=== PATIENT | female | born 1935 | race Caucasian/White ===

== ENCOUNTER 2017-11-27 16:11 | Inpatient (IN) | payer MEDICARE, OTHER ==
[~2017-11-27] VITALS: Ht 175.3 cm; Wt 78.6 kg
[~2017-11-27 16:11] MED LIST: AMBIEN5 MG PO; ASPIRIN BUFFER325 MG PO; AVAPRO300 MG PO; BIOTIN1 MG PO; BUMETANIDE1 MG PO; CELEXA40 MG PO; CLONIDINE HCL0.1 MG PO; FERROUS SULFAT325 MG; FERROUS SULFAT325 MG PO; LABETALOL HCL200 MG PO; LAMICTAL100 MG PO; MULTI-VITAMIN1 EACH PO; NEXIUM40 MG PO; NORCO 10-325 T1 EACH PO; NORCO 7.5-3251 EACH PO; NORVASC10 MG PO; PRISTIQ ER50 MG PO; SUPER B COMPLEX PO; TRAZODONE HCL100 MG PO; TRAZODONE HCL50 MG PO; TRILIPIX135 MG PO; ZOFRAN ODT4 MG PO; ZOLPIDEM TARTRA10 MG PO
[2017-11-27] MEDS: SODIUM CHLORIDE 0.9% 1000ML 1,000 ML IV SCH ×2 (17:08→23:02)
[2017-11-27] MEDS ORDERED: DILTIAZEM HCL 5 MG/ML 5 ML VIAL IV ONE (17:30)
[2017-11-27] MEDS ORDERED: DILTIAZEM HCL 5 MG/ML 5 ML VIAL IV STA (17:35)
[2017-11-27] MEDS ORDERED: IOPAMIDOL 370 MG/ML 200 ML INFUS..BTL INJ ONE (18:00)
[2017-11-27] MEDS ORDERED: ONDANSETRON HCL INJ 2 MG/ML VIAL IV PRN (18:45)
[2017-11-27] MEDS ORDERED: SODIUM CHLORIDE FLUSH 10 ML SYR INJ PRN (18:45)
[2017-11-27 19:45] VITALS: BP 136/79
[2017-11-27 20:00] VITALS: BP 136/79
[2017-11-27] MEDS ORDERED: ALBUTEROL/IPRATROPIUM 3 ML NEB NEB PRN (20:45)
[2017-11-27] MEDS ORDERED: AMIODARONE HCL 150MG 100 ML IV ONE (21:00)
[2017-11-27] MEDS: ENOXAPARIN INJ 80 MG/0.8 ML SYR SC SCH (21:26)
[2017-11-27 22:24] LABS: CREATINE KINASE MB 0.9 ng/mL (0-5.0)
[2017-11-27 22:34] VITALS: BP 141/99
[2017-11-27 22:40] VITALS: BP 158/112
[2017-11-27] MEDS ORDERED: AMIODARONE HCL 100 ML IV ONE (22:46)
[2017-11-27] MEDS ORDERED: AMIODARONE 900MG 500 ML IV ONE (22:46)
[2017-11-27] MEDS: AMIODARONE 900MG 500 ML IV PRN (23:15)
[2017-11-27 23:40] VITALS: BP 121/111
[2017-11-27 23:56] VITALS: BP 132/107
[2017-11-28] VITALS (49 sets, daily range): BP systolic 99–135; BP diastolic 70–111
--- NOTE | 2017-11-28 00:05 | History and Physical ---
PRIMARY CARE PHYSICIAN: Dr. Shelly Zaldivar CHIEF COMPLAINT: Shortness of breath for 3 days. HISTORY OF PRESENT ILLNESS: This is an 82-year-old woman with the history of hypertension, now developing shortness of breath for the past 2 days. Denies any chest pain. She did have 1 episode of diarrhea, found to be in atrial fibrillation with rapid ventricular response. She was admitted for further evaluation and management. PAST MEDICAL HISTORY: Hypertension, left breast cancer, status post partial radical mastectomy in 1998. Left wrist fracture, nasal fracture, facial contusion, bipolar disorder, immunodeficiency disorder, GERD, hypertriglyceridemia, hyperlipidemia. PAST SURGICAL HISTORY: Partial radical mastectomy in 1998, bilateral hip replacement, bilateral knee replacement. ALLERGIES: PER ELECTRONIC MEDICAL RECORDS. FAMILY HISTORY: Patient is . She has 2 children. Occasional alcohol. No cigarettes or illicits. MEDICATION: Per electronic medical record. REVIEW OF SYSTEMS: Denies any dizziness, chest pain. Denies any fever or chills, no nausea, vomiting or diarrhea. PHYSICAL EXAM VITAL SIGNS: Reviewed. GENERAL APPEARANCE: A tired-appearing woman resting in the bed. HEENT: Anicteric. Pupils responsive to light. No oral lesions. CARDIOVASCULAR: Normal S1, S2. Rapid heart rate. LUNGS: Moderate breath sounds. ABDOMEN: Soft, nontender, nondistended. EXTREMITIES: No edema or calf tenderness. NEUROLOGIC: She is alert and oriented times 3. She moves all extremities. SKIN: Dry. PSYCHIATRIC: Normal affect. LABS: Reviewed. MEDICATIONS: Reviewed. ASSESSMENT: This is an 82-year-old woman. 1. Atrial fibrillation with rapid ventricular response. 2. Bipolar disorder. 3. Hypertension. 4. Overweight state. 5. Hyperlipidemia. PLAN 1. Will continue with the amiodarone drip and will continue with anticoagulation. 2. Cardiology has been consulted. 3. Obtain TSH and urinalysis. 4. Use Pepcid while patient is on an anticoagulation. 5. Monitor closely in the ICU. CRITICAL CARE TIME: More than 35 minutes. Job#: [id number] CQ
[2017-11-28 05:37] LABS: CHOL/HDL RATIO 4.4 (3.0-3.6)
[2017-11-28 05:49] LABS: CREATINE KINASE MB 0.8 ng/mL (0-5.0)
[2017-11-28] MEDS ORDERED: METOPROLOL TARTRATE 25 MG TAB PO SCH (06:00)
[2017-11-28] MEDS: ENOXAPARIN INJ 80 MG/0.8 ML SYR SC SCH ×2 (06:54→18:13)
[2017-11-28] MEDS: AMIODARONE 900MG 500 ML IV PRN (07:00)
[2017-11-28] MEDS ORDERED: MORPHINE SULFATE 2 MG/ML SYR ONE (07:19)
[2017-11-28] MEDS: MORPHINE SULFATE 2 MG/ML SYR IV PRN (07:46)
[2017-11-28] MEDS: ASPIRIN 325 MG TAB EC PO SCH (08:21)
[2017-11-28] MEDS: CITALOPRAM HYDROBROMIDE 20 MG TAB PO SCH (08:21)
[2017-11-28] MEDS: FAMOTIDINE 20 MG TAB PO SCH ×2 (08:21→16:30)
[2017-11-28 08:56] LABS: BASOPHILS # (AUTO) 0.1 (0.0-0.1); BASOPHILS % 0.4 % (0.0-1.0); EOSINOPHILS # (AUTO) 0.3 (0.0-0.4); EOSINOPHILS % 2.3 % (0.0-6.0); HEMATOCRIT 36.4 % (34.2-44.1); HEMOGLOBIN 11.5 g/dL (12.0-16.0); LYMPHOCYTES # (AUTO) 1.8 (1.0-3.2); LYMPHOCYTES % 14.9 % (18.0-39.1); MEAN CORPUSCULAR HEMOGLOBIN 26.3 pg (28-32); MEAN CORPUSCULAR HGB CONC 31.6 g/dL (31-35); MEAN CORPUSCULAR VOLUME 83.3 fL (81-99); MONOCYTES # (AUTO) 1.2 (0.2-0.8); MONOCYTES % 9.6 % (4.4-11.3); NEUTROPHILS # (AUTO) 8.7 (2.1-6.9); NEUTROPHILS % 72.5 % (38.7-80.0); PLATELET COUNT 259 x10e3/uL (140-360); RED BLOOD COUNT 4.37 x10e6/uL (3.6-5.1)
[2017-11-28] MEDS: SODIUM CHLORIDE 0.9% 1000ML 1,000 ML IV SCH (09:02)
[2017-11-28 09:07] LABS: CALCIUM 8.8 mg/dL (8.4-10.2); CREATININE, SERUM 0.97 mg/dL (0.57-1.11)
[2017-11-28] MEDS ORDERED: DILTIAZEM HCL 120 MG CAP CD PO SCH (10:00)
[2017-11-28 10:30] LABS: FREE T4 (FREE THYROXINE) 1.02 ng/dL (0.9-1.8); FREE THYROXINE INDEX 2.1674 (1.4-3.8)
[2017-11-28] MEDS: IRBESARTAN 150 MG TAB PO SCH (10:45)
--- NOTE | 2017-11-28 11:08 | Diagnostic Imaging Report ---
PROCEDURE: A single AP view of the chest. COMPARISON: 05/06/14 INDICATIONS: SHORTNESS OF BREATH FINDINGS: Lines/tubes: None. Lungs: The lungs are well inflated. Pulmonary vascular congestion and mild to moderate interstitial edema. Pleura: There is no pleural effusion or pneumothorax. Heart and mediastinum: The cardiac silhouette is enlarged. Thickening of the right paratracheal stripe. Aorta is calcified and mildly tortuous. Bones: No acute bony abnormality. IMPRESSION: Enlarged cardiac silhouette, pulmonary vascular congestion, and mild to moderate interstitial edema. Dictated by: Rex Eldridge M.D. on 11/28/2017 at 11:11 Electronically approved by: Rex Eldridge M.D. on 11/28/2017 at 11:11
[2017-11-28] MEDS: IPRATROPIUM BROMIDE 0.02% 2.5 ML NEB NEB SCH ×3 (11:20→23:55)
[2017-11-28] MEDS: LEVALBUTEROL HCL SOLN NEBU 0.63 MG/3 ML NEB INH SCH ×3 (11:20→23:55)
--- NOTE | 2017-11-28 12:05 | Progress Note ---
DATE: November 28, 2017 TIME OF SERVICE: 7:30 a.m. OVERNIGHT: Abdominal discomfort and mild shortness of breath. REVIEW OF SYSTEMS: Denies any dizziness or chest pain. Denies any leg pain, back pain, or blurred vision. PHYSICAL EXAMINATION VITAL SIGNS: Reviewed. GENERAL APPEARANCE: Tired-appearing woman resting in bed. HEENT: Anicteric. Pupils responsive to light. No oral lesions. CARDIOVASCULAR: Normal S1, S2. Rapid heart rate. LUNGS: Moderate breath sounds. Scattered wheeze in her lung exam. ABDOMEN: Soft and nondistended. She has tenderness in the left lower quadrant. No rebound, no guarding. EXTREMITIES: No edema or calf tenderness. NEUROLOGIC: She is alert and oriented times 3. Moves all extremities. LABS: Reviewed. MEDICATIONS: Reviewed. ASSESSMENT: An 82-year-old woman with 1. Atrial fibrillation with rapid ventricular response. 2. Bipolar disorder. 3. Hypertension. 4. Overweight state. 5. Hyperlipidemia. 6. Abdominal pain. PLAN 1. Continue amiodarone drip. 2. Continue the attempts for rate control. 3. Given Xopenex for wheezing. 4. Abdominal discomfort may be due to constipation or medications. Will monitor. 5. Obtain labs this morning. CRITICAL CARE TIME: More than 35 minutes. Job#: [id number]
[2017-11-28 12:56] LABS: CREATINE KINASE MB 0.7 ng/mL (0-5.0)
[2017-11-28] MEDS: BECLOMETHASONE DIP 80MCG 7.3 GM INH INH SCH (14:55)
--- NOTE | 2017-11-28 15:12 | Consultation ---
DATE OF CONSULTATION: November 27, 2017 CARDIOLOGY CONSULTATION ATTENDING PHYSICIAN: Navid Buckley. CLINICAL HISTORY: This is an 82-year-old white woman referred by Dr. Navid Buckley for evaluation of rapid atrial fibrillation apparently of two days onset. This patient has history of cigarette smoking for approximately 30 years, but she has not smoked for 30 years. She was given ProAir approximately 6 to 12 months ago by her primary care physician, Dr. Petra Santamaria. She used it once a day and in the evening of Tuesday, she developed palpitations, but did not come to the emergency room until she presented to [facility] with rapid atrial fibrillation. She was transferred to [facility] for hospitalization. PAST MEDICAL HISTORY: Remarkable for hypertension. She denies any diabetes or hypercholesterolemia. There is a history of left breast cancer, status post left partial radical mastectomy in 1988. She has had indigestion, insomnia, anxiety, depression. PAST SURGERIES: Included right shoulder surgery, cholecystectomy, cataract surgery, partial radical mastectomy in 1998, bilateral hip replacement, bilateral knee replacement. ALLERGIES: NONE KNOWN. FAMILY HISTORY: She is . 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 She was a smoker for 30 years, but stopped smoking 30 years ago. She drinks occasionally. She had gone to college at [employer] in radio-television drama but never graduated. MEDICATIONS: Included amlodipine 10 mg per day, Bumex 1 mg p.o. daily, Nexium 40 mg daily, labetalol 200 mg b.i.d., zolpidem 5 mg p.o. daily, citalopram 40 mg p.o. daily, irbesartan 200 mg p.o. daily, trazodone 100 mg p.o. nightly. REVIEW OF SYSTEMS: Noncontributory. PHYSICAL EXAMINATION VITAL SIGNS: Remain stable except for irregular heart rate around 80 beats per minute. CARDIAC: Jugular veins were not distended. S1 S2 were regular. LUNGS: Showed diminished breath sounds. ABDOMEN: Soft. Bowel sounds are present. EXTREMITIES: Showed no cyanosis, clubbing, or edema. LABORATORY DATA: EKG showed atrial fibrillation, nonspecific T-wave inversion in the anterior leads low voltage. Chest x-ray showed cardiomegaly. The sodium is 139, potassium 4.0, BUN is 15, creatinine is 0.97. TSH is 2.05. White count is 12,000, hemoglobin 11.5, platelet count 259,000. IMPRESSION 1. Rapid atrial fibrillation possibly induced by ProAir, although she does have cardiomegaly on chest x-ray. 2. Abnormal EKG indicating possible anterior ischemia with low voltage. 3. Chronic obstructive pulmonary disease with no smoking for 30 years, but prior to that she smoked for 30 years. 4. Anxiety and depression. 5. Mild anemia, hemoglobin 11.5. 6. Hypertension. 7. Obesity. 8. History of left breast cancer 1994. RECOMMENDATION: Avoid beta agonist. Anticoagulation, amiodarone, echocardiogram, chest x-ray. Thank you very much. Job#: [id number] SARA cc:DR. PETRA BUCKLEY MD
[2017-11-28] MEDS: TRAZODONE HCL 50 MG TAB PO SCH (21:33)
[2017-11-29] VITALS (60 sets, daily range): BP systolic 97–144; BP diastolic 61–107
[2017-11-29] MEDS: IPRATROPIUM BROMIDE 0.02% 2.5 ML NEB NEB SCH ×3 (02:10→14:25)
[2017-11-29] MEDS: SODIUM CHLORIDE 0.9% 1000ML 1,000 ML IV SCH (04:12)
[2017-11-29] MEDS: ENOXAPARIN INJ 80 MG/0.8 ML SYR SC SCH ×2 (06:13→18:29)
[2017-11-29] MEDS: LEVALBUTEROL HCL SOLN NEBU 0.63 MG/3 ML NEB INH SCH ×3 (06:50→19:30)
[2017-11-29] MEDS: BECLOMETHASONE DIP 80MCG 7.3 GM INH INH SCH (06:50)
[2017-11-29 06:55] LABS: BASOPHILS # (AUTO) 0.1 (0.0-0.1); BASOPHILS % 0.4 % (0.0-1.0); EOSINOPHILS # (AUTO) 0.2 (0.0-0.4); EOSINOPHILS % 1.5 % (0.0-6.0); HEMOGLOBIN 11.6 g/dL (12.0-16.0); LYMPHOCYTES # (AUTO) 1.7 (1.0-3.2); LYMPHOCYTES % 14.2 % (18.0-39.1); MEAN CORPUSCULAR HEMOGLOBIN 26.4 pg (28-32); MEAN CORPUSCULAR HGB CONC 31.4 g/dL (31-35); MEAN CORPUSCULAR VOLUME 84.3 fL (81-99); MONOCYTES # (AUTO) 1.3 (0.2-0.8); MONOCYTES % 10.3 % (4.4-11.3); NEUTROPHILS # (AUTO) 8.9 (2.1-6.9); NEUTROPHILS % 73.3 % (38.7-80.0); PLATELET COUNT 254 x10e3/uL (140-360); RED BLOOD COUNT 4.39 x10e6/uL (3.6-5.1)
--- NOTE | 2017-11-29 07:07 | Diagnostic Imaging Report ---
PROCEDURE:X-RAY ABDOMEN - KUB COMPARISON:None. INDICATIONS:ABDOMINAL PAIN, NAUSEA AND VOMITING FINDINGS: The bowel gas pattern is nonobstructive. Gas and fecal material is noted throughout the colon. No mass effect or organomegaly. Multiple surgical clips in the right and left upper quadrants as well as along the pelvic sidewalls. Bilateral total hip arthroplasty. Degenerative changes of the lumbar spine. CONCLUSION: nonobstructive bowel gas pattern. Dictated by: Addi Mas M.D. on 11/29/2017 at 7:11 Electronically approved by: Addi Mas M.D. on 11/29/2017 at 7:11
[2017-11-29 07:12] LABS: ANION GAP 11.4 mmol/L (8-16); CALCIUM 8.9 mg/dL (8.4-10.2); CREATININE, SERUM 1.03 mg/dL (0.57-1.11); MAGNESIUM 2.3 MG/DL (1.3-2.1); POTASSIUM 4.4 mmol/L (3.5-5.1)
[2017-11-29] MEDS ORDERED: POTASSIUM CHLORIDE 10 MEQ TABCR PO SCH (09:00)
[2017-11-29] MEDS ORDERED: DILTIAZEM HCL 120 MG CAP CD PO SCH (09:00)
[2017-11-29] MEDS ORDERED: IRBESARTAN 300 MG PO SCH (09:00)
--- NOTE | 2017-11-29 09:05 | Cardiology Report ---
DATE OF STUDY: ECHOCARDIOGRAM M-MODE: Dilated left atrium. Normal left ventricular wall thickness. Diminished left ventricular contractility. Normal mitral and aortic valves. No pericardial effusion. SECTOR SCAN: Dilated left and right atria. Normal left ventricular wall thickness. Diminished left ventricular ejection fraction estimated at 20%. Mitral annular sclerosis. Normal aortic valve. Normal tricuspid valves. No pericardial effusion. CARDIAC DOPPLER STUDY WITH COLOR: Tricuspid regurgitation 2+. Pulmonary artery systolic pressure estimated at 41 mmHg. CONCLUSIONS 1. Severely diminished left ventricular contractility. Estimated ejection fraction 20%. 2. Dilated left atrium with atrial fibrillation. 3. Moderate tricuspid regurgitation with dilated right atrium with mild pulmonary hypertension. Pulmonary artery systolic pressure estimated at 41 mmHg. Job#: [id number]
[2017-11-29] MEDS: CITALOPRAM HYDROBROMIDE 20 MG TAB PO SCH (09:24)
[2017-11-29] MEDS: ASPIRIN 325 MG TAB EC PO SCH (09:24)
[2017-11-29] MEDS: FAMOTIDINE 20 MG TAB PO SCH ×2 (09:24→17:32)
[2017-11-29] MEDS: DIGOXIN INJ 0.25 MG/ML 2 ML AMP IV SCH ×3 (09:25→15:30)
[2017-11-29] MEDS: IRBESARTAN 150 MG TAB PO SCH (09:27)
[2017-11-29] MEDS: DILTIAZEM HCL 180 MG CAP CD PO SCH (09:30)
[2017-11-29] MEDS ORDERED: POTASSIUM CHLORIDE 20 MEQ TAB CR PO NR (09:30)
[2017-11-29] MEDS: FUROSEMIDE INJ 10 MG/ML 4 ML VIAL IV SCH ×3 (10:02→23:04)
[2017-11-29] MEDS: ZOLPIDEM TARTRATE 5 MG TAB PO PRN (21:12)
[2017-11-29] MEDS: TRAZODONE HCL 50 MG TAB PO SCH (21:12)
[2017-11-30] VITALS (26 sets, daily range): BP systolic 104–147; BP diastolic 54–91
[2017-11-30] MEDS: LEVALBUTEROL HCL SOLN NEBU 0.63 MG/3 ML NEB INH SCH ×4 (02:10→19:00)
[2017-11-30 05:21] LABS: ANION GAP 12.9 mmol/L (8-16); CALCIUM 8.9 mg/dL (8.4-10.2); CREATININE, SERUM 1.1 mg/dL (0.57-1.11); POTASSIUM 3.9 mmol/L (3.5-5.1)
[2017-11-30] MEDS: ENOXAPARIN INJ 80 MG/0.8 ML SYR SC SCH ×2 (06:31→18:06)
[2017-11-30] MEDS: IPRATROPIUM BROMIDE 0.02% 2.5 ML NEB NEB SCH ×2 (07:30→12:53)
[2017-11-30] MEDS: BECLOMETHASONE DIP 80MCG 7.3 GM INH INH SCH ×2 (07:30→12:07)
[2017-11-30] MEDS: CITALOPRAM HYDROBROMIDE 20 MG TAB PO SCH (09:00)
[2017-11-30] MEDS: POTASSIUM CHLORIDE 10 MEQ TABCR PO SCH (09:00)
[2017-11-30] MEDS: DIGOXIN 0.125 MG TAB PO SCH (09:00)
[2017-11-30] MEDS: IRBESARTAN 150 MG TAB PO SCH (09:00)
[2017-11-30] MEDS: FAMOTIDINE 20 MG TAB PO SCH ×2 (09:00→18:06)
[2017-11-30] MEDS: DILTIAZEM HCL 180 MG CAP CD PO SCH (09:00)
[2017-11-30] MEDS: FUROSEMIDE 40 MG TAB PO SCH (09:00)
[2017-11-30] MEDS ORDERED: POTASSIUM CHLORIDE 20 MEQ TAB CR PO ONE (09:15)
[2017-11-30] MEDS ORDERED: METOLAZONE 5 MG TAB PO ONE (09:30)
[2017-11-30] MEDS ORDERED: ACETAZOLAMIDE 500 MG CAP PO ONE (09:30)
[2017-11-30] MEDS ORDERED: ACETAZOLAMIDE 250 MG TAB PO ONE (09:30)
[2017-11-30 09:32] LABS: BILIRUBIN,URINE NEGATIVE (NEGATIVE); CLARITY,URINE CLEAR (CLEAR); COLOR,URINE YELLOW (YELLOW); KETONES,URINE NEGATIVE (NEGATIVE); LEUKOCYTE ESTERASE ,URINE NEGATIVE (NEGATIVE); NITRITE,URINE NEGATIVE (NEGATIVE); PROTEIN,URINE DIPSTICK NEGATIVE (NEGATIVE); URINE UROBILINOGEN 0.2 mg/dL (0.2 - 1)
[2017-11-30 09:40] LABS: EPITHELIAL CELLS,URINE FEW /LPF; MUCUS,URINE RARE (RARE); WBC,URINE (MAN) 0-5 /HPF (0-5)
--- NOTE | 2017-11-30 14:23 | Progress Note ---
DATE: November 29, 2017 MEDICINE PROGRESS NOTE TIME OF SERVICE: 7 a.m. SUBJECTIVE: Overnight, continues to have elevated heart rate. REVIEW OF SYSTEMS: Denies any dizziness, chest pain, shortness of breath. Denies any leg pain or back pain. VITAL SIGNS: Reviewed. PHYSICAL EXAMINATION GENERAL APPEARANCE: A tired-appearing woman resting in bed. HEENT: Anicteric. CARDIOVASCULAR: Normal S1/S2. Rapid heart rate. LUNGS: Moderate breath sounds. ABDOMEN: Soft, nontender, nondistended. EXTREMITIES: No edema or calf tenderness. NEUROLOGICALLY: Alert and oriented x3. Moving all extremities. SKIN: Dry. PSYCHIATRIC: Normal affect. LABS: Reviewed. MEDICATIONS: Reviewed. ASSESSMENT: An 82-year-old woman. 1. Atrial fibrillation with rapid ventricular response. 2. Bipolar disorder. 3. Hypertension. 4. Overweight state. 5. Hyperlipidemia. 6. Left lower quadrant abdominal pain. PLAN 1. Obtain KUB. 2. Continue amiodarone. TSH is normal. 3. Continue care in the ICU. Critical care time more than 35 minutes. Job#: [id number] EV
--- NOTE | 2017-11-30 14:46 | Progress Note ---
DATE: November 30, 2017 TIME OF SERVICE: 1:32 p.m. OVERNIGHT: No events. REVIEW OF SYSTEMS: 8-point system review negative. PHYSICAL EXAMINATION VITAL SIGNS: Reviewed. GENERAL APPEARANCE: A tired-appearing woman resting in bed. HEENT: Anicteric. CARDIOVASCULAR: Normal S1, S2. Rapid heart rate. LUNGS: Moderate breath sounds. ABDOMEN: Soft, nontender, nondistended. EXTREMITIES: No edema. SKIN: Dry. PSYCHIATRIC: Normal affect. LABS: Reviewed. MEDICATIONS: Reviewed. ASSESSMENT: An 82-year-old woman. 1. Atrial fibrillation with rapid ventricular response. 2. Hypertension. 3. Hyperlipidemia. 4. Overweight state. 5. Bipolar disorder. 6. Normocytic anemia. PLAN 1. Amiodarone drip has been off. Patient remains on diltiazem orally and digoxin. He will be transitioned to medical floor. 2. Continue Celexa. 3. Continue Lovenox q.12. 4. Continue rate control. 5. KUB was negative. Job#: [id number] EMILIA
[2017-11-30] MEDS: TRAZODONE HCL 50 MG TAB PO SCH (21:00)
[2017-11-30] MEDS: MORPHINE SULFATE 2 MG/ML SYR IV PRN (22:20)
[2017-12-01] VITALS (7 sets, daily range): BP systolic 112–149; BP diastolic 63–86
[2017-12-01] MEDS: ZOLPIDEM TARTRATE 5 MG TAB PO PRN ×2 (00:24→23:54)
[2017-12-01] MEDS: LEVALBUTEROL HCL SOLN NEBU 0.63 MG/3 ML NEB INH SCH ×5 (00:30→19:30)
[2017-12-01] MEDS: BECLOMETHASONE DIP 80MCG 7.3 GM INH INH SCH ×2 (06:15→06:30)
[2017-12-01 06:16] LABS: ANION GAP 11.6 mmol/L (8-16); CALCIUM 9.8 mg/dL (8.4-10.2); CREATININE, SERUM 1.08 mg/dL (0.57-1.11); POTASSIUM 3.6 mmol/L (3.5-5.1)
[2017-12-01] MEDS: ENOXAPARIN INJ 80 MG/0.8 ML SYR SC SCH ×2 (06:19→16:36)
[2017-12-01] MEDS: IPRATROPIUM BROMIDE 0.02% 2.5 ML NEB NEB SCH ×4 (06:30→19:30)
--- NOTE | 2017-12-01 08:32 | Progress Note ---
DATE: December 01, 2017 TIME: 7:45 a.m. OVERNIGHT: No events. REVIEW OF SYSTEMS: Denies any dizziness or chest pain. Denies any fever, chills, sweats, leg pain, back pain, skin rash. PHYSICAL EXAMINATION VITAL SIGNS: Reviewed. GENERAL: A tired-appearing woman resting in bed. HEENT: Anicteric. CARDIOVASCULAR: Normal S1 and S2. LUNGS: Moderate breath sounds. ABDOMEN: Soft and nontender. EXTREMITIES: No edema. SKIN: Dry. PSYCHIATRIC: Normal affect. LABS: Reviewed. MEDICATIONS: Reviewed. ASSESSMENT: An 83-year-old woman with: 1. Atrial fibrillation with rapid ventricular response. 2. Hypertension. 3. Hyperlipidemia. 4. Overweight state. 5. Bipolar disorder. 6. Normocytic anemia. PLAN 1. Will continue amiodarone. 2. Continue AV blocking agents. 3. Continue Celexa. 4. Continue Lovenox q.12 h. 5. The patient will need to be transitioned to an oral anticoagulant. Will defer to cardiology. Job#: [id number] DE
[2017-12-01] MEDS: FAMOTIDINE 20 MG TAB PO SCH ×2 (09:12→16:36)
[2017-12-01] MEDS: DILTIAZEM HCL 180 MG CAP CD PO SCH (09:13)
[2017-12-01] MEDS: CITALOPRAM HYDROBROMIDE 20 MG TAB PO SCH (09:13)
[2017-12-01] MEDS: FUROSEMIDE 40 MG TAB PO SCH (09:13)
[2017-12-01] MEDS: DIGOXIN 0.125 MG TAB PO SCH (09:13)
[2017-12-01] MEDS: POTASSIUM CHLORIDE 10 MEQ TABCR PO SCH (09:13)
[2017-12-01] MEDS: IRBESARTAN 150 MG TAB PO SCH (16:36)
[2017-12-01] MEDS: TRAZODONE HCL 50 MG TAB PO SCH (20:28)
[2017-12-02] VITALS (9 sets, daily range): BP systolic 114–129; BP diastolic 58–67
[2017-12-02] MEDS: LEVALBUTEROL HCL SOLN NEBU 0.63 MG/3 ML NEB INH SCH ×2 (00:30→06:55)
[2017-12-02 05:33] LABS: ANION GAP 14.7 mmol/L (8-16); CALCIUM 10.2 mg/dL (8.4-10.2); CREATININE, SERUM 1.31 mg/dL (0.57-1.11); POTASSIUM 3.7 mmol/L (3.5-5.1)
[2017-12-02] MEDS: ENOXAPARIN INJ 80 MG/0.8 ML SYR SC SCH (06:10)
[2017-12-02] MEDS: IPRATROPIUM BROMIDE 0.02% 2.5 ML NEB NEB SCH ×3 (06:55→22:45)
[2017-12-02 07:15] LABS: BASOPHILS % 0.3 % (0.0-1.0); EOSINOPHILS # (AUTO) 0.5 (0.0-0.4); EOSINOPHILS % 3.5 % (0.0-6.0); HEMATOCRIT 38.8 % (34.2-44.1); HEMOGLOBIN 12.6 g/dL (12.0-16.0); LYMPHOCYTES # (AUTO) 2.7 (1.0-3.2); LYMPHOCYTES % 19.2 % (18.0-39.1); MEAN CORPUSCULAR HEMOGLOBIN 26.7 pg (28-32); MEAN CORPUSCULAR HGB CONC 32.5 g/dL (31-35); MEAN CORPUSCULAR VOLUME 82.2 fL (81-99); MONOCYTES # (AUTO) 1.5 (0.2-0.8); MONOCYTES % 10.3 % (4.4-11.3); NEUTROPHILS # (AUTO) 9.4 (2.1-6.9); NEUTROPHILS % 66.3 % (38.7-80.0); PLATELET COUNT 288 x10e3/uL (140-360); RED BLOOD COUNT 4.72 x10e6/uL (3.6-5.1); RED CELL DISTRIBUTION WIDTH 15.8 % (11.7-14.4)
[2017-12-02] MEDS ORDERED: IRBESARTAN 150 MG TAB PO SCH (09:00)
--- NOTE | 2017-12-02 09:00 | Progress Note ---
DATE: December 02, 2017 TIME: 8:25 a.m. OVERNIGHT: Feeling better. REVIEW OF SYSTEMS: Denies any dizziness, chest pain. PHYSICAL EXAMINATION: VITAL SIGNS: Reviewed. GENERAL APPEARANCE: Tired-appearing woman resting in bed. HEENT: Anicteric. Pupils respond to light. No oral lesions. CARDIOVASCULAR: Normal S1 and S2. LUNGS: Moderate breath sounds. ABDOMEN: Soft, nontender, nondistended. EXTREMITIES: No edema or calf tenderness. NEUROLOGICAL: Alert and appropriate. Moving all extremities. SKIN: Dry. PSYCHIATRIC: Normal affect. LABS: Reviewed. MEDICATIONS: Reviewed. ASSESSMENT: An 82-year-old woman: 1. Atrial fibrillation with rapid ventricular response. 2. Hypertension. 3. Chronic kidney disease, stage 3. 4. Hyperlipidemia. 5. Overweight state. 6. Bipolar disorder. 7. Normocytic anemia. PLAN: 1. Continue medication regimen. 2. Continue AV blocking agents including amiodarone. 3. Continue Celexa. 4. Continue Lovenox q.12. 5. Will need to be transitioned to oral anticoagulant. 6. Discharge planning and likely home tomorrow. 7. Wean oxygen . Job#: [id number]
[2017-12-02] MEDS: FAMOTIDINE 20 MG TAB PO SCH ×2 (09:48→17:15)
[2017-12-02] MEDS: POTASSIUM CHLORIDE 10 MEQ TABCR PO SCH (09:49)
[2017-12-02] MEDS: CITALOPRAM HYDROBROMIDE 20 MG TAB PO SCH (09:49)
[2017-12-02] MEDS: DILTIAZEM HCL 180 MG CAP CD PO SCH (09:49)
[2017-12-02] MEDS: FUROSEMIDE 40 MG TAB PO SCH (09:50)
[2017-12-02] MEDS: DIGOXIN 0.125 MG TAB PO SCH (09:50)
[2017-12-02] MEDS: METOPROLOL TARTRATE 25 MG TAB PO SCH ×2 (09:50→17:15)
[2017-12-02] MEDS: RIVAROXABAN 20 MG TABLET PO SCH (17:15)
[2017-12-02] MEDS: TRAZODONE HCL 50 MG TAB PO SCH (20:27)
[2017-12-02] MEDS: ZOLPIDEM TARTRATE 5 MG TAB PO PRN (22:08)
[2017-12-03] VITALS (7 sets, daily range): BP systolic 107–122; BP diastolic 55–83
[2017-12-03] MEDS: IPRATROPIUM BROMIDE 0.02% 2.5 ML NEB NEB SCH ×3 (07:25→23:45)
[2017-12-03] MEDS: BECLOMETHASONE DIP 80MCG 7.3 GM INH INH SCH (07:25)
[2017-12-03] MEDS: METOPROLOL TARTRATE 25 MG TAB PO SCH ×2 (09:00→16:34)
[2017-12-03] MEDS: POTASSIUM CHLORIDE 10 MEQ TABCR PO SCH (09:19)
[2017-12-03] MEDS: FUROSEMIDE 40 MG TAB PO SCH (09:19)
[2017-12-03] MEDS: FAMOTIDINE 20 MG TAB PO SCH ×2 (09:19→16:34)
[2017-12-03] MEDS: DIGOXIN 0.125 MG TAB PO SCH (09:19)
[2017-12-03] MEDS: CITALOPRAM HYDROBROMIDE 20 MG TAB PO SCH (09:19)
[2017-12-03 10:42] LABS: ANION GAP 15.1 mmol/L (8-16); CALCIUM 10.4 mg/dL (8.4-10.2); CREATININE, SERUM 1.35 mg/dL (0.57-1.11); POTASSIUM 4.1 mmol/L (3.5-5.1)
[2017-12-03] MEDS ORDERED: SODIUM CHLORIDE 0.45% 1,000 ML IV ONE (13:15)
[2017-12-03] MEDS: ALPRAZOLAM 0.25 MG TAB PO PRN ×2 (13:50→23:34)
[2017-12-03] MEDS: DILTIAZEM HCL 180 MG CAP CD PO SCH (13:50)
[2017-12-03] MEDS: RIVAROXABAN 20 MG TABLET PO SCH (16:34)
[2017-12-03] MEDS: IPRATROPIUM BROMIDE 0.02% 2.5 ML NEB NEB PRN (19:00)
[2017-12-03] MEDS: TRAZODONE HCL 50 MG TAB PO SCH (21:05)
[2017-12-03] MEDS: ZOLPIDEM TARTRATE 5 MG TAB PO PRN (23:30)
[2017-12-04] VITALS (8 sets, daily range): BP systolic 106–137; BP diastolic 58–78
[2017-12-04 05:10] LABS: ANION GAP 12.9 mmol/L (8-16); CALCIUM 10.1 mg/dL (8.4-10.2); CREATININE, SERUM 1.2 mg/dL (0.57-1.11); POTASSIUM 3.9 mmol/L (3.5-5.1)
[2017-12-04] MEDS: BECLOMETHASONE DIP 80MCG 7.3 GM INH INH SCH (06:00)
[2017-12-04] MEDS: IPRATROPIUM BROMIDE 0.02% 2.5 ML NEB NEB SCH ×3 (06:54→23:45)
[2017-12-04] MEDS: FAMOTIDINE 20 MG TAB PO SCH ×2 (08:19→16:24)
[2017-12-04] MEDS: DIGOXIN 0.125 MG TAB PO SCH (08:20)
[2017-12-04] MEDS: FUROSEMIDE 20 MG TAB PO SCH (08:20)
[2017-12-04] MEDS: METOPROLOL TARTRATE 25 MG TAB PO SCH ×2 (08:20→16:24)
[2017-12-04] MEDS: POTASSIUM CHLORIDE 10 MEQ TABCR PO SCH (08:20)
[2017-12-04] MEDS: DILTIAZEM HCL 180 MG CAP CD PO SCH (08:20)
[2017-12-04] MEDS: IRBESARTAN 150 MG TAB PO SCH (08:20)
[2017-12-04] MEDS: CITALOPRAM HYDROBROMIDE 20 MG TAB PO SCH (08:20)
[2017-12-04] MEDS ORDERED: FUROSEMIDE 40 MG TAB PO SCH (09:00)
[2017-12-04] MEDS ORDERED: DILTIAZEM 24HR180 MG PO (11:35)
[2017-12-04] MEDS ORDERED: FUROSEMIDE20 MG PO (11:35)
[2017-12-04] MEDS ORDERED: K DUR10 MEQ PO (11:35)
[2017-12-04] MEDS ORDERED: DIGOXIN125 MCG PO (11:35)
[2017-12-04] MEDS ORDERED: BECLOMETHASONE DIP INH (11:35)
[2017-12-04] MEDS ORDERED: AVAPRO150 MG PO (11:35)
[2017-12-04] MEDS ORDERED: XARELTO10 MG PO (11:35)
[2017-12-04] MEDS ORDERED: LOPRESSOR25 MG PO (11:35)
[2017-12-04] MEDS ORDERED: ATROVENT HFA12.9 GM IH (11:35)
[2017-12-04] MEDS: RIVAROXABAN 20 MG TABLET PO SCH (16:24)
--- NOTE | 2017-12-04 16:53 | Discharge Summary ---
PRINCIPAL DIAGNOSES 1. Atrial fibrillation with rapid ventricular response. 2. Hypertension. 3. Chronic kidney disease, stage 3. 4. Hyperlipidemia. 5. Overweight state. 6. Bipolar disorder. 7. Normocytic anemia. SECONDARY DIAGNOSES 1. Hypertension. 2. Left breast cancer. 3. Status post radical mastectomy in 1998. 4. Left wrist fracture. 5. Nasal fracture. 6. Facial contusion. 7. Bipolar disorder. 8. Immunodeficiency disorder. 9. Gastroesophageal reflux disease. 10. Hypertriglyceridemia. 11. Hyperlipidemia. 12. Bilateral hip replacement. 13. Bilateral knee replacement. CHIEF COMPLAINT: Shortness of breath times 3 days. HPI: This 82-year-old woman with a history of hypertension developed shortness of breath for 2 days, denying any chest pain. On day 3, she had one episode of diarrhea and was found to be in AFib with RVR after notifying emergency response. She was brought to [facility] for evaluation. Upon evaluation, the patient was admitted to the ICU with amiodarone drip and anticoagulation was initiated with cardiology consult. Workup and critical care was provided. The patient was subsequently transferred to telemetry monitoring within 2 days. At that time, the patient was transitioned to diltiazem orally and Dig for rate control. Amiodarone drip was discontinued. Anticoagulation continued with subcutaneous Lovenox. On December 01, 2017, the patient continued with AV blocking agents, and was found to be in rate control. Was initially dosed with oral anticoagulant of Xarelto per cardiology. On December 03, 2017, the patient demonstrated stable telemetry rate, and was able to participate in OT evaluation at which time no significant drop was noted upon exertion. On this date, the patient is noted to be stable and verbalizing a desire to go home now that she is on oral anticoagulation and rate controlled. DISCHARGE MEDICATIONS 1. Digoxin 0.125 mg p.o. in the morning. 2. Diltiazem 180 mg p.o. in the morning. 3. Lasix 20 mg p.o. q.a.m. 4. Ten mEq of potassium chloride in the a.m. 5. Avapro 75 mg p.o. daily. 6. Metoprolol 25 mg twice daily. 7. Xarelto 10 mg tabs times 2 of 20 mg p.o. once daily in the afternoon. 8. Qvar inhaler once daily. 9. P.r.n. Atrovent inhaler q.6 h. as needed for shortness of breath. 10. Celexa 40 mg tablets daily. 11. Nexium 40 mg cap once daily. 12. Trazodone 100 mg p.o. at night. 13. Ambien 10 mg at night. FOLLOWUP: The patient will need to contact PCP, Dr. Migdalia Zaldivar within 5-7 days for appointment. Follow up with cardiology, Dr. Hitchcock, in 5-7 days for an appointment. CONDITION ON DISCHARGE: The patient is stable. Ambulating with walker. Vital signs are 97.5, P 69, respirations 18, BP 121/67. Home health choice has been noted on the signed form on the front of the chart in addition to failing O2 saturation needs for home discharge. Case management notified of choice. DICTATED BY DEMETRIO MALIK NP JOSE JUAN BUCKLEY MD Job#: [id number] MA
[2017-12-04] MEDS: IPRATROPIUM BROMIDE 0.02% 2.5 ML NEB NEB PRN (19:50)
[2017-12-04] MEDS: TRAZODONE HCL 50 MG TAB PO SCH (20:22)
[2017-12-04] MEDS: ZOLPIDEM TARTRATE 5 MG TAB PO PRN (22:00)
[2017-12-05] VITALS: BP 119/58
[2017-12-05 04:00] VITALS: BP 122/65
[2017-12-05] MEDS: BECLOMETHASONE DIP 80MCG 7.3 GM INH INH SCH (06:00)
[2017-12-05] MEDS: IPRATROPIUM BROMIDE 0.02% 2.5 ML NEB NEB SCH ×2 (07:00→15:00)
[2017-12-05 07:44] VITALS: BP 123/71
[2017-12-05 08:00] VITALS: BP 123/71
[2017-12-05] MEDS: FAMOTIDINE 20 MG TAB PO SCH ×2 (08:02→16:52)
[2017-12-05] MEDS: CITALOPRAM HYDROBROMIDE 20 MG TAB PO SCH (08:02)
[2017-12-05] MEDS: IRBESARTAN 150 MG TAB PO SCH (08:02)
[2017-12-05] MEDS: DILTIAZEM HCL 180 MG CAP CD PO SCH (08:02)
[2017-12-05] MEDS: POTASSIUM CHLORIDE 10 MEQ TABCR PO SCH (08:03)
[2017-12-05] MEDS: DIGOXIN 0.125 MG TAB PO SCH (08:03)
[2017-12-05] MEDS: METOPROLOL TARTRATE 25 MG TAB PO SCH ×2 (08:03→16:52)
[2017-12-05] MEDS: FUROSEMIDE 20 MG TAB PO SCH (08:03)
--- NOTE | 2017-12-05 08:52 | Progress Note ---
DATE: December 05, 2017 TIME: 8:29 a.m. OVERNIGHT: Remained in hospital due to need for skilled facility. Overnight, she had some shortness of breath. REVIEW OF SYSTEMS: Denies any dizziness, chest pain, headache, blurred vision. No leg pain, back pain. PHYSICAL EXAMINATION: VITAL SIGNS: Have been reviewed. GENERAL APPEARANCE: Tired-appearing woman resting in bed. HEENT: Anicteric. CARDIOVASCULAR: Normal S1 and S2. LUNGS: Moderate breath sounds. ABDOMEN: Soft, nontender, nondistended. EXTREMITIES: No edema or calf tenderness. NEUROLOGICAL: Alert and appropriate. She moves all extremities. SKIN: Dry. PSYCHIATRIC: Flat affect. LABS: Reviewed. MEDICATIONS: Reviewed. ASSESSMENT: An 82-year-old woman: 1. Atrial fibrillation with rapid ventricular response. 2. Hypertension. 3. Chronic kidney disease, stage 3. 4. Hyperlipidemia. 5. Overweight state. 6. Bipolar disorder. 7. Normocytic anemia. PLAN: 1. Continue medication regimen. 2. Continue AV blocking agents. 3. Continue Xarelto. 4. Patient complained of shortness of breath, will obtain a chest x-ray this morning. 5. Skilled facility placement evaluation. Job#: [id number]
--- NOTE | 2017-12-05 12:05 | Diagnostic Imaging Report ---
PROCEDURE: Frontal and lateral views of the chest. COMPARISON: 11/28/17 INDICATIONS: SHORTNESS OF BREATH FINDINGS: Lines/tubes: None. Lungs: The lungs are well inflated. Mild pulmonary vascular congestion and possible interstitial edema, improved from prior exam. Pleura: There is no pleural effusion or pneumothorax. Heart and mediastinum: The cardiac silhouette is prominent. Aorta is mildly calcified and tortuous. Bones: No acute bony abnormality. Again seen a right shoulder arthroplasty. Degenerative changes of thoracic spine. IMPRESSION: Mild pulmonary vascular congestion and possible mild interstitial edema, improved from prior exam. Dictated by: Rex Eldridge M.D. on 12/05/2017 at 12:09 Electronically approved by: Rex Eldridge M.D. on 12/05/2017 at 12:09
[2017-12-05] MEDS: RIVAROXABAN 20 MG TABLET PO SCH (16:52)
[2017-12-05 17:06] VITALS: BP 120/66
[2017-12-05] MEDS ORDERED: MELATONIN 5 MG TABLET PO SCH ×3 (21:00)
[2017-12-05] MEDS ORDERED: MELATONIN 3 MG TAB PO SCH ×2 (21:00)
== END 2017-12-05 18:30 | DRG 308 ==
LOC: FSED 16:11 → ERHOLD 18:35 → MED/SURG2 20:04 → ICU 22:26 → MED/SURG3 11-30 16:00
PROVIDERS: ADMIT Internal Medicine; ATTEND Internal Medicine
DX: I48.91 Unspecified atrial fibrillation (principal); I50.23 Acute on chronic systolic (congestive) heart failure; I13.0 Hypertensive heart and chronic kidney disease with heart failure and stage 1 through stage 4 chronic kidney disease, or unspecified chronic kidney disease; D84.9 Immunodeficiency, unspecified; N18.3 Chronic kidney disease, stage 3 (moderate); E78.5 Hyperlipidemia, unspecified; F31.9 Bipolar disorder, unspecified; Z96.643 Presence of artificial hip joint, bilateral; Z96.653 Presence of artificial knee joint, bilateral; E78.1 Pure hyperglyceridemia; K21.9 Gastro-esophageal reflux disease without esophagitis; Z87.891 Personal history of nicotine dependence; D64.9 Anemia, unspecified; E66.9 Obesity, unspecified; Z68.25 Body mass index [BMI] 25.0-25.9, adult; J44.9 Chronic obstructive pulmonary disease, unspecified; I27.20 Pulmonary hypertension, unspecified; F41.9 Anxiety disorder, unspecified
CPT/HCPCS: 36415; 71045; 71046; 74018; 74177; 80048; 80053; 80061; 81001; 82550; 82553; 82948; 83605; 83735; 83880; 84436; 84439; 84443; 84479; 84481; 84484; 85025; 85610; 93005; 93306; 94640; 96361; 97139; 99284; J1160; J1650; J1940; J2270; J2405; J7030; Q9967

== ENCOUNTER 2018-06-09 17:18 | Inpatient (IN) | payer MEDICARE, OTHER ==
[~2018-06-09] VITALS: Ht 175.3 cm; Wt 77.7 kg
[2018-06-09] MEDS: AZITHROMYCIN 500MG/NS 250 ML 250 ML IV SCH
[2018-06-09] MEDS: AZTREONAM 1 GM/NS 50 ML 50 ML IV SCH (01:35)
[~2018-06-09 17:18] MED LIST changes: +ATROVENT HFA12.9 GM IH; +AVAPRO150 MG PO; +BECLOMETHASONE DIP INH; +DIGOXIN125 MCG PO; +DILTIAZEM 24HR180 MG PO; +FUROSEMIDE20 MG PO; +K DUR10 MEQ PO; +LOPRESSOR25 MG PO; +XARELTO10 MG PO
--- OUTSIDE RECORDS SUMMARY | 2018-06-09 17:23 | XMS REPORT ---
[facility] Address Unknown Phone Unavailable Care Team Providers Care Global Position System Technician Name Role Phone JOSE JUAN BUCKLEY Unavailable Unavailable Payers Payer Name Policy Type Policy Number Effective Date Expiration Date Problems This patient has no known problems. Allergies, Adverse Reactions, Alerts Allergy Name Allergy Type Status Severity Reaction(s) Onset Date Inactive Date Treating Clinician Comments oxycodone HCl DA Active 2011-12-28 00:00:00 propoxyphene HCl DA Active SD 2011-12-28 00:00:00 Penicillins DA Active SD 2011-12-28 00:00:00 codeine DA Active SD 2011-12-28 00:00:00 Medications This patient has no known medications. Results Test Description Test Time Test Comments Text Results Atomic Results Result Comments CHEST 2 VIEWS 2017-12-05 12:09:00 [place] [id number] Patient Name: KIRAN RICKS MR #: [id number] : 1935 Age/Sex: 82/F Req #: [id number] Adm Physician: JOSE JUAN BUCKLEY MD Ordered by: JOSE JUAN BUCKLEY MD Report #: [id number] Location: MED/SURG3 Room/Bed: [facility] Procedure: DX/CHEST 2 VIEWS Exam Date: 12/05/17 Exam Time: 1120 REPORT STATUS: Signed PROCEDURE: Frontal and lateral views of the chest. COMPARISON: 11/28/17 INDICATIONS: SHORTNESS OF BREATH FINDINGS: Lines/tubes: None. Lungs: The lungs are well inflated. Mild pulmonary vascular congestion and possible interstitial edema, improved from prior exam. Pleura: There is no pleural effusion or pneumothorax. Heart and mediastinum: The cardiac silhouette is prominent. Aorta is mildly calcified and tortuous. Bones: No acute bony abnormality. Again seen a right shoulder arthroplasty. Degenerative changes of thoracic spine. IMPRESSION: Mild pulmonary vascular congestion and possible mild interstitial edema, improved from prior exam. Dictated by: Rex Christian M.D. on 12/05/2017 at 12:09 Electronically approved by: Rex Christian M.D. on 12/05/2017 at 12:09 Dictated By: REX CHRISTIAN MD [id number] Transcribed By: ALEX on 12/05/17 1209 COPY TO: JOSE JUAN BUCKLEY MD [facility] (KUB) 2017-11-29 07:11:00 [place] [address] Patient Name: KIRAN RICKS MR #: [id number] : 1935 Age/Sex: 82/F Req #: [id number] Adm Physician: JOSE JUAN BUCKLEY MD Ordered by: JOSE JUAN BUCKLEY MD Report #: [id number] Location: ICU Room/Bed: ICU 191 Procedure: DX/ABDOMEN- 1VIEW (KUB) Exam Date: 11/29/17 Exam Time: 0645 REPORT STATUS: Signed PROCEDURE: X-RAY ABDOMEN - KUB COMPARISON: None. INDICATIONS: ABDOMINAL PAIN, NAUSEA AND VOMITING FINDINGS: The bowel gas pattern is nonobstructive. Gas and fecal material is noted throughout the colon. No mass effect or organomegaly. Multiple surgical clips in the right and left upper quadrants as well as along the pelvic sidewalls. Bilateral total hip arthroplasty. Degenerative changes of the lumbar spine. CONCLUSION: nonobstructive bowel gas pattern. Dictated by: Florecita Sahni M.D. on 11/29/2017 at 7:11 Electronically approved by: Florecita Sahni M.D. on 11/29/2017 at 7:11 Dictated By: FLORECITA SAHNI MD 0 Transcribed By: ALEX on 11/29/17710 COPY TO: JOSE JUAN BUCKLEY MD CHEST SINGLE (PORTABLE) 2017-11-28 11:11:00 [place] [address] Patient Name: KIRAN RICKS MR #: [id number] : 1935 Age/Sex: 82/F Req #: [id number] Adm Physician: JOSE JUAN BUCKLEY MD Ordered by: BEVERLY CHAN MD Report #: [id number] Location: ICU Room/Bed: [place] [address] Procedure: [id number] DX/CHEST SINGLE (PORTABLE) Exam Date: 11/28/17 Exam Time: 1000 REPORT STATUS: Signed PROCEDURE: A single AP view of the chest. COMPARISON: 05/06/14 INDICATIONS: SHORTNESS OF BREATH FINDINGS: Lines/tubes: None. Lungs: The lungs are well inflated. Pulmonary vascular congestion and mild to moderate interstitial edema. Pleura: There is no pleural effusion or pneumothorax. Heart and mediastinum: The cardiac silhouette is enlarged. Thickening of the right paratracheal stripe. Aorta is calcified and mildly tortuous. Bones: No acute bony abnormality. IMPRESSION: Enlarged cardiac silhouette, pulmonary vascular congestion, and mild to moderate interstitial edema. Dictated by: Rex Christian M.D. on 11/28/2017 at 11:11 Electronically approved by: Rex Christian M.D. on 11/28/2017 at 11:11 Dictated By: REX CHRISTIAN MD 1111 Transcribed By: ALEX on 11/28/17 1111 COPY TO: BEVERLY CHAN MD
--- OUTSIDE RECORDS SUMMARY | 2018-06-09 17:23 | XMS REPORT | CCD ---
Author Author Auto Generated Organization [facility] Address Unknown Phone Unavailable Care Team Providers Care Recep Name Role Phone Tonia Aguilar I PP Vikram Soler CP Allergies, Adverse Reactions, Alerts Substance Reaction Status codeine Active Darvon Active oxyCODONE Active penicillins Active Problem List Condition Effective Dates Status Accidental fall1 05/13/2012 Active Arthritis Resolved Breast cancer Resolved Hip replacement 05/14/2012 Active Hypertension Resolved Mastectomy of left breast Resolved Short of breath on exertion Resolved Stress incontinence Resolved Uterine cancer Resolved 1Fractured left hip Medications Medication Instructions Start Date End Date Status labetalol 5 mg, 1 mL, Route: IVP, Drug form: 05/14/2012 05/14/2012 Discontinued INJ, Q5Min, Dosing Weight 72.727, kg, PRN Elevated BP, Start date: 05/14/12 12:13:00, Duration: 5 doses or times, Stop date: Limited # of times esmolol IV Push 10 mg, 1 mL, Route: IVP, Drug form: 05/14/2012 05/14/2012 Discontinued INJ, Q5Min, Dosing Weight 72.727, kg, PRN Elevated BP, Start date: 05/14/12 12:13:00, Duration: 5 doses or times, Stop date: Limited # of times ondansetron 4 mg, 2 mL, Route: IVP, Drug form: 05/14/2012 05/14/2012 Discontinued INJ, ONCE, Dosing Weight 72.727, kg, PRN Nausea & Vomiting, Start date: 05/14/12 12:13:00 promethazine + 6.25 mg, 0.25 mL, Route: IVPB, 05/14/2012 05/14/2012 Discontinued Sodium Chloride 0.9% ONCE, Dosing Weight 72.727, kg, PRN IV 50 mL Nausea & Vomiting, Start date: 05/14/12 12:13:00 hydromorphone 0.5 mg, 0.25 mL, Route: IVP, Drug 05/14/2012 05/14/2012 Discontinued form: INJ, Q5Min, Dosing Weight 72.727, kg, PRN Pain Score 4-6, Start date: 05/14/12 12:13:00, Duration: 5 doses or times, Stop date: Limited # of times fentanyl 25 microgram, 0.5 mL, Route: IVP, 05/14/2012 05/14/2012 Discontinued Drug form: INJ, Q5Min, Dosing Weight 72.727, kg, PRN Pain Score 4-6, Start date: 05/14/12 12:13:00, Duration: 4 doses or times, Stop date: Limited # of times flumazenil 0.2 mg, 2 mL, Route: IVP, Drug 05/14/2012 05/14/2012 Discontinued form: INJ, PRN, Dosing Weight 72.727, kg, PRN Benzodiazepine Reversal, Initial dose, Start date: 05/14/12 12:13:00, Duration: 30 day, Stop date: 06/13/12 12:12:00 naloxone 0.04 mg, 0.1 mL, Route: IVP, Drug 05/14/2012 05/14/2012 Discontinued form: INJ, Q2MIN, Dosing Weight 72.727, kg, PRN Narcotic Reversal, Start date: 05/14/12 12:13:00, Duration: 8 doses or times, Stop date: Limited # of times acetaminophen-hydroc 2 tab, Route: PO, Drug Form: TAB, 05/14/2012 05/14/2012 Discontinued odone 325 mg-5 mg Dosing Weight 72.727, kg, Q4H, PRN oral tablet Pain Score 4-6, Start date: 05/14/12 12:13:00, Duration: 30 day, Stop date: 06/13/12 12:12:00 hydrALAZINE 5 mg, 0.25 mL, Route: IVP, Drug 05/14/2012 05/14/2012 Discontinued form: INJ, Q5Min, Dosing Weight 72.727, kg, PRN Elevated BP, Start date: 05/14/12 12:13:00, Duration: 4 doses or times, Stop date: Limited # of times acetaminophen-hydroc 1 tab, Route: PO, Drug Form: TAB, 05/14/2012 05/14/2012 Discontinued odone 325 mg-5 mg Dosing Weight 72.727, kg, Q4H, PRN oral tablet Pain Score 1-3, Start date: 05/14/12 12:13:00, Duration: 30 day, Stop date: 06/13/12 12:12:00 Lactated Ringers IV 1,000 mL, Rate: 100 ml/hr, Infuse 05/14/2012 05/16/2012 Discontinued 1,000 mL over: 10 hr, Route: IV, kg, Total Volume: 1,000, Start date: 05/14/12 16:22:00, Duration: 30 day, Stop date: 06/13/12 16:21:00 enoxaparin 30 mg, 0.3 mL, Route: SUB-Q, Drug 05/14/2012 05/17/2012 Discontinued form: INJ, [id number], Dosing Weight 72.727, kg, Start date: 05/14/12 7:35:00, Duration: 30 day, Stop date: 06/12/12 19:35:00, Give first dose 12 hours after surgery Give first dose 12 hours after surgery HOLD LOVENOX ON HOLD LOVENOX ON 05/14/12 PER 05/13/2012 05/17/2012 Completed 05/14/[address] LEIGH'S ORDERS, 1 CONT, Drug LU'S ORDERS form: MISC, Route: SUB-Q, Continuous, 05/13/12 11:00:00, Stop date: 05/15/12 0:00:00 Deep Sea Nasal [place] 1 spray, Route: NASAL, PRN, Drug 05/15/2012 05/17/2012 Discontinued form: SOLN, PRN Nasal dryness, Start date: 05/15/12 14:49:00, Duration: 30 day, Stop date: 06/14/12 14:48:00 vancomycin 1 gm, 200 mL, Route: IVPB, Drug 05/13/2012 05/14/2012 Completed form: INJ, ONCALL, Start date: 05/13/12 11:00:00, Duration: 1 doses or times Ambien 5 mg, 1 tab, Route: PO, Drug form: 05/13/2012 05/17/2012 Discontinued TAB, Bedtime, Dosing Weight 72.727, kg, PRN as needed for sleep, Start date: 05/13/12 19:35:00, Duration: 30 day, Stop date: 06/12/12 19:34:00 Co-Q10 200 mg, Route: PO, Drug form: CAP, 05/14/2012 05/13/2012 Deleted Daily, Dosing Weight 72.727, kg, Start date: 05/14/12 9:00:00, Duration: 30 day, Stop date: 06/12/12 9:00:00 trazodone 100 mg 100 mg, 1 tab, Route: PO, Drug 05/13/2012 05/17/2012 Discontinued oral tablet form: TAB, Bedtime, Dosing Weight 72.727, kg, Start date: 05/13/12 21:00:00, Duration: 30 day, Stop date: 06/11/12 21:00:00 pantoprazole 40 mg, Route: IVP, Drug form: INJ, 05/14/2012 05/17/2012 Discontinued Daily, Dosing Weight 72.727, kg, Priority: Routine, Start date: 05/14/12 9:00:00, Duration: 30 day, Stop date: 06/12/12 9:00:00 docusate 100 mg, 1 cap, Route: PO, Drug 05/13/2012 05/17/2012 Discontinued form: CAP, BID, Dosing Weight 72.727, kg, Start date: 05/13/12 17:00:00, Duration: 30 day, Stop date: 06/12/12 9:00:00 ondansetron 4 mg, 2 mL, Route: IVP, Drug form: 05/13/2012 05/17/2012 Discontinued INJ, Q6H, Dosing Weight 72.727, kg, PRN Nausea & Vomiting, Start date: 05/13/12 9:12:00, Duration: 30 day, Stop date: 06/12/12 9:11:00 Dilaudid 1 mg, 1 mL, Route: IV, Drug form: 05/13/2012 05/17/2012 Discontinued SOLN, Q4H, Dosing Weight 72.727, kg, PRN as needed for pain, Priority: STAT, Start date: 05/13/12 9:12:00, Duration: 30 day, Stop date: 06/12/12 9:11:00 Calcium 600 +D oral 1 tab, PO, BID, 270 tab, 05/13/2012 Suspended tablet Substitution Allowed, Maintenance, TAB Centrum Silver oral 1 tab, PO, Daily, 30 tab, 05/13/2012 05/13/2012 Discontinued tablet Substitution Allowed, Maintenance, TAB Trilipix 135 mg oral 135 mg, 1 cap, PO, Daily, 30 cap, 05/13/2012 05/13/2012 Discontinued delayed release Substitution Allowed, ECCAP capsule lamotrigine 100 mg 100 mg, 1 tab, Route: PO, Drug 05/14/2012 05/17/2012 Discontinued oral tablet form: TAB, Daily, Dosing Weight 72.727, kg, Start date: 05/14/12 9:00:00, Duration: 30 day, Stop date: 06/12/12 9:00:00 labetalol 200 mg, 1 tab, Route: PO, Drug 05/13/2012 05/17/2012 Discontinued form: TAB, Q12H, Dosing Weight 72.727, kg, Start date: 05/13/12 21:00:00, Duration: 30 day, Stop date: 06/12/12 9:00:00 Avapro 300 mg, 2 tab, Route: PO, Drug 05/14/2012 05/17/2012 Discontinued form: TAB, Daily, Dosing Weight 72.727, kg, Start date: 05/14/12 9:00:00, Duration: 30 day, Stop date: 06/12/12 9:00:00 morphine Sulfate 4 mg, Route: IVP, Drug form: INJ, 05/13/2012 05/13/2012 Completed ONCE, Dosing Weight 72.727, kg, Priority: STAT, Start date: 05/13/12 4:48:00, Stop date: 05/13/12 4:48:00 [place] 10/325 oral 1 tab, PO, BID, PRN, 24 tab, for 05/13/2012 Suspended tablet pain, Substitution Allowed, Maintenance lamotrigine 100 mg 100 mg, 1 tab, PO, Daily, 60 tab, 05/13/2012 Suspended oral tablet Substitution Allowed, TAB Pt's own med Pt's own med CO-Q10 Pt's own med 05/14/2012 05/17/2012 Discontinued CO-Q10 Pt's own med , 200 mg, Drug form: MISC, Route: PO, Daily, 05/14/12 9:00:00, Duration: 30 day, Stop date: 06/12/12 9:00:00 amLODipine 5 mg oral 5 mg, 1 tab, PO, Daily, 30 tab, 05/13/2012 Suspended tablet Substitution Allowed, TAB albuterol 0.083% 2.5 mg, 3.01 mL, Route: INHALATION, 05/14/2012 05/17/2012 Discontinued inhalation solution Drug form: SOLN, PRN, Dosing Weight 72.727, kg, PRN Respiratory Protocol, Start date: 05/14/12 13:16:00, Duration: 30 day, Stop date: 06/13/12 13:15:00 Pristiq 50 mg oral 50 mg, 1 tab, PO, Daily, 30 tab, 05/13/2012 Suspended tablet, extended Substitution Allowed, ERTAB release Bumex 1 mg oral 1 mg, 1 tab, PO, Daily, 30 tab, 05/13/2012 Suspended tablet Substitution Allowed, TAB Levaquin 500 mg oral 500 mg, PO, Every Other Day, 05/13/2012 05/13/2012 Discontinued tablet Substitution Allowed, TAB Dilaudid 1 mg, 1 mL, Route: IVP, Drug form: 05/13/2012 05/13/2012 Completed SOLN, ONCE, Dosing Weight 72.727, kg, Priority: STAT, Start date: 05/13/12 8:15:00, Stop date: 05/13/12 8:15:00 sulfamethoxazole-tri 1 tab, PO, Every Other Day, 05/13/2012 05/13/2012 Discontinued methoprim 800 mg-160 Substitution Allowed, Maintenance, mg oral tablet TAB 4 Way Saline nasal Route: NASAL, PRN, PRN Nasal 05/15/2012 05/15/2012 Deleted spray dryness, Start date: 05/15/12 14:30:00, Duration: 30 day, Stop date: 06/14/12 14:29:00 Pt's own med Pt's own med DESVENLAFAXINE 05/14/2012 05/17/2012 Discontinued DESVENLAFAXINE (PRISTIQ) Pt's own med, 50 mg, (PRISTIQ) Pt's own Drug form: MISC, Route: PO, Daily, med 05/14/12 9:00:00, Duration: 30 day, Stop date: 06/12/12 9:00:00 trazodone 100 mg 100 mg, 1 tab, PO, Bedtime, 270 05/13/2012 Suspended oral tablet tab, Substitution Allowed, TAB citalopram 40 mg 40 mg, 1 tab, PO, Daily, 30 tab, 05/13/2012 Suspended oral tablet Substitution Allowed, TAB Avapro 300 mg oral 300 mg, 1 tab, PO, Daily, 30 tab, 05/13/2012 Suspended tablet Substitution Allowed Lasix 10 mg, 1 mL, Route: IV, Drug form: 05/15/2012 05/15/2012 Completed INJ, ONCALL, Start date: 05/15/12 8:00:00, Duration: 2 doses or times Ambien 5 mg oral 5 mg, 1 tab, PO, Bedtime, PRN, for 05/13/2012 Suspended tablet sleep, Substitution Allowed, TAB Nexium 40 mg oral 40 mg, 1 cap, PO, Daily, 30 cap, 05/13/2012 Suspended delayed release Substitution Allowed capsule labetalol 200 mg 200 mg, 1 tab, PO, BID, 180 tab, 05/13/2012 Suspended oral tablet Substitution Allowed, TAB Sodium Chloride 0.9% IV, 30 ml/hr, ONCALL, PRN Blood 05/15/2012 05/15/2012 Completed IV Transfusion, Start date: 05/15/12 7:57:00, Duration: 1, 250 ml ferrous sulfate 325 mg, 1 tab, Route: PO, Drug 05/17/2012 05/17/2012 Discontinued form: ECTAB, BID, Start date: 05/17/12 9:00:00, Duration: 30 day, Stop date: 06/15/12 17:00:00 Valium 5 mg, Route: IVP, ONCE, Dosing 05/13/2012 05/13/2012 Completed Weight 72.727, kg, Priority: STAT, Start date: 05/13/12 5:53:00, Stop date: 05/13/12 5:53:00 Nexium 40 mg, Route: PO, Drug form: ECCAP, 05/14/2012 05/13/2012 Deleted Daily, Dosing Weight 72.727, kg, Start date: 05/14/12 9:00:00, Duration: 30 day, Stop date: 06/12/12 9:00:00 Pristiq 50 mg oral 50 mg, 1 tab, Route: PO, Drug form: 05/14/2012 05/13/2012 Deleted tablet, extended ERTAB, Daily, Dosing Weight 72.727, release kg, Start date: 05/14/12 9:00:00, Duration: 30 day, Stop date: 06/12/12 9:00:00 citalopram 40 mg, 2 tab, Route: PO, Drug form: 05/14/2012 05/17/2012 Discontinued TAB, Daily, Dosing Weight 72.727, kg, Start date: 05/14/12 9:00:00, Duration: 30 day, Stop date: 06/12/12 9:00:00 Os-[place]anu 500 with D 1 tab, Route: PO, Drug Form: TAB, 05/14/2012 05/17/2012 Discontinued oral tablet Dosing Weight 72.727, kg, BID, Start date: 05/14/12 9:00:00, Duration: 30 day, Stop date: 06/12/12 17:00:00 aspirin 81 mg 81 mg, 1 tab, PO, Daily, tab, 05/13/2012 Suspended tablet, chewable Substitution Allowed, CHEWTAB Flax Seed Oil oral 2 caps, PO, BID, Substitution 05/13/2012 Suspended capsule Allowed, Maintenance, CAP Co-Q10 100 mg oral 200 mg, 2 cap, PO, Daily, 60 cap, 05/13/2012 Suspended capsule Substitution Allowed, CAP Bumex 1 mg, 1 tab, Route: PO, Drug form: 05/14/2012 05/17/2012 Discontinued TAB, Daily, Dosing Weight 72.727, kg, Start date: 05/14/12 9:00:00, Duration: 30 day, Stop date: 06/12/12 9:00:00 aspirin 81 mg 81 mg, 1 tab, Route: PO, Drug form: 05/13/2012 05/17/2012 Discontinued tablet, chewable CHEWTAB, Daily, Dosing Weight 72.727, kg, Start date: 05/13/12 19:42:00, Duration: 30 day, Stop date: 06/12/12 9:00:00 amLODipine 5 mg, 1 tab, Route: PO, Drug form: 05/14/2012 05/17/2012 Discontinued TAB, Daily, Dosing Weight 72.727, kg, Start date: 05/14/12 9:00:00, Duration: 30 day, Stop date: 06/12/12 9:00:00 Non-Formulary Home 300 mg, PO, Daily, Substitution 05/13/2012 Suspended Medication Allowed [place] 10/325 oral 1 tab, Route: PO, Drug Form: TAB, 05/13/2012 05/17/2012 Discontinued tablet Dosing Weight 72.727, kg, BID, PRN as needed for pain, Start date: 05/13/12 19:32:00, Duration: 30 day, Stop date: 06/12/12 19:31:00 ondansetron 4 mg, Route: IVP, Drug form: INJ, 05/13/2012 05/13/2012 Completed ONCE, Dosing Weight 72.727, kg, Priority: STAT, Start date: 05/13/12 2:57:00, Stop date: 05/13/12 2:57:00 Saline Flush 0.9% 5 ml, Route: IVP, Drug Form: INJ, 05/13/2012 05/17/2012 Discontinued Dosing Weight 72.727, kg, PRN, PRN Line Flush, Start date: 05/13/12 9:12:00, Duration: 30 day, Stop date: 06/12/12 9:11:00 morphine Sulfate 4 mg, Route: IVP, Drug form: INJ, 05/13/2012 05/13/2012 Completed ONCE, Dosing Weight 72.727, kg, Priority: STAT, Start date: 05/13/12 2:57:00, Stop date: 05/13/12 2:57:00 Lovenox 40 mg, 0.4 mL, Route: SUB-Q, Drug 05/13/2012 05/13/2012 Completed form: INJ, ONCE, Dosing Weight 72.727, kg, Start date: 05/13/12 7:31:00, Stop date: 05/13/12 7:31:00 Vital Signs Most recent to oldest [Reference Range]: 1 2 3 Height 172.72 cm (05/13/2012 02:18:00) Temperature Oral [96.4-99.1 DegF] 98.7 DegF (05/17/2012 16:00:00) 98 DegF (05/17/2012 16:00:00) 98.5 DegF (05/17/2012 08:00:00) Systolic Blood Pressure [90-140 mmHg] 132 mmHg (05/17/2012 16:00:00) 115 mmHg (05/17/2012 16:00:00) 167 mmHg *HI* (05/17/2012 08:00:00) Diastolic Blood Pressure [60-90 mmHg] 62 mmHg (05/17/2012 16:00:00) 64 mmHg (05/17/2012 16:00:00) 70 mmHg (05/17/2012 08:00:00) Respiratory Rate [14-20 BRMIN] 18 BRMIN (05/17/2012 16:00:00) 18 BRMIN (05/17/2012 16:00:00) 16 BRMIN (05/17/2012 08:56:00) Peripheral Pulse Rate [60-100 bpm] 71 bpm (05/17/2012 16:00:00) 67 bpm (05/17/2012 16:00:00) 72 bpm (05/17/2012 08:00:00) Weight 72.727 kg (05/13/2012 02:18:00) Results BLOOD BANK RESULTS Most recent to oldest [Reference Range]: 1 2 3 ABO/Rh O POS *Unknown* (05/13/2012 11:42:00) Antibody Scrn Negative (05/13/2012 11:42:00) RBC product Product available 1 (05/15/2012 08:23:00) Product available 2 (05/14/2012 07:55:00) 1Result Comment: 05/15/2012 08:46 JAYCEA called to sara 2Result Comment: 05/14/2012 07:58 JIM called to risa CHEMISTRY Most recent to oldest [Reference Range]: 1 2 3 Sodium Lvl [135-145 mEq/L] 143 mEq/L (05/17/2012 05:56:00) 143 mEq/L (05/16/2012 05:45:00) 143 mEq/L (05/15/2012 06:39:00) Potassium Lvl [3.5-5.1 mEq/L] 4.0 mEq/L (05/17/2012 05:56:00) 4.0 mEq/L (05/16/2012 05:45:00) 4.2 mEq/L (05/15/2012 06:39:00) Chloride Lvl [95-109 mEq/L] 103 mEq/L (05/17/2012 05:56:00) 105 mEq/L (05/16/2012 05:45:00) 110 mEq/L *HI* (05/15/2012 06:39:00) CO2 [24-32 mEq/L] 31 mEq/L (05/17/2012 05:56:00) 31 mEq/L (05/16/2012 05:45:00) 27 mEq/L (05/15/2012 06:39:00) AGAP [10.0-20.0 mEq/L] 13.0 mEq/L (05/17/2012 05:56:00) 11.0 mEq/L (05/16/2012 05:45:00) 10.2 mEq/L (05/15/2012 06:39:00) Creatinine Lvl [0.5-1.4 mg/dL] 1.0 mg/dL (05/17/2012 05:56:00) 1.1 mg/dL (05/16/2012 05:45:00) 1.1 mg/dL (05/15/2012 06:39:00) eGFR 54 mL/min/1.73m2 3 *NA* (05/17/2012 05:56:00) 49 mL/min/1.73m2 4 *NA* (05/16/2012 05:45:00) 49 mL/min/1.73m2 5 *NA* (05/15/2012 06:39:00) BUN [7-22 mg/dL] 22 mg/dL (05/17/2012 05:56:00) 22 mg/dL (05/16/2012 05:45:00) 20 mg/dL (05/15/2012 06:39:00) B/C Ratio [6-25] 22 (05/13/2012 04:35:00) Glucose Lvl [70-99 mg/dL] 90 mg/dL 6 (05/17/2012 05:56:00) 96 mg/dL 7 (05/16/2012 05:45:00) 106 mg/dL 8 *HI* (05/15/2012 06:39:00) Total Protein [6.4-8.4 g/dL] 6.8 g/dL (05/13/2012 04:35:00) Albumin Lvl [3.5-5.0 g/dL] 4.2 g/dL (05/13/2012 04:35:00) Globulin [2.0-4.0 g/dL] 2.6 g/dL (05/13/2012 04:35:00) A/G Ratio [0.7-1.6] 1.6 (05/13/2012 04:35:00) Calcium Lvl [8.5-10.5 mg/dL] 9.0 mg/dL (05/17/2012 05:56:00) 8.9 mg/dL (05/16/2012 05:45:00) 8.0 mg/dL *LOW* (05/15/2012 06:39:00) ALT [0-65 unit/L] 18 unit/L (05/13/2012 04:35:00) AST [0-37 unit/L] 15 unit/L (05/13/2012 04:35:00) Alk Phos [39-136 unit/L] 60 unit/L (05/13/2012 04:35:00) Bili Total [0.2-1.3 mg/dL] 0.4 mg/dL (05/13/2012 04:35:00) Total CK [12-191 unit/L] 70 unit/L (05/13/2012 16:48:00) CK MB [0.5-3.6 ng/mL] 1.2 ng/mL (05/13/2012 16:48:00) CK MB Index [0.0-2.5] 1.7 (05/13/2012 16:48:00) Troponin-I [0.00-0.40 ng/mL] 0.02 ng/mL (05/13/2012 16:48:00) 3Result Comment: The eGFR is calculated using the CKD-EPI formula. In most young, healthy individuals the eGFR will be >90 mL/min/1.73m2. The eGFR declines with age. An eGFR of 60-89 may be normal in some populations, particularly the elderly, for whom the CKD-EPI formula has not been extensively validated. Use of the eGFR is not recommended in the following populations: Individuals with unstable creatinine concentrations, including patients and those with serious co-morbid conditions. Patients with extremes in muscle mass or diet. The data above are obtained from the National Kid[employer] Disease Education Program ( NKDEP) which additionally recommends that when the eGFR is used in patients with extremes of body mass index for purposes of drug dosing, the eGFR should be mul tiplied by the estimated BMI. 4Result Comment: The eGFR is calculated using the CKD-EPI formula. In most young, healthy individuals the eGFR will be >90 mL/min/1.73m2. The eGFR declines with age. An eGFR of 60-89 may be normal in some populations, particularly the elderly, for whom the CKD-EPI formula has not been extensively validated. Use of the eGFR is not recommended in the following populations: Individuals with unstable creatinine concentrations, including patients and those with serious co-morbid conditions. Patients with extremes in muscle mass or diet. The data above are obtained from the National Kid[employer] Disease Education Program ( NKDEP) which additionally recommends that when the eGFR is used in patients with extremes of body mass index for purposes of drug dosing, the eGFR should be mul tiplied by the estimated BMI. 5Result Comment: The eGFR is calculated using the CKD-EPI formula. In most young, healthy individuals the eGFR will be >90 mL/min/1.73m2. The eGFR declines with age. An eGFR of 60-89 may be normal in some populations, particularly the elderly, for whom the CKD-EPI formula has not been extensively validated. Use of the eGFR is not recommended in the following populations: Individuals with unstable creatinine concentrations, including patients and those with serious co-morbid conditions. Patients with extremes in muscle mass or diet. The data above are obtained from the National Kid[employer] Disease Education Program ( NKDEP) which additionally recommends that when the eGFR is used in patients with extremes of body mass index for purposes of drug dosing, the eGFR should be mul tiplied by the estimated BMI. 6Interpretive Data: Adult reference range values reflect the clinical guidelines of the [place] [employer]. 7Interpretive Data: Adult reference range values reflect the clinical guidelines of the [place] [employer]. 8Interpretive Data: Adult reference range values reflect the clinical guidelines of the [place] [employer]. HEMATOLOGY Most recent to oldest [Reference Range]: 1 2 3 WBC [3.7-10.4 K/CMM] 8.8 K/CMM (05/17/2012 05:56:00) 8.8 K/CMM (05/16/2012 05:45:00) 9.1 K/CMM (05/15/2012 06:39:00) RBC [4.20-5.40 M/CMM] 3.45 M/CMM *LOW* (05/17/2012 05:56:00) 3.39 M/CMM *LOW* (05/16/2012 05:45:00) 2.63 M/CMM *LOW* (05/15/2012 06:39:00) Hgb [12.0-16.0 g/dL] 9.9 g/dL *LOW* (05/17/2012 05:56:00) 9.6 g/dL *LOW* (05/16/2012 05:45:00) 7.2 g/dL *LOW* (05/15/2012 06:39:00) Hct [36.0-48.0 %] 29.3 % *LOW* (05/17/2012 05:56:00) 28.9 % *LOW* (05/16/2012 05:45:00) 21.5 % *LOW* (05/15/2012 06:39:00) MCV [81.0-99.0 fL] 84.9 fL (05/17/2012 05:56:00) 85.3 fL (05/16/2012 05:45:00) 82.0 fL (05/15/2012 06:39:00) MCH [27.0-31.0 pg] 28.5 pg (05/17/2012 05:56:00) 28.2 pg (05/16/2012 05:45:00) 27.3 pg (05/15/2012 06:39:00) MCHC [32.0-36.0 g/dL] 33.6 g/dL (05/17/2012 05:56:00) 33.1 g/dL (05/16/2012 05:45:00) 33.3 g/dL (05/15/2012 06:39:00) RDW [11.5-14.5 %] 16.1 % *HI* (05/17/2012 05:56:00) 16.0 % *HI* (05/16/2012 05:45:00) 17.2 % *HI* (05/15/2012 06:39:00) Platelet [133-450 K/CMM] 180 K/CMM (05/17/2012 05:56:00) 158 K/CMM (05/16/2012 05:45:00) 168 K/CMM (05/15/2012 06:39:00) MPV [7.4-10.4 fL] 9.1 fL (05/17/2012 05:56:00) 9.5 fL (05/16/2012 05:45:00) 9.5 fL (05/15/2012 06:39:00) Segs [45.0-75.0 %] 62.6 % (05/17/2012 05:56:00) 59.8 % (05/16/2012 05:45:00) 72.7 % (05/15/2012 06:39:00) Lymphocytes [20.0-40.0 %] 20.0 % (05/17/2012 05:56:00) 21.5 % (05/16/2012 05:45:00) 14.2 % *LOW* (05/15/2012 06:39:00) Monocytes [2.0-12.0 %] 13.0 % *HI* (05/17/2012 05:56:00) 13.9 % *HI* (05/16/2012 05:45:00) 10.5 % (05/15/2012 06:39:00) Eosinophils [0.0-4.0 %] 4.2 % *HI* (05/17/2012 05:56:00) 4.5 % *HI* (05/16/2012 05:45:00) 2.4 % (05/15/2012 06:39:00) Basophils [0.0-1.0 %] 0.2 % (05/17/2012 05:56:00) 0.3 % (05/16/2012 05:45:00) 0.2 % (05/15/2012 06:39:00) Segs-Bands # [1.5-8.1 K/CMM] 5.5 K/CMM (05/17/2012 05:56:00) 5.3 K/CMM (05/16/2012 05:45:00) 6.6 K/CMM (05/15/2012 06:39:00) Lymphocytes # [1.0-5.5 K/CMM] 1.8 K/CMM (05/17/2012 05:56:00) 1.9 K/CMM (05/16/2012 05:45:00) 1.3 K/CMM (05/15/2012 06:39:00) Monocytes # [0.0-0.8 K/CMM] 1.1 K/CMM *HI* (05/17/2012 05:56:00) 1.2 K/CMM *HI* (05/16/2012 05:45:00) 0.9 K/CMM *HI* (05/15/2012 06:39:00) Eosinophils # [0.0-0.5 K/CMM] 0.4 K/CMM (05/17/2012 05:56:00) 0.4 K/CMM (05/16/2012 05:45:00) 0.2 K/CMM (05/15/2012 06:39:00) Basophils # [0.0-0.2 K/CMM] 0.0 K/CMM (05/17/2012 05:56:00) 0.0 K/CMM (05/16/2012 05:45:00) 0.0 K/CMM (05/15/2012 06:39:00) PT [12.0-14.7 seconds] 14.5 seconds (05/13/2012 04:35:00) INR [0.85-1.17] 1.11 9 (05/13/2012 04:35:00) PTT [22.9-35.8 seconds] 28.1 seconds 10 (05/13/2012 04:35:00) 9Interpretive Data: RECOMMENDED RANGES FOR PROTIME INR: 2.0-3.0 for most medical and surgical thromboembolic states. 2.5-3.5 for artificial heart valves and recurrent embolism. INR SHOULD BE USED ONLY FOR PATIENTS ON STABLE ANTICOAGULANT THERAPY. 10Interpretive Data: Heparin Therapeutic Range: 57 - 92 Seconds Procedures Procedures Date Related Diagnosis Bladder operation Hip replacement Hysterectomy Knee replacement Mastectomy
--- OUTSIDE RECORDS SUMMARY | 2018-06-09 17:23 | XMS REPORT | Continuity of Care Document ---
Author Author [facility] Interface Address Unknown Phone Unavailable Problems Problem Status Onset Date Classification Date Reported Comments Source Fracture at left wrist or hand level Active 05/04/2014 Problem 12/05/2017 [facility] Head trauma Active 05/04/2014 Problem 12/05/2017 [facility] Nasal bone fx-closed Active 05/04/2014 Problem 12/05/2017 [facility] Periorbital hematoma of left eye Active 05/04/2014 Problem 12/05/2017 [facility] Hip replacement Active 05/14/2012 Problem 06/04/2012 [facility] FALL Active 05/13/2012 [facility] Accidental fall<sup>1</sup> Active 05/13/2012 Problem 06/04/2012 1Fractured left hip [facility] HIP FX Active 05/13/2012 [facility] Atrial fibrillation with RVR Active Problem 12/05/2017 [facility] CHF Active Problem 12/05/2017 [facility] Arthritis Resolved Problem 06/04/2012 [facility] Breast cancer Resolved Problem 06/04/2012 [facility] Hypertension Resolved Problem 06/04/2012 [facility] Mastectomy of left breast Resolved Problem 06/04/2012 [facility] Short of breath on exertion Resolved Problem 06/04/2012 [facility] Stress incontinence Resolved Problem 06/04/2012 [facility] Uterine cancer Resolved Problem 06/04/2012 [facility] FX FEMUR NOS-CLOSED Active [facility] FX NECK OF FEMUR NOS-CL Active [facility] Medications Medication Details Route Status Patient Instructions Ordering Provider Order Date Source Beclomethasone Dip 7.3 Gm Inh Rt Daily Active one puff once daily in the morning [place] 12/04/2017 [facility] Digoxin 125 Mcg Tablet Every Morning Active [place] 12/04/2017 [facility] Diltiazem Hcl (Diltiazem 24HR Er) 180 Mg Capcr Daily Active 12/04/2017 [facility] Furosemide 20 Mg Tablet Daily Active [place] 12/04/2017 [facility] Ipratropium [place] (Atrovent Hfa) 12.9 Gm Hfa.aer.ad Every 6 Hours as needed for Shortness Of Breath Active 12/04/2017 [facility] Irbesartan (Avapro) 150 Mg Tablet Daily Active [place] 12/04/2017 [facility] Metoprolol Tartrate (Lopressor) 25 Mg Tab Twice A Day Active [place] 12/04/2017 [facility] Potassium Chloride (K Dur*) 10 Meq Tabcr Daily Active [place] 12/04/2017 [facility] Rivaroxaban (Xarelto) 10 Mg Tablet Daily At 1700 Active [place] 12/04/2017 [facility] Amlodipine Besylate (Norvasc) 10 Mg Tab, 10 Mg Oral Bedtime Active 12/04/2017 [facility] Bumetanide 1 Mg Tablet, 1 Mg Oral Daily Active 12/04/2017 [facility] Irbesartan (Avapro) 300 Mg Tablet, 300 Mg Oral Daily Active 12/04/2017 [facility] Labetalol Hcl 200 Mg Tablet, 200 Mg Oral Twice A Day Active 12/04/2017 [facility] Biotin 1 Mg Tablet, 1 Mg Oral Twice A Day Active 11/27/2017 [facility] Desvenlafaxine Succinate (Pristiq Er) 50 Mg Tab.er.24h, 50 Mg Oral Daily Active 11/27/2017 [facility] Hydrocodone Bit/Acetaminophen ([place] 7.5-325 Tablet) 1 Each Tablet, 1 Ea Oral As Needed Active 11/27/2017 [facility] Multivitamin (Multi-Vitamin Daily) 1 Each Tablet, Oral Daily Active 11/27/2017 [facility] Super B Complex , Oral Daily Active 11/27/2017 [facility] Fenofibric Acid (Choline) (Trilipix) 135 Mg Capsule.dr, 135 Mg Oral Daily Active 02/06/2015 [facility] Ferrous Sulfate 325 Mg Tablet, 325 Mg Oral Daily Active 02/06/2015 [facility] Hydrocodone Bit/Acetaminophen ([place] 10-325 Tablet) 1 Each Tablet, 1 Tab Oral Every 4 Hours Active 02/06/2015 [facility] Lamotrigine (Lamictal) 100 Mg Tab, 100 Mg Oral Daily Active 02/06/2015 [facility] Trazodone Hcl 50 Mg Tablet, 50 Mg Oral Bedtime Active 02/06/2015 [facility] Zolpidem Tartrate (Ambien) 5 Mg Tablet, 5 Mg Oral Bedtime Active 02/06/2015 [facility] Aspirin/Calcium Carbonate/Mag (Aspirin Buffered 325 Mg Tab) 325 Mg Tablet, 325 Mg Oral Bedtime Active 06/05/2014 [facility] Clonidine Hcl 0.1 Mg Tablet, 1 Tab Oral As Needed Active 06/05/2014 [facility] Ferrous Sulfate 325 Mg Tablet, Active 06/05/2014 [facility] Ondansetron (Zofran Odt) 4 Mg Tab.rapdis, 4 Mg Oral As Needed Active 06/05/2014 [facility] Pristiq 50 mg oral tablet, extended release 50 mg, 1 tab, PO, Daily, 90 tab, Substitution Allowed, ERTAB PO Active [place] 06/02/2012 [facility] Ambien 5 mg oral tablet 5 mg, 1 tab, PO, Bedtime, PRN, 90 tab, for sleep, Substitution Allowed, TAB PO Active [place] 06/02/2012 [facility] Co-Q10 100 mg oral capsule 200 mg, 2 cap, PO, Daily, 180 cap, Substitution Allowed, CAP PO Active [place] 06/02/2012 [facility] Flax Seed Oil oral capsule 2 caps, PO, BID, 180 tab, Substitution Allowed, Maintenance, CAP PO Active [place] 06/02/2012 [facility] Nexium 40 mg oral delayed release capsule 40 mg, 1 cap, PO, Daily, 90 cap, Substitution Allowed, ECCAP PO Active [place] 06/02/2012 [facility] trazodone 100 mg oral tablet 100 mg, 1 tab, PO, Bedtime, 90 tab, Substitution Allowed, TAB PO Active [place] 06/02/2012 [facility] MiraLax oral powder for reconstitution 17 gm, PO, Daily, 255 gm, Substitution Allowed, PDR/REC PO Active [place] 06/02/2012 [facility] Lidoderm 5% topical film (patch) 1 patch, TOP, Daily, 30 patch, Substitution Allowed, Remove after 12 hours, FILMRemove after 12 hours TOP Active [place] 06/02/2012 [facility] lamotrigine 100 mg oral tablet 100 mg, 1 tab, PO, Daily, 90 tab, Substitution Allowed, TAB PO Active [place] 06/02/2012 [facility] labetalol 200 mg oral tablet 200 mg, 1 tab, PO, BID, 180 tab, Substitution Allowed, TAB PO Active [place] 06/02/2012 [facility] Avapro 300 mg oral tablet 300 mg, 1 tab, PO, Daily, 90 tab, Substitution Allowed, TAB PO Active [place] 06/02/2012 [facility] ferrous sulfate 324 mg (65 mg elemental iron) oral enteric coated tablet 324 mg, 1 tab, PO, BID, 90 tab, Substitution Allowed, ECTAB PO Active [place] 06/02/2012 [facility] citalopram 40 mg oral tablet 40 mg, 1 tab, PO, Daily, 90 tab, Substitution Allowed, TAB PO Active [place] 06/02/2012 [facility] Celebrex 200 mg oral capsule 200 mg, 1 cap, PO, Daily, 90 cap, Substitution Allowed, CAP PO Active [place] 06/02/2012 [facility] Calcium 600 +D oral tablet 1 tab, PO, BID, 180 tab, Substitution Allowed, Maintenance, TAB PO Active [place] 06/02/2012 [facility] Bumex 1 mg oral tablet 1 mg, 1 tab, PO, Daily, 90 tab, Substitution Allowed, TAB PO Active [place] 06/02/2012 [facility] acetaminophen-hydrocodone 325 mg-10 mg oral tablet 2 tab, PO, Q6H, PRN, 100 tab, Pain, Substitution Allowed, Maintenance, TAB PO Active [place] 06/02/2012 [facility] aspirin 81 mg tablet, chewable 81 mg, 1 tab, PO, Q24H, 100 tab, Substitution Allowed, CHEWTAB PO Active [place] 06/02/2012 [facility] Norvasc 5 mg oral tablet 5 mg, 1 tab, PO, Daily, 90 tab, Substitution Allowed, TAB PO Active [place] 06/02/2012 [facility] Celebrex 200 mg, 1 cap, Route: PO, Drug form: CAP, Daily, Dosing Weight 72.073, kg, Start date: 06/02/12 9:00:00, Duration: 30 day, Stop date: 07/01/12 9:00:00 PO No Longer Active [facility] 06/02/2012 [facility] Lidoderm 5% topical film (patch) 1 patch, Route: TOP, Daily, Drug form: FILM, Start date: 06/02/12 9:00:00, Duration: 30 day, Stop date: 07/01/12 9:00:00, Remove after 12 hoursRemove after 12 hours TOP No Longer Active [facility] 06/02/2012 [facility] MiraLax 17 gm, 1 pkt, Route: PO, Drug form: PWDR, BID, Dosing Weight 72.073, kg, Start date: 06/02/12 9:00:00, Duration: 30 day, Stop date: 07/01/12 17:00:00 PO No Longer Active [facility] 06/02/2012 [facility] hydrOXYzine 20 mg, 2 tab, Route: PO, Drug form: TAB, QID, Dosing Weight 72.073, kg, PRN Itching, Start date: 06/01/12 18:20:00, Duration: 30 day, Stop date: 07/01/12 18:19:00 PO No Longer Active [facility] 06/02/2012 [facility] Anusol-HC 25 mg rectal suppository 25 mg, 1 supp, Route: TX, BID, Drug form: SUPP PRN Hemorrhoids, Start date: 05/31/12 13:19:00, Duration: 30 day, Stop date: 06/30/12 13:18:00 TX No Longer Active [facility] 05/31/2012 [facility] Ferrlecit + Sodium Chloride 0.9% IV 100 mL 125 mg, 10 mL, Route: IVPB, Drug form: INJ, QPM, Dosing Weight 72.073, kg, Start date: 05/27/12 17:00:00, Duration: 30 day, Stop date: 06/25/12 17:00:00 IVPB No Longer Active [facility] 05/27/2012 [facility] Sodium Chloride 0.9% IV IV, 30 ml/hr, ONCALL, Start date: 05/26/12 21:00:00, Duration: 1, 250 ml IV No Longer Active [place] 05/27/2012 [facility] ferrous sulfate 324 mg oral tablet 325 mg, 1 tab, Route: PO, Drug form: ECTAB, BID, Dosing Weight 72.073, kg, Start date: 05/26/12 17:00:00, Duration: 30 day, Stop date: 06/25/12 9:00:00 PO No Longer Active [place] 05/26/2012 [facility] acetaminophen-hydrocodone 325 mg-10 mg oral tablet 2 tab, Route: PO, Drug Form: TAB, Q6H, PRN Pain, Start date: 05/25/12 12:02:00, Duration: 30 day, Stop date: 06/24/12 12:01:00 PO No Longer Active [place] 05/25/2012 [facility] Duragesic-25 25 microgram, 1 patch, Route: TOP, Drug Form: ERFILM, Q72H, Start date: 05/22/12 20:00:00, Duration: 30 day, Stop date: 06/18/12 20:00:00 TOP No Longer Active [place] 05/23/2012 [facility] acetaminophen-hydrocodone 325 mg-10 mg oral tablet 1 tab, Route: PO, Drug Form: TAB, Q6H, PRN Pain, Start date: 05/22/12 17:31:00, Duration: 30 day, Stop date: 06/21/12 17:30:00 PO No Longer Active [place] 05/22/2012 [facility] Opana IR 20 mg, Route: PO, Drug form: TAB, Q4H, Dosing Weight 72.073, kg, PRN Pain, Start date: 05/22/12 14:07:00, Duration: 30 day, Stop date: 06/21/12 14:06:00 PO No Longer Active [place] 05/22/2012 [facility] Percocet 5/325 oral tablet 2 tab, Route: PO, Drug Form: TAB, Dosing Weight 72.073, kg, Q4H, PRN Pain, Start date: 05/22/12 14:00:00, Duration: 30 day, Stop date: 06/21/12 13:59:00 PO No Longer Active [place] 05/22/2012 [facility] MS Contin 60 mg, 2 tab, Route: PO, Drug form: ERTAB, Q12H, Dosing Weight 72.073, kg, Start date: 05/20/12 21:00:00, Duration: 30 day, Stop date: 06/19/12 9:00:00 PO No Longer Active [place] 05/21/2012 [facility] Zofran 4 mg, 1 tab, Route: PO, Drug form: TAB, Q8H, Dosing Weight 72.073, kg, PRN Nausea, Start date: 05/19/12 15:35:00, Duration: 30 day, Stop date: 06/18/12 15:34:00 PO No Longer Active [place] 05/19/2012 [facility] MS Contin 30 mg, 2 tab, Route: PO, Drug form: TAB, Q12H, Dosing Weight 72.073, kg, Start date: 05/18/12 21:00:00, Stop date: 06/17/12 9:00:00 PO No Longer Active [place] 05/19/2012 [facility] Protonix 40 mg, 1 tab, Route: PO, Drug form: ECTAB, Before Dinner, Dosing Weight 72.727, kg, Start date: 05/18/12 16:30:00, Duration: 30 day, Stop date: 06/16/12 16:30:00 PO No Longer Active [place] 05/18/2012 [facility] Co-Q10 200 mg, Route: PO, Drug form: TAB, Daily, Dosing Weight 72.727, kg, Start date: 05/18/12 9:00:00, Duration: 30 day, Stop date: 06/16/12 9:00:00 PO No Longer Active [place] 05/18/2012 [facility] lamotrigine 100 mg oral tablet 100 mg, 1 tab, Route: PO, Drug form: TAB, Daily, Dosing Weight 72.727, kg, Start date: 05/18/12 9:00:00, Duration: 30 day, Stop date: 06/16/12 9:00:00 PO No Longer Active [place] 05/18/2012 [facility] pt own Co-Q10 pt own Co-Q10, 200 mg, Drug form: MISC, Route: PO, Daily, 05/18/12 9:00:00, Duration: 30 day, Stop date: 06/16/12 9:00:00 PO No Longer Active [place] 05/18/2012 [facility] Avapro 300 mg, 2 tab, Route: PO, Drug form: TAB, Daily, Dosing Weight 72.727, kg, Start date: 05/18/12 9:00:00, Duration: 30 day, Stop date: 06/16/12 9:00:00 PO No Longer Active [place] 05/18/2012 [facility] citalopram 40 mg, 2 tab, Route: PO, Drug form: TAB, Daily, Dosing Weight 72.727, kg, Start date: 05/18/12 9:00:00, Duration: 30 day, Stop date: 06/16/12 9:00:00 PO No Longer Active [place] 05/18/2012 [facility] Bumex 1 mg, 1 tab, Route: PO, Drug form: TAB, Daily, Dosing Weight 72.727, kg, Start date: 05/18/12 9:00:00, Duration: 30 day, Stop date: 06/16/12 9:00:00 PO No Longer Active [place] 05/18/2012 [facility] Norvasc 5 mg, 1 tab, Route: PO, Drug form: TAB, Daily, Dosing Weight 72.727, kg, Start date: 05/18/12 9:00:00, Duration: 30 day, Stop date: 06/16/12 9:00:00 PO No Longer Active [place] 05/18/2012 [facility] pt own desfenlafaxine (Pristiq) extended release pt own desfenlafaxine (Pristiq) extended release, 50 mg, Drug form: MISC, Route: PO, Daily, 05/18/12 9:00:00, Duration: 30 day, Stop date: 06/16/12 9:00:00 PO No Longer Active [place] 05/18/2012 [facility] docusate 100 mg, 1 cap, Route: PO, Drug form: CAP, BID, Dosing Weight 72.727, kg, Start date: 05/18/12 9:00:00, Duration: 30 day, Stop date: 06/16/12 17:00:00 PO No Longer Active [place] 05/18/2012 [facility] Pristiq 50 mg oral tablet, extended release 50 mg, 1 tab, Route: PO, Drug form: ERTAB, Daily, Dosing Weight 72.727, kg, Start date: 05/18/12 9:00:00, Duration: 30 day, Stop date: 06/16/12 9:00:00 PO No Longer Active [place] 05/18/2012 [facility] trazodone 100 mg oral tablet 100 mg, 1 tab, Route: PO, Drug form: TAB, Bedtime, Dosing Weight 72.727, kg, Start date: 05/17/12 21:00:00, Duration: 30 day, Stop date: 06/15/12 21:00:00 PO No Longer Active [place] 05/18/2012 [facility] Lovenox 40 mg, 0.4 mL, Route: SUB-Q, Drug form: INJ, Q24H, Dosing Weight 72.073, kg, Start date: 05/17/12 21:00:00, Duration: 12 day, Stop date: 05/28/12 21:00:00 SUB-Q No Longer Active [place] 05/18/2012 [facility] labetalol 200 mg, 1 tab, Route: PO, Drug form: TAB, Q12H, Dosing Weight 72.727, kg, Start date: 05/17/12 21:00:00, Duration: 30 day, Stop date: 06/16/12 9:00:00 PO No Longer Active [place] 05/18/2012 [facility] Os-Keanu 500 with D oral tablet 1 tab, Route: PO, Drug Form: TAB, Dosing Weight 72.727, kg, [id number], Start date: 05/17/12 21:00:00, Duration: 30 day, Stop date: 06/16/12 9:00:00 PO No Longer Active [place] 05/18/2012 [facility] have [facility] verify & bar-code pt own Pristiq & Co-Q10 have [facility] verify & bar-code pt own Pristiq & Co-Q10, 1 attn notice, Drug form: MISC, Route: MISC, QSHIFT, 05/17/12 21:00:00, Duration: 30 day, Stop date: 06/16/12 16:00:00 MISC No Longer Active [place] 05/18/2012 [facility] aspirin 81 mg, 1 tab, Route: PO, Drug form: CHEWTAB, Q24H, Dosing Weight 72.727, kg, Start date: 05/17/12 20:00:00, Duration: 30 day, Stop date: 06/15/12 20:00:00 PO No Longer Active [place] 05/18/2012 [facility] Restoril 15 mg, 1 cap, Route: PO, Drug form: CAP, Bedtime, PRN Sleep, Start date: 05/17/12 19:03:00, Duration: 30 day, Stop date: 06/16/12 19:02:00 PO No Longer Active [place] 05/18/2012 [facility] lactulose 20 gm, 30 mL, Route: PO, Drug Form: SYRP, Dosing Weight 72.727, kg, Q6H, PRN Bowel Movements, Start date: 05/17/12 18:21:00, Duration: 30 day, Stop date: 06/16/12 18:20:00 PO No Longer Active [place] 05/18/2012 [facility] Milk of Magnesia 30 mL, Route: PO, Drug Form: SUSP, Dosing Weight 72.727, kg, Daily, PRN Constipation, Start date: 05/17/12 18:21:00, Duration: 30 day, Stop date: 06/16/12 18:20:00 PO No Longer Active [place] 05/18/2012 [facility] acetaminophen-hydrocodone 325 mg-10 mg oral tablet 1 tab, Route: PO, Drug Form: TAB, Dosing Weight 72.727, kg, Q4H, PRN Pain Score 1-5, Start date: 05/17/12 18:21:00, Duration: 30 day, Stop date: 06/16/12 18:20:00 PO No Longer Active [place] 05/18/2012 [facility] acetaminophen 650 mg, 2 tab, Route: PO, Drug form: TAB, Q4H, Dosing Weight 72.727, kg, PRN Pain Score 1-3, Start date: 05/17/12 18:21:00, Duration: 30 day, Stop date: 06/16/12 18:20:00 PO No Longer Active [place] 05/18/2012 [facility] Saline Flush 0.9% 3 mL, Route: IVP, Drug Form: INJ, Dosing Weight 72.727, kg, Q8H, PRN Line Flush, Start date: 05/17/12 18:21:00, Duration: 30 day, Stop date: 06/16/12 18:20:00, Administer at least once every 8 hoursAdminister at least once every 8 hours IVP No Longer Active [place] 05/18/2012 [facility] zolpidem 5 mg, Route: PO, Drug form: TAB, Bedtime, Dosing Weight 72.727, kg, PRN Insomnia, Start date: 05/17/12 18:21:00, Duration: 30 day, Stop date: 06/16/12 18:20:00 PO No Longer Active [place] 05/18/2012 [facility] ferrous sulfate 325 mg, 1 tab, Route: PO, Drug form: ECTAB, BID, Start date: 05/17/12 9:00:00, Duration: 30 day, Stop date: 06/15/12 17:00:00 PO No Longer Active [facility] 05/17/2012 [facility] Deep Sea Nasal [place] 1 spray, Route: NASAL, PRN, Drug form: SOLN, PRN Nasal dryness, Start date: 05/15/12 14:49:00, Duration: 30 day, Stop date: 06/14/12 14:48:00 NASAL No Longer Active [place] 05/15/2012 [facility] [address] Saline nasal spray Route: NASAL, PRN, PRN Nasal dryness, Start date: 05/15/12 14:30:00, Duration: 30 day, Stop date: 06/14/12 14:29:00 NASAL No Longer Active [place] 05/15/2012 [facility] Lasix 10 mg, 1 mL, Route: IV, Drug form: INJ, ONCALL, Start date: 05/15/12 8:00:00, Duration: 2 doses or times IV No Longer Active [facility] 05/15/2012 [facility] Sodium Chloride 0.9% IV IV, 30 ml/hr, ONCALL, PRN Blood Transfusion, Start date: 05/15/12 7:57:00, Duration: 1, 250 ml IV No Longer Active [facility] 05/15/2012 [facility] Lactated Ringers IV 1,000 mL 1,000 mL, Rate: 100 ml/hr, Infuse over: 10 hr, Route: IV, kg, Total Volume: 1,000, Start date: 05/14/12 16:22:00, Duration: 30 day, Stop date: 06/13/12 16:21:00 IV No Longer Active [facility] 05/14/2012 [facility] albuterol 0.083% inhalation solution 2.5 mg, 3.01 mL, Route: INHALATION, Drug form: SOLN, PRN, Dosing Weight 72.727, kg, PRN Respiratory Protocol, Start date: 05/14/12 13:16:00, Duration: 30 day, Stop date: 06/13/12 13:15:00 INHALATION No Longer Active [facility] 05/14/2012 [facility] labetalol 5 mg, 1 mL, Route: IVP, Drug form: INJ, Q5Min, Dosing Weight 72.727, kg, PRN Elevated BP, Start date: 05/14/12 12:13:00, Duration: 5 doses or times, Stop date: Limited # of times IVP No Longer Active [place] 05/14/2012 [facility] esmolol IV Push 10 mg, 1 mL, Route: IVP, Drug form: INJ, Q5Min, Dosing Weight 72.727, kg, PRN Elevated BP, Start date: 05/14/12 12:13:00, Duration: 5 doses or times, Stop date: Limited # of times IVP No Longer Active [place] 05/14/2012 [facility] ondansetron 4 mg, 2 mL, Route: IVP, Drug form: INJ, ONCE, Dosing Weight 72.727, kg, PRN Nausea & Vomiting, Start date: 05/14/12 12:13:00 IVP No Longer Active [place] 05/14/2012 [facility] promethazine + Sodium Chloride 0.9% IV 50 mL 6.25 mg, 0.25 mL, Route: IVPB, ONCE, Dosing Weight 72.727, kg, PRN Nausea & Vomiting, Start date: 05/14/12 12:13:00 IVPB No Longer Active [place] 05/14/2012 [facility] hydromorphone 0.5 mg, 0.25 mL, Route: IVP, Drug form: INJ, Q5Min, Dosing Weight 72.727, kg, PRN Pain Score 4-6, Start date: 05/14/12 12:13:00, Duration: 5 doses or times, Stop date: Limited # of times IVP No Longer Active [place] 05/14/2012 [facility] fentanyl 25 microgram, 0.5 mL, Route: IVP, Drug form: INJ, Q5Min, Dosing Weight 72.727, kg, PRN Pain Score 4-6, Start date: 05/14/12 12:13:00, Duration: 4 doses or times, Stop date: Limited # of times IVP No Longer Active [place] 05/14/2012 [facility] flumazenil 0.2 mg, 2 mL, Route: IVP, Drug form: INJ, PRN, Dosing Weight 72.727, kg, PRN Benzodiazepine Reversal, Initial dose, Start date: 05/14/12 12:13:00, Duration: 30 day, Stop date: 06/13/12 12:12:00 IVP No Longer Active [place] 05/14/2012 [facility] naloxone 0.04 mg, 0.1 mL, Route: IVP, Drug form: INJ, Q2MIN, Dosing Weight 72.727, kg, PRN Narcotic Reversal, Start date: 05/14/12 12:13:00, Duration: 8 doses or times, Stop date: Limited # of times IVP No Longer Active [place] 05/14/2012 [facility] acetaminophen-hydrocodone 325 mg-5 mg oral tablet 2 tab, Route: PO, Drug Form: TAB, Dosing Weight 72.727, kg, Q4H, PRN Pain Score 4-6, Start date: 05/14/12 12:13:00, Duration: 30 day, Stop date: 06/13/12 12:12:00 PO No Longer Active [place] 05/14/2012 [facility] hydrALAZINE 5 mg, 0.25 mL, Route: IVP, Drug form: INJ, Q5Min, Dosing Weight 72.727, kg, PRN Elevated BP, Start date: 05/14/12 12:13:00, Duration: 4 doses or times, Stop date: Limited # of times IVP No Longer Active [place] 05/14/2012 [facility] Co-Q10 200 mg, Route: PO, Drug form: CAP, Daily, Dosing Weight 72.727, kg, Start date: 05/14/12 9:00:00, Duration: 30 day, Stop date: 06/12/12 9:00:00 PO No Longer Active [place] 05/14/2012 [facility] pantoprazole 40 mg, Route: IVP, Drug form: INJ, Daily, Dosing Weight 72.727, kg, Priority: Routine, Start date: 05/14/12 9:00:00, Duration: 30 day, Stop date: 06/12/12 9:00:00 IVP No Longer Active [facility] 05/14/2012 [facility] [facility] lamotrigine 100 mg oral tablet 100 mg, 1 tab, Route: PO, Drug form: TAB, Daily, Dosing Weight 72.727, kg, Start date: 05/14/12 9:00:00, Duration: 30 day, Stop date: 06/12/12 9:00:00 PO No Longer Active [facility] 05/14/2012 [facility] Avapro 300 mg, 2 tab, Route: PO, Drug form: TAB, Daily, Dosing Weight 72.727, kg, Start date: 05/14/12 9:00:00, Duration: 30 day, Stop date: 06/12/12 9:00:00 PO No Longer Active [facility] 05/14/2012 [facility] Pt's own med CO-Q10 Pt's own med Pt's own med CO-Q10 Pt's own med , 200 mg, Drug form: MISC, Route: PO, Daily, 05/14/12 9:00:00, Duration: 30 day, Stop date: 06/12/12 9:00:00 PO No Longer Active [facility] 05/14/2012 [facility] Pt's own med DESVENLAFAXINE (PRISTIQ) Pt's own med Pt's own med DESVENLAFAXINE (PRISTIQ) Pt's own med, 50 mg, Drug form: MISC, Route: PO, Daily, 05/14/12 9:00:00, Duration: 30 day, Stop date: 06/12/12 9:00:00 PO No Longer Active [facility] 05/14/2012 [facility] Nexium 40 mg, Route: PO, Drug form: ECCAP, Daily, Dosing Weight 72.727, kg, Start date: 05/14/12 9:00:00, Duration: 30 day, Stop date: 06/12/12 9:00:00 PO No Longer Active [facility] 05/14/2012 [facility] Pristiq 50 mg oral tablet, extended release 50 mg, 1 tab, Route: PO, Drug form: ERTAB, Daily, Dosing Weight 72.727, kg, Start date: 05/14/12 9:00:00, Duration: 30 day, Stop date: 06/12/12 9:00:00 PO No Longer Active [facility] 05/14/2012 [facility] citalopram 40 mg, 2 tab, Route: PO, Drug form: TAB, Daily, Dosing Weight 72.727, kg, Start date: 05/14/12 9:00:00, Duration: 30 day, Stop date: 06/12/12 9:00:00 PO No Longer Active [facility] 05/14/2012 [facility] Os-Keanu 500 with D oral tablet 1 tab, Route: PO, Drug Form: TAB, Dosing Weight 72.727, kg, BID, Start date: 05/14/12 9:00:00, Duration: 30 day, Stop date: 06/12/12 17:00:00 PO No Longer Active [facility] 05/14/2012 [facility] Bumex 1 mg, 1 tab, Route: PO, Drug form: TAB, Daily, Dosing Weight 72.727, kg, Start date: 05/14/12 9:00:00, Duration: 30 day, Stop date: 06/12/12 9:00:00 PO No Longer Active [facility] 05/14/2012 [facility] amLODipine 5 mg, 1 tab, Route: PO, Drug form: TAB, Daily, Dosing Weight 72.727, kg, Start date: 05/14/12 9:00:00, Duration: 30 day, Stop date: 06/12/12 9:00:00 PO No Longer Active [facility] 05/14/2012 [facility] enoxaparin 30 mg, 0.3 mL, Route: SUB-Q, Drug form: INJ, [id number], Dosing Weight 72.727, kg, Start date: 05/14/12 7:35:00, Duration: 30 day, Stop date: 06/12/12 19:35:00, Give first dose 12 hours after surgeryGive first dose 12 hours after surgery SUB-Q No Longer Active [facility] 05/14/2012 [facility] trazodone 100 mg oral tablet 100 mg, 1 tab, Route: PO, Drug form: TAB, Bedtime, Dosing Weight 72.727, kg, Start date: 05/13/12 21:00:00, Duration: 30 day, Stop date: 06/11/12 21:00:00 PO No Longer Active [facility] 05/14/2012 [facility] labetalol 200 mg, 1 tab, Route: PO, Drug form: TAB, Q12H, Dosing Weight 72.727, kg, Start date: 05/13/12 21:00:00, Duration: 30 day, Stop date: 06/12/12 9:00:00 PO No Longer Active [facility] 05/14/2012 [facility] aspirin 81 mg tablet, chewable 81 mg, 1 tab, Route: PO, Drug form: CHEWTAB, Daily, Dosing Weight 72.727, kg, Start date: 05/13/12 19:42:00, Duration: 30 day, Stop date: 06/12/12 9:00:00 PO No Longer Active [facility] 05/14/2012 [facility] Ambien 5 mg, 1 tab, Route: PO, Drug form: TAB, Bedtime, Dosing Weight 72.727, kg, PRN as needed for sleep, Start date: 05/13/12 19:35:00, Duration: 30 day, Stop date: 06/12/12 19:34:00 PO No Longer Active [facility] 05/14/2012 [facility] [place] 10/325 oral tablet 1 tab, Route: PO, Drug Form: TAB, Dosing Weight 72.727, kg, BID, PRN as needed for pain, Start date: 05/13/12 19:32:00, Duration: 30 day, Stop date: 06/12/12 19:31:00 PO No Longer Active [facility] 05/14/2012 [facility] docusate 100 mg, 1 cap, Route: PO, Drug form: CAP, BID, Dosing Weight 72.727, kg, Start date: 05/13/12 17:00:00, Duration: 30 day, Stop date: 06/12/12 9:00:00 PO No Longer Active [facility] 05/13/2012 [facility] HOLD LOVENOX ON 05/14/[address] LEIGH'S ORDERS HOLD LOVENOX ON 05/14/[address] LEIGH'S ORDERS, 1 CONT, Drug form: MISC, Route: SUB-Q, Continuous, 05/13/12 11:00:00, Stop date: 05/15/12 0:00:00 SUB-Q No Longer Active [facility] 05/13/2012 [facility] vancomycin 1 gm, 200 mL, Route: IVPB, Drug form: INJ, ONCALL, Start date: 05/13/12 11:00:00, Duration: 1 doses or times IVPB No Longer Active [facility] 05/13/2012 [facility] ondansetron 4 mg, 2 mL, Route: IVP, Drug form: INJ, Q6H, Dosing Weight 72.727, kg, PRN Nausea & Vomiting, Start date: 05/13/12 9:12:00, Duration: 30 day, Stop date: 06/12/12 9:11:00 IVP No Longer Active [facility] 05/13/2012 [facility] Dilaudid 1 mg, 1 mL, Route: IV, Drug form: SOLN, Q4H, Dosing Weight 72.727, kg, PRN as needed for pain, Priority: STAT, Start date: 05/13/12 9:12:00, Duration: 30 day, Stop date: 06/12/12 9:11:00 IV No Longer Active [facility] 05/13/2012 [facility] Saline Flush 0.9% 5 ml, Route: IVP, Drug Form: INJ, Dosing Weight 72.727, kg, PRN, PRN Line Flush, Start date: 05/13/12 9:12:00, Duration: 30 day, Stop date: 06/12/12 9:11:00 IVP No Longer Active [facility] 05/13/2012 [facility] Dilaudid 1 mg, 1 mL, Route: IVP, Drug form: SOLN, ONCE, Dosing Weight 72.727, kg, Priority: STAT, Start date: 05/13/12 8:15:00, Stop date: 05/13/12 8:15:00 IVP No Longer Active [facility] 05/13/2012 [facility] aspirin 81 mg tablet, chewable 81 mg, 1 tab, PO, Daily, tab, Substitution Allowed, CHEWTAB PO On Hold [facility] 05/13/2012 [facility] Flax Seed Oil oral capsule 2 caps, PO, BID, Substitution Allowed, Maintenance, CAP PO On Hold 05/13/2012 [facility] Co-Q10 100 mg oral capsule 200 mg, 2 cap, PO, Daily, 60 cap, Substitution Allowed, CAP PO On Hold [facility] 05/13/2012 [facility] Non-Formulary Home Medication 300 mg, PO, Daily, Substitution Allowed PO On Hold 05/13/2012 [facility] Calcium 600 +D oral tablet 1 tab, PO, BID, 270 tab, Substitution Allowed, Maintenance, TAB PO On Hold [facility] 05/13/2012 [facility] Centrum Silver oral tablet 1 tab, PO, Daily, 30 tab, Substitution Allowed, Maintenance, TAB PO No Longer Active 05/13/2012 [facility] Trilipix 135 mg oral delayed release capsule 135 mg, 1 cap, PO, Daily, 30 cap, Substitution Allowed, ECCAP PO No Longer Active 05/13/2012 [facility] [place] 10/325 oral tablet 1 tab, PO, BID, PRN, 24 tab, for pain, Substitution Allowed, Maintenance PO On Hold [facility] 05/13/2012 [facility] lamotrigine 100 mg oral tablet 100 mg, 1 tab, PO, Daily, 60 tab, Substitution Allowed, TAB PO On Hold [facility] 05/13/2012 [facility] amLODipine 5 mg oral tablet 5 mg, 1 tab, PO, Daily, 30 tab, Substitution Allowed, TAB PO On Hold [facility] 05/13/2012 [facility] Pristiq 50 mg oral tablet, extended release 50 mg, 1 tab, PO, Daily, 30 tab, Substitution Allowed, ERTAB PO On Hold [facility] 05/13/2012 [facility] Bumex 1 mg oral tablet 1 mg, 1 tab, PO, Daily, 30 tab, Substitution Allowed, TAB PO On Hold [facility] 05/13/2012 [facility] Levaquin 500 mg oral tablet 500 mg, PO, Every Other Day, Substitution Allowed, TAB PO No Longer Active 05/13/2012 [facility] sulfamethoxazole-trimethoprim 800 mg-160 mg oral tablet 1 tab, PO, Every Other Day, Substitution Allowed, Maintenance, TAB PO No Longer Active 05/13/2012 [facility] trazodone 100 mg oral tablet 100 mg, 1 tab, PO, Bedtime, 270 tab, Substitution Allowed, TAB PO On Hold [facility] 05/13/2012 [facility] citalopram 40 mg oral tablet 40 mg, 1 tab, PO, Daily, 30 tab, Substitution Allowed, TAB PO On Hold [facility] 05/13/2012 [facility] Avapro 300 mg oral tablet 300 mg, 1 tab, PO, Daily, 30 tab, Substitution Allowed PO On Hold [facility] 05/13/2012 [facility] Ambien 5 mg oral tablet 5 mg, 1 tab, PO, Bedtime, PRN, for sleep, Substitution Allowed, TAB PO On Hold [facility] 05/13/2012 [facility] Nexium 40 mg oral delayed release capsule 40 mg, 1 cap, PO, Daily, 30 cap, Substitution Allowed PO On Hold [facility] 05/13/2012 [facility] labetalol 200 mg oral tablet 200 mg, 1 tab, PO, BID, 180 tab, Substitution Allowed, TAB PO On Hold [facility] 05/13/2012 [facility] Lovenox 40 mg, 0.4 mL, Route: SUB-Q, Drug form: INJ, ONCE, Dosing Weight 72.727, kg, Start date: 05/13/12 7:31:00, Stop date: 05/13/12 7:31:00 SUB-Q No Longer Active [facility] 05/13/2012 [facility] Valium 5 mg, Route: IVP, ONCE, Dosing Weight 72.727, kg, Priority: STAT, Start date: 05/13/12 5:53:00, Stop date: 05/13/12 5:53:00 IVP No Longer Active [facility] 05/13/2012 [facility] morphine Sulfate 4 mg, Route: IVP, Drug form: INJ, ONCE, Dosing Weight 72.727, kg, Priority: STAT, Start date: 05/13/12 4:48:00, Stop date: 05/13/12 4:48:00 IVP No Longer Active [facility] 05/13/2012 [facility] ondansetron 4 mg, Route: IVP, Drug form: INJ, ONCE, Dosing Weight 72.727, kg, Priority: STAT, Start date: 05/13/12 2:57:00, Stop date: 05/13/12 2:57:00 IVP No Longer Active [facility] 05/13/2012 [facility] morphine Sulfate 4 mg, Route: IVP, Drug form: INJ, ONCE, Dosing Weight 72.727, kg, Priority: STAT, Start date: 05/13/12 2:57:00, Stop date: 05/13/12 2:57:00 IVP No Longer Active [facility] 05/13/2012 [facility] Citalopram Hydrobromide (Celexa) 40 Mg Tablet Daily Active [facility] Esomeprazole Magnesium (Nexium) 40 Mg Capsule. Daily Active [facility] Trazodone Hcl 100 Mg Tablet Bedtime Active [facility] Zolpidem Tartrate 10 Mg Tablet Bedtime Active [facility] Allergies, Adverse Reactions, Alerts Substance Category Reaction Severity Reaction type Status Date Reported Comments Source Oxycodone Unknown Allergy to Substance Active 03/20/2015 [facility] Penicillin Unknown Allergy to Substance Active 11/27/2017 [facility] Codeine Nausea Unknown Allergy to Substance Active 11/27/2017 [facility] Propoxyphene Unknown Allergy to Substance Active 11/27/2017 [facility] codeine drug allergy Allergy Active [facility] Darvon drug allergy Allergy Active [facility] oxyCODONE drug allergy Allergy Active [facility] penicillins drug allergy Allergy Active [facility] Immunizations Immunization Date Given Site Status Last Updated Comments Source Results Order Name Results Value Reference Range Date Interpretation Comments Source Capillary blood glucose measurement by glucometer (mass/volume) Capillary blood glucose measurement by glucometer (mass/volume) 167 70 - 120 12/04/2017 [facility] Estimated glomerular filtration rate (GFR) determination Estimated glomerular filtration rate (GFR) determination 43 60 12/04/2017 [facility] Glucose measurement Glucose measurement 96 74 - 118 12/04/2017 [facility] Serum or plasma anion gap Serum or plasma anion gap 12.9 8 - 16 12/04/2017 [facility] Serum or plasma calcium measurement (mass/volume) Serum or plasma calcium measurement (mass/volume) 10.1 8.4 - 10.2 12/04/2017 [facility] Serum or plasma carbon dioxide, total measurement (moles/volume) Serum or plasma carbon dioxide, total measurement (moles/volume) 28 22 - 29 12/04/2017 [facility] Serum or plasma chloride measurement (moles/volume) Serum or plasma chloride measurement (moles/volume) 104 98 - 107 12/04/2017 [facility] Serum or plasma creatinine measurement (mass/volume) Serum or plasma creatinine measurement (mass/volume) 1.20 0.57 - 1.11 12/04/2017 [facility] Serum or plasma potassium measurement (moles/volume) Serum or plasma potassium measurement (moles/volume) 3.9 3.5 - 5.1 12/04/2017 [facility] Serum or plasma sodium measurement (moles/volume) Serum or plasma sodium measurement (moles/volume) 141 136 - 145 12/04/2017 [facility] Serum or plasma urea nitrogen measurement (mass/volume) Serum or plasma urea nitrogen measurement (mass/volume) 35 7 - 26 12/04/2017 [facility] Serum or plasma urea nitrogen/creatinine mass ratio Serum or plasma urea nitrogen/creatinine mass ratio 29 6 - 25 12/04/2017 [facility] Automated blood basophil count (count/volume) Automated blood basophil count (count/volume) 0.0 0.0 - 0.1 12/02/2017 [facility] Automated blood basophil count as percentage of total leukocytes Automated blood basophil count as percentage of total leukocytes 0.3 0.0 - 1.0 12/02/2017 [facility] Automated blood eosinophil count Automated blood eosinophil count 0.5 0.0 - 0.4 12/02/2017 [facility] Automated blood eosinophil count as percentage of total leukocytes Automated blood eosinophil count as percentage of total leukocytes 3.5 0.0 - 6.0 12/02/2017 [facility] Automated blood hematocrit (volume fraction) Automated blood hematocrit (volume fraction) 38.8 34.2 - 44.1 12/02/2017 [facility] Automated blood lymphocyte count as percentage ot total leukocytes Automated blood lymphocyte count as percentage ot total leukocytes 19.2 18.0 - 39.1 12/02/2017 [facility] Automated blood monocyte count as percentage of total leukocytes Automated blood monocyte count as percentage of total leukocytes 10.3 4.4 - 11.3 12/02/2017 [facility] Automated blood neutrophil count Automated blood neutrophil count 9.4 2.1 - 6.9 12/02/2017 [facility] Automated blood platelet count (count/volume) Automated blood platelet count (count/volume) 288 140 - 360 12/02/2017 [facility] Automated blood segmented neutrophil count as percentage of total leukocytes Automated blood segmented neutrophil count as percentage of total leukocytes 66.3 38.7 - 80.0 12/02/2017 [facility] Automated erythrocyte mean corpuscular hemoglobin (mass per erythrocyte) Automated erythrocyte mean corpuscular hemoglobin (mass per erythrocyte) 26.7 28 - 32 12/02/2017 [facility] Automated erythrocyte mean corpuscular hemoglobin concentration measurement (mass/volume) Automated erythrocyte mean corpuscular hemoglobin concentration measurement (mass/volume) 32.5 31 - 35 12/02/2017 [facility] Automated erythrocyte mean corpuscular volume Automated erythrocyte mean corpuscular volume 82.2 81 - 99 12/02/2017 [facility] Blood erythrocytes automated count (number/volume) Blood erythrocytes automated count (number/volume) 4.72 3.6 - 5.1 12/02/2017 [facility] Blood hemoglobin measurement (moles/volume) Blood hemoglobin measurement (moles/volume) 12.6 12.0 - 16.0 12/02/2017 [facility] Blood leukocytes automated count (number/volume) Blood leukocytes automated count (number/volume) 14.14 4.8 - 10.8 12/02/2017 [facility] Blood lymphocytes count (number/volume) Blood lymphocytes count (number/volume) 2.7 1.0 - 3.2 12/02/2017 [facility] Blood monocytes automated count (number/volume) Blood monocytes automated count (number/volume) 1.5 0.2 - 0.8 12/02/2017 [facility] Red Cell Distribution Width 15.8 11.7 - 14.4 12/02/2017 [facility] IM GRANULOCYTES % 0.4 0.0 - 1.0 12/02/2017 [facility] Absolute Immature Granulocyte (auto 0.05 0 - 0.1 12/02/2017 [facility] Automated urine sediment leukocyte count by microscopy (number/high power field) Automated urine sediment leukocyte count by microscopy (number/high power field) null 0 - 5 11/30/2017 [facility] Bacteria detection in urine sediment by light microscopy Bacteria detection in urine sediment by light microscopy NONE NONE 11/30/2017 [facility] Epithelial cells detection in urine sediment by light microscopy Epithelial cells detection in urine sediment by light microscopy FEW NONE 11/30/2017 [facility] Erythrocytes detection in urine sediment by light microscopy Erythrocytes detection in urine sediment by light microscopy NONE 0 - 5 11/30/2017 [facility] Mucus detection in urine sediment by light microscopy Mucus detection in urine sediment by light microscopy RARE RARE 11/30/2017 [facility] Specific gravity of Urine by Test strip Specific gravity of Urine by Test strip 1.015 1.010 - 1.025 11/30/2017 [facility] Urine clarity Urine clarity CLEAR CLEAR 11/30/2017 [facility] Urine color determination Urine color determination YELLOW YELLOW 11/30/2017 [facility] Urine erythrocytes detection Urine erythrocytes detection NEGATIVE NEGATIVE 11/30/2017 [facility] Urine glucose detection Urine glucose detection NEGATIVE NEGATIVE 11/30/2017 [facility] Urine ketones detection by automated test strip Urine ketones detection by automated test strip NEGATIVE NEGATIVE 11/30/2017 [facility] Urine leukocyte esterase detection by dipstick Urine leukocyte esterase detection by dipstick NEGATIVE NEGATIVE 11/30/2017 [facility] Urine nitrite detection Urine nitrite detection NEGATIVE NEGATIVE 11/30/2017 [facility] Urine pH measurement by automated test strip Urine pH measurement by automated test strip 6 5 - 7 11/30/2017 [facility] Urine protein measurement by test strip (mass/volume) Urine protein measurement by test strip (mass/volume) NEGATIVE NEGATIVE 11/30/2017 [facility] Urine total bilirubin measurement (mass/volume) Urine total bilirubin measurement (mass/volume) NEGATIVE NEGATIVE 11/30/2017 [facility] Urine urobilinogen measurement by test strip (mass/volume) Urine urobilinogen measurement by test strip (mass/volume) 0.2 0.2 - 1 11/30/2017 [facility] Serum or plasma magnesium measurement (mass/volume) Serum or plasma magnesium measurement (mass/volume) 2.3 1.3 - 2.1 11/29/2017 [facility] Serum or plasma creatine kinase MB measurement (mass/volume) Serum or plasma creatine kinase MB measurement (mass/volume) 0.70 0 - 5.0 11/28/2017 [facility] Serum or plasma creatine kinase measurement (enzymatic activity/volume) Serum or plasma creatine kinase measurement (enzymatic activity/volume) 27 29 - 168 11/28/2017 [facility] Serum or plasma triiodothyronine (T3) free measurement (mass/volume) Serum or plasma triiodothyronine (T3) free measurement (mass/volume) 3.0 2.0 - 4.4 11/28/2017 [facility] Troponin I measurement by highly sensitive enzyme immunoassay Troponin I measurement by highly sensitive enzyme immunoassay 0.002 0 - 0.300 11/28/2017 [facility] Free thyroxine index Free thyroxine index 2.1674 1.4 - 3.8 11/28/2017 [facility] Serum or plasma thyroxine (T4) free measurement (mass/volume) Serum or plasma thyroxine (T4) free measurement (mass/volume) 1.02 0.9 - 1.8 11/28/2017 [facility] Serum or plasma thyroxine (T4) measurement (mass/volume) Serum or plasma thyroxine (T4) measurement (mass/volume) 7.31 4.5 - 10.9 11/28/2017 [facility] Serum or plasma triiodothyronine resin uptake (T3RU) Serum or plasma triiodothyronine resin uptake (T3RU) 29.65 22.5 - 37.0 11/28/2017 [facility] Lactic Acid Level 9.9 4.5 - 19.8 11/28/2017 [facility] Serum or plasma cholesterol in HDL measurement (mass/volume) Serum or plasma cholesterol in HDL measurement (mass/volume) 31 40 - 60 11/28/2017 [facility] Serum or plasma cholesterol in LDL measurement (mass/volume) Serum or plasma cholesterol in LDL measurement (mass/volume) 83 60 - 130 11/28/2017 [facility] Serum or plasma cholesterol measurement (mass/volume) Serum or plasma cholesterol measurement (mass/volume) 136 0 - 199 11/28/2017 [facility] Serum or plasma total cholesterol/cholesterol in HDL mass ratio Serum or plasma total cholesterol/cholesterol in HDL mass ratio 4.4 3.0 - 3.6 11/28/2017 [facility] Serum or plasma triglyceride measurement (mass/volume) Serum or plasma triglyceride measurement (mass/volume) 110 0 - 149 11/28/2017 [facility] Serum or plasma thyrotropin measurement by detection limit <=0.005 miu/l (units/volume) Serum or plasma thyrotropin measurement by detection limit <=0.005 miu/l (units/volume) 2.059 0.350 - 4.940 11/27/2017 [facility] HEMATOLOGY Monocytes # 0.8 K/CMM 0.0 - 0.8 06/01/2012 Normal [facility] HEMATOLOGY Lymphocytes # 1.3 K/CMM 1.0 - 5.5 06/01/2012 Normal [facility] HEMATOLOGY Basophils # 0.0 K/CMM 0.0 - 0.2 06/01/2012 Normal [facility] HEMATOLOGY Segs 62.4 % 45.0 - 75.0 06/01/2012 Normal [facility] HEMATOLOGY Basophils 0.5 % 0.0 - 1.0 06/01/2012 Normal [facility] HEMATOLOGY Eosinophils 7.0 % 0.0 - 4.0 06/01/2012 [facility] HEMATOLOGY Segs-Bands # 4.4 K/CMM 1.5 - 8.1 06/01/2012 Normal [facility] HEMATOLOGY Lymphocytes 19.0 % 20.0 - 40.0 06/01/2012 LOW [facility] HEMATOLOGY Monocytes 11.1 % 2.0 - 12.0 06/01/2012 Normal [facility] HEMATOLOGY Eosinophils # 0.5 K/CMM 0.0 - 0.5 06/01/2012 Normal [facility] HEMATOLOGY MCH 27.9 pg 27.0 - 31.0 06/01/2012 Normal [facility] HEMATOLOGY Hct 30.4 % 36.0 - 48.0 06/01/2012 [facility] HEMATOLOGY MCV 85.7 fL 81.0 - 99.0 06/01/2012 Normal [facility] HEMATOLOGY RDW 16.9 % 11.5 - 14.5 06/01/2012 [facility] HEMATOLOGY MCHC 32.6 g/dL 32.0 - 36.0 06/01/2012 Normal [facility] HEMATOLOGY Platelet 409 K/CMM 133 - 450 06/01/2012 Normal [facility] HEMATOLOGY MPV 7.8 fL 7.4 - 10.4 06/01/2012 Normal [facility] HEMATOLOGY RBC 3.55 M/CMM 4.20 - 5.40 06/01/2012 [facility] HEMATOLOGY Hgb 9.9 g/dL 12.0 - 16.0 06/01/2012 [facility] HEMATOLOGY WBC 7.0 K/CMM 3.7 - 10.4 06/01/2012 Normal [facility] STOOL TESTS Occult Bld Stl Negative (05/29/2012 10:40:00) Negative 05/29/2012 Normal [facility] STOOL TESTS Occult Bld Stl Negative (05/28/2012 05:50:00) Negative 05/28/2012 Normal [facility] HEMATOLOGY Basophils # 0.0 K/CMM 0.0 - 0.2 05/28/2012 Normal [facility] HEMATOLOGY Eosinophils # 0.4 K/CMM 0.0 - 0.5 05/28/2012 Normal [facility] HEMATOLOGY Monocytes # 1.1 K/CMM 0.0 - 0.8 05/28/2012 [facility] HEMATOLOGY Lymphocytes 16.9 % 20.0 - 40.0 05/28/2012 [facility] HEMATOLOGY Segs 67.2 % 45.0 - 75.0 05/28/2012 Normal [facility] HEMATOLOGY Lymphocytes # 1.6 K/CMM 1.0 - 5.5 05/28/2012 Normal [facility] HEMATOLOGY Segs-Bands # 6.5 K/CMM 1.5 - 8.1 05/28/2012 Normal [facility] HEMATOLOGY Eosinophils 4.2 % 0.0 - 4.0 05/28/2012 [facility] HEMATOLOGY Monocytes 11.3 % 2.0 - 12.0 05/28/2012 Normal [facility] HEMATOLOGY Basophils 0.4 % 0.0 - 1.0 05/28/2012 Normal [facility] HEMATOLOGY RDW 16.1 % 11.5 - 14.5 05/28/2012 [facility] HEMATOLOGY MCHC 32.9 g/dL 32.0 - 36.0 05/28/2012 Normal [facility] HEMATOLOGY Hct 30.0 % 36.0 - 48.0 05/28/2012 LOW [facility] HEMATOLOGY Hgb 9.9 g/dL 12.0 - 16.0 05/28/2012 LOW [facility] HEMATOLOGY MCH 27.9 pg 27.0 - 31.0 05/28/2012 Normal [facility] HEMATOLOGY MCV 84.9 fL 81.0 - 99.0 05/28/2012 Normal [facility] HEMATOLOGY RBC 3.53 M/CMM 4.20 - 5.40 05/28/2012 LOW [facility] HEMATOLOGY Platelet 429 K/CMM 133 - 450 05/28/2012 Normal [facility] HEMATOLOGY MPV 7.7 fL 7.4 - 10.4 05/28/2012 Normal [facility] HEMATOLOGY WBC 9.7 K/CMM 3.7 - 10.4 05/28/2012 Normal [facility] STOOL TESTS Occult Bld Stl Negative (05/27/2012 17:00:00) Negative 05/27/2012 Normal [facility] HEMATOLOGY Basophils # 0.1 K/CMM 0.0 - 0.2 05/27/2012 Normal [facility] HEMATOLOGY Segs 61.6 % 45.0 - 75.0 05/27/2012 Normal [facility] HEMATOLOGY Eosinophils # 0.4 K/CMM 0.0 - 0.5 05/27/2012 Normal [facility] HEMATOLOGY Lymphocytes # 2.0 K/CMM 1.0 - 5.5 05/27/2012 Normal [facility] HEMATOLOGY Monocytes # 0.9 K/CMM 0.0 - 0.8 05/27/2012 [facility] HEMATOLOGY Basophils 0.7 % 0.0 - 1.0 05/27/2012 Normal [facility] HEMATOLOGY Segs-Bands # 5.4 K/CMM 1.5 - 8.1 05/27/2012 Normal [facility] HEMATOLOGY Eosinophils 4.8 % 0.0 - 4.0 05/27/2012 [facility] HEMATOLOGY Lymphocytes 22.3 % 20.0 - 40.0 05/27/2012 Normal [facility] HEMATOLOGY Monocytes 10.6 % 2.0 - 12.0 05/27/2012 Normal [facility] HEMATOLOGY WBC 8.8 K/CMM 3.7 - 10.4 05/27/2012 Normal [facility] HEMATOLOGY RBC 3.51 M/CMM 4.20 - 5.40 05/27/2012 LOW [facility] HEMATOLOGY MCV 85.7 fL 81.0 - 99.0 05/27/2012 Normal [facility] HEMATOLOGY Hgb 9.9 g/dL 12.0 - 16.0 05/27/2012 LOW [facility] HEMATOLOGY Hct 30.1 % 36.0 - 48.0 05/27/2012 LOW [facility] HEMATOLOGY Platelet 407 K/CMM 133 - 450 05/27/2012 Normal [facility] HEMATOLOGY MPV 7.7 fL 7.4 - 10.4 05/27/2012 Normal [facility] HEMATOLOGY MCH 28.1 pg 27.0 - 31.0 05/27/2012 Normal [facility] HEMATOLOGY MCHC 32.8 g/dL 32.0 - 36.0 05/27/2012 Normal [facility] HEMATOLOGY RDW 16.5 % 11.5 - 14.5 05/27/2012 HI [facility] BLOOD BANK RESULTS ABO/Rh O POS 05/26/2012 Unknown [facility] BLOOD BANK RESULTS Antibody Scrn Negative (05/26/2012 15:06:00) 05/26/2012 Normal [facility] BLOOD BANK RESULTS RBC product Product available 1 (05/26/2012 13:47:00) 05/26/2012 Normal 1Result Comment: 05/26/2012 18:29 [id number] Called to [facility] at 05/26/2012 18:29 by AN [facility] CHEMISTRY Vitamin B12 Lvl 591 pg/mL 254 - 1320 05/26/2012 Normal [facility] CHEMISTRY UIBC 280 ug/dl 110 - 370 05/26/2012 Normal [facility] CHEMISTRY % Satur Fe 10 % 12 - 57 05/26/2012 LOW [facility] CHEMISTRY TIBC 312 ug/dl 228 - 428 05/26/2012 Normal [facility] CHEMISTRY Iron 32 ug/dl 30 - 160 05/26/2012 Normal [facility] CHEMISTRY Ferritin Lvl 44 ng/mL 5 - 204 05/26/2012 Normal [facility] CHEMISTRY Folate Lvl 22.2 ng/mL >=3.0 05/26/2012 Normal [facility] HEMATOLOGY Retic Auto 1.2 % 0.5 - 1.5 05/26/2012 Normal [facility] URINALYSIS UA Color Ltyellow 05/25/2012 NA [facility] URINALYSIS UA Urobilinogen <=1.0 mg/dL
*NA*
(05/25/2012 16:00:00) <sup> </sup> 0.1 - 1.0 05/25/2012 NA [facility] URINALYSIS UA Protein Negative mg/dL (05/25/2012 16:00:00) Negative 05/25/2012 Normal [facility] URINALYSIS UA pH 7.0 5.0 - 8.0 05/25/2012 Normal [facility] URINALYSIS UA Spec Grav 1.010 <=1.030 05/25/2012 Normal [facility] URINALYSIS UA Turbidity Clear (05/25/2012 16:00:00) Clear 05/25/2012 Normal [facility] URINALYSIS UA Bacteria Occasional /HPF *NA* (05/25/2012 16:00:00) None Seen 05/25/2012 [facility] URINALYSIS UA Sq Epi Occasional /LPF *NA* (05/25/2012 16:00:00) Few 05/25/2012 [facility] URINALYSIS UA WBC 2 /HPF 0 - 5 05/25/2012 Normal [facility] URINALYSIS UA Leuk Est Negative (05/25/2012 16:00:00) Negative 05/25/2012 Normal [facility] URINALYSIS UA Nitrite Negative (05/25/2012 16:00:00) Negative 05/25/2012 Normal [facility] URINALYSIS UA Blood Negative (05/25/2012 16:00:00) Negative 05/25/2012 Normal [facility] URINALYSIS UA Bili Negative *NA* (05/25/2012 16:00:00) Negative 05/25/2012 [facility] URINALYSIS UA Ketones Negative mg/dL *NA* (05/25/2012 16:00:00) Negative 05/25/2012 [facility] URINALYSIS UA Glucose Negative mg/dL *NA* (05/25/2012 16:00:00) Negative 05/25/2012 [facility] CHEMISTRY eGFR 54 mL/min/1.73m2 05/17/2012 NA 3Result Comment: The eGFR is calculated using [...] from the National Kidney Disease Education Program (NKDEP) which additionally recommends that when the eGFR is used in patients with extremes of body mass index for purposes of drug dosing, the eGFR should be multiplied by the estimated BMI. [facility] CHEMISTRY Chloride Lvl 103 meq/L 95 - 109 05/17/2012 Normal [facility] CHEMISTRY Potassium Lvl 4.0 meq/L 3.5 - 5.1 05/17/2012 Normal [facility] CHEMISTRY CO2 31 meq/L 24 - 32 05/17/2012 Normal [facility] CHEMISTRY Calcium Lvl 9.0 mg/dL 8.5 - 10.5 05/17/2012 Normal [facility] CHEMISTRY Glucose Lvl 90 mg/dL 70 - 99 05/17/2012 Normal 6Interpretive Data: Adult reference range values reflect the clinical guidelines of the [place] [employer]. [facility] CHEMISTRY BUN 22 mg/dL 7 - 22 05/17/2012 Normal [facility] CHEMISTRY Creatinine Lvl 1.0 mg/dL 0.5 - 1.4 05/17/2012 Normal [facility] CHEMISTRY Sodium Lvl 143 meq/L 135 - 145 05/17/2012 Normal [facility] CHEMISTRY AGAP 13.0 meq/L 10.0 - 20.0 05/17/2012 Normal [facility] HEMATOLOGY Basophils 0.2 % 0.0 - 1.0 05/17/2012 Normal [facility] HEMATOLOGY Lymphocytes # 1.8 K/CMM 1.0 - 5.5 05/17/2012 Normal [facility] HEMATOLOGY Eosinophils 4.2 % 0.0 - 4.0 05/17/2012 HI [facility] HEMATOLOGY Segs-Bands # 5.5 K/CMM 1.5 - 8.1 05/17/2012 Normal [facility] HEMATOLOGY Monocytes # 1.1 K/CMM 0.0 - 0.8 05/17/2012 [facility] HEMATOLOGY Eosinophils # 0.4 K/CMM 0.0 - 0.5 05/17/2012 Normal [facility] HEMATOLOGY Basophils # 0.0 K/CMM 0.0 - 0.2 05/17/2012 Normal [facility] HEMATOLOGY Segs 62.6 % 45.0 - 75.0 05/17/2012 Normal [facility] HEMATOLOGY Lymphocytes 20.0 % 20.0 - 40.0 05/17/2012 Normal [facility] HEMATOLOGY Monocytes 13.0 % 2.0 - 12.0 05/17/2012 HI [facility] HEMATOLOGY RBC 3.45 M/CMM 4.20 - 5.40 05/17/2012 LOW [facility] HEMATOLOGY WBC 8.8 K/CMM 3.7 - 10.4 05/17/2012 Normal [facility] HEMATOLOGY Hct 29.3 % 36.0 - 48.0 05/17/2012 LOW [facility] HEMATOLOGY Hgb 9.9 g/dL 12.0 - 16.0 05/17/2012 LOW [facility] HEMATOLOGY MCV 84.9 fL 81.0 - 99.0 05/17/2012 Normal [facility] HEMATOLOGY MCHC 33.6 g/dL 32.0 - 36.0 05/17/2012 Normal [facility] HEMATOLOGY MCH 28.5 pg 27.0 - 31.0 05/17/2012 Normal [facility] HEMATOLOGY Platelet 180 K/CMM 133 - 450 05/17/2012 Normal [facility] HEMATOLOGY RDW 16.1 % 11.5 - 14.5 05/17/2012 [facility] HEMATOLOGY MPV 9.1 fL 7.4 - 10.4 05/17/2012 Normal [facility] CHEMISTRY AGAP 11.0 meq/L 10.0 - 20.0 05/16/2012 Normal [facility] CHEMISTRY eGFR 49 mL/min/1.73m2 05/16/2012 NA 4Result Comment: The eGFR is calculated using [...] from the National Kidney Disease Education Program (NKDEP) which additionally recommends that when the eGFR is used in patients with extremes of body mass index for purposes of drug dosing, the eGFR should be multiplied by the estimated BMI. [facility] CHEMISTRY Potassium Lvl 4.0 meq/L 3.5 - 5.1 05/16/2012 Normal [facility] CHEMISTRY Creatinine Lvl 1.1 mg/dL 0.5 - 1.4 05/16/2012 Normal [facility] CHEMISTRY Chloride Lvl 105 meq/L 95 - 109 05/16/2012 Normal [facility] CHEMISTRY Sodium Lvl 143 meq/L 135 - 145 05/16/2012 Normal [facility] CHEMISTRY Glucose Lvl 96 mg/dL 70 - 99 05/16/2012 Normal 7Interpretive Data: Adult reference range values reflect the clinical guidelines of the [place] [employer]. [facility] CHEMISTRY BUN 22 mg/dL 7 - 22 05/16/2012 Normal [facility] CHEMISTRY Calcium Lvl 8.9 mg/dL 8.5 - 10.5 05/16/2012 Normal [facility] CHEMISTRY CO2 31 meq/L 24 - 32 05/16/2012 Normal [facility] HEMATOLOGY Basophils # 0.0 K/CMM 0.0 - 0.2 05/16/2012 Normal [facility] HEMATOLOGY Eosinophils # 0.4 K/CMM 0.0 - 0.5 05/16/2012 Normal [facility] HEMATOLOGY Monocytes # 1.2 K/CMM 0.0 - 0.8 05/16/2012 [facility] HEMATOLOGY Segs-Bands # 5.3 K/CMM 1.5 - 8.1 05/16/2012 Normal [facility] HEMATOLOGY Lymphocytes # 1.9 K/CMM 1.0 - 5.5 05/16/2012 Normal [facility] HEMATOLOGY Eosinophils 4.5 % 0.0 - 4.0 05/16/2012 [facility] HEMATOLOGY Basophils 0.3 % 0.0 - 1.0 05/16/2012 Normal [facility] HEMATOLOGY Lymphocytes 21.5 % 20.0 - 40.0 05/16/2012 Normal [facility] HEMATOLOGY Monocytes 13.9 % 2.0 - 12.0 05/16/2012 [facility] HEMATOLOGY Segs 59.8 % 45.0 - 75.0 05/16/2012 Normal [facility] HEMATOLOGY MCHC 33.1 g/dL 32.0 - 36.0 05/16/2012 Normal [facility] HEMATOLOGY MCH 28.2 pg 27.0 - 31.0 05/16/2012 Normal [facility] HEMATOLOGY MCV 85.3 fL 81.0 - 99.0 05/16/2012 Normal [facility] HEMATOLOGY Hct 28.9 % 36.0 - 48.0 05/16/2012 LOW [facility] HEMATOLOGY Platelet 158 K/CMM 133 - 450 05/16/2012 Normal [facility] HEMATOLOGY MPV 9.5 fL 7.4 - 10.4 05/16/2012 Normal [facility] HEMATOLOGY RDW 16.0 % 11.5 - 14.5 05/16/2012 HI [facility] HEMATOLOGY Hgb 9.6 g/dL 12.0 - 16.0 05/16/2012 LOW [facility] HEMATOLOGY RBC 3.39 M/CMM 4.20 - 5.40 05/16/2012 [facility] HEMATOLOGY WBC 8.8 K/CMM 3.7 - 10.4 05/16/2012 Normal [facility] BLOOD BANK RESULTS RBC product Product available 1 (05/15/2012 08:23:00) 05/15/2012 Normal 1Result Comment: 05/15/2012 08:46 JIM called to sara [facility] CHEMISTRY eGFR 49 mL/min/1.73m2 05/15/2012 NA 5Result Comment: The eGFR is calculated using [...] from the National Kidney Disease Education Program (NKDEP) which additionally recommends that when the eGFR is used in patients with extremes of body mass index for purposes of drug dosing, the eGFR should be multiplied by the estimated BMI. [facility] CHEMISTRY CO2 27 meq/L 24 - 32 05/15/2012 Normal [facility] CHEMISTRY Calcium Lvl 8.0 mg/dL 8.5 - 10.5 05/15/2012 LOW [facility] CHEMISTRY Creatinine Lvl 1.1 mg/dL 0.5 - 1.4 05/15/2012 Normal [facility] CHEMISTRY BUN 20 mg/dL 7 - 22 05/15/2012 Normal [facility] CHEMISTRY Glucose Lvl 106 mg/dL 70 - 99 05/15/2012 [place] 8Interpretive Data: Adult reference range values reflect the clinical guidelines of the [place] [employer]. [facility] CHEMISTRY Chloride Lvl 110 meq/L 95 - 109 05/15/2012 HI [facility] CHEMISTRY Potassium Lvl 4.2 meq/L 3.5 - 5.1 05/15/2012 Normal [facility] CHEMISTRY Sodium Lvl 143 meq/L 135 - 145 05/15/2012 Normal [facility] CHEMISTRY AGAP 10.2 meq/L 10.0 - 20.0 05/15/2012 Normal [facility] HEMATOLOGY Basophils # 0.0 K/CMM 0.0 - 0.2 05/15/2012 Normal [facility] HEMATOLOGY Eosinophils # 0.2 K/CMM 0.0 - 0.5 05/15/2012 Normal [facility] HEMATOLOGY Monocytes # 0.9 K/CMM 0.0 - 0.8 05/15/2012 [facility] HEMATOLOGY Lymphocytes 14.2 % 20.0 - 40.0 05/15/2012 LOW [facility] HEMATOLOGY Eosinophils 2.4 % 0.0 - 4.0 05/15/2012 Normal [facility] HEMATOLOGY Monocytes 10.5 % 2.0 - 12.0 05/15/2012 Normal [facility] HEMATOLOGY Lymphocytes # 1.3 K/CMM 1.0 - 5.5 05/15/2012 Normal [facility] HEMATOLOGY Basophils 0.2 % 0.0 - 1.0 05/15/2012 Normal [facility] HEMATOLOGY Segs-Bands # 6.6 K/CMM 1.5 - 8.1 05/15/2012 Normal [facility] HEMATOLOGY Segs 72.7 % 45.0 - 75.0 05/15/2012 Normal [facility] HEMATOLOGY Hgb 7.2 g/dL 12.0 - 16.0 05/15/2012 LOW [facility] HEMATOLOGY RBC 2.63 M/CMM 4.20 - 5.40 05/15/2012 LOW [facility] HEMATOLOGY WBC 9.1 K/CMM 3.7 - 10.4 05/15/2012 Normal [facility] HEMATOLOGY Hct 21.5 % 36.0 - 48.0 05/15/2012 LOW [facility] HEMATOLOGY MCH 27.3 pg 27.0 - 31.0 05/15/2012 Normal [facility] HEMATOLOGY MCV 82.0 fL 81.0 - 99.0 05/15/2012 Normal [facility] HEMATOLOGY MCHC 33.3 g/dL 32.0 - 36.0 05/15/2012 Normal [facility] HEMATOLOGY MPV 9.5 fL 7.4 - 10.4 05/15/2012 Normal [facility] HEMATOLOGY RDW 17.2 % 11.5 - 14.5 05/15/2012 [facility] HEMATOLOGY Platelet 168 K/CMM 133 - 450 05/15/2012 Normal [facility] BLOOD BANK RESULTS RBC product Product available 2 (05/14/2012 07:55:00) 05/14/2012 Normal 2Result Comment: 05/14/2012 07:58 JIM called to [facility] CHEMISTRY CK MB Index 1.7 0.0 - 2.5 05/13/2012 Normal [facility] CHEMISTRY Total CK 70 unit/L 12 - 191 05/13/2012 Normal [facility] CHEMISTRY CK MB 1.2 ng/mL 0.5 - 3.6 05/13/2012 Normal [facility] CHEMISTRY Troponin-I 0.02 ng/mL 0.00 - 0.40 05/13/2012 Normal [facility] BLOOD BANK RESULTS ABO/Rh O POS 05/13/2012 Unknown [facility] BLOOD BANK RESULTS Antibody Scrn Negative (05/13/2012 11:42:00) 05/13/2012 Normal [facility] CHEMISTRY Globulin 2.6 g/dL 2.0 - 4.0 05/13/2012 Normal [facility] CHEMISTRY A/G Ratio 1.6 0.7 - 1.6 05/13/2012 Normal [facility] CHEMISTRY B/C Ratio 22 6 - 25 05/13/2012 Normal [facility] CHEMISTRY ALT 18 unit/L 0 - 65 05/13/2012 Normal [facility] CHEMISTRY AST 15 unit/L 0 - 37 05/13/2012 Normal [facility] CHEMISTRY Alk Phos 60 unit/L 39 - 136 05/13/2012 Normal [facility] CHEMISTRY Bili Total 0.4 mg/dL 0.2 - 1.3 05/13/2012 Normal [facility] CHEMISTRY Albumin Lvl 4.2 g/dL 3.5 - 5.0 05/13/2012 Normal [facility] CHEMISTRY Total Protein 6.8 g/dL 6.4 - 8.4 05/13/2012 Normal [facility] HEMATOLOGY INR 1.11 0.85 - 1.17 05/13/2012 Normal 9Interpretive Data: RECOMMENDED RANGES FOR PROTIME INR: 2.0-3.0 for most medical and surgical thromboembolic states. 2.5-3.5 for artificial heart valves and recurrent embolism. INR SHOULD BE USED ONLY FOR PATIENTS ON STABLE ANTICOAGULANT THERAPY. [facility] HEMATOLOGY PTT 28.1 s 22.9 - 35.8 05/13/2012 Normal 10Interpretive Data: Heparin Therapeutic Range: 57 - 92 Seconds [facility] HEMATOLOGY PT 14.5 s 12.0 - 14.7 05/13/2012 Normal [facility] Vital Signs Vital Sign Value Date Comments Source Respitory Rate 20 06/02/2012 [facility] Systolic (mm Hg) 130 06/02/2012 [facility] Diastolic (mm Hg) 60 06/02/2012 [facility] Heart Rate 68 06/02/2012 [facility] Temperature Oral (F) 97.8 F 06/02/2012 [facility] Diastolic (mm Hg) 64 06/02/2012 [facility] Systolic (mm Hg) 150 06/02/2012 [facility] Temperature Oral (F) 98 F 06/02/2012 [facility] Respitory Rate 20 06/02/2012 [facility] Heart Rate 76 06/02/2012 [facility] Heart Rate 65 06/01/2012 [facility] Temperature Oral (F) 98.1 F 06/01/2012 [facility] Systolic (mm Hg) 136 06/01/2012 [facility] Respitory Rate 20 06/01/2012 [facility] Diastolic (mm Hg) 76 06/01/2012 [facility] Weight 72.073 05/18/2012 [facility] Height 172.20 cm 05/18/2012 [facility] Respitory Rate 18 05/17/2012 [facility] Heart Rate 71 05/17/2012 [facility] Temperature Oral (F) 98.7 F 05/17/2012 [facility] Diastolic (mm Hg) 62 05/17/2012 [facility] Systolic (mm Hg) 132 05/17/2012 [facility] Respitory Rate 16 05/17/2012 [facility] Systolic (mm Hg) 167 05/17/2012 [facility] Diastolic (mm Hg) 70 05/17/2012 [facility] Temperature Oral (F) 98.5 F 05/17/2012 [facility] Heart Rate 72 05/17/2012 [facility] Height 172.72 cm 05/13/2012 [facility] Weight 72.727 05/13/2012 [facility] Encounters Location Location Details Encounter Type Encounter Number Reason For Visit Attending Provider ADM Date DC Date Status Source [facility] Inpatient [id number] RODGER ETIENNERichy 05/13/2012 05/17/2012 Active [facility] [place] [id number] HIP FX VIKAS GROVE 05/17/2012 06/02/2012 Active [facility] Discharged Inpatient [id number] JOSE JUAN BUCKLEY MD 11/27/2017 12/05/2017 [facility] Procedures Procedure Code Date Perfomer Comments Source X-ray of chest, two views [id number] 12/05/2017 [facility] Bladder operation [id number] [facility] Hip replacement [facility] Hysterectomy [id number] [facility] Knee replacement [id number] [facility] Mastectomy [id number] [facility]
--- OUTSIDE RECORDS SUMMARY | 2018-06-09 17:23 | XMS REPORT | CCD ---
Author Author Auto Generated Organization [facility] Address Unknown Phone Unavailable Care Team Providers Care Product Development Worker Name Role Phone [place] Alex CP Tonia Aguilar I PP Allergies, Adverse Reactions, Alerts Substance Reaction Status [...] Medication Instructions Start Date End Date Status trazodone 100 mg 100 mg, 1 tab, Route: PO, Drug 05/17/2012 06/02/2012 Discontinued oral tablet form: TAB, Bedtime, Dosing Weight 72.727, kg, Start date: 05/17/12 21:00:00, Duration: 30 day, Stop date: 06/15/12 21:00:00 Protonix 40 mg, 1 tab, Route: PO, Drug form: 05/18/2012 06/02/2012 Discontinued ECTAB, Before Dinner, Dosing Weight 72.727, kg, Start date: 05/18/12 16:30:00, Duration: 30 day, Stop date: 06/16/12 16:30:00 Lovenox 40 mg, 0.4 mL, Route: SUB-Q, Drug 05/17/2012 05/28/2012 Completed form: INJ, Q24H, Dosing Weight 72.073, kg, Start date: 05/17/12 21:00:00, Duration: 12 day, Stop date: 05/28/12 21:00:00 Anusol-HC 25 mg 25 mg, 1 supp, Route: PA, BID, Drug 05/31/2012 06/02/2012 Discontinued rectal suppository form: SUPP PRN Hemorrhoids, Start date: 05/31/12 13:19:00, Duration: 30 day, Stop date: 06/30/12 13:18:00 MS Contin 60 mg, 2 tab, Route: PO, Drug form: 05/20/2012 05/22/2012 Discontinued ERTAB, Q12H, Dosing Weight 72.073, kg, Start date: 05/20/12 21:00:00, Duration: 30 day, Stop date: 06/19/12 9:00:00 Pristiq 50 mg oral 50 mg, 1 tab, PO, Daily, 90 tab, 06/02/2012 Ordered tablet, extended Substitution Allowed, ERTAB release Co-Q10 200 mg, Route: PO, Drug form: TAB, 05/18/2012 05/17/2012 Deleted Daily, Dosing Weight 72.727, kg, Start date: 05/18/12 9:00:00, Duration: 30 day, Stop date: 06/16/12 9:00:00 Ambien 5 mg oral 5 mg, 1 tab, PO, Bedtime, PRN, 90 06/02/2012 Ordered tablet tab, for sleep, Substitution Allowed, TAB Co-Q10 100 mg oral 200 mg, 2 cap, PO, Daily, 180 cap, 06/02/2012 Ordered capsule Substitution Allowed, CAP Duragesic-25 25 microgram, 1 patch, Route: TOP, 05/22/2012 06/02/2012 Discontinued Drug Form: ERFILM, Q72H, Start date: 05/22/12 20:00:00, Duration: 30 day, Stop date: 06/18/12 20:00:00 Flax Seed Oil oral 2 caps, PO, BID, 180 tab, 06/02/2012 Ordered capsule Substitution Allowed, Maintenance, CAP Nexium 40 mg oral 40 mg, 1 cap, PO, Daily, 90 cap, 06/02/2012 Ordered delayed release Substitution Allowed, ECCAP capsule trazodone 100 mg 100 mg, 1 tab, PO, Bedtime, 90 tab, 06/02/2012 Ordered oral tablet Substitution Allowed, TAB acetaminophen-hydroc 2 tab, Route: PO, Drug Form: TAB, 05/25/2012 06/02/2012 Discontinued odone 325 mg-10 mg Q6H, PRN Pain, Start date: 01/03/13 oral tablet 12:02:00, Duration: 30 day, Stop date: 06/24/12 12:01:00 acetaminophen-hydroc 1 tab, Route: PO, Drug Form: TAB, 05/22/2012 05/25/2012 Discontinued odone 325 mg-10 mg Q6H, PRN Pain, Start date: 05/22/12 oral tablet 17:31:00, Duration: 30 day, Stop date: 06/21/12 17:30:00 Ferrlecit + Sodium 125 mg, 10 mL, Route: IVPB, Drug 05/27/2012 06/01/2012 Discontinued Chloride 0.9% IV 100 form: INJ, QPM, Dosing Weight mL 72.073, kg, Start date: 05/27/12 17:00:00, Duration: 30 day, Stop date: 06/25/12 17:00:00 Restoril 15 mg, 1 cap, Route: PO, Drug form: 05/17/2012 06/02/2012 Discontinued CAP, Bedtime, PRN Sleep, Start date: 05/17/12 19:03:00, Duration: 30 day, Stop date: 06/16/12 19:02:00 Sodium Chloride 0.9% IV, 30 ml/hr, ONCALL, Start date: 05/26/2012 05/26/2012 Completed IV 05/26/12 21:00:00, Duration: 1, 250 ml lamotrigine 100 mg 100 mg, 1 tab, Route: PO, Drug 05/18/2012 06/02/2012 Discontinued oral tablet form: TAB, Daily, Dosing Weight 72.727, kg, Start date: 05/18/12 9:00:00, Duration: 30 day, Stop date: 06/16/12 9:00:00 pt own Co-Q10 pt own Co-Q10, 200 mg, Drug form: 05/18/2012 05/23/2012 Discontinued MISC, Route: PO, Daily, 05/18/12 9:00:00, Duration: 30 day, Stop date: 06/16/12 9:00:00 labetalol 200 mg, 1 tab, Route: PO, Drug 05/17/2012 06/02/2012 Discontinued form: TAB, Q12H, Dosing Weight 72.727, kg, Start date: 05/17/12 21:00:00, Duration: 30 day, Stop date: 06/16/12 9:00:00 Avapro 300 mg, 2 tab, Route: PO, Drug 05/18/2012 06/02/2012 Discontinued form: TAB, Daily, Dosing Weight 72.727, kg, Start date: 05/18/12 9:00:00, Duration: 30 day, Stop date: 06/16/12 9:00:00 Lovenox 30 mg, 0.3 mL, Route: SUB-Q, Drug 05/17/2012 05/17/2012 Canceled form: INJ, Q12H, Dosing Weight 72.727, kg, Start date: 05/17/12 21:00:00, Duration: 30 day, Stop date: 06/16/12 9:00:00 citalopram 40 mg, 2 tab, Route: PO, Drug form: 05/18/2012 06/02/2012 Discontinued TAB, Daily, Dosing Weight 72.727, kg, Start date: 05/18/12 9:00:00, Duration: 30 day, Stop date: 06/16/12 9:00:00 Os-Keanu 500 with D 1 tab, Route: PO, Drug Form: TAB, 05/17/2012 06/02/2012 Discontinued oral tablet Dosing Weight 72.727, kg, [id number], Start date: 05/17/12 21:00:00, Duration: 30 day, Stop date: 06/16/12 9:00:00 Bumex 1 mg, 1 tab, Route: PO, Drug form: 05/18/2012 06/02/2012 Discontinued TAB, Daily, Dosing Weight 72.727, kg, Start date: 05/18/12 9:00:00, Duration: 30 day, Stop date: 06/16/12 9:00:00 have RPh verify & have RPh verify & bar-code pt own 05/17/2012 05/23/2012 Discontinued bar-code pt own Pristiq & Co-Q10, 1 attn notice, Pristiq & Co-Q10 Drug form: MISC, Route: MISC, QSHIFT, 05/17/12 21:00:00, Duration: 30 day, Stop date: 06/16/12 16:00:00 Norvasc 5 mg, 1 tab, Route: PO, Drug form: 05/18/2012 06/02/2012 Discontinued TAB, Daily, Dosing Weight 72.727, kg, Start date: 05/18/12 9:00:00, Duration: 30 day, Stop date: 06/16/12 9:00:00 Celebrex 200 mg, 1 cap, Route: PO, Drug 06/02/2012 06/02/2012 Discontinued form: CAP, Daily, Dosing Weight 72.073, kg, Start date: 06/02/12 9:00:00, Duration: 30 day, Stop date: 07/01/12 9:00:00 pt own pt own desfenlafaxine (Pristiq) 05/18/2012 05/23/2012 Discontinued desfenlafaxine extended release, 50 mg, Drug form: (Pristiq) extended MISC, Route: PO, Daily, 05/18/12 release 9:00:00, Duration: 30 day, Stop date: 06/16/12 9:00:00 MiraLax oral powder 17 gm, PO, Daily, 255 gm, 06/02/2012 Ordered for reconstitution Substitution Allowed, PDR/REC Opana IR 20 mg, Route: PO, Drug form: TAB, 05/22/2012 05/22/2012 Deleted Q4H, Dosing Weight 72.073, kg, PRN Pain, Start date: 05/22/12 14:07:00, Duration: 30 day, Stop date: 06/21/12 14:06:00 Lidoderm 5% topical 1 patch, TOP, Daily, 30 patch, 06/02/2012 Ordered film (patch) Substitution Allowed, Remove after 12 hours, FILM Remove after 12 hours lamotrigine 100 mg 100 mg, 1 tab, PO, Daily, 90 tab, 06/02/2012 Ordered oral tablet Substitution Allowed, TAB Lidoderm 5% topical 1 patch, Route: TOP, Daily, Drug 06/02/2012 06/02/2012 Discontinued film (patch) form: FILM, Start date: 06/02/12 9:00:00, Duration: 30 day, Stop date: 07/01/12 9:00:00, Remove after 12 hours Remove after 12 hours hydrOXYzine 20 mg, 2 tab, Route: PO, Drug form: 06/01/2012 06/02/2012 Discontinued TAB, QID, Dosing Weight 72.073, kg, PRN Itching, Start date: 06/01/12 18:20:00, Duration: 30 day, Stop date: 07/01/12 18:19:00 labetalol 200 mg 200 mg, 1 tab, PO, BID, 180 tab, 06/02/2012 Ordered oral tablet Substitution Allowed, TAB Avapro 300 mg oral 300 mg, 1 tab, PO, Daily, 90 tab, 06/02/2012 Ordered tablet Substitution Allowed, TAB ferrous sulfate 324 324 mg, 1 tab, PO, BID, 90 tab, 06/02/2012 Ordered mg (65 mg elemental Substitution Allowed, ECTAB iron) oral enteric coated tablet MiraLax 17 gm, 1 pkt, Route: PO, Drug form: 06/02/2012 06/02/2012 Discontinued PWDR, BID, Dosing Weight 72.073, kg, Start date: 06/02/12 9:00:00, Duration: 30 day, Stop date: 07/01/12 17:00:00 citalopram 40 mg 40 mg, 1 tab, PO, Daily, 90 tab, 06/02/2012 Ordered oral tablet Substitution Allowed, TAB MS Contin 30 mg, 2 tab, Route: PO, Drug form: 05/18/2012 05/20/2012 Discontinued TAB, Q12H, Dosing Weight 72.073, kg, Start date: 05/18/12 21:00:00, Stop date: 06/17/12 9:00:00 Celebrex 200 mg oral 200 mg, 1 cap, PO, Daily, 90 cap, 06/02/2012 Ordered capsule Substitution Allowed, CAP Calcium 600 +D oral 1 tab, PO, BID, 180 tab, 06/02/2012 Ordered tablet Substitution Allowed, Maintenance, TAB lactulose 20 gm, 30 mL, Route: PO, Drug Form: 05/17/2012 06/02/2012 Discontinued SYRP, Dosing Weight 72.727, kg, Q6H, PRN Bowel Movements, Start date: 05/17/12 18:21:00, Duration: 30 day, Stop date: 06/16/12 18:20:00 docusate 100 mg, 1 cap, Route: PO, Drug 05/18/2012 06/02/2012 Discontinued form: CAP, BID, Dosing Weight 72.727, kg, Start date: 05/18/12 9:00:00, Duration: 30 day, Stop date: 06/16/12 17:00:00 Milk of Magnesia 30 mL, Route: PO, Drug Form: SUSP, 05/17/2012 05/20/2012 Discontinued Dosing Weight 72.727, kg, Daily, PRN Constipation, Start date: 05/17/12 18:21:00, Duration: 30 day, Stop date: 06/16/12 18:20:00 acetaminophen-hydroc 1 tab, Route: PO, Drug Form: TAB, 05/17/2012 05/22/2012 Discontinued odone 325 mg-10 mg Dosing Weight 72.727, kg, Q4H, PRN oral tablet Pain Score 1-5, Start date: 05/17/12 18:21:00, Duration: 30 day, Stop date: 06/16/12 18:20:00 acetaminophen 650 mg, 2 tab, Route: PO, Drug 05/17/2012 06/02/2012 Discontinued form: TAB, Q4H, Dosing Weight 72.727, kg, PRN Pain Score 1-3, Start date: 05/17/12 18:21:00, Duration: 30 day, Stop date: 06/16/12 18:20:00 Saline Flush 0.9% 3 mL, Route: IVP, Drug Form: INJ, 05/17/2012 06/02/2012 Discontinued Dosing Weight 72.727, kg, Q8H, PRN Line Flush, Start date: 05/17/12 18:21:00, Duration: 30 day, Stop date: 06/16/12 18:20:00, Administer at least once every 8 hours Administer at least once every 8 hours aspirin 81 mg, 1 tab, Route: PO, Drug form: 05/17/2012 06/02/2012 Discontinued CHEWTAB, Q24H, Dosing Weight 72.727, kg, Start date: 05/17/12 20:00:00, Duration: 30 day, Stop date: 06/15/12 20:00:00 zolpidem 5 mg, Route: PO, Drug form: TAB, 05/17/2012 05/17/2012 Deleted Bedtime, Dosing Weight 72.727, kg, PRN Insomnia, Start date: 05/17/12 18:21:00, Duration: 30 day, Stop date: 06/16/12 18:20:00 Bumex 1 mg oral 1 mg, 1 tab, PO, Daily, 90 tab, 06/02/2012 Ordered tablet Substitution Allowed, TAB acetaminophen-hydroc 2 tab, PO, Q6H, PRN, 100 tab, Pain, 06/02/2012 Ordered odone 325 mg-10 mg Substitution Allowed, Maintenance, oral tablet TAB aspirin 81 mg 81 mg, 1 tab, PO, Q24H, 100 tab, 06/02/2012 Ordered tablet, chewable Substitution Allowed, CHEWTAB Percocet 5/325 oral 2 tab, Route: PO, Drug Form: TAB, 05/22/2012 05/22/2012 Discontinued tablet Dosing Weight 72.073, kg, Q4H, PRN Pain, Start date: 05/22/12 14:00:00, Duration: 30 day, Stop date: 06/21/12 13:59:00 Zofran 4 mg, 1 tab, Route: PO, Drug form: 05/19/2012 06/02/2012 Discontinued TAB, Q8H, Dosing Weight 72.073, kg, PRN Nausea, Start date: 05/19/12 15:35:00, Duration: 30 day, Stop date: 06/18/12 15:34:00 Norvasc 5 mg oral 5 mg, 1 tab, PO, Daily, 90 tab, 06/02/2012 Ordered tablet Substitution Allowed, TAB Pristiq 50 mg oral 50 mg, 1 tab, Route: PO, Drug form: 05/18/2012 05/17/2012 Deleted tablet, extended ERTAB, Daily, Dosing Weight 72.727, release kg, Start date: 05/18/12 9:00:00, Duration: 30 day, Stop date: 06/16/12 9:00:00 ferrous sulfate 324 325 mg, 1 tab, Route: PO, Drug 05/26/2012 06/02/2012 Discontinued mg oral tablet form: ECTAB, BID, Dosing Weight 72.073, kg, Start date: 05/26/12 17:00:00, Duration: 30 day, Stop date: 06/25/12 9:00:00 Vital Signs Most recent to oldest [Reference Range]: 1 2 3 Height 172.20 cm (05/17/2012 18:22:00) Temperature Oral [96.4-99.1 DegF] 97.8 DegF (06/02/2012 08:00:00) 98 DegF (06/01/2012 21:00:00) 98.1 DegF (06/01/2012:25:00) Systolic Blood Pressure [90-140 mmHg] 130 mmHg (06/02/2012 08:00:00) 150 mmHg *HI* (06/01/2012 21:00:00) 136 mmHg (06/01/2012 17:25:00) Diastolic Blood Pressure [60-90 mmHg] 60 mmHg (06/02/2012 08:00:00) 64 mmHg (06/01/2012 21:00:00) 76 mmHg (06/01/2012:25:00) Respiratory Rate [14-20 BRMIN] 20 BRMIN (06/02/2012 08:00:00) 20 BRMIN (06/01/2012 21:00:00) 20 BRMIN (06/01/2012:25:00) Peripheral Pulse Rate [60-100 bpm] 68 bpm (06/02/2012 08:00:00) 76 bpm (06/01/2012 21:00:00) 65 bpm (06/01/2012:25:00) Weight 72.073 kg (05/17/2012 18:22:00) Results URINALYSIS Most recent to oldest [Reference Range]: 1 2 3 UA Turbidity [Clear] Clear (05/25/2012 16:00:00) UA Color Ltyellow *NA* (05/25/2012 16:00:00) UA pH [5.0-8.0] 7.0 (05/25/2012 16:00:00) UA Spec Grav [<=1.030] 1.010 (05/25/2012 16:00:00) UA Glucose [Negative mg/dL] Negative mg/dL *NA* (05/25/2012 16:00:00) UA Blood [Negative] Negative (05/25/2012 16:00:00) UA Ketones [Negative mg/dL] Negative mg/dL *NA* (05/25/2012 16:00:00) UA Protein [Negative mg/dL] Negative mg/dL (05/25/2012 16:00:00) UA Urobilinogen [0.1-1.0 mg/dL] <=1.0 mg/dL *NA* (05/25/2012 16:00:00) UA Bili [Negative] Negative *NA* (05/25/2012 16:00:00) UA Leuk Est [Negative] Negative (05/25/2012 16:00:00) UA Nitrite [Negative] Negative (05/25/2012 16:00:00) UA WBC [0-5 /HPF] 2 /HPF (05/25/2012 16:00:00) UA Bacteria [None Seen /HPF] Occasional /HPF *NA* (05/25/2012 16:00:00) UA Sq Epi [Few /LPF] Occasional /LPF *NA* (05/25/2012 16:00:00) STOOL TESTS Most recent to oldest [Reference Range]: 1 2 3 Occult Bld Stl [Negative] Negative (05/29/2012 10:40:00) Negative (05/28/2012 05:50:00) Negative (05/27/2012 17:00:00) BLOOD BANK RESULTS Most recent to oldest [Reference Range]: 1 2 3 ABO/Rh O POS *Unknown* (05/26/2012 15:06:00) Antibody Scrn Negative (05/26/2012 15:06:00) RBC product Product available 1 (05/26/2012 13:47:00) 1Result Comment: 05/26/2012 18:29 [id number] Called to Sergey at 05/26/2012 18:29 by AN CHEMISTRY Most recent to oldest [Reference Range]: 1 2 3 Iron [30-160 ug/dl] 32 ug/dl (05/26/2012 07:17:00) Ferritin Lvl [5-204 ng/mL] 44 ng/mL (05/26/2012 07:17:00) % Satur Fe [12-57 %] 10 % *LOW* (05/26/2012 07:17:00) UIBC [110-370 ug/dl] 280 ug/dl (05/26/2012 07:17:00) Vitamin B12 Lvl [254-1320 pg/mL] 591 pg/mL (05/26/2012 07:17:00) Folate Lvl [>=3.0 ng/mL] 22.2 ng/mL (05/26/2012 07:17:00) TIBC [228-428 ug/dl] 312 ug/dl (05/26/2012 07:17:00) HEMATOLOGY Most recent to oldest [Reference Range]: 1 2 3 WBC [3.7-10.4 K/CMM] 7.0 K/CMM (06/01/2012 05:11:00) 9.7 K/CMM (05/28/2012 05:16:00) 8.8 K/CMM (05/27/2012 07:28:00) RBC [4.20-5.40 M/CMM] 3.55 M/CMM *LOW* (06/01/2012 05:11:00) 3.53 M/CMM *LOW* (05/28/2012 05:16:00) 3.51 M/CMM *LOW* (05/27/2012 07:28:00) Hgb [12.0-16.0 g/dL] 9.9 g/dL *LOW* (06/01/2012 05:11:00) 9.9 g/dL *LOW* (05/28/2012 05:16:00) 9.9 g/dL *LOW* (05/27/2012 07:28:00) Hct [36.0-48.0 %] 30.4 % *LOW* (06/01/2012 05:11:00) 30.0 % *LOW* (05/28/2012 05:16:00) 30.1 % *LOW* (05/27/2012 07:28:00) MCV [81.0-99.0 fL] 85.7 fL (06/01/2012 05:11:00) 84.9 fL (05/28/2012 05:16:00) 85.7 fL (05/27/2012 07:28:00) MCH [27.0-31.0 pg] 27.9 pg (06/01/2012 05:11:00) 27.9 pg (05/28/2012 05:16:00) 28.1 pg (05/27/2012 07:28:00) MCHC [32.0-36.0 g/dL] 32.6 g/dL (06/01/2012 05:11:00) 32.9 g/dL (05/28/2012 05:16:00) 32.8 g/dL (05/27/2012 07:28:00) RDW [11.5-14.5 %] 16.9 % *HI* (06/01/2012 05:11:00) 16.1 % *HI* (05/28/2012 05:16:00) 16.5 % *HI* (05/27/2012 07:28:00) Platelet [133-450 K/CMM] 409 K/CMM (06/01/2012 05:11:00) 429 K/CMM (05/28/2012 05:16:00) 407 K/CMM (05/27/2012 07:28:00) MPV [7.4-10.4 fL] 7.8 fL (06/01/2012 05:11:00) 7.7 fL (05/28/2012 05:16:00) 7.7 fL (05/27/2012 07:28:00) Segs [45.0-75.0 %] 62.4 % (06/01/2012 05:11:00) 67.2 % (05/28/2012 05:16:00) 61.6 % (05/27/2012 07:28:00) Lymphocytes [20.0-40.0 %] 19.0 % *LOW* (06/01/2012 05:11:00) 16.9 % *LOW* (05/28/2012 05:16:00) 22.3 % (05/27/2012 07:28:00) Monocytes [2.0-12.0 %] 11.1 % (06/01/2012 05:11:00) 11.3 % (05/28/2012 05:16:00) 10.6 % (05/27/2012 07:28:00) Eosinophils [0.0-4.0 %] 7.0 % *HI* (06/01/2012 05:11:00) 4.2 % *HI* (05/28/2012 05:16:00) 4.8 % *HI* (05/27/2012 07:28:00) Basophils [0.0-1.0 %] 0.5 % (06/01/2012 05:11:00) 0.4 % (05/28/2012 05:16:00) 0.7 % (05/27/2012 07:28:00) Segs-Bands # [1.5-8.1 K/CMM] 4.4 K/CMM (06/01/2012 05:11:00) 6.5 K/CMM (05/28/2012 05:16:00) 5.4 K/CMM (05/27/2012 07:28:00) Lymphocytes # [1.0-5.5 K/CMM] 1.3 K/CMM (06/01/2012 05:11:00) 1.6 K/CMM (05/28/2012 05:16:00) 2.0 K/CMM (05/27/2012 07:28:00) Monocytes # [0.0-0.8 K/CMM] 0.8 K/CMM (06/01/2012 05:11:00) 1.1 K/CMM *HI* (05/28/2012 05:16:00) 0.9 K/CMM *HI* (05/27/2012 07:28:00) Eosinophils # [0.0-0.5 K/CMM] 0.5 K/CMM (06/01/2012 05:11:00) 0.4 K/CMM (05/28/2012 05:16:00) 0.4 K/CMM (05/27/2012 07:28:00) Basophils # [0.0-0.2 K/CMM] 0.0 K/CMM (06/01/2012 05:11:00) 0.0 K/CMM (05/28/2012 05:16:00) 0.1 K/CMM (05/27/2012 07:28:00) Retic Auto [0.5-1.5 %] 1.2 % (05/26/2012 07:17:00)
--- OUTSIDE RECORDS SUMMARY | 2018-06-09 17:24 | XMS REPORT | Summary of Care ---
Author Author MARK ANTHONY GOODE D.O. Organization Unknown Address Unknown Phone Unavailable Care Team Providers Care Rail Walker Name Role Phone MARK ANTHONY GOODE D.O. Unavailable Unavailable MARK ANTHONY DURAND Unavailable Unavailable Unavailable Unavailable Functional Status Name Dates Details Functional status health issues are not documented Status: Name Dates Details Cognitive status health issues are not documented Status: Problems Name Dates Details Seasonal allergic rhinitis (477.9, J30.2) Status: Active Depression, unspecified depression type (311, F32.9) Status: Active Edema (782.3, R60.9) Status: Active GERD without esophagitis (530.81, K21.9) Status: Active CAD (coronary artery disease) (414.00, I25.10) Status: Active Insomnia (780.52, G47.00) Status: Active Essential (primary) hypertension (401.9, I10) Status: Active Medications Name Dates Details Fluticasone Propionate 50 MCG/ACT Nasal Suspension USE 2 SPRAYS IN EACH NOSTRIL ONCE DAILY Quantity: 1 YEH D.O., GEN-JOAQUÍN * Start : 18-Apr-2018 Active 16 GM Bottle Promethazine-Phenylephrine 6.25-5 MG/5ML Oral Syrup TAKE 5 ML EVERY 4 TO 6 HOURS NEEDED. * Quantity: 120 Refills: 0 YEH D.O., GEN-JOAQUÍN * Start : 18-Apr-2018 Active Metoprolol Succinate ER 100 MG Oral Tablet Extended Release 24 Hour TAKE 1 TABLET BY MOUTH DAILY. * Quantity: 30 Refills: 5 YEH D.O., GEN-JOAQUÍN * Start : 18-Apr-2018 Active Venlafaxine HCl ER 75 MG Oral Capsule Extended Release 24 Hour TAKE 1 CAPSULE DAILY * Quantity: 30 Refills: 5 YEH D.O., GEN-JOAQUÍN * Start : 18-Apr-2018 Active Irbesartan 300 MG Oral Tablet TAKE 1 TABLET DAILY. * Quantity: 30 Refills: 5 YEH D.O., GEN-JOAQUÍN * Start : 18-Apr-2018 Active Potassium Chloride ER 20 MEQ Oral Tablet Extended Release ONE TABLET BY MOUTH ONCE A DAY * Quantity: 30 Refills: 5 YEH D.O., MARK ANTHONY * Start : 18-Apr-2018 Active Furosemide 40 MG Oral Tablet TAKE 1 TABLET BY MOUTH EVERY DAY * Quantity: 30 Refills: 5 YEH D.O., MARK ANTHONY * Start : 18-Apr-2018 Active Esomeprazole Magnesium 40 MG Oral Capsule Delayed Release TAKE 1 CAPSULE DAILY * Quantity: 30 Refills: 5 YEH D.O., MARK ANTHONY * Start : 18-Apr-2018 Active Xarelto 20 MG Oral Tablet TAKE 1 TABLET DAILY * Quantity: 30 Refills: 5 YEH D.O., MARK ANTHONY * Start : 18-Apr-2018 Active AmLODIPine Besylate 5 MG Oral Tablet TAKE 1 TABLET DAILY. * Quantity: 30 Refills: 5 YEH D.O., MARK ANTHONY * Start : 18-Apr-2018 Active Labetalol HCl - 100 MG Oral Tablet Take 1 tablet by mouth twice a day * Quantity: 60 Refills: 5 YEH D.O., MARK ANTHONY * Start : 18-Apr-2018 Active TraZODone HCl - 100 MG Oral Tablet TAKE 1 TABLET AT BEDTIME. * Quantity: 30 Refills: 2 * Start : 18-Apr-2018 Active Biotin 47266 MCG Oral Tablet TAKE DIRECTED. * Refills: 0 * Start : 18-Apr-2018 Active Zolpidem Tartrate 10 MG Oral Tablet TAKE ONE (1) TABLET(S) BY MOUTH ONCE A DAY AT BEDTIME. * Quantity: 30 Refills: 3 YEH D.O., GEN-JOAQUÍN * Start : 18-Apr-2018 Active Allergies and Adverse Reactions Name Dates Details codeine (Allergy) Status: Active Darvon (Allergy) Status: Active OxyCODONE HCl TABS (Allergy) Status: Active OxyCONTIN TB12 (Allergy) Status: Active Penicillins (Allergy) Status: Active propoxyphene (Allergy) Status: Active Past Medical History Name Dates Details History of anxiety disorder (V11.8, Z86.59) Status: Resolved History of gastritis (V12.79, Z87.19) Status: Resolved History of heart disease (V12.50, Z86.79) Status: Resolved History of hyperlipidemia (V12.29, Z86.39) Status: Resolved History of hypertension (V12.59, Z86.79) Status: Resolved Procedures Procedure Dates Details History of Knee Replacement Completed History of Hip Replacement Completed History of Hysterectomy Completed Immunization Name Dates Details Immunizations not documented Family History Name Dates Details Family history of essential hypertension (V17.49, Z82.49) Status: Active Family history of alcohol abuse (V61.41, Z81.1) Status: Active Name Dates Details Family history of alcohol abuse (V61.41, Z81.1) Status: Active Social History Name Dates Details - Status: Name Dates Details Former smoker Vital Signs Date Test Result Details [id number] BP Systolic 105 mm[Hg] Status: Comments: Location: LUE; Position: Sitting BP Diastolic 72 mm[Hg] Status: Comments: Location: LUE; Position: Sitting Weight 176 lb Status: Height 69 in Status: Body Mass Index Calculated 25.99 kg/m2 Status: Body Surface Area Calculated 1.96 m2 Status: Respiration Rate 16 /min Status: Heart Rate 126 /min Status: Temperature 97.7 f Status: Comments: Method: Temporal Results Date Description Value Details Results not documented Plan of Care Name Dates Details Planned Observations Planned Goals not documented Planned Encounters Appointment; MARK ANTHONY GOODE D.O. On: 20-Jul-2018 12:00 Interventions Provided Medication Changes* AmLODIPine Besylate 5 MG Oral Tablet - Renew * Esomeprazole Magnesium 40 MG Oral Capsule Delayed Release - Renew * Fluticasone Propionate 50 MCG/ACT Nasal Suspension - Start * Furosemide 40 MG Oral Tablet - Renew * Irbesartan 300 MG Oral Tablet - Renew * Labetalol HCl - 100 MG Oral Tablet - Renew * Metoprolol Succinate ER 100 MG Oral Tablet Extended Release 24 Hour - Renew * Potassium Chloride ER 20 MEQ Oral Tablet Extended Release - Renew * Promethazine-Phenylephrine 6.25-5 MG/5ML Oral Syrup - Start * Venlafaxine HCl ER 75 MG Oral Capsule Extended Release 24 Hour - Renew * Xarelto 20 MG Oral Tablet - Renew * Zolpidem Tartrate 10 MG Oral Tablet - Start Instructions* Patient Specific Education Given; Done: 19 Apr 2018 Plan* Seasonal Allergic Rhinitis - stable. Refilled Effexor * Edema - Stable. Refilled Furosemide * CAD - stable. Refilled Xarelto * HTN - stable. Refilled Irbesartan * Insomnia - stalbe. Refilled Zolpidem * Obtain labs as ordered * Follow-up in 6 months, sooner if needed Instructions Name Dates Details Instructions not documented Encounters Appointment; MARK ANTHONY GOODE D.O. Encounter Diagnosis: Problem not documented On: 18-Apr-2018 14:00
[2018-06-09] MEDS ORDERED: ALBUTEROL SULF 0.083% NEB SOLN 3 ML NEB NEB STA (17:46)
[2018-06-09] MEDS ORDERED: IPRATROPIUM BROMIDE 0.02% 2.5 ML NEB NEB STA (17:46)
[2018-06-09 18:12] LABS: BASOPHILS # (AUTO) 0.1 (0.0-0.1); BASOPHILS % 1.1 % (0.0-1.0); EOSINOPHILS # (AUTO) 0.2 (0.0-0.4); EOSINOPHILS % 2.3 % (0.0-6.0); HEMOGLOBIN 9.7 g/dL (12.0-16.0); LYMPHOCYTES # (AUTO) 2.4 (1.0-3.2); LYMPHOCYTES % 24.7 % (18.0-39.1); MEAN CORPUSCULAR HEMOGLOBIN 21.8 pg (28-32); MEAN CORPUSCULAR HGB CONC 29.4 g/dL (31-35); MEAN CORPUSCULAR VOLUME 74.3 fL (81-99); MONOCYTES # (AUTO) 1.2 (0.2-0.8); MONOCYTES % 12.5 % (4.4-11.3); NEUTROPHILS # (AUTO) 5.8 (2.1-6.9); NEUTROPHILS % 59.2 % (38.7-80.0); PLATELET COUNT 276 x10e3/uL (140-360); RED BLOOD COUNT 4.44 x10e6/uL (3.6-5.1); RED CELL DISTRIBUTION WIDTH 18.3 % (11.7-14.4)
[2018-06-09 18:25] LABS: INR 1.13; PROTHROMBIN TIME 15.5 seconds (11.9-14.5)
[2018-06-09 18:26] LABS: PARTIAL THROMBOPLASTIN TIME 29.6 seconds (23.8-35.5)
[2018-06-09 18:26] LABS: STREPTOCOCCUS GRP A ANTIGEN NEGATIVE (NEGATIVE)
[2018-06-09 18:31] LABS: ALBUMIN 3.6 g/dL (3.5-5.0); ALBUMIN/GLOBULIN RATIO 1.3 (0.8-2.0); ANION GAP 12.8 mmol/L (8-16); CREATININE, SERUM 1.11 mg/dL (0.57-1.11); POTASSIUM 3.8 mmol/L (3.5-5.1)
[2018-06-09 18:37] LABS: INFLUENZAE A&B ANTIGEN (RAPID) NEGATIVE (NEGATIVE)
--- NOTE | 2018-06-09 18:44 | NUR ---
RT notified of need for neb treatment.
--- NOTE | 2018-06-09 19:05 | NUR ---
Bedside rounding with Kim ARREDONDO
--- NOTE | 2018-06-09 19:13 | NUR ---
received bedside report from olvin Corbett day shift nurse.
--- NOTE | 2018-06-09 19:23 | Diagnostic Imaging Report ---
EXAMINATION: PA and lateral views of the chest. COMPARISON: Chest 2 views 12/06/2027 CLINICAL HISTORY: COPD, shortness of breath DISCUSSION: Lines/tubes: None. Lungs: The lungs are well inflated. Patchy airspace opacity projecting in the infrahilar region on the lateral view likely located in the right lower lobe, with bronchial wall thickening. Pleura: There is no pleural effusion or pneumothorax. Heart and mediastinum: Stable enlarged cardiac silhouette. Pulmonary vasculature is normal. Bones and soft tissues: No acute bony abnormalities. Degenerative changes in the thoracic spine IMPRESSION: 1. Findings may represent developing pneumonia in the right lower lobe. Recommend chest PA and lateral 4-6 weeks after appropriate treatment to document resolution. Signed by: Dr. Wong Cancino M.D. on 06/09/2018 7:20 PM
[2018-06-09] MEDS ORDERED: LEVOFLOXACIN 500MG/D5W 100ML 100 ML IV SCH (20:30)
[2018-06-09] MEDS ORDERED: DIGOXIN INJ 0.25 MG/ML 2 ML AMP IV ONE (20:45)
[2018-06-09] MEDS ORDERED: SODIUM CHLORIDE FLUSH 10 ML SYR INJ PRN (22:30)
[2018-06-09] MEDS ORDERED: ALBUTEROL/IPRATROPIUM 3 ML NEB NEB PRN (22:30)
[2018-06-09] MEDS ORDERED: DIPHENHYDRAMINE HCL INJ 50 MG/ML VIAL IV PRN (22:45)
[2018-06-09] MEDS ORDERED: FUROSEMIDE INJ 10 MG/ML 2 ML VIAL IV ONE (22:45)
[2018-06-09 23:16] VITALS: BP 146/92
--- NOTE | 2018-06-09 23:16 | NUR ---
PT ARRIVING TO UNIT VIA STRETCHER, PT ALERT AND ORIENTED, PT SEEMS HARD OF HEARING BUT DENIES, DENIES USE OF HEARING AIDS, BED ALARM ACTIVATED, BSC AT BEDSIDE, TELEMETRY NOTED, BED LOCKED AND LOW, CALL LIGHT IN REACH, PT STATES THAT SHE DOES NOT REMEMBER HOME MEDS AND SON WILL BRING LIST IN AM, INSTRUCTED TO CALL WITH NEEDS
[2018-06-09 23:30] VITALS: BP 146/92
[2018-06-10] VITALS (8 sets, daily range): BP systolic 127–169; BP diastolic 63–98
[2018-06-10] MEDS ORDERED: SODIUM CHLORIDE 0.9% 250ML 250 ML ONE ×2 (00:17→06:29)
[2018-06-10 01:33] LABS: CLARITY,URINE CLEAR (CLEAR); COLOR,URINE YELLOW (YELLOW)
[2018-06-10 01:34] LABS: BILIRUBIN,URINE NEGATIVE (NEGATIVE); KETONES,URINE NEGATIVE (NEGATIVE); LEUKOCYTE ESTERASE ,URINE NEGATIVE (NEGATIVE); NITRITE,URINE NEGATIVE (NEGATIVE); PROTEIN,URINE DIPSTICK NEGATIVE (NEGATIVE); URINE UROBILINOGEN 0.2 mg/dL (0.2 - 1)
[2018-06-10 01:38] LABS: BACTERIA,URINE FEW /HPF; MUCUS,URINE FEW (RARE); RBC,URINE 0-5 /HPF (0-5); WBC,URINE (MAN) 0-5 /HPF (0-5)
[2018-06-10 01:46] LABS: EPITHELIAL CELLS,URINE MODERATE /LPF
[2018-06-10] MEDS: ONDANSETRON HCL INJ 2MG/ML 2ML 2 MG/ML VIAL IV PRN ×2 (01:51→08:57)
[2018-06-10 03:12] LABS: CREATINE KINASE MB 0.8 ng/mL (0-5.0)
[2018-06-10 05:52] LABS: BASOPHILS # (AUTO) 0.1 (0.0-0.1); BASOPHILS % 0.8 % (0.0-1.0); EOSINOPHILS # (AUTO) 0.3 (0.0-0.4); EOSINOPHILS % 2.7 % (0.0-6.0); HEMATOCRIT 29.1 % (34.2-44.1); HEMOGLOBIN 8.7 g/dL (12.0-16.0); LYMPHOCYTES # (AUTO) 2.6 (1.0-3.2); LYMPHOCYTES % 24.6 % (18.0-39.1); MEAN CORPUSCULAR HEMOGLOBIN 21.6 pg (28-32); MEAN CORPUSCULAR HGB CONC 29.9 g/dL (31-35); MEAN CORPUSCULAR VOLUME 72.2 fL (81-99); MONOCYTES # (AUTO) 1.3 (0.2-0.8); MONOCYTES % 12.4 % (4.4-11.3); NEUTROPHILS # (AUTO) 6.3 (2.1-6.9); NEUTROPHILS % 59.2 % (38.7-80.0); PLATELET COUNT 262 x10e3/uL (140-360); RED BLOOD COUNT 4.03 x10e6/uL (3.6-5.1); RED CELL DISTRIBUTION WIDTH 18.1 % (11.7-14.4)
[2018-06-10] MEDS: AZTREONAM 1 GM/NS 50 ML 50 ML IV SCH ×3 (06:00→21:00)
[2018-06-10 06:25] LABS: CREATINE KINASE MB 1.9 ng/mL (0-5.0)
--- NOTE | 2018-06-10 06:27 | Diagnostic Imaging Report ---
EXAM: CHEST SINGLE (PORTABLE), AP 1 view INDICATION: Shortness of breath COMPARISON: PA and lateral view of the chest June 09, 2018 FINDINGS: LINES/TUBES: None LUNGS: Stable bronchial thickening. No consolidations. PLEURA: No effusions or pneumothorax. HEART AND MEDIASTINUM: Stable mild cardiac enlargement. BONES AND SOFT TISSUES: Right shoulder arthroplasty. IMPRESSION: No interval change. Signed by: Dr. Alejandra Martinez M.D. on 06/10/2018 6:24 AM
[2018-06-10 06:37] LABS: ANION GAP 14.3 mmol/L (8-16); CALCIUM 8.6 mg/dL (8.4-10.2); CREATININE, SERUM 1.04 mg/dL (0.57-1.11); POTASSIUM 3.3 mmol/L (3.5-5.1)
--- NOTE | 2018-06-10 07:00 | NUR ---
REPORT GIVEN TO ON COMING NURSE, PT RESTING IN BED WITH EYES CLOSED, NO DISTRESS NOTED, BED ALARM ACTIVATED, CALL LIGHT IN REACH
[2018-06-10] MEDS ORDERED: ACETAMINOPHEN 325 MG TAB PO PRN (08:15)
[2018-06-10] MEDS ORDERED: METOPROLOL TARTRATE INJ 1 MG/ML VIAL IV PRN (08:15)
--- NOTE | 2018-06-10 08:16 | NUR ---
patient resting in bed, Alert with no distress, call light in reach. tolerated with breakfast
[2018-06-10] MEDS: AZITHROMYCIN 500MG/NS 250 ML 250 ML IV SCH (08:42)
[2018-06-10] MEDS ORDERED: PANTOPRAZOLE SOD 40 MG TABEC PO SCH (09:00)
[2018-06-10] MEDS ORDERED: POTASSIUM CHLORIDE 10MEQ EA PO SCH (09:00)
[2018-06-10] MEDS ORDERED: DILTIAZEM HCL 180 MG CAP ER PO SCH (09:00)
[2018-06-10] MEDS ORDERED: FUROSEMIDE 20 MG TAB PO SCH (09:00)
[2018-06-10] MEDS: METOPROLOL TARTRATE 25 MG TAB PO SCH ×2 (09:14→18:04)
[2018-06-10] MEDS: DIGOXIN 0.125 MG TAB PO SCH (09:14)
[2018-06-10] MEDS: CITALOPRAM HYDROBROMIDE 20 MG TAB PO SCH (09:14)
[2018-06-10] MEDS: IRBESARTAN 150 MG TAB PO SCH (09:14)
[2018-06-10] MEDS: GUAIFENESIN 600MG/DEXTROMETHORPHAN 30MG TABSR PO SCH ×2 (09:14→18:04)
--- NOTE | 2018-06-10 09:16 | NUR ---
Met with Concepción Childress PARAFFINER earlier today to discuss pt meets criteria for inpatient status
[2018-06-10] MEDS: LEVALBUTEROL HCL SOLN NEBU 0.63 MG/3 ML NEB INH SCH ×4 (10:00→22:40)
[2018-06-10] MEDS: IPRATROPIUM BROMIDE 0.02% 2.5 ML NEB NEB SCH ×4 (11:00→22:40)
--- NOTE | 2018-06-10 11:40 | NUR ---
patient got transfer to room 107, Alert with no distress noted, transported by wheelchair
--- NOTE | 2018-06-10 11:45 | NUR ---
REPORT RECEIVED PT TO RM 107 NO DISTRESS NOTED, UPDATED ON POC VOICED UNDERSTANDING, DENIES PAIN AT THIS TIME, BED LOW/LOCKED POSITION, NO OTHER CO VOICED CALL LIGHT IN REACH WILL CONTINUE TO MONITOR
[2018-06-10] MEDS ORDERED: POTASSIUM CHLORIDE 20 MEQ TAB CR PO SCH (13:00)
--- NOTE | 2018-06-10 13:31 | NUR ---
Nutrition Screen Note RD Recommendation for Physician: Continue diet as ordered Plan of Care: RD following, monitoring for adequacy and tolerance Nutrition reason for involvement: Nutrition Risk Trigger-MST Primary Diagnose(s): Pneumonia, CHF Ht:69 in Wt:180.06lbs BMI:26.6 kg/m2 IBW:145lbs RD Assessment:(06/10/2018) Initial encounter with patient. Pt with C/O nausea and a fair appetite. Pt denies any difficulty chewing or swallowing. Normal BM Current Diet: Cardiac diet Malnutrition Evaluation (06/10/2018) The patient does not meet criteria for a specified degree of malnutrition at this time. Will re-evaluate at follow-up as appropriate. Diet Education Needs Assessment: Diet education not indicated. Diet Adequacy: Meeting calorie needs, Meeting protein needs, Meeting fluid needs Tolerance: Tolerating PO Nutrition Care Level:Scooby Valiente RD, LD, CNSC
[2018-06-10 13:34] LABS: CREATINE KINASE MB 0.8 ng/mL (0-5.0)
--- NOTE | 2018-06-10 13:50 | NUR ---
SOCIAL WORK INITIAL ASSESSMENT Database Specialist to bedside to discuss plan of care with patient/family. CM/SW role and care transitions discussed. Anticipated discharge plan discussed along with duration of care. CM/SW discussed patients right to make decisions in care. CM/SW work hours given. Patient lives: IN OWN HOUSE WITH SON KIEL Admit/Transfer: VIA ED FROM HOME POA/Emergency contact: KIEL [phone] Current/Previous Home Health: [facility] NEEDED PCP/Follow-up Care: LILI Current/Previous DME: NONE Other Services: NONE Employment Status: RETIRED Areas of Concerns: NONE Referral Needs: NONE Education Needs: NONE IMM/ABERNATHY given and signed (if applicable): ABERNATHY THEN FLIPPED TO INPATIENT Goal for discharge: RETURN HOME INDEPENDENTLY CM/SW left business card at the bedside with contact information. Name and number was also written on the patients whiteboard. Patient verbalized understanding of discussion. CM will follow-up with ongoing discharge and transition of care needs.
[2018-06-10] MEDS: RIVAROXABAN 10 MG TABLET PO SCH (18:04)
--- NOTE | 2018-06-10 18:04 | Consultation ---
DATE OF CONSULTATION: CARDIOLOGY CONSULTATION CONSULTING PHYSICIAN: Dr. Garduno. REASON FOR CONSULTATION: Atrial fibrillation with rapid ventricular response. HISTORY OF PRESENT ILLNESS: Ms. Yesi Johnson is an office patient of Dr. Hitesh Kelly who called the office reporting that he has been unwell and was advised to come to the ER. She reports that she has been short of breath for a few days and also suffering from some fevers and her son brought her to the ER for this reason. She did endorse palpitations upon admission; however, this has improved now. She continues to be short of breath at this time. Denies any fever, chills, dizziness, vertigo, syncope, or dysuria. PAST MEDICAL HISTORY: Includes hypertension, left breast cancer, anxiety, depression, insomnia, also atrial fibrillation, and COPD. PAST SURGICAL HISTORY: Includes shoulder surgery, cholecystectomy, cataract surgery, radical mastectomy, bilateral hip replacement, and bilateral knee replacement. ALLERGIES: PER ELECTRONIC CHART. FAMILY HISTORY: Noncontributory. PHYSICAL EXAMINATION VITAL SIGNS: Temperature 97.1, pulse 91, respiratory rate 16, blood pressure 138/98, oxygen saturation 94% on room air. GENERAL: Alert and oriented x2, resting comfortably in bed. Does not appear to be in acute distress right now. LUNGS: Diminished breath sounds anterior and posterior lower lobes, otherwise clear to auscultation. NECK: Supple. No JVD noted. CARDIOVASCULAR: Irregular rate and rhythm. Systolic and also diastolic murmur present. ABDOMEN: Soft, nontender. LOWER EXTREMITIES: 2+ pedal pulses. No edema. CARDIOVASCULAR MEDICATIONS 1. Metoprolol tartrate 25 mg p.o. b.i.d. 2. Irbesartan 75 mg p.o. daily. 3. Diltiazem 180 mg p.o. daily. 4. Lasix 20 mg p.o. daily. 5. Digoxin 0.125 mg p.o. daily. 6. Metoprolol 2.5 mg q.6 hours p.r.n. 7. Xarelto 20 mg p.o. daily. LABS: WBC 10.63, hemoglobin 8.7, hematocrit 29.1, platelets 262. Sodium 141, potassium 3.3, BUN 15, creatinine 1.04, calcium 8.6. Creatine kinase 200, CK-MB 1.90, troponin 0.008. Chest x-ray with no interval change. Chest x-ray on admission, findings may represent pneumonia in the right lower lobe. TELEMETRY: Atrial fibrillation with occasional PVCs and rapid ventricular response. IMPRESSION 1. Atrial fibrillation with rapid ventricular response. 2. Chronic obstructive pulmonary disease. 3. Pneumonia. 4. Hypertension. RECOMMENDATIONS: Maintain on telemetry at all times. Continue the above-listed cardiac medications. Patient's weight has been well controlled today. Continue the current medication and also anticoagulation with Xarelto. Monitor for any signs of bleeding. Continue to treat for pneumonia. Replace electrolytes today. Potassium initiated. We will continue to monitor this patient very closely. We thank you, Dr. Garduno for allowing us to participate in this patient's care. Dictated by: Divina Chaparro NP Job#: [id number]
--- NOTE | 2018-06-10 19:19 | NUR ---
WALKING ROUNDS PERFORMED, RECEIVED PT LAYING SEMI FOWLERS IN BED, AAOX3, RR EVEN AND NON-LABORED, ON RA. NO S/SX OF DISTRESS NOTED. LEFT PT LAYING SEMI FOWLERS IN BED, BED IN LOW LOCKED POSITION, SIDE RAILS UPX2, CALL LIGHT AND PHONE WITHIN REACH.
[2018-06-10] MEDS: ZOLMITRIPTAN 5 MG PO SCH (20:19)
--- NOTE | 2018-06-10 20:45 | NUR ---
RECEIVED CALL FROM PT'S SON, SHANNON. RECEIVED VERBAL HOME MEDICATION LIST. CLARIFIED HOME MEDICATION LIST WITH PT. WILL INPUT MEDICATIONS GIVEN.
[2018-06-10] MEDS ORDERED: TRAZODONE HCL 50 MG TAB PO SCH (21:00)
[2018-06-10] MEDS ORDERED: AMLODIPINE BESYL5 MG PO (21:18)
[2018-06-11] VITALS (8 sets, daily range): BP systolic 130–142; BP diastolic 61–75
[2018-06-11] MEDS: ONDANSETRON HCL INJ 2MG/ML 2ML 2 MG/ML VIAL IV PRN (02:14)
[2018-06-11] MEDS: IPRATROPIUM BROMIDE 0.02% 2.5 ML NEB NEB SCH ×6 (03:10→23:20)
[2018-06-11] MEDS: LEVALBUTEROL HCL SOLN NEBU 0.63 MG/3 ML NEB INH SCH ×6 (03:10→23:20)
[2018-06-11 04:00] LABS: BASOPHILS # (AUTO) 0.1 (0.0-0.1); BASOPHILS % 0.7 % (0.0-1.0); EOSINOPHILS # (AUTO) 0.3 (0.0-0.4); EOSINOPHILS % 3.4 % (0.0-6.0); HEMATOCRIT 30.4 % (34.2-44.1); HEMOGLOBIN 9.1 g/dL (12.0-16.0); LYMPHOCYTES # (AUTO) 3.3 (1.0-3.2); LYMPHOCYTES % 34.3 % (18.0-39.1); MEAN CORPUSCULAR HEMOGLOBIN 22.2 pg (28-32); MEAN CORPUSCULAR HGB CONC 29.9 g/dL (31-35); MEAN CORPUSCULAR VOLUME 74.1 fL (81-99); MONOCYTES # (AUTO) 1.2 (0.2-0.8); MONOCYTES % 12.8 % (4.4-11.3); NEUTROPHILS # (AUTO) 4.7 (2.1-6.9); NEUTROPHILS % 48.5 % (38.7-80.0); PLATELET COUNT 218 x10e3/uL (140-360); RED CELL DISTRIBUTION WIDTH 18.3 % (11.7-14.4)
[2018-06-11 04:23] LABS: ANION GAP 11.4 mmol/L (8-16); CALCIUM 8.3 mg/dL (8.4-10.2); CREATININE, SERUM 1.14 mg/dL (0.57-1.11); MAGNESIUM 1.7 MG/DL (1.3-2.1); POTASSIUM 3.4 mmol/L (3.5-5.1)
[2018-06-11 04:45] LABS: FERRITIN 8.52 ng/mL (4.63-204.00)
[2018-06-11 04:46] LABS: FREE T4 (FREE THYROXINE) 1.03 ng/dL (0.9-1.8); THYROID STIMULATING HORMONE 1.494 uIU/mL (0.350-4.940)
[2018-06-11 04:58] LABS: FOLATE 12.9 ng/mL (7.0-15.4)
[2018-06-11] MEDS: AZTREONAM 1 GM/NS 50 ML 50 ML IV SCH ×3 (05:23→21:51)
[2018-06-11] MEDS ORDERED: POTASSIUM CHLORIDE 20 MEQ TAB CR PO STA (06:08)
[2018-06-11] MEDS ORDERED: AMLODIPINE BESYL5 MG PO (06:12)
[2018-06-11] MEDS: METOPROLOL TARTRATE 25 MG TAB PO SCH (10:09)
[2018-06-11] MEDS: DOCUSATE SODIUM 100 MG CAP PO SCH ×2 (10:40→18:05)
[2018-06-11] MEDS: AZITHROMYCIN 500MG/NS 250 ML 250 ML IV SCH (10:40)
[2018-06-11] MEDS: CITALOPRAM HYDROBROMIDE 20 MG TAB PO SCH (10:40)
[2018-06-11] MEDS: IRBESARTAN 150 MG TAB PO SCH (10:40)
[2018-06-11] MEDS: PANTOPRAZOLE SOD 40 MG TABEC PO SCH (10:40)
[2018-06-11] MEDS: OYST-CAL-D 500MG TABLET PO SCH ×2 (10:40→18:05)
[2018-06-11] MEDS: DIGOXIN 0.125 MG TAB PO SCH (10:40)
[2018-06-11] MEDS: FERROUS SULFATE 325 MG TAB PO SCH ×2 (10:40→18:05)
[2018-06-11] MEDS: POTASSIUM CHLORIDE 20 MEQ TAB CR PO SCH (10:40)
--- NOTE | 2018-06-11 10:45 | NUR ---
ASSESSMENT COMPLETE NO DISTRESS NOTED, UPDATED ON POC VOICED UNDERSTANDING, DENIES PAIN AT THIS TIME, R HAND 20G NO SS OF INFILTRATION NOTED, NO OTHER CO VOICED CALL LIGHT IN REACH WILL CONTINROSANNE TO VANDANA
[2018-06-11] MEDS: METOPROLOL SUCCINATE 50 MG TAB XL PO SCH (11:00)
[2018-06-11] MEDS: GUAIFENESIN 600 MG TAB PO SCH ×3 (11:00→23:47)
--- NOTE | 2018-06-11 11:13 | Progress Note ---
DATE: CARDIOLOGY PROGRESS NOTE SUBJECTIVE: Patient reports that she feels much better this morning. She does endorse some cough and shortness of breath but denies any chest pain or palpitations, dizziness or syncope. OBJECTIVE VITAL SIGNS: Temperature 97.7, pulse 68, respiratory rate 19, blood pressure 134/74, oxygen saturation 94% on room air. GENERAL: Alert and oriented x3, resting comfortably in bed. Does not appear to be in any acute distress. LUNGS: Diminished breath sounds, anterior and posterior lower lobes. No crackles. No rhonchi or wheezing noted. CARDIOVASCULAR: Irregular rate and rhythm. Systolic and diastolic murmur present. S4 noted. NECK: Supple. No JVD noted. ABDOMEN: Soft, nontender. LOWER EXTREMITIES: 2+ pedal pulses. No edema. CARDIOVASCULAR MEDICATIONS 1. Xarelto 20 mg p.o. daily. 2. Metoprolol tartrate 25 mg p.o. b.i.d. 3. Irbesartan 75 mg p.o. daily. 4. Lasix 20 p.o. daily. 5. Diltiazem 180 mg p.o. daily. 6. Digoxin 0.125 mg p.o. daily. LABS: WBC 9.62, hemoglobin 9.1, hematocrit 30.4, platelets 218. Sodium 137, potassium 3.4, BUN 14, creatinine 1.14. IMPRESSION 1. Atrial fibrillation, rate controlled now. 2. Chronic obstructive pulmonary disease. 3. Pneumonia. 4. Hypertension. 5. Systolic heart failure per recent echo with left ventricular systolic function severely impaired to 20 to 25%, moderate tricuspid regurgitation present with moderate left ventricular hypertrophy noted. RECOMMENDATIONS 1. Medications adjusted for systolic heart failure care. We will discontinue diltiazem at this point. 2. Maintain on telemetry at all times. 3. Consider LifeVest upon discharge or evaluation for defibrillator placement. 4. Continue treatment and care for pneumonia. 5. Up titrate diuretic and monitor systolic heart failure improvement. We will continue to monitor this patient very closely. Dictated by: Divina Chaparro NP Job#: [id number] KASSIDY
--- NOTE | 2018-06-11 14:50 | NUR ---
SPOKE WITH ROSALIA PHARMACIST AT [facility], CLARIFICATION OF PATIENTS MEDICATIONS PER ORDERED BY
[2018-06-11] MEDS: RIVAROXABAN 10 MG TABLET PO SCH (18:05)
[2018-06-11] MEDS ORDERED: POTASSIUM CHLO20 ME1 PO (19:55)
[2018-06-11] MEDS ORDERED: APIXABAN PO (19:55)
[2018-06-11] MEDS ORDERED: FUROSEMIDE40 MG PO (19:55)
[2018-06-11] MEDS ORDERED: EFFEXOR XR 3737.5 MG PO (19:55)
[2018-06-11] MEDS ORDERED: LABETALOL HCL100 MG PO (19:55)
[2018-06-11] MEDS ORDERED: METOPROLOL SUCC50 MG PO (19:55)
[2018-06-11] MEDS ORDERED: IRBESARTAN150 MG PO (19:55)
[2018-06-11] MEDS ORDERED: TRAZODONE HCL 50 MG TAB PO PRN (20:15)
[2018-06-11] MEDS: ZOLMITRIPTAN 5 MG PO SCH (21:40)
--- NOTE | 2018-06-11 21:40 | NUR ---
PT IV TO (R) HAND NOTED TO HURT PT WHEN FLUSHED. IV DISCONTINUED. CATHETER TIP INTACT. PRESSURE AND DRESSING APPLIED.
--- NOTE | 2018-06-11 22:00 | NUR ---
APPLIED KIARRA ALTERNATING PRESSURE PUMP TO PT'S BED.
[2018-06-12] VITALS (7 sets, daily range): BP systolic 105–151; BP diastolic 56–91
[2018-06-12] MEDS: IPRATROPIUM BROMIDE 0.02% 2.5 ML NEB NEB SCH ×6 (03:05→23:22)
[2018-06-12] MEDS: LEVALBUTEROL HCL SOLN NEBU 0.63 MG/3 ML NEB INH SCH ×6 (03:05→23:22)
[2018-06-12 04:11] LABS: BASOPHILS # (AUTO) 0.1 (0.0-0.1); BASOPHILS % 0.9 % (0.0-1.0); EOSINOPHILS # (AUTO) 0.4 (0.0-0.4); EOSINOPHILS % 4.6 % (0.0-6.0); HEMATOCRIT 29.7 % (34.2-44.1); HEMOGLOBIN 8.7 g/dL (12.0-16.0); LYMPHOCYTES % 32.1 % (18.0-39.1); MEAN CORPUSCULAR HEMOGLOBIN 21.8 pg (28-32); MEAN CORPUSCULAR HGB CONC 29.3 g/dL (31-35); MEAN CORPUSCULAR VOLUME 74.4 fL (81-99); MONOCYTES # (AUTO) 1.1 (0.2-0.8); MONOCYTES % 11.7 % (4.4-11.3); NEUTROPHILS # (AUTO) 4.7 (2.1-6.9); NEUTROPHILS % 50.4 % (38.7-80.0); PLATELET COUNT 216 x10e3/uL (140-360); RED BLOOD COUNT 3.99 x10e6/uL (3.6-5.1); RED CELL DISTRIBUTION WIDTH 18.1 % (11.7-14.4)
[2018-06-12 04:28] LABS: ANION GAP 8.8 mmol/L (8-16); CALCIUM 8.4 mg/dL (8.4-10.2); CREATININE, SERUM 1.01 mg/dL (0.57-1.11); MAGNESIUM 1.9 MG/DL (1.3-2.1); POTASSIUM 3.8 mmol/L (3.5-5.1)
[2018-06-12] MEDS: AZTREONAM 1 GM/NS 50 ML 50 ML IV SCH ×2 (05:42→17:02)
[2018-06-12] MEDS: GUAIFENESIN 600 MG TAB PO SCH ×3 (05:42→17:15)
--- NOTE | 2018-06-12 07:11 | NUR ---
Received patient and walking rounds complete. Patient asleep in bed at this time no signs of distress at this time. Bed in lowest position, wheels locked, side rails up x2, call light in reach. Will continue to monitor.
[2018-06-12] MEDS: PANTOPRAZOLE SOD 40 MG TABEC PO SCH (08:28)
[2018-06-12] MEDS: FERROUS SULFATE 325 MG TAB PO SCH ×2 (08:28→17:15)
[2018-06-12] MEDS: IRBESARTAN 150 MG TAB PO SCH (08:29)
[2018-06-12] MEDS: POTASSIUM CHLORIDE 20 MEQ TAB CR PO SCH (08:29)
[2018-06-12] MEDS: DIGOXIN 0.125 MG TAB PO SCH (08:29)
[2018-06-12] MEDS: OYST-CAL-D 500MG TABLET PO SCH ×2 (08:29→17:15)
[2018-06-12] MEDS: DOCUSATE SODIUM 100 MG CAP PO SCH ×2 (08:29→17:15)
[2018-06-12] MEDS: METOPROLOL SUCCINATE 50 MG TAB XL PO SCH (08:30)
[2018-06-12] MEDS: AZITHROMYCIN 500MG/NS 250 ML 250 ML IV SCH (08:43)
[2018-06-12] MEDS ORDERED: FUROSEMIDE 20 MG TAB PO SCH (09:00)
[2018-06-12] MEDS ORDERED: METOPROLOL SUCCINATE 50 MG TAB XL PO SCH (09:00)
--- NOTE | 2018-06-12 10:00 | NUR ---
Patient A/O X3, even respirations on room air. No complaints of pain at this time. Bowel sounds present, but has not had bowel movement. Right FA IV saline locked. Patient is ambulatory with assist. Telemetry #9 running A-fib. Skin is intact. Bed in lowest position, wheels locked, side rails up x2, call light in reach. Will continue to monitor.
[2018-06-12] MEDS ORDERED: DIPHENHYDRAMINE HCL 25 MG CAP PO PRN (11:00)
--- NOTE | 2018-06-12 11:07 | NUR ---
Removed old right forearm IV, new IV started in right forearm.
--- NOTE | 2018-06-12 13:23 | NUR ---
Patient left for heart cath. Left via bed. No signs of distress noted.
[2018-06-12] MEDS ORDERED: HEPARIN SOD/SOD CHLORIDE 2,000 ML ONE (13:29)
[2018-06-12] MEDS ORDERED: LIDOCAINE HCL 1% LOCAL INJ 20 ML VIAL ONE (13:29)
[2018-06-12] MEDS ORDERED: MIDAZOLAM HCL 2 MG/2 ML VIAL ONE (13:29)
[2018-06-12] MEDS ORDERED: SODIUM CHLORIDE 0.9% 1000ML 1,000 ML ONE (13:29)
[2018-06-12] MEDS ORDERED: IOPAMIDOL 370 MG/ML 200 ML INFUS..BTL INJ ONE (13:29)
[2018-06-12] MEDS ORDERED: FENTANYL CITRATE/PF 100MCG/2 ML INJ ONE (13:29)
[2018-06-12] MEDS ORDERED: VERAPAMIL HCL 2.5 MG/ML 2 ML VIAL ONE (14:18)
--- NOTE | 2018-06-12 15:10 | NUR ---
CM WENT TO SEE PATIENT REGARDING IMM LETTER. PATIENT IN PROCEDURE AT THIS TIME. CM TO FOLLOW UP WHEN PATIENT ABLE TO SIGN IMM LETTER. PATIENT PROJECTED DISCHARGE 06/13.
--- NOTE | 2018-06-12 15:33 | Operative Report ---
DATE OF PROCEDURE: June 12, 2018 CARDIAC CATHETERIZATION REPORT INDICATION FOR PROCEDURE: Cardiomyopathy with EF 20% to 25%. PREPROCEDURE ASSESSMENT: The patient's medical history, social history, prior experience with anesthesia were reviewed prior the procedure and patient was deemed an appropriate candidate for moderate sedation. The risks, the benefits and alternatives of the procedure were explained to the patient, and informed consent was obtained as documented in the medical record. MEDICATIONS: Please see nursing notes for medications administered during the procedure. PROCEDURES PERFORMED: 1. Coronary angiography, right radial approach. 2. Left heart catheterization. PROCEDURE DETAILS: The patient was brought to the cardiac catheterization laboratory in a fasting state. Her right wrist was prepped and draped in a sterile fashion. A 6-Portuguese Slender sheath was inserted into the right radial artery using modified Seldinger technique. Coronary angiography and left heart catheterization were performed using a 5-Portuguese Kim radial catheter. All catheters were moved over a wire. Patient tolerated the procedure well, and there were no immediate postprocedural complications. SIGNIFICANT FINDINGS: Right dominant coronary system with 50% distal left anterior descending and 50% distal obtuse marginal disease, otherwise nonobstructive coronary artery disease. ESTIMATED BLOOD LOSS: 20 mL. SPECIMENS REMOVED: None. IMPLANTS: None. COMPLICATIONS: None. RECOMMENDATIONS: 1. TR band protocol with deflation starting at 30 minutes. 2. Return to her previous hospital bed and resume previous diet. 3. Continue optimal medical therapy and risk factor control. 4. Follow up with primary public health epidemiologist, Dr. Saucedo, two weeks after discharge from the hospital. Job#: [id number]
--- NOTE | 2018-06-12 16:38 | NUR ---
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 Right wrist was accessed. NO bleeding noted. No c/o pain. Patient is not on any bed rest restrictions.
[2018-06-12] MEDS: RIVAROXABAN 10 MG TABLET PO SCH (17:15)
[2018-06-12] MEDS: ZOLPIDEM TARTRATE 10 MG TAB PO PRN (22:19)
[2018-06-13] VITALS (8 sets, daily range): BP systolic 121–135; BP diastolic 57–82
--- NOTE | 2018-06-13 00:14 | Progress Note ---
DATE: June 12, 2018 CARDIOLOGY PROGRESS NOTE SUBJECTIVE: Had coronary angiogram performed today, showed no significant CAD. OBJECTIVE: VITAL SIGNS: Afebrile, pulse 79, respiratory rate 18, blood pressure 121/65, satting 95% on room air. GENERAL: Elderly white female, in no acute distress. CARDIOVASCULAR: Regular rate and rhythm. No murmurs, rubs, or gallops. LUNGS: Diminished breath sounds at the bases, otherwise clear to auscultation. ABDOMEN: Soft, nontender, nondistended. NEURO AND PSYCH: Alert and oriented to person, place, and time. Normal affect. INPATIENT MEDICATIONS: Reviewed. TELEMETRY DATA: Reviewed, shows AFib, rate controlled. LABORATORY DATA: Reviewed. ASSESSMENT AND PLAN: 1. Atrial fibrillation, rate controlled. 2. Chronic obstructive pulmonary disease. 3. Pneumonia. 4. Hypertension. 5. Systolic heart failure with ejection fraction less than 25%. RECOMMENDATIONS: Coronary angiography showed nonobstructive CAD, so cardiomyopathy is likely nonischemic, hopefully will improve with rate control. For atrial fibrillation, continue Xarelto. Will consider a LifeVest upon discharge or evaluation for defibrillator placement prior to discharge. Medical therapy for CHF as prescribed. Thank you for this consult. Will continue to follow. Job#: [id number]
[2018-06-13] MEDS: AZTREONAM 1 GM/NS 50 ML 50 ML IV SCH ×4 (00:31→23:29)
[2018-06-13] MEDS: LEVALBUTEROL HCL SOLN NEBU 0.63 MG/3 ML NEB INH SCH ×6 (02:00→22:00)
[2018-06-13] MEDS: IPRATROPIUM BROMIDE 0.02% 2.5 ML NEB NEB SCH ×6 (03:00→22:52)
[2018-06-13 03:17] LABS: BASOPHILS # (AUTO) 0.1 (0.0-0.1); BASOPHILS % 0.7 % (0.0-1.0); EOSINOPHILS # (AUTO) 0.5 (0.0-0.4); EOSINOPHILS % 4.4 % (0.0-6.0); HEMATOCRIT 34.1 % (34.2-44.1); HEMOGLOBIN 9.9 g/dL (12.0-16.0); LYMPHOCYTES % 27.9 % (18.0-39.1); MEAN CORPUSCULAR HEMOGLOBIN 21.6 pg (28-32); MEAN CORPUSCULAR VOLUME 74.3 fL (81-99); MONOCYTES # (AUTO) 1.2 (0.2-0.8); MONOCYTES % 11.2 % (4.4-11.3); NEUTROPHILS # (AUTO) 5.9 (2.1-6.9); NEUTROPHILS % 55.5 % (38.7-80.0); PLATELET COUNT 260 x10e3/uL (140-360); RED BLOOD COUNT 4.59 x10e6/uL (3.6-5.1); RED CELL DISTRIBUTION WIDTH 19.1 % (11.7-14.4)
[2018-06-13 03:48] LABS: ANION GAP 11.6 mmol/L (8-16); CALCIUM 8.7 mg/dL (8.4-10.2); CREATININE, SERUM 1.13 mg/dL (0.57-1.11); MAGNESIUM 1.7 MG/DL (1.3-2.1); POTASSIUM 3.6 mmol/L (3.5-5.1)
[2018-06-13] MEDS: GUAIFENESIN 600 MG TAB PO SCH ×5 (05:40→23:29)
[2018-06-13] MEDS ORDERED: POTASSIUM CHLORIDE 20 MEQ TAB CR PO STA (06:07)
[2018-06-13] MEDS ORDERED: FUROSEMIDE INJ 10 MG/ML 2 ML VIAL IV ONE (06:15)
[2018-06-13] MEDS ORDERED: POLYETHYLENE GLYCOL 3350 17 GM PACK PO ONE (06:15)
--- NOTE | 2018-06-13 07:02 | NUR ---
Received patient and walking rounds complete. Patient asleep in bed at this time. No signs of distress. Bed in lowest position, wheels locked, side rails up x2, call light in reach. Will continue to monitor.
[2018-06-13] MEDS: PANTOPRAZOLE SOD 40 MG TABEC PO SCH (08:31)
[2018-06-13] MEDS: DOCUSATE SODIUM 100 MG CAP PO SCH ×2 (08:31→16:46)
[2018-06-13] MEDS: POTASSIUM CHLORIDE 20 MEQ TAB CR PO SCH (08:31)
[2018-06-13] MEDS: FERROUS SULFATE 325 MG TAB PO SCH ×2 (08:31→16:46)
[2018-06-13] MEDS: IRBESARTAN 150 MG TAB PO SCH (08:31)
[2018-06-13] MEDS: DIGOXIN 0.125 MG TAB PO SCH (08:32)
[2018-06-13] MEDS: METOPROLOL SUCCINATE 50 MG TAB XL PO SCH (08:32)
[2018-06-13] MEDS: OYST-CAL-D 500MG TABLET PO SCH ×2 (08:32→16:46)
[2018-06-13] MEDS: FUROSEMIDE 40 MG TAB PO SCH (08:32)
[2018-06-13] MEDS: AZITHROMYCIN 500MG/NS 250 ML 250 ML IV SCH (09:10)
--- NOTE | 2018-06-13 10:00 | NUR ---
Patient A/O X3, even respirations on room air. No signs of distress. Bowel sounds active, last BM 06/11/18. Voids in bedside commode. Right AC 22 gauge SL. No complaints of pain at this time. Tele box #9 A-fib. Will continue to monitor.
--- NOTE | 2018-06-13 16:28 | NUR ---
Informed SANTANA Beebe that no cardiac interventions were needed at this time. Continue the xarelto per Dr. Troy standpoint
[2018-06-13] MEDS ORDERED: BISACODYL 5 MG TAB EC PO NR (16:30)
[2018-06-13] MEDS: RIVAROXABAN 10 MG TABLET PO SCH (16:46)
[2018-06-14] VITALS (8 sets, daily range): BP systolic 116–160; BP diastolic 72–88
[2018-06-14] MEDS: LEVALBUTEROL HCL SOLN NEBU 0.63 MG/3 ML NEB INH SCH ×5 (02:00→20:00)
[2018-06-14] MEDS: IPRATROPIUM BROMIDE 0.02% 2.5 ML NEB NEB SCH ×5 (03:00→20:00)
[2018-06-14 03:38] LABS: BASOPHILS # (AUTO) 0.1 (0.0-0.1); BASOPHILS % 0.7 % (0.0-1.0); EOSINOPHILS # (AUTO) 0.5 (0.0-0.4); EOSINOPHILS % 3.7 % (0.0-6.0); HEMATOCRIT 36.9 % (34.2-44.1); HEMOGLOBIN 10.9 g/dL (12.0-16.0); LYMPHOCYTES # (AUTO) 3.3 (1.0-3.2); LYMPHOCYTES % 24.8 % (18.0-39.1); MEAN CORPUSCULAR HEMOGLOBIN 21.8 pg (28-32); MEAN CORPUSCULAR HGB CONC 29.5 g/dL (31-35); MEAN CORPUSCULAR VOLUME 73.9 fL (81-99); MONOCYTES # (AUTO) 1.5 (0.2-0.8); MONOCYTES % 11.2 % (4.4-11.3); NEUTROPHILS # (AUTO) 7.9 (2.1-6.9); NEUTROPHILS % 59.3 % (38.7-80.0); PLATELET COUNT 316 x10e3/uL (140-360); RED BLOOD COUNT 4.99 x10e6/uL (3.6-5.1); RED CELL DISTRIBUTION WIDTH 19.4 % (11.7-14.4)
[2018-06-14 03:57] LABS: ANION GAP 13.8 mmol/L (8-16); CALCIUM 9.5 mg/dL (8.4-10.2); CREATININE, SERUM 1.24 mg/dL (0.57-1.11); MAGNESIUM 2.4 MG/DL (1.3-2.1); POTASSIUM 3.8 mmol/L (3.5-5.1)
[2018-06-14] MEDS: GUAIFENESIN 600 MG TAB PO SCH ×4 (05:49→22:54)
[2018-06-14 07:40] LABS: BASOPHILS # (AUTO) 0.1 (0.0-0.1); BASOPHILS % 0.7 % (0.0-1.0); EOSINOPHILS # (AUTO) 0.5 (0.0-0.4); EOSINOPHILS % 3.7 % (0.0-6.0); HEMATOCRIT 34.2 % (34.2-44.1); HEMOGLOBIN 10.2 g/dL (12.0-16.0); LYMPHOCYTES # (AUTO) 2.9 (1.0-3.2); LYMPHOCYTES % 24.2 % (18.0-39.1); MEAN CORPUSCULAR HGB CONC 29.8 g/dL (31-35); MEAN CORPUSCULAR VOLUME 73.7 fL (81-99); MONOCYTES # (AUTO) 1.4 (0.2-0.8); MONOCYTES % 11.9 % (4.4-11.3); NEUTROPHILS # (AUTO) 7.1 (2.1-6.9); NEUTROPHILS % 59.3 % (38.7-80.0); PLATELET COUNT 292 x10e3/uL (140-360); RED BLOOD COUNT 4.64 x10e6/uL (3.6-5.1); RED CELL DISTRIBUTION WIDTH 19.4 % (11.7-14.4)
[2018-06-14] MEDS: AZTREONAM 1 GM/NS 50 ML 50 ML IV SCH ×3 (08:00→22:54)
[2018-06-14] MEDS: POLYETHYLENE GLYCOL 3350 17 GM PACK PO SCH ×2 (09:00→17:40)
[2018-06-14] MEDS: OYST-CAL-D 500MG TABLET PO SCH ×2 (09:00→17:40)
[2018-06-14] MEDS: FUROSEMIDE 40 MG TAB PO SCH (09:00)
[2018-06-14] MEDS: PANTOPRAZOLE SOD 40 MG TABEC PO SCH (09:00)
[2018-06-14] MEDS: DOCUSATE SODIUM 100 MG CAP PO SCH ×2 (09:00→17:40)
[2018-06-14] MEDS: POTASSIUM CHLORIDE 20 MEQ TAB CR PO SCH (09:00)
[2018-06-14] MEDS: DIGOXIN 0.125 MG TAB PO SCH (09:00)
[2018-06-14] MEDS: IRBESARTAN 150 MG TAB PO SCH (09:00)
[2018-06-14] MEDS: FERROUS SULFATE 325 MG TAB PO SCH ×2 (09:00→17:40)
[2018-06-14] MEDS: METOPROLOL SUCCINATE 50 MG TAB XL PO SCH (09:00)
--- NOTE | 2018-06-14 09:00 | NUR ---
ASSESSMENT COMPLETE NO DISTRESS NOTED, UPDATED ON POC VOICED UNDERSTANDING, DENIES PAIN AT THIS TIME, R AC 22G NO SS OF INFILTRATION NOTED, NO OTHER CO VOICED CALL LIGHT IN REACH WILL CONTINUE OT MONITOR
[2018-06-14] MEDS: AZITHROMYCIN 500MG/NS 250 ML 250 ML IV SCH (09:30)
[2018-06-14] MEDS: ONDANSETRON HCL INJ 2MG/ML 2ML 2 MG/ML VIAL IV PRN (14:30)
[2018-06-14] MEDS: RIVAROXABAN 10 MG TABLET PO SCH (17:40)
--- NOTE | 2018-06-14 19:02 | Progress Note ---
DATE: CARDIOLOGY PROGRESS NOTE SUBJECTIVE: No major events overnight. OBJECTIVE: VITAL SIGNS: Temperature 97.2, pulse 88, respiratory rate 20, blood pressure 122/88, satting 97% on room air. GENERAL: Elderly white female in no acute distress. CARDIOVASCULAR: Irregular rhythm. No murmurs, rubs or gallops. LUNGS: Clear to auscultation bilaterally. ABDOMEN: Soft, nontender, nondistended. NEURO AND PSYCH: Alert and oriented to person, place, and time. Normal affect. INPATIENT MEDICATIONS: Reviewed. LABORATORY DATA: Reviewed. IMAGING DATA: Reviewed. TELEMETRY DATA: Reviewed. Shows rate controlled atrial fibrillation. ASSESSMENT AND PLAN: 1. Atrial fibrillation, rate controlled. 2. Chronic obstructive pulmonary disease. 3. Pneumonia. 4. Hypertension. 5. Systolic heart failure with ejection fraction less than 25%. RECOMMENDATIONS: Coronary angiography showed no significant coronary artery disease. Patient is on optimal medical therapy for nonischemic cardiomyopathy. Although her EF is a low, patient is low risk for sudden cardiac given no significant coronary disease. Also high risk for false shocks given her atrial fibrillation with RVR. No need for a LifeVest at this time. After 3 months of optimal medical therapy, if EF remains low will consider doing an implantable defibrillator at that time. Patient is okay to be discharged from a cardiovascular standpoint on her current medical regimen. Thank you for this consult. Will continue to follow. Job#: [id number] YESSY
--- NOTE | 2018-06-14 19:20 | NUR ---
Received patient awake, sitting on the bedside commode, not in distress, call light within easy reach, advised to call for assistance when needed anytime. Will continue to monitor.
--- NOTE | 2018-06-14 19:50 | NUR ---
patient had a good BM
[2018-06-14] MEDS: ZOLPIDEM TARTRATE 10 MG TAB PO PRN ×2 (22:56→23:07)
[2018-06-15] VITALS: BP_SYST 108; BP_SYST 120; BP_DIAS 57; BP_DIAS 58
[2018-06-15] MEDS: LEVALBUTEROL HCL SOLN NEBU 0.63 MG/3 ML NEB INH SCH ×3 (02:00→07:00)
[2018-06-15] MEDS: IPRATROPIUM BROMIDE 0.02% 2.5 ML NEB NEB SCH ×3 (03:00→07:00)
[2018-06-15 04:00] VITALS: BP 115/61
[2018-06-15 04:03] LABS: BASOPHILS # (AUTO) 0.1 (0.0-0.1); EOSINOPHILS # (AUTO) 0.4 (0.0-0.4); HEMATOCRIT 34.1 % (34.2-44.1); HEMOGLOBIN 10.1 g/dL (12.0-16.0); LYMPHOCYTES % 30.2 % (18.0-39.1); MEAN CORPUSCULAR HGB CONC 29.6 g/dL (31-35); MEAN CORPUSCULAR VOLUME 74.1 fL (81-99); MONOCYTES # (AUTO) 1.2 (0.2-0.8); MONOCYTES % 12.1 % (4.4-11.3); NEUTROPHILS # (AUTO) 5.3 (2.1-6.9); NEUTROPHILS % 52.4 % (38.7-80.0); PLATELET COUNT 285 x10e3/uL (140-360); RED CELL DISTRIBUTION WIDTH 19.9 % (11.7-14.4)
[2018-06-15 04:27] LABS: CALCIUM 9.3 mg/dL (8.4-10.2); CREATININE, SERUM 1.13 mg/dL (0.57-1.11); MAGNESIUM 1.9 MG/DL (1.3-2.1)
[2018-06-15] MEDS: GUAIFENESIN 600 MG TAB PO SCH (05:45)
[2018-06-15] MEDS ORDERED: TOPROL XL50 MG PO (06:14)
[2018-06-15] MEDS ORDERED: PROTONIX40 MG/ML PO (06:14)
[2018-06-15] MEDS ORDERED: MUCINEX600 MG PO (06:14)
[2018-06-15] MEDS ORDERED: DIGOXIN125 MCG PO (06:14)
--- NOTE | 2018-06-15 07:00 | NUR ---
Carolina RT informed about Home 02 evaluation and assessment
[2018-06-15 08:49] VITALS: BP 141/74
[2018-06-15] MEDS ORDERED: CEFUROXIME500 MG PO (09:32)
[2018-06-15] MEDS: AZTREONAM 1 GM/NS 50 ML 50 ML IV SCH (09:34)
[2018-06-15] MEDS: IRBESARTAN 150 MG TAB PO SCH (09:34)
[2018-06-15] MEDS: PANTOPRAZOLE SOD 40 MG TABEC PO SCH (09:34)
[2018-06-15] MEDS: FERROUS SULFATE 325 MG TAB PO SCH (09:34)
[2018-06-15 09:35] VITALS: BP 141/74
[2018-06-15] MEDS: OYST-CAL-D 500MG TABLET PO SCH (09:35)
[2018-06-15] MEDS: DOCUSATE SODIUM 100 MG CAP PO SCH (09:35)
[2018-06-15] MEDS: POTASSIUM CHLORIDE 20 MEQ TAB CR PO SCH (09:35)
[2018-06-15] MEDS: DIGOXIN 0.125 MG TAB PO SCH (09:35)
[2018-06-15] MEDS: FUROSEMIDE 40 MG TAB PO SCH (09:35)
[2018-06-15] MEDS: POLYETHYLENE GLYCOL 3350 17 GM PACK PO SCH (09:35)
--- NOTE | 2018-06-15 09:35 | NUR ---
assessment complete no distress noted, updated on poc voiced understanding, semaj pain at this time, call light in reach will continue to monitor
[2018-06-15] MEDS: METOPROLOL SUCCINATE 50 MG TAB XL PO SCH (09:36)
--- NOTE | 2018-06-15 09:44 | NUR ---
pt room air sat= 82% while sleeping. pt o2 sat= 96% on 2lpm nasal cannula
--- NOTE | 2018-06-15 12:28 | NUR ---
CM SPOKE TO PATIENT AT BEDSIDE REGARDING IMM LETTER. IMM LETTER GIVEN WITH EXPLANATION. ORIGINAL SIGNED AND PLACED IN CHART; COPY OF ORIGINAL DOCUMENT GIVEN TO PATIENT AT BEDSIDE AND PLACED IN CARE TRANSITION FOLDER. CM CONTACT INFORMATION GIVEN TO PATIENT FOR ANY NEEDS OR CONCERNS. PATIENT WITH NO FURTHER QUESTIONS
--- NOTE | 2018-06-15 12:32 | NUR ---
LEO SPOKE TO PATIENT AT BEDSIDE REGARDING RESUMPTION OF HOME HEALTH. PATIENT STATES SHE WAS IN SERVICE WITH [facility] AND LOVES THEIR SERVICES. PATIENT STATES SHE WOULD LIKE TO CONTINUE SERVICES WITH THEM. PATIENT INFORMED THAT SHE HAD A CHOICE IN CARE AND GIVEN CHOICES FOR HOME CARE SERVICES. PATIENT LOOKS AT FORMS BUT DECLINES AND STATES SHE RATHER KEEP HER CURRENT SERVICES. PATIENT SIGNED CHOICE LETTER; CHOICE LETTER PLACED IN CHART. AND CLINICAL WITH ORDER SENT TO: [facility] (P) [phone] (F) [phone] LEO CALLED COMPANY AND INFORMED KEN PATIENT WILL DISCHARGE TODAY. LUDY, [facility] [employer] STATES THEY WILL SEE PATIENT TOMORROW.
[2018-06-15 12:42] VITALS: BP 123/58
--- NOTE | 2018-06-16 00:25 | Discharge Summary ---
ADMISSION DIAGNOSES: 1. Right lower lobe pneumonia. 2. Atrial fibrillation with rapid ventricular response. 3. Hypertension. 4. Anemia. 5. Chronic kidney disease 3. 6. Insomnia. 7. Gastroesophageal reflux disease. 8. Ihbnr-vl-hzxscet systolic congestive heart failure. DISCHARGE DIAGNOSES: 1. Right lower lobe pneumonia. 2. Atrial fibrillation with rapid ventricular response. 3. Hypertension. 4. Anemia. 5. Chronic kidney disease 3. 6. Insomnia. 7. Gastroesophageal reflux disease. 8. Ydtyw-kj-mgxbpzr systolic congestive heart failure. 9. Gastrointestinal bleed. HISTORY: Patient has a history of AFib, hypertension, CKD 3, hyperlipidemia, anemia, left breast cancer, GERD, insomnia, chronic systolic CHF. SURGICAL HISTORY: Left mastectomy in 1998, bilateral hip replacement, bilateral knee replacement, right shoulder surgery, and left wrist fracture repair. FAMILY HISTORY: Noncontributory. SOCIAL HISTORY: Patient admits to occasional alcohol use. She denies current tobacco use, but says she quit smoking 50 years ago. She denies illicit drug use. HOSPITAL COURSE: Ldeysc-ravqh-jwol-old female complains of shortness of breath, congestion, dry cough, and chills that began 1 week ago. The symptoms are worse with ambulation, nothing improves symptoms. She denies nausea, vomiting, diarrhea, fever, and sick contacts. On admission, patient was started on azithromycin and Azactam, nebs and Mucinex. An echo showed an EF of 30%. EKG on admission showed AFib, RVR with a rate of 118. Patient was converted in ER. Group A strep negative, flu negative. Stool for blood was positive, but patient's hemoglobin was stable. She was given Protonix. Throat culture negative. Blood culture negative. Chest x-ray showed findings that may represent developing pneumonia in the right lower lobe. Cardiology was consulted who did a cath, which showed no significant coronary artery disease. Although the EF is low, patient is in a risk low for sudden cardiac given no significant coronary artery disease per cardio. Cardio does not recommend LifeVest at this time. In 3 months if the EF remains low, they will consider doing an implantable defibrillator. Patient okay to discharge per cardio standpoint. Vital signs stable. Patient afebrile. She will be discharged home with digoxin, Mucinex, metoprolol, Protonix, and Ceftin. She will resume other home medicines. She will follow up with primary care in 1 to 2 weeks and cardiology as discussed. Patient did not qualify for home oxygen. She will be discharged home with home health that is already in place. Dictated by Concepción Childress NP JOHN BUSCH MD Job#: [id number]
== END 2018-06-15 14:50 | disposition home health service (06) | DRG 286 ==
LOC: ER 17:18 → ERHOLD 23:09 → IMCU 23:16 → OBSVTOIN 06-10 07:54 → MED/SURG 06-10 11:47
PROVIDERS: ADMIT Internal Medicine; ATTEND Internal Medicine
PROC: 4A023N7 Measurement of Cardiac Sampling and Pressure, Left Heart, Percutaneous Approach (ICD-10-PCS; principal; 2018-06-12)
PROC: B2111ZZ Fluoroscopy of Multiple Coronary Arteries using Low Osmolar Contrast (ICD-10-PCS; 2018-06-12)
DX: I13.0 Hypertensive heart and chronic kidney disease with heart failure and stage 1 through stage 4 chronic kidney disease, or unspecified chronic kidney disease (principal); J15.9 Unspecified bacterial pneumonia; I50.23 Acute on chronic systolic (congestive) heart failure; K92.2 Gastrointestinal hemorrhage, unspecified; I48.2 Chronic atrial fibrillation; N18.3 Chronic kidney disease, stage 3 (moderate); R09.02 Hypoxemia; E78.5 Hyperlipidemia, unspecified; D64.9 Anemia, unspecified; K21.9 Gastro-esophageal reflux disease without esophagitis; G47.00 Insomnia, unspecified; Z85.3 Personal history of malignant neoplasm of breast; Z87.891 Personal history of nicotine dependence; Z88.1 Allergy status to other antibiotic agents; Z88.5 Allergy status to narcotic agent; Z88.0 Allergy status to penicillin; Z88.8 Allergy status to other drugs, medicaments and biological substances; Z96.643 Presence of artificial hip joint, bilateral; I07.1 Rheumatic tricuspid insufficiency; E87.6 Hypokalemia; K59.00 Constipation, unspecified
CPT/HCPCS: 36415; 71045; 71046; 80048; 80053; 80162; 81001; 82270; 82550; 82553; 82607; 82728; 82746; 83518; 83540; 83735; 83880; 84439; 84443; 84466; 84484; 85025; 85610; 85730; 87040; 87070; 87400; 93005; 93306; 93454; 94640; 97139; 99284; G0378; J0456; J1160; J1200; J1940; J1956; J2001; J2250; J2405; J7030; J7050; Q9967

== ENCOUNTER 2018-07-11 16:35 | Inpatient (IN) | payer MEDICARE, OTHER ==
[~2018-07-11] VITALS: Ht 175.3 cm; Wt 72.6 kg
[~2018-07-11 16:35] MED LIST changes: +AMLODIPINE BESYL5 MG PO; +APIXABAN PO; +CEFUROXIME500 MG PO; +EFFEXOR XR 3737.5 MG PO; +FUROSEMIDE40 MG PO; +IRBESARTAN150 MG PO; +LABETALOL HCL100 MG PO; +METOPROLOL SUCC50 MG PO; +MUCINEX600 MG PO; +POTASSIUM CHLO20 ME1 PO; +PROTONIX40 MG/ML PO; +TOPROL XL50 MG PO
--- NOTE | 2018-07-11 18:02 | Diagnostic Imaging Report ---
EXAMINATION: CHEST SINGLE (NOT PORTABLE) INDICATION: ^SOB, Chest pain COMPARISON: Chest x-ray 06/10/2018. FINDINGS: AP view TUBES and LINES: None. LUNGS: Lungs are hyper inflated. Chronic lung changes are seen. Bibasilar atelectasis. There is no evidence of pneumonia or pulmonary edema. PLEURA: No pleural effusion or pneumothorax. HEART AND MEDIASTINUM: Cardiac size is moderately enlarged. There are atherosclerotic calcifications within the aorta. BONES AND SOFT TISSUES: Right humeral arthroplasty. No acute osseous lesion. Numerous surgical clips in the left axilla. UPPER ABDOMEN: No free air under the diaphragm. IMPRESSION: 1. Moderate cardiomegaly. 2. Chronic lung changes with bibasilar atelectasis and mild scarring. Signed by: Dr. Daniel Jay M.D. on 07/11/2018 5:59 PM
[2018-07-11 18:43] LABS: BASOPHILS # (AUTO) 0.1 (0.0-0.1); BASOPHILS % 0.7 % (0.0-1.0); EOSINOPHILS # (AUTO) 0.3 (0.0-0.4); EOSINOPHILS % 2.5 % (0.0-6.0); HEMATOCRIT 35.8 % (34.2-44.1); HEMOGLOBIN 10.9 g/dL (12.0-16.0); LYMPHOCYTES # (AUTO) 2.1 (1.0-3.2); LYMPHOCYTES % 19.7 % (18.0-39.1); MEAN CORPUSCULAR HEMOGLOBIN 21.8 pg (28-32); MEAN CORPUSCULAR HGB CONC 30.4 g/dL (31-35); MEAN CORPUSCULAR VOLUME 71.6 fL (81-99); MONOCYTES # (AUTO) 1.2 (0.2-0.8); MONOCYTES % 11.2 % (4.4-11.3); NEUTROPHILS % 65.6 % (38.7-80.0); PLATELET COUNT 280 x10e3/uL (140-360); RED CELL DISTRIBUTION WIDTH 21.3 % (11.7-14.4)
[2018-07-11 18:49] LABS: CLARITY,URINE SL CLOUDY (CLEAR); COLOR,URINE YELLOW (YELLOW)
[2018-07-11 18:50] LABS: BILIRUBIN,URINE NEGATIVE (NEGATIVE); KETONES,URINE NEGATIVE (NEGATIVE); LEUKOCYTE ESTERASE ,URINE NEGATIVE (NEGATIVE); NITRITE,URINE NEGATIVE (NEGATIVE); PROTEIN,URINE DIPSTICK 1+ (NEGATIVE); URINE UROBILINOGEN 1 mg/dL (0.2 - 1)
[2018-07-11 18:52] LABS: INR 1.1; PROTHROMBIN TIME 15.2 seconds (11.9-14.5)
[2018-07-11 18:53] LABS: PARTIAL THROMBOPLASTIN TIME 32.6 seconds (23.8-35.5)
[2018-07-11 18:56] LABS: AMORPHOUS SEDIMENT,URINE MODERATE (FEW); BACTERIA,URINE MODERATE /HPF; EPITHELIAL CELLS,URINE MODERATE /LPF; WBC,URINE (MAN) 0-5 /HPF (0-5)
[2018-07-11 19:02] LABS: ALANINE AMINOTRANSFERASE 36 IU/L (0-55); ALBUMIN 3.7 g/dL (3.5-5.0); ALBUMIN/GLOBULIN RATIO 1.5 (0.8-2.0); ALKALINE PHOSPHATASE 111 IU/L (40-150); ANION GAP 18.4 mmol/L (8-16); BLOOD UREA NITROGEN 11 mg/dL (7-26); BUN/CREATININE RATIO 12 (6-25); CARBON DIOXIDE 20 mmol/L (22-29); CHLORIDE 106 mmol/L (98-107); CREATINE KINASE 34 IU/L (29-168); CREATININE, SERUM 0.89 mg/dL (0.57-1.11); EST GLOMERULAR FILTRATION RATE > 60 ML/MIN (60-); GLUCOSE 101 mg/dL (74-118); MAGNESIUM 1.7 MG/DL (1.3-2.1); POTASSIUM 3.4 mmol/L (3.5-5.1); SODIUM 141 mmol/L (136-145)
[2018-07-11] MEDS ORDERED: SODIUM CHLORIDE FLUSH 10 ML SYR INJ PRN (19:30)
[2018-07-11] MEDS ORDERED: GUAIFENESIN 600 MG TAB PO PRN (19:30)
[2018-07-11] MEDS ORDERED: ONDANSETRON HCL INJ 2MG/ML 2ML 2 MG/ML VIAL IV PRN (19:30)
[2018-07-11] MEDS ORDERED: DIGOXIN INJ 0.25 MG/ML 2 ML AMP IV NR (19:30)
[2018-07-11] MEDS ORDERED: METOPROLOL TARTRATE INJ 1 MG/ML VIAL IV NR (19:45)
[2018-07-11] MEDS ORDERED: POTASSIUM CHLORIDE 20 MEQ TAB CR PO NR (20:00)
[2018-07-11] MEDS: FUROSEMIDE 40 MG TAB PO SCH (23:33)
[2018-07-11 23:49] VITALS: BP 161/88
[2018-07-12] VITALS (7 sets, daily range): BP systolic 133–178; BP diastolic 67–88
[2018-07-12] MEDS: ZOLPIDEM TARTRATE 5 MG TAB PO PRN ×2 (00:10→22:00)
[2018-07-12 03:45] LABS: BASOPHILS # (AUTO) 0.1 (0.0-0.1); BASOPHILS % 0.9 % (0.0-1.0); EOSINOPHILS # (AUTO) 0.3 (0.0-0.4); EOSINOPHILS % 3.2 % (0.0-6.0); HEMATOCRIT 35.3 % (34.2-44.1); HEMOGLOBIN 10.5 g/dL (12.0-16.0); LYMPHOCYTES # (AUTO) 3.2 (1.0-3.2); LYMPHOCYTES % 30.9 % (18.0-39.1); MEAN CORPUSCULAR HEMOGLOBIN 21.5 pg (28-32); MEAN CORPUSCULAR HGB CONC 29.7 g/dL (31-35); MEAN CORPUSCULAR VOLUME 72.3 fL (81-99); MONOCYTES # (AUTO) 1.2 (0.2-0.8); MONOCYTES % 11.8 % (4.4-11.3); NEUTROPHILS # (AUTO) 5.5 (2.1-6.9); PLATELET COUNT 251 x10e3/uL (140-360); RED BLOOD COUNT 4.88 x10e6/uL (3.6-5.1); RED CELL DISTRIBUTION WIDTH 21.3 % (11.7-14.4)
[2018-07-12 04:06] LABS: ALANINE AMINOTRANSFERASE 32 IU/L (0-55); ALBUMIN 3.4 g/dL (3.5-5.0); ALBUMIN/GLOBULIN RATIO 1.5 (0.8-2.0); ALKALINE PHOSPHATASE 118 IU/L (40-150); ANION GAP 14.3 mmol/L (8-16); BLOOD UREA NITROGEN 11 mg/dL (7-26); BUN/CREATININE RATIO 13 (6-25); CALCIUM 9.2 mg/dL (8.4-10.2); CARBON DIOXIDE 21 mmol/L (22-29); CHLORIDE 106 mmol/L (98-107); CHOL/HDL RATIO 5.3 (3.0-3.6); CHOLESTEROL 160 MD/DL (0-199); CREATININE, SERUM 0.88 mg/dL (0.57-1.11); EST GLOMERULAR FILTRATION RATE > 60 ML/MIN (60-); GLUCOSE 93 mg/dL (74-118); HDL CHOLESTEROL 30 MG/DL (40-60); LDL CHOLESTEROL 111 MG/DL (60-130); POTASSIUM 3.3 mmol/L (3.5-5.1); SODIUM 138 mmol/L (136-145); TRIGLYCERIDES 95 MG/DL (0-149)
[2018-07-12 04:17] LABS: CREATINE KINASE MB 1.2 ng/mL (0-5.0)
[2018-07-12] MEDS: PANTOPRAZOLE SOD 40 MG TABEC PO SCH (07:39)
[2018-07-12] MEDS: LEVALBUTEROL HCL SOLN NEBU 0.63 MG/3 ML NEB INH SCH ×3 (09:10→19:28)
[2018-07-12] MEDS: IPRATROPIUM BROMIDE 0.02% 2.5 ML NEB NEB SCH ×3 (09:11→23:00)
[2018-07-12] MEDS: IRBESARTAN 150 MG TAB PO SCH (09:12)
[2018-07-12] MEDS: VENLAFAXINE HCL 37.5MG XR CAP PO SCH (09:12)
[2018-07-12] MEDS: METHYLPREDNISOLONE SOD SUCC 40 MG/ML VIAL 1ML IV SCH ×2 (09:12→23:01)
[2018-07-12] MEDS: FUROSEMIDE 40 MG TAB PO SCH (09:13)
[2018-07-12] MEDS: DIGOXIN 0.125 MG TAB PO SCH (09:13)
[2018-07-12] MEDS: AMLODIPINE BESYLATE 5 MG TAB PO SCH (09:13)
[2018-07-12] MEDS: POTASSIUM CHLORIDE 20 MEQ TAB CR PO SCH (09:13)
[2018-07-12] MEDS: METOPROLOL SUCCINATE 50 MG TAB XL PO SCH (09:13)
--- NOTE | 2018-07-12 10:39 | NUR ---
SOCIAL WORK INITIAL ASSESSMENT Pattern Room Attendant to bedside to discuss plan of care with patient/family. CM/SW role and care transitions discussed. Anticipated discharge plan discussed along with duration of care. CM/SW discussed patients right to make decisions in care. CM/SW work hours given. Patient lives: IN HOUSE WITH SON Admit/Transfer: VIA ED POA/Emergency contact: AHSAN DYSON [phone] Current/Previous Home Health: [facility] PCP/Follow-up Care: LILI Current/Previous DME: NONE Other Services: NONE Employment Status: RETIRED Areas of Concerns: NONE Referral Needs: NONE Education Needs: NONE IMM/ABERNATHY given and signed (if applicable): ABERNATHY Goal for discharge: RETURN HOME CM/SW left business card at the bedside with contact information. Name and number was also written on the patients whiteboard. Patient verbalized understanding of discussion. CM will follow-up with ongoing discharge and transition of care needs.
--- NOTE | 2018-07-12 10:40 | NUR ---
POST DISCHARGE STATUS FORM FILED IN FRONT OF CHART WITH NO NEEDS RETURNING HOME
[2018-07-12 12:06] LABS: CREATINE KINASE MB 1.3 ng/mL (0-5.0)
--- NOTE | 2018-07-12 13:24 | History and Physical ---
CHIEF COMPLAINT: The patient comes in with shortness of breath and chest pain. HISTORY OF PRESENT ILLNESS: This is Ms. Yesi Johnson, who is an 83-year-old female with history of atrial fibrillation, coronary artery disease, history of COPD, was in usual state of health until the patient started with shortness of breath with orthopnea and PND. The patient also had some chest pain associated with it, but not looked like it was a generalized chest pain. The patient also complains of shortness of breath along with these symptoms. The patient was seen in the ED and symptoms were described and the patient was admitted for acute chest pain, rule out acute coronary artery syndrome, and atrial fibrillation. PAST MEDICAL HISTORY: History of congestive heart failure, history of hypertension, history of hyperlipidemia, history of reflux esophagitis, history of depression, history of breast cancer status post mastectomy, history of uterine cancer, history of hemorrhoids, history of atrial fibrillation as mentioned above, and also history of COPD. MEDICATIONS: She takes at home are: 1. Amlodipine 5 mg. 2. She is still on cefuroxime at this time. 3. Digoxin 125 mcg. 4. Nexium 40 mg. 5. Furosemide 40 mg. 6. Mucinex 600 mg ER twice a day. 7. Irbesartan 150 mg. 8. Metoprolol 50 mg XL. 9. Potassium chloride 20 mEq. 10. Xarelto 20 mg daily. 11. Venlafaxine 37.5 mg daily. 12. Zolpidem 10 mg at nighttime. PAST SURGICAL HISTORY: History of appendectomy, cholecystectomy, hysterectomy, multiple orthopedic surgeries include hip surgery and knee surgery, and the patient also had cataract surgeries. ALLERGIES: INCLUDE PENICILLIN, CODEINE, LEVAQUIN, OXYCODONE, AND PAROXETINE. SOCIAL HISTORY: No EtOH. No IV drug abuse. Smoking in the past. FAMILY HISTORY: Positive for CAD. REVIEW OF SYSTEMS: Positive for chest pain. Positive for shortness of breath. No nausea, vomiting, or diarrhea. No constipation. No rectal bleeding. No hematochezia. No hematemesis. No diplopia. No blurry vision. PHYSICAL EXAMINATION: VITAL SIGNS: Temperature is 98.1, pulse of 81, respirations of 23, and blood pressure is 173/84. HEENT: Normocephalic and atraumatic. Pupils are reactive to light and accommodation. LUNGS: Decreased air entry into all lung godoy. No rhonchi. ABDOMEN: Nontender and nondistended CARDIOVASCULAR: Irregularly irregular. Rate controlled. EXTREMITIES: No clubbing. No cyanosis. No edema. LABORATORY VALUES: White count is 10.70, hemoglobin of 10.9, and hematocrit 35.8. Chemistry; sodium 141, potassium 3.4, CO2 20, BUN 11, creatinine 0.89. BNP 746.9. Microbiology, none done. IMAGING STUDIES: Chest x-ray shows moderate cardiomegaly, chronic lung changes with basilar atelectasis and mild scarring. ASSESSMENT: 1. Chest pain, rule out acute coronary syndrome. The patient's BNP was elevated as noted and also HDL, LDL, and triglycerides within normal limits. Troponins have trended negative to 0.017 and 0.003 at this time. We will continue monitoring third set. The patient's atrial fibrillation is controlled and is in good rate. EKG showed atrial fibrillation. 2. Chronic obstructive pulmonary disease exacerbation. We can give the patient 20 mg of IV Solu-Medrol twice a day. Once the acute coronary syndrome has been ruled out, the patient can be discharged. 3. Gwxop-qn-ntjcoqz congestive heart failure. Lasix has been given to the patient. 4. Hypertension. 5. Hyperlipidemia. We will continue on medications. Further recommendation and clinical course, consult with Dr. Draper has been done. The patient will be seen and possible discharge in 1 to 2 days. The patient's digoxin level is done, which is also low. We will continue on the same dose at this time because rate has been controlled. MD CHANNING Lau/MODL /[id number]
[2018-07-12] MEDS: FUROSEMIDE INJ 10 MG/ML 4 ML VIAL IV SCH ×2 (15:00→23:01)
[2018-07-12] MEDS: RIVAROXABAN 10 MG TABLET PO SCH (16:39)
--- NOTE | 2018-07-12 18:49 | Consultation ---
DATE OF CONSULTATION: 07/12/2018 Cardiology Consultation REASON FOR CONSULTATION: Shortness of breath. HISTORY OF PRESENT ILLNESS: This is an 83-year-old woman with history of chronic systolic heart failure, atrial fibrillation, hypertension, and hyperlipidemia with nonobstructive coronary artery disease, who presents with complaints of shortness of breath. She indicates that she has had progressive shortness of breath since Tuesday with symptoms suggestive of orthopnea and PND. In addition, she has had dyspnea on exertion with walking from one room to the next as well as lightheadedness and palpitations with ambulation. She otherwise denies edema or chest pain. REVIEW OF SYSTEMS: Negative except as per HPI. PAST MEDICAL HISTORY: 1. Chronic systolic heart failure, ejection fraction 25% to 30%. 2. Nonobstructive coronary artery disease on cardiac catheterization in May 2018. 3. Atrial fibrillation. 4. Hypertension. 5. Hyperlipidemia. 6. COPD. 7. Anxiety. PAST SURGICAL HISTORY: 1. Shoulder surgery. 2. Cholecystectomy. 3. Hysterectomy. 4. Radical mastectomy. 5. Cataract surgery. 6. Bilateral hip replacement. 7. Bilateral knee replacement. ALLERGIES: PLEASE SEE EMR. MEDICATIONS: Please see medication list. SOCIAL HISTORY: Denies tobacco, alcohol, or illicit drugs. FAMILY HISTORY: Noncontributory. PHYSICAL EXAMINATION: VITAL SIGNS: Temperature 98.1 degrees, pulse 80, respiratory rate 20, blood pressure 150/76, and oxygen saturation 98% on 3 L nasal cannula. GENERAL: Elderly woman, in no acute distress, awake and alert. HEENT: Normocephalic, atraumatic. Pupils equal. No scleral icterus. NECK: Supple. No thyromegaly or cervical lymphadenopathy. No carotid bruits. LUNGS: Clear to auscultation bilaterally. No wheezes or crackles. CARDIOVASCULAR: Normal rate. Irregularly irregular. No murmur. Normal S1 and S2. ABDOMEN: Soft, nontender. EXTREMITIES: No edema. NEUROLOGIC: Nonfocal exam. LABORATORY DATA: WBC 10.36, hemoglobin 10.5, hematocrit 35.3, and platelets 251. Sodium 138, potassium 3.3, chloride 106, CO2 of 21, BUN 11, and creatinine 0.88. Troponin 0.003. BNP 747. Cholesterol 160, triglycerides 95, LDL 111, and HDL 30. EKG; atrial fibrillation with premature aberrantly conducted complexes, T-wave abnormality, consider lateral ischemia or digitalis effect. Chest x-ray; moderate cardiomegaly, chronic lung changes with bibasilar atelectasis and mild scarring. IMPRESSION: 1. Acute on chronic systolic heart failure. 2. Atrial fibrillation. 3. Nonobstructive coronary artery disease, hypertension, and hyperlipidemia. 4. Chronic obstructive pulmonary disease. RECOMMENDATIONS: Start the patient on intravenous diuretics given her acute on chronic systolic heart failure. The patient has had recent cardiac evaluation. No further cardiac evaluation is indicated at this time. Monitor the patient on telemetry while admitted. Strict I's and O's and daily weights. Replete electrolytes. Continue home cardiac medications otherwise. Thank you for this consult. We will continue to follow. Cesia Saucedo MD ABS/MODL /[id number]
--- NOTE | 2018-07-12 19:00 | NUR ---
received report form day nurse. patient is resting comfortably in bed. bed is in lowest position and call manzanares is within reach. will continue to monitor patient.
--- NOTE | 2018-07-12 20:30 | NUR ---
patient IV is no longer patent. A new 22 gauge IV has been started in patient's right wrist. IV is patent. Will continue to monitor patient.
[2018-07-13] VITALS (8 sets, daily range): BP systolic 142–155; BP diastolic 63–93
[2018-07-13] MEDS: LEVALBUTEROL HCL SOLN NEBU 0.63 MG/3 ML NEB INH SCH ×4 (01:00→20:30)
--- NOTE | 2018-07-13 06:41 | NUR ---
attending physician in building. attending physician has cleared patient for discharge from his standpoint. Waiting for discharge clearance from commissary helper. Consult commissary helper before discharging patient home.
[2018-07-13] MEDS ORDERED: POTASSIUM CHLORIDE 20 MEQ TAB CR PO NR (06:45)
[2018-07-13] MEDS: IPRATROPIUM BROMIDE 0.02% 2.5 ML NEB NEB SCH ×3 (07:00→20:30)
--- NOTE | 2018-07-13 07:06 | NUR ---
report given to day nurse. patient is resting comfortably in bed. bed is in lowest position and call manzanares is within reach. will continue to monitor patient.
[2018-07-13] MEDS: PANTOPRAZOLE SOD 40 MG TABEC PO SCH (08:05)
[2018-07-13] MEDS: METHYLPREDNISOLONE SOD SUCC 40 MG/ML VIAL 1ML IV SCH (08:40)
[2018-07-13] MEDS: DIGOXIN 0.125 MG TAB PO SCH (08:41)
[2018-07-13] MEDS: VENLAFAXINE HCL 37.5MG XR CAP PO SCH (08:41)
[2018-07-13] MEDS: IRBESARTAN 150 MG TAB PO SCH (08:41)
[2018-07-13] MEDS: AMLODIPINE BESYLATE 5 MG TAB PO SCH (08:41)
[2018-07-13] MEDS: METOPROLOL SUCCINATE 50 MG TAB XL PO SCH (08:41)
[2018-07-13] MEDS: POTASSIUM CHLORIDE 20 MEQ TAB CR PO SCH (08:41)
[2018-07-13] MEDS: FUROSEMIDE INJ 10 MG/ML 4 ML VIAL IV SCH ×2 (08:41→16:00)
[2018-07-13] MEDS ORDERED: METHYLPREDNISOLONE SOD SUCC 40 MG/ML VIAL 1ML IV SCH (09:00)
--- NOTE | 2018-07-13 09:15 | NUR ---
CM SPOKE TO DR. MONTERO REGARDING PATIENT PLAN OF CARE. PATIENT CLEARED BY ATTENDING TO BE DISCHARGED. TENTATIVE DISCHARGE UPON CLEARANCE OF SECURITY OFFICERS AND GUARDS. CM CALLED DR. ALDRIDGE- CARDIOLOGY. SHE IS CURRENTLY ROUNDING IN THE BUILDING AND WILL ASSESS PATIENT FOR CLEARANCE. BEDSIDE, ARNULFO WEN NOTIFIED.
--- NOTE | 2018-07-13 10:08 | Progress Note ---
DATE: 07/13/2018 SUBJECTIVE: An 83-year-old female comes in with chest pain and right shoulder pain. The patient continues to have no pain at this time. Shortness of breath is better. She did not sleep well; however, is sleeping currently without any problem. Symptoms of orthopnea and PND have resolved. The patient is sleeping flat with no complaints at this time. MEDICATIONS: Include: 1. Lasix 40 mg 3 time a day. 2. Solu-Medrol 40 mg q.12 hours. 3. Zolpidem 5 mg at night time. 4. Xarelto 20 mg daily. 5. Potassium chloride 20 mEq. 6. Metoprolol 50 mg daily. 7. Digoxin 0.125 mg. 8. Amlodipine 5 mg. 9. Venlafaxine 75 mg. 10. Irbesartan 300 mg. 11. Pantoprazole 40 mg. 12. Levalbuterol 0.63 q.6 hours. 13. Sodium chloride 10 mL as needed for flushing. LABORATORY DATA: The patient's laboratory values today, white count is 10.38, hemoglobin of 10.5, hematocrit of 35.3, which is stable with microcytic indices. Chemistries; sodium 131, potassium is 3.3, BNP was 746.9. Troponins are turned out to be negative. HDL was 30 and LDL of 111. Total cholesterol was 160. Urine was negative for leukocyte esterase. MICROBIOLOGY: None available. ASSESSMENT: 1. Dzrhv-ub-bzjiibn systolic heart failure. 2. Chest pain. 3. History of atrial fibrillation. 4. History of coronary artery disease. 5. History of chronic obstructive pulmonary disease. PLAN: Continue with diuresis. Cardiology is on the case. The patient's symptoms have abated. For her COPD, we will continue with her Solu-Medrol and cut it down to 20 mg twice a day. The patient can technically go home today if she is asymptomatic and we will also give her Xopenex treatment if needed. The patient can be followed as an outpatient basis. We will also replete her electrolytes, potassium today at 40 mEq. Further recommendations on clinical course. The patient will be followed as an outpatient with Cardiology. MD CHANNING Lau/MODL /[id number]
[2018-07-13 11:29] LABS: ANION GAP 15.9 mmol/L (8-16); CALCIUM 9.1 mg/dL (8.4-10.2); CREATININE, SERUM 1.03 mg/dL (0.57-1.11); POTASSIUM 3.9 mmol/L (3.5-5.1)
--- NOTE | 2018-07-13 11:53 | Progress Note ---
DATE: 07/13/2018 Cardiology Progress Note SUBJECTIVE: The patient denies chest pain. She still continues to endorse dyspnea on minimal exertion. OBJECTIVE: VITAL SIGNS: Temperature 96.8 degrees, pulse 96, respiratory rate 19, blood pressure 144/69, and oxygen saturation 95% on 2 L nasal cannula. GENERAL: Awake, alert, in no acute distress. LUNGS: Clear to auscultation bilaterally. No wheezes or crackles. CARDIOVASCULAR: Normal rate. Irregularly irregular. No murmur. Normal S1, S2. ABDOMEN: Soft, nontender. EXTREMITIES: No edema. CARDIAC MEDICATIONS: Lasix 40 mg IV t.i.d., rivaroxaban 20 mg p.o. daily, metoprolol succinate 50 mg p.o. daily, digoxin 0.125 mg p.o. q.a.m., amlodipine 5 mg p.o. daily, and irbesartan 300 mg p.o. daily. LABORATORY DATA: None today. TELEMETRY: Atrial fibrillation. IMPRESSION: 1. Acute on chronic systolic heart failure. 2. Atrial fibrillation. 3. Nonobstructive coronary artery disease. 4. Hypertension. 5. Hyperlipidemia. 6. Chronic obstructive pulmonary disease. RECOMMENDATIONS: Continue current cardiac medications. Strict I's and O's and daily weights. Monitor creatinine. Replete electrolytes. No further cardiac evaluation is indicated at this time given recent cardiac testing. Monitor the patient on telemetry. Continue current cardiac medications otherwise. Thank you for this consult. We will continue to follow. Cesia Saucedo MD ABS/MODL /[id number]
[2018-07-13] MEDS: RIVAROXABAN 10 MG TABLET PO SCH (18:00)
--- NOTE | 2018-07-13 19:00 | NUR ---
received report from day nurse. patient is resting comfortably in bed. bed is in lowest position and call manzanares is within reach. will continue to monitor patient.
[2018-07-13] MEDS: ZOLPIDEM TARTRATE 5 MG TAB PO PRN (23:05)
[2018-07-14] VITALS (9 sets, daily range): BP systolic 131–156; BP diastolic 59–88
[2018-07-14] MEDS: FUROSEMIDE INJ 10 MG/ML 4 ML VIAL IV SCH ×2 (00:16→10:00)
[2018-07-14] MEDS: METHYLPREDNISOLONE SOD SUCC 40 MG/ML VIAL 1ML IV SCH ×3 (00:16→20:46)
[2018-07-14] MEDS: LEVALBUTEROL HCL SOLN NEBU 0.63 MG/3 ML NEB INH SCH ×4 (01:00→20:00)
--- NOTE | 2018-07-14 07:02 | NUR ---
report given to day nurse. patient is resting comfortably in bed. no complaints of pain or discomfort noted. bed is in lowest position and call manzanares is within reach.
--- NOTE | 2018-07-14 07:02 | NUR ---
Patient is resting in bed in NAD. POC discussed patient instructed to call for assistance as needed and verbalized understanding. Bed in lowest position, locked and call manzanares within reach.
[2018-07-14 07:43] LABS: ANION GAP 16.6 mmol/L (8-16); CALCIUM 9.4 mg/dL (8.4-10.2); CREATININE, SERUM 1.17 mg/dL (0.57-1.11); POTASSIUM 3.6 mmol/L (3.5-5.1)
[2018-07-14] MEDS: IPRATROPIUM BROMIDE 0.02% 2.5 ML NEB NEB SCH ×3 (08:00→20:00)
[2018-07-14] MEDS: PANTOPRAZOLE SOD 40 MG TABEC PO SCH (08:30)
[2018-07-14] MEDS: AMLODIPINE BESYLATE 5 MG TAB PO SCH (08:49)
[2018-07-14] MEDS: DIGOXIN 0.125 MG TAB PO SCH (08:49)
[2018-07-14] MEDS: POTASSIUM CHLORIDE 20 MEQ TAB CR PO SCH (08:49)
[2018-07-14] MEDS: VENLAFAXINE HCL 37.5MG XR CAP PO SCH (08:49)
[2018-07-14] MEDS: METOPROLOL SUCCINATE 50 MG TAB XL PO SCH (08:50)
--- NOTE | 2018-07-14 09:57 | Progress Note ---
DATE: 07/14/2018 SUBJECTIVE: The patient is here for: 1. Acute congestive heart failure, acute on chronic. 2. COPD exacerbation. 3. Dyspnea on exertion. The patient still continues to have dyspnea on exertion. The patient's discharge was held back because of orthopnea and also shortness of breath on exertion. Currently asymptomatic. OBJECTIVE: VITAL SIGNS: Temperature is 97.9, pulse of 82, respirations of 18, blood pressure is 156/80, and pulse oximetry 96% on room air. HEENT: Normocephalic and atraumatic. Pupils are reactive to light and accommodation. LUNGS: The patient's lung does show decreased air entry into all lung godoy. Positive for few crackles in lower bases. CVS: S1 and S2 normal. Regular rhythm. ABDOMEN: Nontender and nondistended. EXTREMITIES: No clubbing, no cyanosis, no edema. LABORATORY VALUES: None done today. Sodium of 135, potassium was 3.9, BUN of 18, and creatinine of 1.03. BNP on admission was 746. ASSESSMENT AND PLAN: 1. Wwsud-zr-dfplnsl congestive heart failure. Strict in's and out's have been maintained. The patient is on a low-salt diet. 2. Chronic obstructive pulmonary disease exacerbation. Continue on steroids and taper off and discharge. 3. Hypertension. Continue antihypertensive and CV medications. The patient is on furosemide 40 mg three times a day and digoxin 0.125 mg. The patient currently is also on Xarelto for paroxysmal atrial fibrillation. Further recommendation per clinical course. The patient can be cleared and discharged home if it is okay with Cardiology. MD CHANNING Lau/MODL /[id number]
--- NOTE | 2018-07-14 12:00 | NUR ---
Patient ambulated to the door on room air and saturated was 87%. Patient placed back on O2 2L NC and saturation back up to 98%
[2018-07-14] MEDS: IRBESARTAN 150 MG TAB PO SCH (12:40)
--- NOTE | 2018-07-14 13:23 | Progress Note ---
DATE: 07/14/2018 Cardiology Progress Note SUBJECTIVE: The patient reports her dyspnea on exertion is better. She denies chest pain. OBJECTIVE: VITAL SIGNS: Temperature 96.3 degrees, pulse 78, respiratory rate 18, blood pressure 148/83, oxygen saturation 96% on 2 L nasal cannula. GENERAL: Awake, alert, no acute distress. LUNGS: Clear to auscultation bilaterally. No wheezes or crackles. CARDIOVASCULAR: Normal rate, irregularly irregular. No murmur. Normal S1, S2. ABDOMEN: Soft, nontender. EXTREMITIES: No edema. CARDIAC MEDICATIONS: Metoprolol succinate 50 mg p.o. daily, digoxin 0.125 mg p.o. q.a.m., amlodipine 5 mg p.o. daily, 40 mg IV t.i.d., rivaroxaban 20 mg p.o. daily, irbesartan 300 mg p.o. daily. LABORATORY DATA: Sodium 136, potassium 3.6, chloride 97, CO2 26, BUN 27, creatinine 1.17. TELEMETRY: Atrial fibrillation. IMPRESSION: 1. Acute on chronic systolic heart failure. 2. Atrial fibrillation. 3. Nonobstructive coronary artery disease. 4. Hypertension. 5. Hyperlipidemia. 6. Chronic obstructive pulmonary disease. RECOMMENDATIONS: Given rising creatinine, we will decrease frequency of Lasix. The patient's blood pressure is controlled for age. We will continue antihypertensive therapy at current dose. The patient's heart rate is also controlled. We will continue current cardiac medications without changes. Replete electrolytes. Monitor creatinine closely. No further cardiac evaluation is indicated at this time given recent cardiac testing. Monitor the patient on telemetry while admitted. Thank you for this consult. We will continue to follow. Cesia Saucedo MD ABS/MODL /[id number]
[2018-07-14] MEDS: RIVAROXABAN 10 MG TABLET PO SCH (16:22)
[2018-07-14] MEDS ORDERED: FUROSEMIDE INJ 10 MG/ML 4 ML VIAL IV SCH (17:00)
--- NOTE | 2018-07-14 19:07 | NUR ---
Report received and walking rounds complete. Pt resting in bed and in no apparent distress. All safety measures ensured, bed alarm on, and pt call manzanares near. Pt encouraged to use call manzanares for assistance.
--- NOTE | 2018-07-14 21:55 | NUR ---
Pt lost IV access due to complaints of IV hurting. IV site swollen. IV removed and IV re-insertion attempted x 2 with no success. Charge nurse notified.
[2018-07-14] MEDS: ZOLPIDEM TARTRATE 5 MG TAB PO PRN (22:05)
--- NOTE | 2018-07-14 22:34 | NUR ---
received patient by wheelchair, aaox3, ambulatory, in stable condition. denies pain, denies needs. bed locked and in lowest position, call light within easy reach. bed alarm activated.
--- NOTE | 2018-07-14 22:38 | NUR ---
Report given to ARNULFO Valdez and pt transferred to room 101.
[2018-07-15] VITALS (7 sets, daily range): BP systolic 134–164; BP diastolic 67–85
--- NOTE | 2018-07-15 00:23 | NUR ---
x2 unsuccessful IV attempts by rn, x2 unsuccessful IV attempts by charge.
[2018-07-15] MEDS: LEVALBUTEROL HCL SOLN NEBU 0.63 MG/3 ML NEB INH SCH ×4 (02:25→20:00)
[2018-07-15] MEDS ORDERED: PREDNISONE 20 MG TAB PO ONE (07:00)
[2018-07-15] MEDS: IPRATROPIUM BROMIDE 0.02% 2.5 ML NEB NEB SCH ×3 (07:15→20:00)
--- NOTE | 2018-07-15 07:16 | NUR ---
Received patient and walking rounds complete. Patient asleep at this time, no signs of distress. Call light in reach, will continue to monitor.
[2018-07-15] MEDS ORDERED: ACETAMINOPHEN 325 MG TAB PO PRN (08:15)
[2018-07-15 08:16] LABS: ANION GAP 14.9 mmol/L (8-16); CREATININE, SERUM 1.07 mg/dL (0.57-1.11); POTASSIUM 3.9 mmol/L (3.5-5.1)
[2018-07-15] MEDS: AMLODIPINE BESYLATE 5 MG TAB PO SCH (08:31)
[2018-07-15] MEDS: METOPROLOL SUCCINATE 50 MG TAB XL PO SCH (08:31)
[2018-07-15] MEDS: PANTOPRAZOLE SOD 40 MG TABEC PO SCH (08:31)
[2018-07-15] MEDS: FUROSEMIDE 40 MG TAB PO SCH ×2 (08:31→17:24)
[2018-07-15] MEDS: POTASSIUM CHLORIDE 20 MEQ TAB CR PO SCH (08:31)
[2018-07-15] MEDS: DIGOXIN 0.125 MG TAB PO SCH (08:31)
[2018-07-15] MEDS: IRBESARTAN 150 MG TAB PO SCH (08:31)
[2018-07-15] MEDS: VENLAFAXINE HCL 37.5MG XR CAP PO SCH (08:31)
--- NOTE | 2018-07-15 09:45 | NUR ---
Patient A/O X3, even respirations at this time on 3LNC. Bowel sounds active, skin intact, no edema. Patient is ambulatory with assist. No IV site t this time. IV Lasix switched to PO. Tylenol for pain as needed. Call light in reach, will continue to monitor.
--- NOTE | 2018-07-15 10:46 | Progress Note ---
DATE: 07/15/2018 SUBJECTIVE: The patient is here for acute congestive heart failure, COPD exacerbation, and also chxza-zc-yscyvka renal failure at this time. The patient is alert and oriented x3. No complaints today. Shortness of breath on walking a little bit. No orthopnea or PND noted. The patient has been kept inpatient for advancing of the creatinine level at this time. OBJECTIVE: VITAL SIGNS: Temperature is 95.7, pulse of 82, respirations of 20, blood pressure is 148/85, and pulse oximetry is 94% on 2 L of oxygen. HEENT: Normocephalic, atraumatic. Pupils are reactive to light and accommodation. CVS: S1, S2. Regular rate and rhythm. ABDOMEN: Nontender, nondistended. EXTREMITIES: No clubbing, no cyanosis, and no edema. LABORATORY DATA: The patient's laboratory values; none done today. Her BNP was 525. The patient's BNP has been ordered for today. ASSESSMENT AND PLAN: 1. The patient has osaci-mi-renhpwa congestive heart failure. Strict Is and Os have been followed. The patient is on low-salt diet and we will continue monitoring the medication. 2. Chronic obstructive pulmonary disease exacerbation. Continue on steroids and will change it to p.o. at this time. 3. Hypertension. Continue with CV medication. The patient is also on Xarelto for atrial fibrillation, paroxysmal. The patient's creatinine will be recorded today and we will go ahead and continue to monitor the patient and possible discharge today if it is okay with Cardiology and follow up as an outpatient. MD CHANNING Lau/MODL /[id number]
--- NOTE | 2018-07-15 11:00 | NUR ---
IMM delivered and explained to pt. She verbalized understanding. Signed copy placed in chart. Copy for pt placed in transition of care folder.
--- NOTE | 2018-07-15 13:37 | NUR ---
EDUCATED ABOUT IMM, SIGNED, FILED IN CHART, WITH COPY LEFT WITH FAMILY AT BEDSIDE.
--- NOTE | 2018-07-15 15:00 | Progress Note ---
DATE: 07/15/2018 Cardiology Progress Note SUBJECTIVE: The patient is sleeping comfortably in bed. Denies any chest pain. Reports improvement of dyspnea. OBJECTIVE: VITAL SIGNS: Temperature is 96.4, heart rate is 63, respirations are 18, blood pressure is 150/74, and oxygen saturation 97% on 3 L nasal cannula. Cardiovascular medications reviewed; Lasix 60 p.o. b.i.d., metoprolol succinate 50 daily, Avapro 300 daily, digoxin 0.125, amlodipine 5 daily, and Xarelto 20 mg daily. LABORATORY DATA: Reviewed. Telemetry monitoring showed atrial fibrillation. IMPRESSION: 1. Dkciq-kv-xlhnvpd systolic congestive heart failure. 2. Atrial fibrillation. 3. Nonobstructive coronary artery disease. 4. Hypertension. 5. Hyperlipidemia. 6. Chronic obstructive pulmonary disease. RECOMMENDATIONS: Continue p.o. Lasix. Her creatinine appears stable and has improved from yesterday. Blood pressure is mildly elevated; however, likely is appropriate for age. If needed, we can titrate amlodipine to 10 mg. Heart rate is controlled and she is on Xarelto for anticoagulation needs. No further cardiac testing or interventions are needed at this time. The patient can be discharged from a cardiovascular standpoint with close outpatient monitoring. DO ROSA Arreola/ENRIQUE /[id number]
[2018-07-15] MEDS: RIVAROXABAN 10 MG TABLET PO SCH (17:24)
[2018-07-15] MEDS: ZOLPIDEM TARTRATE 5 MG TAB PO PRN (21:57)
[2018-07-16 00:34] VITALS: BP 149/67
[2018-07-16 05:49] VITALS: BP 146/76
--- NOTE | 2018-07-16 07:29 | NUR ---
Received patient and walking rounds complete. Patient asleep at this time, no signs of distress. Call light in reach, will continue to monitor.
[2018-07-16 08:25] VITALS: BP 136/70
[2018-07-16] MEDS: AMLODIPINE BESYLATE 5 MG TAB PO SCH (08:37)
[2018-07-16] MEDS: FUROSEMIDE 40 MG TAB PO SCH (08:37)
[2018-07-16] MEDS: IRBESARTAN 150 MG TAB PO SCH (08:37)
[2018-07-16] MEDS: PANTOPRAZOLE SOD 40 MG TABEC PO SCH (08:37)
[2018-07-16] MEDS: DIGOXIN 0.125 MG TAB PO SCH (08:37)
[2018-07-16] MEDS: POTASSIUM CHLORIDE 20 MEQ TAB CR PO SCH (08:37)
[2018-07-16] MEDS: VENLAFAXINE HCL 37.5MG XR CAP PO SCH (08:37)
[2018-07-16] MEDS: METOPROLOL SUCCINATE 50 MG TAB XL PO SCH (08:38)
[2018-07-16 09:44] VITALS: BP 136/70
--- NOTE | 2018-07-16 09:45 | NUR ---
Patient A/O X3, even respirations unlabored on RA. Bowel sounds active, skin intact, no edema. Tele #2 running A FIB. Patient is ambulatory with standby assist. Call light in reach, will continue to monitor.
[2018-07-16] MEDS ORDERED: PREDNISONE20 MG PO (10:26)
[2018-07-16] MEDS ORDERED: AMBIEN10 MG PO (10:27)
--- NOTE | 2018-07-16 10:33 | Progress Note ---
DATE: 07/16/2018 SUBJECTIVE: The patient is an 83-year-old lady who comes in with acute on chronic congestive heart failure and COPD. The patient is currently afebrile, doing well. Yesterday, the patient had little trouble walking. The patient is currently asymptomatic. OBJECTIVE: VITAL SIGNS: Temperature is 97.1, pulse of 76, respirations of 18, blood pressure is 146/76, pulse oximetry of 97% on 2 L of oxygen. CVS: S1 and S2 normal. Regular rate and rhythm. ABDOMEN: Nontender, nondistended. EXTREMITIES: No clubbing, no cyanosis, and no edema. LABORATORY DATA: The patient's laboratory values are stable. Chemistries, creatinine is back to 1.07 yesterday. ASSESSMENT: Acute on chronic congestive heart failure. PLAN: 1. Plan is to discharge the patient home on diuresis. Low-salt diet has been advocated and 1 L fluid restriction has been advocated. 2. Chronic obstructive pulmonary disease exacerbation. The patient will be on steroid for another 5 days, can be discharged on p.o. prednisone, which she is on right now. 3. Hypertension. Continue on CV medications. 4. Hyperlipidemia. Further recommendation and clinical course: The patient can be discharged on diuretics and Xarelto for paroxysmal atrial fibrillation. MD CHANNING Lau/MODL /[id number]
[2018-07-16 12:09] VITALS: BP 149/80
[2018-07-16] MEDS ORDERED: ONDANSETRON HCL 4 MG ORAL DISINTEGRATING TAB PO PRN (12:45)
--- NOTE | 2018-07-16 14:33 | NUR ---
Patient discharged from facility. Patient gathered all personal belongings, discharge instructions including prescriptions and follow up information. Patient left unit in wheelchair and went home via private auto. No signs of distress when leaving facility.
== END 2018-07-16 14:33 | disposition home or self-care (01) | DRG 292 ==
LOC: ER 16:35 → ERHOLD 20:10 → IMCU 23:26 → OBSVTOIN 07-14 12:07 → MED/SURG 07-14 22:25
PROVIDERS: ADMIT Family Medicine; ATTEND Family Medicine
DX: I11.0 Hypertensive heart disease with heart failure (principal); J44.1 Chronic obstructive pulmonary disease with (acute) exacerbation; I50.23 Acute on chronic systolic (congestive) heart failure; I48.2 Chronic atrial fibrillation; Z88.5 Allergy status to narcotic agent; Z88.0 Allergy status to penicillin; Z88.8 Allergy status to other drugs, medicaments and biological substances; Z85.3 Personal history of malignant neoplasm of breast; Z85.42 Personal history of malignant neoplasm of other parts of uterus; E78.5 Hyperlipidemia, unspecified; K21.9 Gastro-esophageal reflux disease without esophagitis; F32.9 Major depressive disorder, single episode, unspecified; Z79.01 Long term (current) use of anticoagulants; Z82.49 Family history of ischemic heart disease and other diseases of the circulatory system; I25.10 Atherosclerotic heart disease of native coronary artery without angina pectoris
CPT/HCPCS: 36415; 71045; 80048; 80053; 80061; 80162; 81001; 82550; 82553; 83735; 83880; 84484; 85025; 85610; 85730; 93005; 94640; 96374; 99284; G0378; J1160; J1940; J2920; J7512

== ENCOUNTER 2018-08-23 13:04 | Emergency (ER) | payer MEDICARE, OTHER ==
[~2018-08-23] VITALS: Ht 175.3 cm; Wt 72.6 kg
[~2018-08-23 13:04] MED LIST changes: +AMBIEN10 MG PO; +PREDNISONE20 MG PO
--- OUTSIDE RECORDS SUMMARY | 2018-08-23 13:10 | XMS REPORT | Continuity of Care Document ---
Author Author [facility] Interface Address Unknown Phone Unavailable Problems Problem Status Onset Date Classification Date Reported Comments Source Fracture at left wrist or hand level Active 05/04/2014 Problem 06/15/2018 [facility] Head trauma Active 05/04/2014 Problem 06/15/2018 [facility] Nasal bone fx-closed Active 05/04/2014 Problem 06/15/2018 [facility] Periorbital hematoma of left eye Active 05/04/2014 Problem 06/15/2018 [facility] Hip replacement Active 05/14/2012 Problem 06/04/2012 [facility] FALL Active 05/13/2012 [facility] Accidental fall<sup>1</sup> Active 05/13/2012 Problem 06/04/2012 1Fractured left hip [facility] HIP FX Active 05/13/2012 [facility] Atrial fibrillation with RVR Active Problem 06/15/2018 [facility] CHF Active Problem 06/15/2018 [facility] Arthritis Resolved Problem 06/04/2012 [facility] Breast cancer Resolved Problem 06/04/2012 [facility] Hypertension Resolved Problem 06/04/2012 [facility] Mastectomy of left breast Resolved Problem 06/04/2012 [facility] Short of breath on exertion Resolved Problem 06/04/2012 [facility] Stress incontinence Resolved Problem 06/04/2012 [facility] Uterine cancer Resolved Problem 06/04/2012 [facility] FX FEMUR NOS-CLOSED Active [facility] FX NECK OF FEMUR NOS-CL Active [facility] Medications Medication Details Route Status Patient Instructions Ordering Provider Order Date Source Cefuroxime Axetil (Cefuroxime) 500 Mg Tablet Twice A Day Active [place] 06/15/2018 [facility] Digoxin 125 Mcg Tablet Every Morning Active [place] 06/15/2018 [facility] Guaifenesin (Mucinex) 600 Mg Tablet.er Every 6 Hours as needed for Congestion Active [place] 06/15/2018 [facility] Metoprolol Succinate (Toprol Xl) 50 Mg Tab.er.24h Daily Active [place] 06/15/2018 [facility] Pantoprazole Sod (Protonix) 40 Mg/Ml Susp Before Breakfast Active [place] 06/15/2018 [facility] Apixaban , 5 Mg Oral Daily Active 06/15/2018 [facility] Labetalol Hcl 100 Mg Tablet, 100 Mg Oral Daily Active 06/15/2018 [facility] Metoprolol Succinate 50 Mg Tab.er.24h, 100 Mg Oral Daily Active 06/15/2018 [facility] Citalopram Hydrobromide (Celexa) 40 Mg Tablet, 40 Mg Oral Daily Active 06/12/2018 [facility] Trazodone Hcl 100 Mg Tablet, 100 Mg Oral Bedtime Active 06/12/2018 [facility] Beclomethasone Dip 7.3 Gm Inh Rt Daily Active one puff once daily in the morning [place] 12/04/2017 [facility] Digoxin 125 Mcg Tablet Every Morning Active [place] 12/04/2017 [facility] Diltiazem Hcl (Diltiazem 24HR Er) 180 Mg Capcr Daily Active [place] 12/04/2017 [facility] Furosemide 20 Mg Tablet Daily Active [place] 12/04/2017 [facility] Ipratropium [place] (Atrovent Hfa) 12.9 Gm Hfa.aer.ad Every 6 Hours as needed for Shortness Of Breath Active [place] 12/04/2017 [facility] Irbesartan (Avapro) 150 Mg Tablet Daily Active [place] 12/04/2017 [facility] Metoprolol Tartrate (Lopressor) 25 Mg Tab Twice A Day Active [place] 12/04/2017 [facility] Potassium Chloride (K Dur*) 10 Meq Tabcr Daily Active [place] 12/04/2017 [facility] Rivaroxaban (Xarelto) 10 Mg Tablet Daily At 1700 Active [place] 12/04/2017 [facility] Amlodipine Besylate (Norvasc) 10 Mg Tab, 10 Mg Oral Bedtime Active 12/04/2017 [facility] Bumetanide 1 Mg Tablet, 1 Mg Oral Daily Active 12/04/2017 [facility] Irbesartan (Avapro) 300 Mg Tablet, 300 Mg Oral Daily Active 12/04/2017 [facility] Labetalol Hcl 200 Mg Tablet, 200 Mg Oral Twice A Day Active 12/04/2017 [facility] Rivaroxaban (Xarelto) 10 Mg Tablet Daily At 1700 Active [place] 12/04/2017 [facility] Amlodipine Besylate (Norvasc) 10 Mg Tab, 10 Mg Oral Bedtime Active 12/04/2017 [facility] Beclomethasone Dip 7.3 Gm Inh, 0 Gm Inhalation Rt Daily Active [place] 12/04/2017 [facility] Bumetanide 1 Mg Tablet, 1 Mg Oral Daily Active 12/04/2017 [facility] Digoxin 125 Mcg Tablet, 0.125 Mg Oral Every Morning Active [place] 12/04/2017 [facility] Diltiazem Hcl (Diltiazem 24HR Er) 180 Mg Capcr, 180 Mg Oral Daily Active [place] 12/04/2017 [facility] Ipratropium [place] (Atrovent Hfa) 12.9 Gm Hfa.aer.ad, 1 Aer Inhalation Every 6 Hours as needed for Shortness Of Breath Active [place] 12/04/2017 [facility] Labetalol Hcl 200 Mg Tablet, 200 Mg Oral Twice A Day Active 12/04/2017 [facility] Biotin 1 Mg Tablet, 1 Mg Oral Twice A Day Active 11/27/2017 [facility] Desvenlafaxine Succinate (Pristiq Er) 50 Mg Tab.er.24h, 50 Mg Oral Daily Active 11/27/2017 [facility] Hydrocodone Bit/Acetaminophen ([place] 7.5-325 Tablet) 1 Each Tablet, 1 Ea Oral As Needed Active 11/27/2017 [facility] Multivitamin (Multi-Vitamin Daily) 1 Each Tablet, Oral Daily Active 11/27/2017 [facility] Super B Complex , Oral Daily Active 11/27/2017 [facility] Desvenlafaxine Succinate (Pristiq Er) 50 Mg Tab.er.24h, 50 Mg Oral Daily Active 11/27/2017 [facility] Fenofibric Acid (Choline) (Trilipix) 135 Mg Capsule., 135 Mg Oral Daily Active 02/06/2015 [facility] Ferrous Sulfate 325 Mg Tablet, 325 Mg Oral Daily Active 02/06/2015 [facility] Hydrocodone Bit/Acetaminophen ([place] 10-325 Tablet) 1 Each Tablet, 1 Tab Oral Every 4 Hours Active 02/06/2015 [facility] Lamotrigine (Lamictal) 100 Mg Tab, 100 Mg Oral Daily Active 02/06/2015 [facility] Trazodone Hcl 50 Mg Tablet, 50 Mg Oral Bedtime Active 02/06/2015 [facility] Zolpidem Tartrate (Ambien) 5 Mg Tablet, 5 Mg Oral Bedtime Active 02/06/2015 [facility] Fenofibric Acid (Choline) (Trilipix) 135 Mg Capsule., 135 Mg Oral Daily Active 02/06/2015 [facility] Ferrous Sulfate 325 Mg Tablet, 325 Mg Oral Daily Active 02/06/2015 [facility] Lamotrigine (Lamictal) 100 Mg Tab, 100 Mg Oral Daily Active 02/06/2015 [facility] Trazodone Hcl 50 Mg Tablet, 50 Mg Oral Bedtime Active 02/06/2015 [facility] Zolpidem Tartrate (Ambien) 5 Mg Tablet, 5 Mg Oral Bedtime Active 02/06/2015 [facility] Aspirin/Calcium Carbonate/Mag (Aspirin [place] 325 Mg Tab) 325 Mg Tablet, 325 Mg Oral Bedtime Active 06/05/2014 [facility] Clonidine Hcl 0.1 Mg Tablet, 1 Tab Oral As Needed Active 06/05/2014 [facility] Ferrous Sulfate 325 Mg Tablet, Active 06/05/2014 [facility] Ondansetron (Zofran Odt) 4 Mg Tab.rapdis, 4 Mg Oral As Needed Active 06/05/2014 [facility] Clonidine Hcl 0.1 Mg Tablet, 1 Tab Oral As Needed Active 06/05/2014 [facility] Ferrous Sulfate 325 Mg Tablet, Active 06/05/2014 [facility] Ondansetron (Zofran Odt) 4 Mg Tab.rapdis, 4 Mg Oral As Needed Active 06/05/2014 [facility] Pristiq 50 mg oral tablet, extended release 50 mg, 1 tab, PO, Daily, 90 tab, Substitution Allowed, ERTAB PO Active [place] 06/02/2012 [facility] Ambien 5 mg oral tablet 5 mg, 1 tab, PO, Bedtime, PRN, 90 tab, for sleep, Substitution Allowed, TAB PO Active [place] 06/02/2012 [facility] Co-Q10 100 mg oral capsule 200 mg, 2 cap, PO, Daily, 180 cap, Substitution Allowed, CAP PO Active [place] 06/02/2012 [facility] Flax Seed Oil oral capsule 2 caps, PO, BID, 180 tab, Substitution Allowed, Maintenance, CAP PO Active [place] 06/02/2012 [facility] Nexium 40 mg oral delayed release capsule 40 mg, 1 cap, PO, Daily, 90 cap, Substitution Allowed, ECCAP PO Active [place] 06/02/2012 [facility] trazodone 100 mg oral tablet 100 mg, 1 tab, PO, Bedtime, 90 tab, Substitution Allowed, TAB PO Active [place] 06/02/2012 [facility] MiraLax oral powder for reconstitution 17 gm, PO, Daily, 255 gm, Substitution Allowed, PDR/REC PO Active [place] 06/02/2012 [facility] Lidoderm 5% topical film (patch) 1 patch, TOP, Daily, 30 patch, Substitution Allowed, Remove after 12 hours, FILMRemove after 12 hours TOP Active [place] 06/02/2012 [facility] lamotrigine 100 mg oral tablet 100 mg, 1 tab, PO, Daily, 90 tab, Substitution Allowed, TAB PO Active [place] 06/02/2012 [facility] labetalol 200 mg oral tablet 200 mg, 1 tab, PO, BID, 180 tab, Substitution Allowed, TAB PO Active [place] 06/02/2012 [facility] Avapro 300 mg oral tablet 300 mg, 1 tab, PO, Daily, 90 tab, Substitution Allowed, TAB PO Active [place] 06/02/2012 [facility] ferrous sulfate 324 mg (65 mg elemental iron) oral enteric coated tablet 324 mg, 1 tab, PO, BID, 90 tab, Substitution Allowed, ECTAB PO Active [place] 06/02/2012 [facility] citalopram 40 mg oral tablet 40 mg, 1 tab, PO, Daily, 90 tab, Substitution Allowed, TAB PO Active [place] 06/02/2012 [facility] Celebrex 200 mg oral capsule 200 mg, 1 cap, PO, Daily, 90 cap, Substitution Allowed, CAP PO Active [place] 06/02/2012 [facility] Calcium 600 +D oral tablet 1 tab, PO, BID, 180 tab, Substitution Allowed, Maintenance, TAB PO Active [place] 06/02/2012 [facility] Bumex 1 mg oral tablet 1 mg, 1 tab, PO, Daily, 90 tab, Substitution Allowed, TAB PO Active [place] 06/02/2012 [facility] acetaminophen-hydrocodone 325 mg-10 mg oral tablet 2 tab, PO, Q6H, PRN, 100 tab, Pain, Substitution Allowed, Maintenance, TAB PO Active [place] 06/02/2012 [facility] aspirin 81 mg tablet, chewable 81 mg, 1 tab, PO, Q24H, 100 tab, Substitution Allowed, CHEWTAB PO Active [place] 06/02/2012 [facility] Norvasc 5 mg oral tablet 5 mg, 1 tab, PO, Daily, 90 tab, Substitution Allowed, TAB PO Active [place] 06/02/2012 [facility] Celebrex 200 mg, 1 cap, Route: PO, Drug form: CAP, Daily, Dosing Weight 72.073, kg, Start date: 06/02/12 9:00:00, Duration: 30 day, Stop date: 07/01/12 9:00:00 PO No Longer Active [place] 06/02/2012 [facility] Lidoderm 5% topical film (patch) 1 patch, Route: TOP, Daily, Drug form: FILM, Start date: 06/02/12 9:00:00, Duration: 30 day, Stop date: 07/01/12 9:00:00, Remove after 12 hoursRemove after 12 hours TOP No Longer Active [facility] 06/02/2012 [facility] MiraLax 17 gm, 1 pkt, Route: PO, Drug form: PWDR, BID, Dosing Weight 72.073, kg, Start date: 06/02/12 9:00:00, Duration: 30 day, Stop date: 07/01/12 17:00:00 PO No Longer Active [place] 06/02/2012 [facility] hydrOXYzine 20 mg, 2 tab, Route: PO, Drug form: TAB, QID, Dosing Weight 72.073, kg, PRN Itching, Start date: 06/01/12 18:20:00, Duration: 30 day, Stop date: 07/01/12 18:19:00 PO No Longer Active [place] 06/02/2012 [facility] Anusol-HC 25 mg rectal suppository 25 mg, 1 supp, Route: WA, BID, Drug form: SUPP PRN Hemorrhoids, Start date: 05/31/12 13:19:00, Duration: 30 day, Stop date: 06/30/12 13:18:00 WA No Longer Active [facility] 05/31/2012 [facility] Ferrlecit + Sodium Chloride 0.9% IV 100 mL 125 mg, 10 mL, Route: IVPB, Drug form: INJ, QPM, Dosing Weight 72.073, kg, Start date: 05/27/12 17:00:00, Duration: 30 day, Stop date: 06/25/12 17:00:00 IV[facility] Sodium Chloride 0.9% IV IV, 30 ml/hr, ONCALL, Start date: 05/26/12 21:00:00, Duration: 1, 250 ml IV No Longer Active [place] 05/27/2012 [facility] ferrous sulfate 324 mg oral tablet 325 mg, 1 tab, Route: PO, Drug form: ECTAB, BID, Dosing Weight 72.073, kg, Start date: 05/26/12 17:00:00, Duration: 30 day, Stop date: 06/25/12 9:00:00 PO No Longer Active [place] 05/26/2012 [facility] acetaminophen-hydrocodone 325 mg-10 mg oral tablet 2 tab, Route: PO, Drug Form: TAB, Q6H, PRN Pain, Start date: 05/25/12 12:02:00, Duration: 30 day, Stop date: 06/24/12 12:01:00 PO No Longer Active [place] 05/25/2012 [facility] Duragesic-25 25 microgram, 1 patch, Route: TOP, Drug Form: ERFILM, Q72H, Start date: 05/22/12 20:00:00, Duration: 30 day, Stop date: 06/18/12 20:00:00 TOP No Longer Active [place] 05/23/2012 [facility] acetaminophen-hydrocodone 325 mg-10 mg oral tablet 1 tab, Route: PO, Drug Form: TAB, Q6H, PRN Pain, Start date: 05/22/12 17:31:00, Duration: 30 day, Stop date: 06/21/12 17:30:00 PO No Longer Active [place] 05/22/2012 [facility] Opana IR 20 mg, Route: PO, Drug form: TAB, Q4H, Dosing Weight 72.073, kg, PRN Pain, Start date: 05/22/12 14:07:00, Duration: 30 day, Stop date: 06/21/12 14:06:00 PO No Longer Active [place] 05/22/2012 [facility] Percocet 5/325 oral tablet 2 tab, Route: PO, Drug Form: TAB, Dosing Weight 72.073, kg, Q4H, PRN Pain, Start date: 05/22/12 14:00:00, Duration: 30 day, Stop date: 06/21/12 13:59:00 PO No Longer Active [place] 05/22/2012 [facility] MS Contin 60 mg, 2 tab, Route: PO, Drug form: ERTAB, Q12H, Dosing Weight 72.073, kg, Start date: 05/20/12 21:00:00, Duration: 30 day, Stop date: 06/19/12 9:00:00 PO No Longer Active [place] 05/21/2012 [facility] Zofran 4 mg, 1 tab, Route: PO, Drug form: TAB, Q8H, Dosing Weight 72.073, kg, PRN Nausea, Start date: 05/19/12 15:35:00, Duration: 30 day, Stop date: 06/18/12 15:34:00 PO No Longer Active [place] 05/19/2012 [facility] MS Contin 30 mg, 2 tab, Route: PO, Drug form: TAB, Q12H, Dosing Weight 72.073, kg, Start date: 05/18/12 21:00:00, Stop date: 06/17/12 9:00:00 PO No Longer Active [place] 05/19/2012 [facility] Protonix 40 mg, 1 tab, Route: PO, Drug form: ECTAB, Before Dinner, Dosing Weight 72.727, kg, Start date: 05/18/12 16:30:00, Duration: 30 day, Stop date: 06/16/12 16:30:00 PO No Longer Active [place] 05/18/2012 [facility] Co-Q10 200 mg, Route: PO, Drug form: TAB, Daily, Dosing Weight 72.727, kg, Start date: 05/18/12 9:00:00, Duration: 30 day, Stop date: 06/16/12 9:00:00 PO No Longer Active [place] 05/18/2012 [facility] lamotrigine 100 mg oral tablet 100 mg, 1 tab, Route: PO, Drug form: TAB, Daily, Dosing Weight 72.727, kg, Start date: 05/18/12 9:00:00, Duration: 30 day, Stop date: 06/16/12 9:00:00 PO No Longer Active [place] 05/18/2012 [facility] pt own Co-Q10 pt own Co-Q10, 200 mg, Drug form: MISC, Route: PO, Daily, 05/18/12 9:00:00, Duration: 30 day, Stop date: 06/16/12 9:00:00 PO No Longer Active [place] 05/18/2012 [facility] Avapro 300 mg, 2 tab, Route: PO, Drug form: TAB, Daily, Dosing Weight 72.727, kg, Start date: 05/18/12 9:00:00, Duration: 30 day, Stop date: 06/16/12 9:00:00 PO No Longer Active [place] 05/18/2012 [facility] citalopram 40 mg, 2 tab, Route: PO, Drug form: TAB, Daily, Dosing Weight 72.727, kg, Start date: 05/18/12 9:00:00, Duration: 30 day, Stop date: 06/16/12 9:00:00 PO No Longer Active [place] 05/18/2012 [facility] Bumex 1 mg, 1 tab, Route: PO, Drug form: TAB, Daily, Dosing Weight 72.727, kg, Start date: 05/18/12 9:00:00, Duration: 30 day, Stop date: 06/16/12 9:00:00 PO No Longer Active [place] 05/18/2012 [facility] Norvasc 5 mg, 1 tab, Route: PO, Drug form: TAB, Daily, Dosing Weight 72.727, kg, Start date: 05/18/12 9:00:00, Duration: 30 day, Stop date: 06/16/12 9:00:00 PO No Longer Active [place] 05/18/2012 [facility] pt own desfenlafaxine (Pristiq) extended release pt own desfenlafaxine (Pristiq) extended release, 50 mg, Drug form: MISC, Route: PO, Daily, 05/18/12 9:00:00, Duration: 30 day, Stop date: 06/16/12 9:00:00 PO No Longer Active [place] 05/18/2012 [facility] docusate 100 mg, 1 cap, Route: PO, Drug form: CAP, BID, Dosing Weight 72.727, kg, Start date: 05/18/12 9:00:00, Duration: 30 day, Stop date: 06/16/12 17:00:00 PO No Longer Active [place] 05/18/2012 [facility] Pristiq 50 mg oral tablet, extended release 50 mg, 1 tab, Route: PO, Drug form: ERTAB, Daily, Dosing Weight 72.727, kg, Start date: 05/18/12 9:00:00, Duration: 30 day, Stop date: 06/16/12 9:00:00 PO No Longer Active [place] 05/18/2012 [facility] trazodone 100 mg oral tablet 100 mg, 1 tab, Route: PO, Drug form: TAB, Bedtime, Dosing Weight 72.727, kg, Start date: 05/17/12 21:00:00, Duration: 30 day, Stop date: 06/15/12 21:00:00 PO No Longer Active [place] 05/18/2012 [facility] Lovenox 40 mg, 0.4 mL, Route: SUB-Q, Drug form: INJ, Q24H, Dosing Weight 72.073, kg, Start date: 05/17/12 21:00:00, Duration: 12 day, Stop date: 05/28/12 21:00:00 SUB-Q No Longer Active [place] 05/18/2012 [facility] labetalol 200 mg, 1 tab, Route: PO, Drug form: TAB, Q12H, Dosing Weight 72.727, kg, Start date: 05/17/12 21:00:00, Duration: 30 day, Stop date: 06/16/12 9:00:00 PO No Longer Active [place] 05/18/2012 [facility] Os-Keanu 500 with D oral tablet 1 tab, Route: PO, Drug Form: TAB, Dosing Weight 72.727, kg, [id number], Start date: 05/17/12 21:00:00, Duration: 30 day, Stop date: 06/16/12 9:00:00 PO No Longer Active [place] 05/18/2012 [facility] have [facility] verify & bar-code pt own Pristiq & Co-Q10 have [facility] verify & bar-code pt own Pristiq & Co-Q10, 1 attn notice, Drug form: MISC, Route: MISC, QSHIFT, 05/17/12 21:00:00, Duration: 30 day, Stop date: 06/16/12 16:00:00 MISC No Longer Active [place] 05/18/2012 [facility] aspirin 81 mg, 1 tab, Route: PO, Drug form: CHEWTAB, Q24H, Dosing Weight 72.727, kg, Start date: 05/17/12 20:00:00, Duration: 30 day, Stop date: 06/15/12 20:00:00 PO No Longer Active [place] 05/18/2012 [facility] Restoril 15 mg, 1 cap, Route: PO, Drug form: CAP, Bedtime, PRN Sleep, Start date: 05/17/12 19:03:00, Duration: 30 day, Stop date: 06/16/12 19:02:00 PO No Longer Active [place] 05/18/2012 [facility] lactulose 20 gm, 30 mL, Route: PO, Drug Form: SYRP, Dosing Weight 72.727, kg, Q6H, PRN Bowel Movements, Start date: 05/17/12 18:21:00, Duration: 30 day, Stop date: 06/16/12 18:20:00 PO No Longer Active [place] 05/18/2012 [facility] Milk of Magnesia 30 mL, Route: PO, Drug Form: SUSP, Dosing Weight 72.727, kg, Daily, PRN Constipation, Start date: 05/17/12 18:21:00, Duration: 30 day, Stop date: 06/16/12 18:20:00 PO No Longer Active [place] 05/18/2012 [facility] acetaminophen-hydrocodone 325 mg-10 mg oral tablet 1 tab, Route: PO, Drug Form: TAB, Dosing Weight 72.727, kg, Q4H, PRN Pain Score 1-5, Start date: 05/17/12 18:21:00, Duration: 30 day, Stop date: 06/16/12 18:20:00 PO No Longer Active [place] 05/18/2012 [facility] acetaminophen 650 mg, 2 tab, Route: PO, Drug form: TAB, Q4H, Dosing Weight 72.727, kg, PRN Pain Score 1-3, Start date: 05/17/12 18:21:00, Duration: 30 day, Stop date: 06/16/12 18:20:00 PO No Longer Active [place] 05/18/2012 [facility] Saline Flush 0.9% 3 mL, Route: IVP, Drug Form: INJ, Dosing Weight 72.727, kg, Q8H, PRN Line Flush, Start date: 05/17/12 18:21:00, Duration: 30 day, Stop date: 06/16/12 18:20:00, Administer at least once every 8 hoursAdminister at least once every 8 hours IVP No Longer Active [place] 05/18/2012 [facility] zolpidem 5 mg, Route: PO, Drug form: TAB, Bedtime, Dosing Weight 72.727, kg, PRN Insomnia, Start date: 05/17/12 18:21:00, Duration: 30 day, Stop date: 06/16/12 18:20:00 PO No Longer Active [place] 05/18/2012 [facility] ferrous sulfate 325 mg, 1 tab, Route: PO, Drug form: ECTAB, BID, Start date: 05/17/12 9:00:00, Duration: 30 day, Stop date: 06/15/12 17:00:00 PO No Longer Active [facility] 05/17/2012 [facility] Deep Sea Nasal [place] 1 spray, Route: NASAL, PRN, Drug form: SOLN, PRN Nasal dryness, Start date: 05/15/12 14:49:00, Duration: 30 day, Stop date: 06/14/12 14:48:00 NASAL No Longer Active [place] 05/15/2012 [facility] [address] Saline nasal spray Route: NASAL, PRN, PRN Nasal dryness, Start date: 05/15/12 14:30:00, Duration: 30 day, Stop date: 06/14/12 14:29:00 NASAL No Longer Active [place] 05/15/2012 [facility] Lasix 10 mg, 1 mL, Route: IV, Drug form: INJ, ONCALL, Start date: 05/15/12 8:00:00, Duration: 2 doses or times IV No Longer Active [facility] 05/15/2012 [facility] Sodium Chloride 0.9% IV IV, 30 ml/hr, ONCALL, PRN Blood Transfusion, Start date: 05/15/12 7:57:00, Duration: 1, 250 ml IV No Longer Active [facility] 05/15/2012 [facility] Lactated Ringers IV 1,000 mL 1,000 mL, Rate: 100 ml/hr, Infuse over: 10 hr, Route: IV, kg, Total Volume: 1,000, Start date: 05/14/12 16:22:00, Duration: 30 day, Stop date: 06/13/12 16:21:00 IV No Longer Active [facility] 05/14/2012 [facility] albuterol 0.083% inhalation solution 2.5 mg, 3.01 mL, Route: INHALATION, Drug form: SOLN, PRN, Dosing Weight 72.727, kg, PRN Respiratory Protocol, Start date: 05/14/12 13:16:00, Duration: 30 day, Stop date: 06/13/12 13:15:00 INHALATION No Longer Active [facility] 05/14/2012 [facility] labetalol 5 mg, 1 mL, Route: IVP, Drug form: INJ, Q5Min, Dosing Weight 72.727, kg, PRN Elevated BP, Start date: 05/14/12 12:13:00, Duration: 5 doses or times, Stop date: Limited # of times IVP No Longer Active [place] 05/14/2012 [facility] esmolol IV Push 10 mg, 1 mL, Route: IVP, Drug form: INJ, Q5Min, Dosing Weight 72.727, kg, PRN Elevated BP, Start date: 05/14/12 12:13:00, Duration: 5 doses or times, Stop date: Limited # of times IVP No Longer Active [place] 05/14/2012 [facility] ondansetron 4 mg, 2 mL, Route: IVP, Drug form: INJ, ONCE, Dosing Weight 72.727, kg, PRN Nausea & Vomiting, Start date: 05/14/12 12:13:00 IVP No Longer Active [place] 05/14/2012 [facility] promethazine + Sodium Chloride 0.9% IV 50 mL 6.25 mg, 0.25 mL, Route: IVPB, ONCE, Dosing Weight 72.727, kg, PRN Nausea & Vomiting, Start date: 05/14/12 12:13:00 IVPB No Longer Active [place] 05/14/2012 [facility] hydromorphone 0.5 mg, 0.25 mL, Route: IVP, Drug form: INJ, Q5Min, Dosing Weight 72.727, kg, PRN Pain Score 4-6, Start date: 05/14/12 12:13:00, Duration: 5 doses or times, Stop date: Limited # of times IVP No Longer Active [place] 05/14/2012 [facility] fentanyl 25 microgram, 0.5 mL, Route: IVP, Drug form: INJ, Q5Min, Dosing Weight 72.727, kg, PRN Pain Score 4-6, Start date: 05/14/12 12:13:00, Duration: 4 doses or times, Stop date: Limited # of times IVP No Longer Active [place] 05/14/2012 [facility] flumazenil 0.2 mg, 2 mL, Route: IVP, Drug form: INJ, PRN, Dosing Weight 72.727, kg, PRN Benzodiazepine Reversal, Initial dose, Start date: 05/14/12 12:13:00, Duration: 30 day, Stop date: 06/13/12 12:12:00 IVP No Longer Active [place] 05/14/2012 [facility] naloxone 0.04 mg, 0.1 mL, Route: IVP, Drug form: INJ, Q2MIN, Dosing Weight 72.727, kg, PRN Narcotic Reversal, Start date: 05/14/12 12:13:00, Duration: 8 doses or times, Stop date: Limited # of times IVP No Longer Active [place] 05/14/2012 [facility] acetaminophen-hydrocodone 325 mg-5 mg oral tablet 2 tab, Route: PO, Drug Form: TAB, Dosing Weight 72.727, kg, Q4H, PRN Pain Score 4-6, Start date: 05/14/12 12:13:00, Duration: 30 day, Stop date: 06/13/12 12:12:00 PO No Longer Active [place] 05/14/2012 [facility] hydrALAZINE 5 mg, 0.25 mL, Route: IVP, Drug form: INJ, Q5Min, Dosing Weight 72.727, kg, PRN Elevated BP, Start date: 05/14/12 12:13:00, Duration: 4 doses or times, Stop date: Limited # of times IVP No Longer Active [place] 05/14/2012 [facility] Co-Q10 200 mg, Route: PO, Drug form: CAP, Daily, Dosing Weight 72.727, kg, Start date: 05/14/12 9:00:00, Duration: 30 day, Stop date: 06/12/12 9:00:00 PO No Longer Active [facility] 05/14/2012 [facility] pantoprazole 40 mg, Route: IVP, Drug form: INJ, Daily, Dosing Weight 72.727, kg, Priority: Routine, Start date: 05/14/12 9:00:00, Duration: 30 day, Stop date: 06/12/12 9:00:00 IVP No Longer Active [place] 05/14/2012 [facility] lamotrigine 100 mg oral tablet 100 mg, 1 tab, Route: PO, Drug form: TAB, Daily, Dosing Weight 72.727, kg, Start date: 05/14/12 9:00:00, Duration: 30 day, Stop date: 06/12/12 9:00:00 PO No Longer Active [facility] 05/14/2012 [facility] Avapro 300 mg, 2 tab, Route: PO, Drug form: TAB, Daily, Dosing Weight 72.727, kg, Start date: 05/14/12 9:00:00, Duration: 30 day, Stop date: 06/12/12 9:00:00 PO No Longer Active [place] 05/14/2012 [facility] Pt's own med CO-Q10 Pt's own med Pt's own med CO-Q10 Pt's own med , 200 mg, Drug form: MISC, Route: PO, Daily, 05/14/12 9:00:00, Duration: 30 day, Stop date: 06/12/12 9:00:00 PO No Longer Active [facility] 05/14/2012 [facility] Pt's own med DESVENLAFAXINE (PRISTIQ) Pt's own med Pt's own med DESVENLAFAXINE (PRISTIQ) Pt's own med, 50 mg, Drug form: MISC, Route: PO, Daily, 05/14/12 9:00:00, Duration: 30 day, Stop date: 06/12/12 9:00:00 PO No Longer Active [facility] 05/14/2012 [facility] Nexium 40 mg, Route: PO, Drug form: ECCAP, Daily, Dosing Weight 72.727, kg, Start date: 05/14/12 9:00:00, Duration: 30 day, Stop date: 06/12/12 9:00:00 PO No Longer Active [facility] 05/14/2012 [facility] Pristiq 50 mg oral tablet, extended release 50 mg, 1 tab, Route: PO, Drug form: ERTAB, Daily, Dosing Weight 72.727, kg, Start date: 05/14/12 9:00:00, Duration: 30 day, Stop date: 06/12/12 9:00:00 PO No Longer Active [facility] 05/14/2012 [facility] citalopram 40 mg, 2 tab, Route: PO, Drug form: TAB, Daily, Dosing Weight 72.727, kg, Start date: 05/14/12 9:00:00, Duration: 30 day, Stop date: 06/12/12 9:00:00 PO No Longer Active [facility] 05/14/2012 [facility] Os-Keanu 500 with D oral tablet 1 tab, Route: PO, Drug Form: TAB, Dosing Weight 72.727, kg, BID, Start date: 05/14/12 9:00:00, Duration: 30 day, Stop date: 06/12/12 17:00:00 PO No Longer Active [facility] 05/14/2012 [facility] Bumex 1 mg, 1 tab, Route: PO, Drug form: TAB, Daily, Dosing Weight 72.727, kg, Start date: 05/14/12 9:00:00, Duration: 30 day, Stop date: 06/12/12 9:00:00 PO No Longer Active [facility] 05/14/2012 [facility] amLODipine 5 mg, 1 tab, Route: PO, Drug form: TAB, Daily, Dosing Weight 72.727, kg, Start date: 05/14/12 9:00:00, Duration: 30 day, Stop date: 06/12/12 9:00:00 PO No Longer Active [facility] 05/14/2012 [facility] enoxaparin 30 mg, 0.3 mL, Route: SUB-Q, Drug form: INJ, [id number], Dosing Weight 72.727, kg, Start date: 05/14/12 7:35:00, Duration: 30 day, Stop date: 06/12/12 19:35:00, Give first dose 12 hours after surgeryGive first dose 12 hours after surgery SUB-Q No Longer Active [facility] 05/14/2012 [facility] trazodone 100 mg oral tablet 100 mg, 1 tab, Route: PO, Drug form: TAB, Bedtime, Dosing Weight 72.727, kg, Start date: 05/13/12 21:00:00, Duration: 30 day, Stop date: 06/11/12 21:00:00 PO No Longer Active [facility] 05/14/2012 [facility] labetalol 200 mg, 1 tab, Route: PO, Drug form: TAB, Q12H, Dosing Weight 72.727, kg, Start date: 05/13/12 21:00:00, Duration: 30 day, Stop date: 06/12/12 9:00:00 PO No Longer Active [facility] 05/14/2012 [facility] aspirin 81 mg tablet, chewable 81 mg, 1 tab, Route: PO, Drug form: CHEWTAB, Daily, Dosing Weight 72.727, kg, Start date: 05/13/12 19:42:00, Duration: 30 day, Stop date: 06/12/12 9:00:00 PO No Longer Active [facility] 05/14/2012 [facility] Ambien 5 mg, 1 tab, Route: PO, Drug form: TAB, Bedtime, Dosing Weight 72.727, kg, PRN as needed for sleep, Start date: 05/13/12 19:35:00, Duration: 30 day, Stop date: 06/12/12 19:34:00 PO No Longer Active [facility] 05/14/2012 [facility] [place] 10/325 oral tablet 1 tab, Route: PO, Drug Form: TAB, Dosing Weight 72.727, kg, BID, PRN as needed for pain, Start date: 05/13/12 19:32:00, Duration: 30 day, Stop date: 06/12/12 19:31:00 PO No Longer Active [facility] 05/14/2012 [facility] docusate 100 mg, 1 cap, Route: PO, Drug form: CAP, BID, Dosing Weight 72.727, kg, Start date: 05/13/12 17:00:00, Duration: 30 day, Stop date: 06/12/12 9:00:00 PO No Longer Active [facility] 05/13/2012 [facility] HOLD LOVENOX ON 05/14/[address] LEIGH'S ORDERS HOLD LOVENOX ON 05/14/[address] LEIGH'S ORDERS, 1 CONT, Drug form: MISC, Route: SUB-Q, Continuous, 05/13/12 11:00:00, Stop date: 05/15/12 0:00:00 SUB-Q No Longer Active [place] 05/13/2012 [facility] vancomycin 1 gm, 200 mL, Route: IVPB, Drug form: INJ, ONCALL, Start date: 05/13/12 11:00:00, Duration: 1 doses or times IVPB No Longer Active [place] 05/13/2012 [facility] ondansetron 4 mg, 2 mL, Route: IVP, Drug form: INJ, Q6H, Dosing Weight 72.727, kg, PRN Nausea & Vomiting, Start date: 05/13/12 9:12:00, Duration: 30 day, Stop date: 06/12/12 9:11:00 IVP No Longer Active [facility] 05/13/2012 [facility] Dilaudid 1 mg, 1 mL, Route: IV, Drug form: SOLN, Q4H, Dosing Weight 72.727, kg, PRN as needed for pain, Priority: STAT, Start date: 05/13/12 9:12:00, Duration: 30 day, Stop date: 06/12/12 9:11:00 IV No Longer Active [facility] 05/13/2012 [facility] Saline Flush 0.9% 5 ml, Route: IVP, Drug Form: INJ, Dosing Weight 72.727, kg, PRN, PRN Line Flush, Start date: 05/13/12 9:12:00, Duration: 30 day, Stop date: 06/12/12 9:11:00 IVP No Longer Active [facility] 05/13/2012 [facility] Dilaudid 1 mg, 1 mL, Route: IVP, Drug form: SOLN, ONCE, Dosing Weight 72.727, kg, Priority: STAT, Start date: 05/13/12 8:15:00, Stop date: 05/13/12 8:15:00 IVP No Longer Active [facility] 05/13/2012 [facility] aspirin 81 mg tablet, chewable 81 mg, 1 tab, PO, Daily, tab, Substitution Allowed, CHEWTAB PO On Hold [facility] 05/13/2012 [facility] Flax Seed Oil oral capsule 2 caps, PO, BID, Substitution Allowed, Maintenance, CAP PO On Hold 05/13/2012 [facility] Co-Q10 100 mg oral capsule 200 mg, 2 cap, PO, Daily, 60 cap, Substitution Allowed, CAP PO On Hold [facility] 05/13/2012 [facility] Non-Formulary Home Medication 300 mg, PO, Daily, Substitution Allowed PO On Hold 05/13/2012 [facility] Calcium 600 +D oral tablet 1 tab, PO, BID, 270 tab, Substitution Allowed, Maintenance, TAB PO On Hold [facility] 05/13/2012 [facility] Centrum Silver oral tablet 1 tab, PO, Daily, 30 tab, Substitution Allowed, Maintenance, TAB PO No Longer Active 05/13/2012 [facility] Trilipix 135 mg oral delayed release capsule 135 mg, 1 cap, PO, Daily, 30 cap, Substitution Allowed, ECCAP PO No Longer Active 05/13/2012 [facility] [place] 10/325 oral tablet 1 tab, PO, BID, PRN, 24 tab, for pain, Substitution Allowed, Maintenance PO On Hold [facility] 05/13/2012 [facility] lamotrigine 100 mg oral tablet 100 mg, 1 tab, PO, Daily, 60 tab, Substitution Allowed, TAB PO On Hold [facility] 05/13/2012 [facility] amLODipine 5 mg oral tablet 5 mg, 1 tab, PO, Daily, 30 tab, Substitution Allowed, TAB PO On Hold [facility] 05/13/2012 [facility] Pristiq 50 mg oral tablet, extended release 50 mg, 1 tab, PO, Daily, 30 tab, Substitution Allowed, ERTAB PO On Hold [facility] 05/13/2012 [facility] Bumex 1 mg oral tablet 1 mg, 1 tab, PO, Daily, 30 tab, Substitution Allowed, TAB PO On Hold [facility] 05/13/2012 [facility] Levaquin 500 mg oral tablet 500 mg, PO, Every Other Day, Substitution Allowed, TAB PO No Longer Active 05/13/2012 [facility] sulfamethoxazole-trimethoprim 800 mg-160 mg oral tablet 1 tab, PO, Every Other Day, Substitution Allowed, Maintenance, TAB PO No Longer Active 05/13/2012 [facility] trazodone 100 mg oral tablet 100 mg, 1 tab, PO, Bedtime, 270 tab, Substitution Allowed, TAB PO On Hold [facility] 05/13/2012 [facility] citalopram 40 mg oral tablet 40 mg, 1 tab, PO, Daily, 30 tab, Substitution Allowed, TAB PO On Hold [facility] 05/13/2012 [facility] Avapro 300 mg oral tablet 300 mg, 1 tab, PO, Daily, 30 tab, Substitution Allowed PO On Hold [facility] 05/13/2012 [facility] Ambien 5 mg oral tablet 5 mg, 1 tab, PO, Bedtime, PRN, for sleep, Substitution Allowed, TAB PO On Hold [facility] 05/13/2012 [facility] Nexium 40 mg oral delayed release capsule 40 mg, 1 cap, PO, Daily, 30 cap, Substitution Allowed PO On Hold [facility] 05/13/2012 [facility] labetalol 200 mg oral tablet 200 mg, 1 tab, PO, BID, 180 tab, Substitution Allowed, TAB PO On Hold [facility] 05/13/2012 [facility] Lovenox 40 mg, 0.4 mL, Route: SUB-Q, Drug form: INJ, ONCE, Dosing Weight 72.727, kg, Start date: 05/13/12 7:31:00, Stop date: 05/13/12 7:31:00 SUB-Q No Longer Active [facility] 05/13/2012 [facility] Valium 5 mg, Route: IVP, ONCE, Dosing Weight 72.727, kg, Priority: STAT, Start date: 05/13/12 5:53:00, Stop date: 05/13/12 5:53:00 IVP No Longer Active [facility] 05/13/2012 [facility] morphine Sulfate 4 mg, Route: IVP, Drug form: INJ, ONCE, Dosing Weight 72.727, kg, Priority: STAT, Start date: 05/13/12 4:48:00, Stop date: 05/13/12 4:48:00 IVP No Longer Active [facility] 05/13/2012 [facility] ondansetron 4 mg, Route: IVP, Drug form: INJ, ONCE, Dosing Weight 72.727, kg, Priority: STAT, Start date: 05/13/12 2:57:00, Stop date: 05/13/12 2:57:00 IVP No Longer Active [facility] 05/13/2012 [facility] morphine Sulfate 4 mg, Route: IVP, Drug form: INJ, ONCE, Dosing Weight 72.727, kg, Priority: STAT, Start date: 05/13/12 2:57:00, Stop date: 05/13/12 2:57:00 IVP No Longer Active [facility] 05/13/2012 [facility] Citalopram Hydrobromide (Celexa) 40 Mg Tablet Daily Active [facility] Esomeprazole Magnesium (Nexium) 40 Mg Capsule. Daily Active [facility] Trazodone Hcl 100 Mg Tablet Bedtime Active [facility] Zolpidem Tartrate 10 Mg Tablet Bedtime Active [facility] Amlodipine Besylate 5 Mg Tablet Daily Active [facility] Esomeprazole Magnesium (Nexium) 40 Mg Capsule. Daily Active [facility] Furosemide 40 Mg Tablet Daily Active [facility] Irbesartan 150 Mg Tablet Daily Active [facility] Potassium Chloride 20 Meq Tab.er.prt Daily Active [facility] Venlafaxine Hcl (Effexor Xr 37.5MG Capcr*) 37.5 Mg Capcr Daily Active [facility] Zolpidem Tartrate 10 Mg Tablet Bedtime as needed for Insomnia Active [facility] Allergies, Adverse Reactions, Alerts Substance Category Reaction Severity Reaction type Status Date Reported Comments Source Penicillin Unknown Allergy to Substance Active 06/09/2018 [facility] Codeine Nausea Unknown Allergy to Substance Active 06/09/2018 [facility] Oxycodone Unknown Allergy to Substance Active 06/09/2018 [facility] Propoxyphene Unknown Allergy to Substance Active 06/09/2018 [facility] Levofloxacin Unknown Allergy to Substance Active 06/09/2018 [facility] codeine drug allergy Allergy Active [facility] Darvon drug allergy Allergy Active [facility] oxyCODONE drug allergy Allergy Active [facility] penicillins drug allergy Allergy Active [facility] Immunizations Immunization Date Given Site Status Last Updated Comments Source Results Order Name Results Value Reference Range Date Interpretation Comments Source Blood leukocytes automated count (number/volume) 10.04 4.8 - 10.8 06/15/2018 [facility] Blood erythrocytes automated count (number/volume) 4.60 3.6 - 5.1 06/15/2018 [facility] Blood hemoglobin measurement (moles/volume) 10.1 12.0 - 16.0 06/15/2018 [facility] Automated blood hematocrit (volume fraction) 34.1 34.2 - 44.1 06/15/2018 [facility] Automated erythrocyte mean corpuscular volume 74.1 81 - 99 06/15/2018 [facility] Automated erythrocyte mean corpuscular hemoglobin (mass per erythrocyte) 22.0 28 - 32 06/15/2018 [facility] Automated erythrocyte mean corpuscular hemoglobin concentration measurement (mass/volume) 29.6 31 - 35 06/15/2018 [facility] RDW BldCo-Rto 19.9 11.7 - 14.4 06/15/2018 [facility] Automated blood platelet count (count/volume) 285 140 - 360 06/15/2018 [facility] Automated blood segmented neutrophil count as percentage of total leukocytes 52.4 38.7 - 80.0 06/15/2018 [facility] Automated blood lymphocyte count as percentage ot total leukocytes 30.2 18.0 - 39.1 06/15/2018 [facility] Automated blood monocyte count as percentage of total leukocytes 12.1 4.4 - 11.3 06/15/2018 [facility] Automated blood eosinophil count as percentage of total leukocytes 4.0 0.0 - 6.0 06/15/2018 [facility] Automated blood basophil count as percentage of total leukocytes 1.0 0.0 - 1.0 06/15/2018 [facility] IM GRANULOCYTES % 0.3 0.0 - 1.0 06/15/2018 [facility] Automated blood neutrophil count 5.3 2.1 - 6.9 06/15/2018 [facility] Blood lymphocytes count (number/volume) 3.0 1.0 - 3.2 06/15/2018 [facility] Blood monocytes automated count (number/volume) 1.2 0.2 - 0.8 06/15/2018 [facility] Automated blood eosinophil count 0.4 0.0 - 0.4 06/15/2018 [facility] Automated blood basophil count (count/volume) 0.1 0.0 - 0.1 06/15/2018 [facility] Absolute Immature Granulocyte (auto 0.03 0 - 0.1 06/15/2018 [facility] Serum or plasma sodium measurement (moles/volume) 141 136 - 145 06/15/2018 [facility] Serum or plasma potassium measurement (moles/volume) 4.0 3.5 - 5.1 06/15/2018 [facility] Serum or plasma chloride measurement (moles/volume) 101 98 - 107 06/15/2018 [facility] Serum or plasma carbon dioxide, total measurement (moles/volume) 31 22 - 29 06/15/2018 [facility] Serum or plasma anion gap 13.0 8 - 16 06/15/2018 [facility] Serum or plasma urea nitrogen measurement (mass/volume) 21 7 - 26 06/15/2018 [facility] Serum or plasma creatinine measurement (mass/volume) 1.13 0.57 - 1.11 06/15/2018 [facility] Serum or plasma urea nitrogen/creatinine mass ratio 19 6 - 25 06/15/2018 [facility] Estimated glomerular filtration rate (GFR) determination 46 60 06/15/2018 [facility] Glucose measurement 83 74 - 118 06/15/2018 [facility] Serum or plasma calcium measurement (mass/volume) 9.3 8.4 - 10.2 06/15/2018 [facility] Serum or plasma magnesium measurement (mass/volume) 1.9 1.3 - 2.1 06/15/2018 [facility] BNP Bld-mCnc 392.0 0 - 100 06/15/2018 [facility] Stool gastrointestinal hemoglobin detection POSITIVE NEGATIVE 06/14/2018 [facility] Serum or plasma iron measurement (mass/volume) 12 50 - 170 06/11/2018 [facility] Serum or plasma iron binding capacity measurement (mass/volume) 414 261 - 478 06/11/2018 [facility] Serum or plasma iron saturation measurement (mass fraction) 3 15 - 50 06/11/2018 [facility] Serum or plasma transferrin measurement (mass/volume) 296 180 - 382 06/11/2018 [facility] Serum or plasma ferritin measurement (mass/volume) 8.52 4.63 - 204.00 06/11/2018 [facility] Blood cobalamin (vitamin B12) measurement (mass/volume) 306 213 - 816 06/11/2018 [facility] Serum or plasma folate measurement (mass/volume) 12.9 7.0 - 15.4 06/11/2018 [facility] Serum or plasma thyroxine (T4) free measurement (mass/volume) 1.03 0.9 - 1.8 06/11/2018 [facility] Serum or plasma thyrotropin measurement by detection limit <=0.005 miu/l (units/volume) 1.494 0.350 - 4.940 06/11/2018 [facility] Serum or plasma creatine kinase measurement (enzymatic activity/volume) 39 29 - 168 06/10/2018 [facility] Serum or plasma creatine kinase MB measurement (mass/volume) 0.80 0 - 5.0 06/10/2018 [facility] Troponin I measurement by highly sensitive enzyme immunoassay 0.007 0 - 0.300 06/10/2018 [facility] Urine color determination YELLOW YELLOW 06/10/2018 [facility] Urine clarity CLEAR CLEAR 06/10/2018 [facility] Specific gravity of Urine by Test strip 1.015 1.010 - 1.025 06/10/2018 [facility] Urine pH measurement by automated test strip 6 5 - 7 06/10/2018 [facility] Urine leukocyte esterase detection by dipstick NEGATIVE NEGATIVE 06/10/2018 [facility] Urine nitrite detection NEGATIVE NEGATIVE 06/10/2018 [facility] Urine protein measurement by test strip (mass/volume) NEGATIVE NEGATIVE 06/10/2018 [facility] Urine glucose detection NEGATIVE NEGATIVE 06/10/2018 [facility] Urine ketones detection by automated test strip NEGATIVE NEGATIVE 06/10/2018 [facility] Urine urobilinogen measurement by test strip (mass/volume) 0.2 0.2 - 1 06/10/2018 [facility] Urine total bilirubin measurement (mass/volume) NEGATIVE NEGATIVE 06/10/2018 [facility] Urine erythrocytes detection NEGATIVE NEGATIVE 06/10/2018 [facility] Automated urine sediment leukocyte count by microscopy (number/high power field) 0-5 0 - 5 06/10/2018 [facility] Erythrocytes detection in urine sediment by light microscopy 0-5 0 - 5 06/10/2018 [facility] Bacteria detection in urine sediment by light microscopy FEW NONE 06/10/2018 [facility] Epithelial cells detection in urine sediment by light microscopy MODERATE NONE 06/10/2018 [facility] Mucus detection in urine sediment by light microscopy FEW RARE 06/10/2018 [facility] Prothrombin time (PT) in platelet poor plasma by coagulation assay 15.5 11.9 - 14.5 06/09/2018 [facility] INR in Platelet poor plasma by Coagulation assay 1.13 06/09/2018 [facility] Activated partial thromboplastin time (aPTT) in platelet poor plasma bycoagulation assay 29.6 23.8 - 35.5 06/09/2018 [facility] Serum or plasma total bilirubin measurement (mass/volume) 0.8 0.2 - 1.2 06/09/2018 [facility] Aspartate Amino Transf (AST/SGOT) 47 5 - 34 06/09/2018 [facility] Serum or plasma alanine aminotransferase measurement (enzymatic activity/volume) 66 0 - 55 06/09/2018 [facility] Serum or plasma protein measurement (mass/volume) 6.3 6.5 - 8.1 06/09/2018 [facility] Serum or plasma albumin measurement (mass/volume) 3.6 3.5 - 5.0 06/09/2018 [facility] Plasma globulin measurement (mass/volume) 2.7 2.3 - 3.5 06/09/2018 [facility] Serum or plasma albumin/globulin mass ratio 1.3 0.8 - 2.0 06/09/2018 [facility] Serum or plasma alkaline phosphatase measurement (enzymatic activity/volume) 125 40 - 150 06/09/2018 [facility] Serum or plasma digoxin measurement (mass/volume) < 0.30 0.8 - 2.0 06/09/2018 [facility] Blood culture NO GROWTH AFTER 5 DAYS, FINAL REPORT 06/09/2018 [facility] Influenza virus A and B antigen identification by immunofluorescence NEGATIVE NEGATIVE 06/09/2018 [facility] Streptococcus pyogenes antigen detection in throat NEGATIVE NEGATIVE 06/09/2018 [facility] Capillary blood glucose measurement by glucometer (mass/volume) 167 70 - 120 12/04/2017 [facility] Capillary blood glucose measurement by glucometer (mass/volume) Capillary blood glucose measurement by glucometer (mass/volume) 167 70 - 120 12/04/2017 [facility] Estimated glomerular filtration rate (GFR) determination Estimated glomerular filtration rate (GFR) determination 43 60 12/04/2017 [facility] Glucose measurement Glucose measurement 96 74 - 118 12/04/2017 [facility] Serum or plasma anion gap Serum or plasma anion gap 12.9 8 - 16 12/04/2017 [facility] [facility] [place] Serum or plasma calcium measurement (mass/volume) Serum or plasma calcium measurement (mass/volume) 10.1 8.4 - 10.2 12/04/2017 [facility] [place] Serum or plasma carbon dioxide, total measurement (moles/volume) Serum or plasma carbon dioxide, total measurement (moles/volume) 28 22 - 29 12/04/2017 [facility] [place] Serum or plasma chloride measurement (moles/volume) Serum or plasma chloride measurement (moles/volume) 104 98 - 107 12/04/2017 [facility] [place] Serum or plasma creatinine measurement (mass/volume) Serum or plasma creatinine measurement (mass/volume) 1.20 0.57 - 1.11 12/04/2017 [facility] [place] Serum or plasma potassium measurement (moles/volume) Serum or plasma potassium measurement (moles/volume) 3.9 3.5 - 5.1 12/04/2017 [facility] [place] Serum or plasma sodium measurement (moles/volume) Serum or plasma sodium measurement (moles/volume) 141 136 - 145 12/04/2017 [facility] [place] Serum or plasma urea nitrogen measurement (mass/volume) Serum or plasma urea nitrogen measurement (mass/volume) 35 7 - 26 12/04/2017 [facility] [place] Serum or plasma urea nitrogen/creatinine mass ratio Serum or plasma urea nitrogen/creatinine mass ratio 29 6 - 25 12/04/2017 [facility] [place] Automated blood basophil count (count/volume) Automated blood basophil count (count/volume) 0.0 0.0 - 0.1 12/02/2017 [facility] [place] Automated blood basophil count as percentage of total leukocytes Automated blood basophil count as percentage of total leukocytes 0.3 0.0 - 1.0 12/02/2017 [facility] [place] Automated blood eosinophil count Automated blood eosinophil count 0.5 0.0 - 0.4 12/02/2017 [facility] [place] Automated blood eosinophil count as percentage of total leukocytes Automated blood eosinophil count as percentage of total leukocytes 3.5 0.0 - 6.0 12/02/2017 [facility] [place] Automated blood hematocrit (volume fraction) Automated blood hematocrit (volume fraction) 38.8 34.2 - 44.1 12/02/2017 [facility] [place] Automated blood lymphocyte count as percentage ot total leukocytes Automated blood lymphocyte count as percentage ot total leukocytes 19.2 18.0 - 39.1 12/02/2017 [facility] [place] Automated blood monocyte count as percentage of total leukocytes Automated blood monocyte count as percentage of total leukocytes 10.3 4.4 - 11.3 12/02/2017 [facility] [place] Automated blood neutrophil count Automated blood neutrophil count 9.4 2.1 - 6.9 12/02/2017 [facility] [place] Automated blood platelet count (count/volume) Automated blood platelet count (count/volume) 288 140 - 360 12/02/2017 [facility] [place] Automated blood segmented neutrophil count as percentage of total leukocytes Automated blood segmented neutrophil count as percentage of total leukocytes 66.3 38.7 - 80.0 12/02/2017 [facility] [place] Automated erythrocyte mean corpuscular hemoglobin (mass per erythrocyte) Automated erythrocyte mean corpuscular hemoglobin (mass per erythrocyte) 26.7 28 - 32 12/02/2017 [facility] [place] Automated erythrocyte mean corpuscular hemoglobin concentration measurement (mass/volume) Automated erythrocyte mean corpuscular hemoglobin concentration measurement (mass/volume) 32.5 31 - 35 12/02/2017 [facility] [place] Automated erythrocyte mean corpuscular volume Automated erythrocyte mean corpuscular volume 82.2 81 - 99 12/02/2017 [facility] [place] Blood erythrocytes automated count (number/volume) Blood erythrocytes automated count (number/volume) 4.72 3.6 - 5.1 12/02/2017 [facility] [place] Blood hemoglobin measurement (moles/volume) Blood hemoglobin measurement (moles/volume) 12.6 12.0 - 16.0 12/02/2017 [facility] [place] Blood leukocytes automated count (number/volume) Blood leukocytes automated count (number/volume) 14.14 4.8 - 10.8 12/02/2017 [facility] [place] Blood lymphocytes count (number/volume) Blood lymphocytes count (number/volume) 2.7 1.0 - 3.2 12/02/2017 [facility] [place] Blood monocytes automated count (number/volume) Blood monocytes automated count (number/volume) 1.5 0.2 - 0.8 12/02/2017 [facility] [place] Red Cell Distribution Width 15.8 11.7 - 14.4 12/02/2017 [facility] [place] IM GRANULOCYTES % 0.4 0.0 - 1.0 12/02/2017 [facility] [place] Absolute Immature Granulocyte (auto 0.05 0 - 0.1 12/02/2017 [facility] [place] Automated urine sediment leukocyte count by microscopy (number/high power field) Automated urine sediment leukocyte count by microscopy (number/high power field) null 0 - 5 11/30/2017 [facility] [place] Bacteria detection in urine sediment by light microscopy Bacteria detection in urine sediment by light microscopy NONE NONE 11/30/2017 [facility] [place] Epithelial cells detection in urine sediment by light microscopy Epithelial cells detection in urine sediment by light microscopy FEW NONE 11/30/2017 [facility] [place] Erythrocytes detection in urine sediment by light microscopy Erythrocytes detection in urine sediment by light microscopy NONE 0 - 5 11/30/2017 [facility] [place] Mucus detection in urine sediment by light microscopy Mucus detection in urine sediment by light microscopy RARE RARE 11/30/2017 [facility] [place] Specific gravity of Urine by Test strip Specific gravity of Urine by Test strip 1.015 1.010 - 1.025 11/30/2017 [facility] [place] Urine clarity Urine clarity CLEAR CLEAR 11/30/2017 [facility] [place] Urine color determination Urine color determination YELLOW YELLOW 11/30/2017 [facility] [place] Urine erythrocytes detection Urine erythrocytes detection NEGATIVE NEGATIVE 11/30/2017 [facility] [place] Urine glucose detection Urine glucose detection NEGATIVE NEGATIVE 11/30/2017 [facility] [place] Urine ketones detection by automated test strip Urine ketones detection by automated test strip NEGATIVE NEGATIVE 11/30/2017 [facility] [place] Urine leukocyte esterase detection by dipstick Urine leukocyte esterase detection by dipstick NEGATIVE NEGATIVE 11/30/2017 [facility] [place] Urine nitrite detection Urine nitrite detection NEGATIVE NEGATIVE 11/30/2017 [facility] [place] Urine pH measurement by automated test strip Urine pH measurement by automated test strip 6 5 - 7 11/30/2017 [facility] [place] Urine protein measurement by test strip (mass/volume) Urine protein measurement by test strip (mass/volume) NEGATIVE NEGATIVE 11/30/2017 [facility] [place] Urine total bilirubin measurement (mass/volume) Urine total bilirubin measurement (mass/volume) NEGATIVE NEGATIVE 11/30/2017 [facility] [place] Urine urobilinogen measurement by test strip (mass/volume) Urine urobilinogen measurement by test strip (mass/volume) 0.2 0.2 - 1 11/30/2017 [facility] [place] Serum or plasma magnesium measurement (mass/volume) Serum or plasma magnesium measurement (mass/volume) 2.3 1.3 - 2.1 11/29/2017 [facility] [place] Serum or plasma triiodothyronine (T3) free measurement (mass/volume) 3.0 2.0 - 4.4 11/28/2017 [facility] [place] Serum or plasma creatine kinase MB measurement (mass/volume) Serum or plasma creatine kinase MB measurement (mass/volume) 0.70 0 - 5.0 11/28/2017 [facility] [place] Serum or plasma creatine kinase measurement (enzymatic activity/volume) Serum or plasma creatine kinase measurement (enzymatic activity/volume) 27 29 - 168 11/28/2017 [facility] [place] Serum or plasma triiodothyronine (T3) free measurement (mass/volume) Serum or plasma triiodothyronine (T3) free measurement (mass/volume) 3.0 2.0 - 4.4 11/28/2017 [facility] [place] Troponin I measurement by highly sensitive enzyme immunoassay Troponin I measurement by highly sensitive enzyme immunoassay 0.002 0 - 0.300 11/28/2017 [facility] [place] Lactic Acid Level 9.9 4.5 - 19.8 11/28/2017 [facility] [place] Free thyroxine index 2.1674 1.4 - 3.8 11/28/2017 [facility] [place] Serum or plasma thyroxine (T4) measurement (mass/volume) 7.31 4.5 - 10.9 11/28/2017 [facility] [place] Serum or plasma triiodothyronine resin uptake (T3RU) 29.65 22.5 - 37.0 11/28/2017 [facility] [place] Free thyroxine index Free thyroxine index 2.1674 1.4 - 3.8 11/28/2017 [facility] [place] Serum or plasma thyroxine (T4) free measurement (mass/volume) Serum or plasma thyroxine (T4) free measurement (mass/volume) 1.02 0.9 - 1.8 11/28/2017 [facility] [place] Serum or plasma thyroxine (T4) measurement (mass/volume) Serum or plasma thyroxine (T4) measurement (mass/volume) 7.31 4.5 - 10.9 11/28/2017 [facility] [place] Serum or plasma triiodothyronine resin uptake (T3RU) Serum or plasma triiodothyronine resin uptake (T3RU) 29.65 22.5 - 37.0 11/28/2017 [facility] [place] Lactic Acid Level 9.9 4.5 - 19.8 11/28/2017 [facility] [place] Serum or plasma triglyceride measurement (mass/volume) 110 0 - 149 11/28/2017 [facility] [place] Serum or plasma cholesterol measurement (mass/volume) 136 0 - 199 11/28/2017 [facility] [place] Serum or plasma cholesterol in LDL measurement (mass/volume) 83 60 - 130 11/28/2017 [facility] [place] Serum or plasma cholesterol in HDL measurement (mass/volume) 31 40 - 60 11/28/2017 [facility] [place] Serum or plasma total cholesterol/cholesterol in HDL mass ratio 4.4 3.0 - 3.6 11/28/2017 [facility] [place] Serum or plasma cholesterol in HDL measurement (mass/volume) Serum or plasma cholesterol in HDL measurement (mass/volume) 31 40 - 60 11/28/2017 [facility] [place] Serum or plasma cholesterol in LDL measurement (mass/volume) Serum or plasma cholesterol in LDL measurement (mass/volume) 83 60 - 130 11/28/2017 [facility] [place] Serum or plasma cholesterol measurement (mass/volume) Serum or plasma cholesterol measurement (mass/volume) 136 0 - 199 11/28/2017 [facility] [place] Serum or plasma total cholesterol/cholesterol in HDL mass ratio Serum or plasma total cholesterol/cholesterol in HDL mass ratio 4.4 3.0 - 3.6 11/28/2017 [facility] [place] Serum or plasma triglyceride measurement (mass/volume) Serum or plasma triglyceride measurement (mass/volume) 110 0 - 149 11/28/2017 [facility] [place] Serum or plasma thyrotropin measurement by detection limit <=0.005 miu/l (units/volume) Serum or plasma thyrotropin measurement by detection limit <=0.005 miu/l (units/volume) 2.059 0.350 - 4.940 11/27/2017 [facility] [place] HEMATOLOGY Monocytes # 0.8 K/CMM 0.0 - 0.8 06/01/2012 Normal [facility] HEMATOLOGY Lymphocytes # 1.3 K/CMM 1.0 - 5.5 06/01/2012 Normal [facility] HEMATOLOGY Basophils # 0.0 K/CMM 0.0 - 0.2 06/01/2012 Normal [facility] HEMATOLOGY Segs 62.4 % 45.0 - 75.0 06/01/2012 Normal [facility] HEMATOLOGY Basophils 0.5 % 0.0 - 1.0 06/01/2012 Normal [facility] HEMATOLOGY Eosinophils 7.0 % 0.0 - 4.0 06/01/2012 HI [facility] HEMATOLOGY Segs-Bands # 4.4 K/CMM 1.5 - 8.1 06/01/2012 Normal [facility] HEMATOLOGY Lymphocytes 19.0 % 20.0 - 40.0 06/01/2012 LOW [facility] HEMATOLOGY Monocytes 11.1 % 2.0 - 12.0 06/01/2012 Normal [facility] HEMATOLOGY Eosinophils # 0.5 K/CMM 0.0 - 0.5 06/01/2012 Normal [facility] HEMATOLOGY MCH 27.9 pg 27.0 - 31.0 06/01/2012 Normal [facility] HEMATOLOGY Hct 30.4 % 36.0 - 48.0 06/01/2012 LOW [facility] HEMATOLOGY MCV 85.7 fL 81.0 - 99.0 06/01/2012 Normal [facility] HEMATOLOGY RDW 16.9 % 11.5 - 14.5 06/01/2012 [facility] HEMATOLOGY MCHC 32.6 g/dL 32.0 - 36.0 06/01/2012 Normal [facility] HEMATOLOGY Platelet 409 K/CMM 133 - 450 06/01/2012 Normal [facility] HEMATOLOGY MPV 7.8 fL 7.4 - 10.4 06/01/2012 Normal [facility] HEMATOLOGY RBC 3.55 M/CMM 4.20 - 5.40 06/01/2012 LOW [facility] HEMATOLOGY Hgb 9.9 g/dL 12.0 - 16.0 06/01/2012 LOW [facility] HEMATOLOGY WBC 7.0 K/CMM 3.7 - 10.4 06/01/2012 Normal [facility] STOOL TESTS Occult Bld Stl Negative (05/29/2012 10:40:00) Negative 05/29/2012 Normal [facility] STOOL TESTS Occult Bld Stl Negative (05/28/2012 05:50:00) Negative 05/28/2012 Normal [facility] HEMATOLOGY Basophils # 0.0 K/CMM 0.0 - 0.2 05/28/2012 Normal [facility] HEMATOLOGY Eosinophils # 0.4 K/CMM 0.0 - 0.5 05/28/2012 [facility] HEMATOLOGY Monocytes # 1.1 K/CMM 0.0 - 0.8 05/28/2012 [facility] HEMATOLOGY Lymphocytes 16.9 % 20.0 - 40.0 05/28/2012 [facility] HEMATOLOGY Segs 67.2 % 45.0 - 75.0 05/28/2012 Normal [facility] HEMATOLOGY Lymphocytes # 1.6 K/CMM 1.0 - 5.5 05/28/2012 Normal [facility] HEMATOLOGY Segs-Bands # 6.5 K/CMM 1.5 - 8.1 05/28/2012 [facility] HEMATOLOGY Eosinophils 4.2 % 0.0 - 4.0 05/28/2012 [facility] HEMATOLOGY Monocytes 11.3 % 2.0 - 12.0 05/28/2012 [facility] HEMATOLOGY Basophils 0.4 % 0.0 - 1.0 05/28/2012 [facility] HEMATOLOGY RDW 16.1 % 11.5 - 14.5 05/28/2012 [facility] HEMATOLOGY MCHC 32.9 g/dL 32.0 - 36.0 05/28/2012 [facility] HEMATOLOGY Hct 30.0 % 36.0 - 48.0 05/28/2012 [facility] HEMATOLOGY Hgb 9.9 g/dL 12.0 - 16.0 05/28/2012 [facility] HEMATOLOGY MCH 27.9 pg 27.0 - 31.0 05/28/2012 [facility] HEMATOLOGY MCV 84.9 fL 81.0 - 99.0 05/28/2012 Normal [facility] HEMATOLOGY RBC 3.53 M/CMM 4.20 - 5.40 05/28/2012 [facility] HEMATOLOGY Platelet 429 K/CMM 133 - 450 05/28/2012 [facility] HEMATOLOGY MPV 7.7 fL 7.4 - 10.4 05/28/2012 [facility] HEMATOLOGY WBC 9.7 K/CMM 3.7 - 10.4 05/28/2012 [facility] STOOL TESTS Occult Bld Stl Negative (05/27/2012 17:00:00) Negative 05/27/2012 [facility] HEMATOLOGY Basophils # 0.1 K/CMM 0.0 - 0.2 05/27/2012 Normal [facility] HEMATOLOGY Segs 61.6 % 45.0 - 75.0 05/27/2012 Normal [facility] HEMATOLOGY Eosinophils # 0.4 K/CMM 0.0 - 0.5 05/27/2012 Normal [facility] HEMATOLOGY Lymphocytes # 2.0 K/CMM 1.0 - 5.5 05/27/2012 Normal [facility] HEMATOLOGY Monocytes # 0.9 K/CMM 0.0 - 0.8 05/27/2012 [facility] HEMATOLOGY Basophils 0.7 % 0.0 - 1.0 05/27/2012 Normal [facility] HEMATOLOGY Segs-Bands # 5.4 K/CMM 1.5 - 8.1 05/27/2012 Normal [facility] HEMATOLOGY Eosinophils 4.8 % 0.0 - 4.0 05/27/2012 [facility] HEMATOLOGY Lymphocytes 22.3 % 20.0 - 40.0 05/27/2012 Normal [facility] HEMATOLOGY Monocytes 10.6 % 2.0 - 12.0 05/27/2012 Normal [facility] HEMATOLOGY WBC 8.8 K/CMM 3.7 - 10.4 05/27/2012 Normal [facility] HEMATOLOGY RBC 3.51 M/CMM 4.20 - 5.40 05/27/2012 LOW [facility] HEMATOLOGY MCV 85.7 fL 81.0 - 99.0 05/27/2012 Normal [facility] HEMATOLOGY Hgb 9.9 g/dL 12.0 - 16.0 05/27/2012 LOW [facility] HEMATOLOGY Hct 30.1 % 36.0 - 48.0 05/27/2012 LOW [facility] HEMATOLOGY Platelet 407 K/CMM 133 - 450 05/27/2012 Normal [facility] HEMATOLOGY MPV 7.7 fL 7.4 - 10.4 05/27/2012 Normal [facility] HEMATOLOGY MCH 28.1 pg 27.0 - 31.0 05/27/2012 Normal [facility] HEMATOLOGY MCHC 32.8 g/dL 32.0 - 36.0 05/27/2012 Normal [facility] HEMATOLOGY RDW 16.5 % 11.5 - 14.5 05/27/2012 [facility] BLOOD BANK RESULTS ABO/Rh O POS 05/26/2012 Unknown [facility] BLOOD BANK RESULTS Antibody Scrn Negative (05/26/2012 15:06:00) 05/26/2012 Normal [facility] BLOOD BANK RESULTS RBC product Product available 1 (05/26/2012 13:47:00) 05/26/2012 Normal 1Result Comment: 05/26/2012 18:29 [id number] Called to Sergey at 05/26/2012 18:29 by AN [facility] CHEMISTRY Vitamin B12 Lvl 591 pg/mL 254 - 1320 05/26/2012 Normal [facility] CHEMISTRY UIBC 280 ug/dl 110 - 370 05/26/2012 Normal [facility] CHEMISTRY % [place] 10 % 12 - 57 05/26/2012 LOW [facility] CHEMISTRY TIBC 312 ug/dl 228 - 428 05/26/2012 Normal [facility] CHEMISTRY Iron 32 ug/dl 30 - 160 05/26/2012 Normal [facility] CHEMISTRY Ferritin Lvl 44 ng/mL 5 - 204 05/26/2012 Normal [facility] CHEMISTRY Folate Lvl 22.2 ng/mL >=3.0 05/26/2012 Normal [facility] HEMATOLOGY Retic Auto 1.2 % 0.5 - 1.5 05/26/2012 Normal [facility] URINALYSIS UA Color Ltyellow 05/25/2012 NA [facility] URINALYSIS UA Urobilinogen <=1.0 mg/dL
*NA*
(05/25/2012 16:00:00) <sup> </sup> 0.1 - 1.0 05/25/2012 NA [facility] URINALYSIS UA Protein Negative mg/dL (05/25/2012 16:00:00) Negative 05/25/2012 Normal [facility] URINALYSIS UA pH 7.0 5.0 - 8.0 05/25/2012 Normal [facility] URINALYSIS UA Spec Grav 1.010 <=1.030 05/25/2012 Normal [facility] URINALYSIS UA Turbidity Clear (05/25/2012 16:00:00) Clear 05/25/2012 Normal [facility] URINALYSIS UA Bacteria Occasional /HPF *NA* (05/25/2012 16:00:00) None Seen 05/25/2012 [facility] URINALYSIS UA Sq Epi Occasional /LPF *NA* (05/25/2012 16:00:00) Few 05/25/2012 NA [facility] URINALYSIS UA WBC 2 /HPF 0 - 5 05/25/2012 Normal [facility] URINALYSIS UA Leuk Est Negative (05/25/2012 16:00:00) Negative 05/25/2012 Normal [facility] URINALYSIS UA Nitrite Negative (05/25/2012 16:00:00) Negative 05/25/2012 Normal [facility] URINALYSIS UA Blood Negative (05/25/2012 16:00:00) Negative 05/25/2012 Normal [facility] URINALYSIS UA Bili Negative *NA* (05/25/2012 16:00:00) Negative 05/25/2012 NA [facility] URINALYSIS UA Ketones Negative mg/dL *NA* (05/25/2012 16:00:00) Negative 05/25/2012 NA [facility] URINALYSIS UA Glucose Negative mg/dL *NA* (05/25/2012 16:00:00) Negative 05/25/2012 [facility] CHEMISTRY eGFR 54 mL/min/1.73m2 05/17/2012 NA [...] should be multiplied by the estimated BMI. [facility] CHEMISTRY Chloride Lvl 103 meq/L 95 - 109 05/17/2012 Normal [facility] CHEMISTRY Potassium Lvl 4.0 meq/L 3.5 - 5.1 05/17/2012 Normal [facility] CHEMISTRY CO2 31 meq/L 24 - 32 05/17/2012 Normal [facility] CHEMISTRY Calcium Lvl 9.0 mg/dL 8.5 - 10.5 05/17/2012 Normal [facility] CHEMISTRY Glucose Lvl 90 mg/dL 70 - 99 05/17/2012 Normal 6Interpretive Data: Adult reference range values reflect the clinical guidelines of the [place] [employer]. [facility] CHEMISTRY BUN 22 mg/dL 7 - 22 05/17/2012 Normal [facility] CHEMISTRY Creatinine Lvl 1.0 mg/dL 0.5 - 1.4 05/17/2012 Normal [facility] CHEMISTRY Sodium Lvl 143 meq/L 135 - 145 05/17/2012 Normal [facility] CHEMISTRY AGAP 13.0 meq/L 10.0 - 20.0 05/17/2012 Normal [facility] HEMATOLOGY Basophils 0.2 % 0.0 - 1.0 05/17/2012 Normal [facility] HEMATOLOGY Lymphocytes # 1.8 K/CMM 1.0 - 5.5 05/17/2012 Normal [facility] HEMATOLOGY Eosinophils 4.2 % 0.0 - 4.0 05/17/2012 [facility] HEMATOLOGY Segs-Bands # 5.5 K/CMM 1.5 - 8.1 05/17/2012 Normal [facility] HEMATOLOGY Monocytes # 1.1 K/CMM 0.0 - 0.8 05/17/2012 [facility] HEMATOLOGY Eosinophils # 0.4 K/CMM 0.0 - 0.5 05/17/2012 Normal [facility] HEMATOLOGY Basophils # 0.0 K/CMM 0.0 - 0.2 05/17/2012 Normal [facility] HEMATOLOGY Segs 62.6 % 45.0 - 75.0 05/17/2012 Normal [facility] HEMATOLOGY Lymphocytes 20.0 % 20.0 - 40.0 05/17/2012 Normal [facility] HEMATOLOGY Monocytes 13.0 % 2.0 - 12.0 05/17/2012 [facility] HEMATOLOGY RBC 3.45 M/CMM 4.20 - 5.40 05/17/2012 LOW [facility] HEMATOLOGY WBC 8.8 K/CMM 3.7 - 10.4 05/17/2012 Normal [facility] HEMATOLOGY Hct 29.3 % 36.0 - 48.0 05/17/2012 LOW [facility] HEMATOLOGY Hgb 9.9 g/dL 12.0 - 16.0 05/17/2012 LOW [facility] HEMATOLOGY MCV 84.9 fL 81.0 - 99.0 05/17/2012 Normal [facility] HEMATOLOGY MCHC 33.6 g/dL 32.0 - 36.0 05/17/2012 Normal [facility] HEMATOLOGY MCH 28.5 pg 27.0 - 31.0 05/17/2012 Normal [facility] HEMATOLOGY Platelet 180 K/CMM 133 - 450 05/17/2012 Normal [facility] HEMATOLOGY RDW 16.1 % 11.5 - 14.5 05/17/2012 [facility] HEMATOLOGY MPV 9.1 fL 7.4 - 10.4 05/17/2012 Normal [facility] CHEMISTRY AGAP 11.0 meq/L 10.0 - 20.0 05/16/2012 Normal [facility] CHEMISTRY eGFR 49 mL/min/1.73m2 05/16/2012 NA [...] should be multiplied by the estimated BMI. [facility] CHEMISTRY Potassium Lvl 4.0 meq/L 3.5 - 5.1 05/16/2012 Normal [facility] CHEMISTRY Creatinine Lvl 1.1 mg/dL 0.5 - 1.4 05/16/2012 Normal [facility] CHEMISTRY Chloride Lvl 105 meq/L 95 - 109 05/16/2012 Normal [facility] CHEMISTRY Sodium Lvl 143 meq/L 135 - 145 05/16/2012 Normal [facility] CHEMISTRY Glucose Lvl 96 mg/dL 70 - 99 05/16/2012 Normal 7Interpretive Data: Adult reference range values reflect the clinical guidelines of the [place] [employer]. [facility] CHEMISTRY BUN 22 mg/dL 7 - 22 05/16/2012 Normal [facility] CHEMISTRY Calcium Lvl 8.9 mg/dL 8.5 - 10.5 05/16/2012 Normal [facility] CHEMISTRY CO2 31 meq/L 24 - 32 05/16/2012 Normal [facility] HEMATOLOGY Basophils # 0.0 K/CMM 0.0 - 0.2 05/16/2012 Normal [facility] HEMATOLOGY Eosinophils # 0.4 K/CMM 0.0 - 0.5 05/16/2012 Normal [facility] HEMATOLOGY Monocytes # 1.2 K/CMM 0.0 - 0.8 05/16/2012 HI [facility] HEMATOLOGY Segs-Bands # 5.3 K/CMM 1.5 - 8.1 05/16/2012 Normal [facility] HEMATOLOGY Lymphocytes # 1.9 K/CMM 1.0 - 5.5 05/16/2012 Normal [facility] HEMATOLOGY Eosinophils 4.5 % 0.0 - 4.0 05/16/2012 HI [facility] HEMATOLOGY Basophils 0.3 % 0.0 - 1.0 05/16/2012 Normal [facility] HEMATOLOGY Lymphocytes 21.5 % 20.0 - 40.0 05/16/2012 Normal [facility] HEMATOLOGY Monocytes 13.9 % 2.0 - 12.0 05/16/2012 [facility] HEMATOLOGY Segs 59.8 % 45.0 - 75.0 05/16/2012 Normal [facility] HEMATOLOGY MCHC 33.1 g/dL 32.0 - 36.0 05/16/2012 Normal [facility] MCH 28.2 pg 27.0 - 31.0 05/16/2012 Normal [facility] MCV 85.3 fL 81.0 - 99.0 05/16/2012 Normal [facility] Hct 28.9 % 36.0 - 48.0 05/16/2012 LOW [facility] Platelet 158 K/CMM 133 - 450 05/16/2012 Normal [facility] MPV 9.5 fL 7.4 - 10.4 05/16/2012 Normal [facility] RDW 16.0 % 11.5 - 14.5 05/16/2012 HI [facility] Hgb 9.6 g/dL 12.0 - 16.0 05/16/2012 LOW [facility] HEMATOLOGY RBC 3.39 M/CMM 4.20 - 5.40 05/16/2012 [facility] [facility] WBC 8.8 K/CMM 3.7 - 10.4 05/16/2012 Normal [facility] BLOOD BANK RESULTS RBC product Product available 1 (05/15/2012 08:23:00) 05/15/2012 Normal 1Result Comment: 05/15/2012 08:46 JIM called to sara [facility] CHEMISTRY eGFR 49 mL/min/1.73m2 05/15/2012 NA [...] should be multiplied by the estimated BMI. [facility] CHEMISTRY CO2 27 meq/L 24 - 32 05/15/2012 Normal [facility] CHEMISTRY Calcium Lvl 8.0 mg/dL 8.5 - 10.5 05/15/2012 LOW [facility] CHEMISTRY Creatinine Lvl 1.1 mg/dL 0.5 - 1.4 05/15/2012 Normal [facility] CHEMISTRY BUN 20 mg/dL 7 - 22 05/15/2012 Normal [facility] CHEMISTRY Glucose Lvl 106 mg/dL 70 - 99 05/15/2012 HI 8Interpretive Data: Adult reference range values reflect the clinical guidelines of the [place] [employer]. [facility] CHEMISTRY Chloride Lvl 110 meq/L 95 - 109 05/15/2012 [facility] CHEMISTRY Potassium Lvl 4.2 meq/L 3.5 - 5.1 05/15/2012 Normal [facility] CHEMISTRY Sodium Lvl 143 meq/L 135 - 145 05/15/2012 Normal [facility] CHEMISTRY AGAP 10.2 meq/L 10.0 - 20.0 05/15/2012 Normal [facility] HEMATOLOGY Basophils # 0.0 K/CMM 0.0 - 0.2 05/15/2012 Normal [facility] HEMATOLOGY Eosinophils # 0.2 K/CMM 0.0 - 0.5 05/15/2012 Normal [facility] HEMATOLOGY Monocytes # 0.9 K/CMM 0.0 - 0.8 05/15/2012 HI [facility] HEMATOLOGY Lymphocytes 14.2 % 20.0 - 40.0 05/15/2012 LOW [facility] HEMATOLOGY Eosinophils 2.4 % 0.0 - 4.0 05/15/2012 Normal [facility] HEMATOLOGY Monocytes 10.5 % 2.0 - 12.0 05/15/2012 Normal [facility] HEMATOLOGY Lymphocytes # 1.3 K/CMM 1.0 - 5.5 05/15/2012 Normal [facility] HEMATOLOGY Basophils 0.2 % 0.0 - 1.0 05/15/2012 Normal [facility] HEMATOLOGY Segs-Bands # 6.6 K/CMM 1.5 - 8.1 05/15/2012 Normal [facility] HEMATOLOGY Segs 72.7 % 45.0 - 75.0 05/15/2012 Normal [facility] HEMATOLOGY Hgb 7.2 g/dL 12.0 - 16.0 05/15/2012 LOW [facility] HEMATOLOGY RBC 2.63 M/CMM 4.20 - 5.40 05/15/2012 [facility] HEMATOLOGY WBC 9.1 K/CMM 3.7 - 10.4 05/15/2012 Normal [facility] HEMATOLOGY Hct 21.5 % 36.0 - 48.0 05/15/2012 LOW [facility] HEMATOLOGY MCH 27.3 pg 27.0 - 31.0 05/15/2012 Normal [facility] HEMATOLOGY MCV 82.0 fL 81.0 - 99.0 05/15/2012 Normal [facility] HEMATOLOGY MCHC 33.3 g/dL 32.0 - 36.0 05/15/2012 Normal [facility] HEMATOLOGY MPV 9.5 fL 7.4 - 10.4 05/15/2012 Normal [facility] HEMATOLOGY RDW 17.2 % 11.5 - 14.5 05/15/2012 HI [facility] HEMATOLOGY Platelet 168 K/CMM 133 - 450 05/15/2012 Normal [facility] BLOOD BANK RESULTS RBC product Product available 2 (05/14/2012 07:55:00) 05/14/2012 Normal 2Result Comment: 05/14/2012 07:58 JIM called to [facility] CHEMISTRY CK MB Index 1.7 0.0 - 2.5 05/13/2012 Normal [facility] CHEMISTRY Total CK 70 unit/L 12 - 191 05/13/2012 Normal [facility] CHEMISTRY CK MB 1.2 ng/mL 0.5 - 3.6 05/13/2012 Normal [facility] CHEMISTRY Troponin-I 0.02 ng/mL 0.00 - 0.40 05/13/2012 Normal [facility] BLOOD BANK RESULTS ABO/Rh O POS 05/13/2012 Unknown [facility] BLOOD BANK RESULTS Antibody Scrn Negative (05/13/2012 11:42:00) 05/13/2012 Normal [facility] CHEMISTRY Globulin 2.6 g/dL 2.0 - 4.0 05/13/2012 Normal [facility] CHEMISTRY A/G Ratio 1.6 0.7 - 1.6 05/13/2012 Normal [facility] CHEMISTRY B/C Ratio 22 6 - 25 05/13/2012 Normal [facility] CHEMISTRY ALT 18 unit/L 0 - 65 05/13/2012 Normal [facility] CHEMISTRY AST 15 unit/L 0 - 37 05/13/2012 Normal [facility] CHEMISTRY Alk Phos 60 unit/L 39 - 136 05/13/2012 Normal [facility] CHEMISTRY Bili Total 0.4 mg/dL 0.2 - 1.3 05/13/2012 Normal [facility] CHEMISTRY Albumin Lvl 4.2 g/dL 3.5 - 5.0 05/13/2012 Normal [facility] CHEMISTRY Total Protein 6.8 g/dL 6.4 - 8.4 05/13/2012 Normal [facility] HEMATOLOGY INR 1.11 0.85 - 1.17 05/13/2012 Normal 9Interpretive Data: RECOMMENDED RANGES FOR PROTIME INR: 2.0-3.0 for most medical and surgical thromboembolic states. 2.5-3.5 for artificial heart valves and recurrent embolism. INR SHOULD BE USED ONLY FOR PATIENTS ON STABLE ANTICOAGULANT THERAPY. [facility] HEMATOLOGY PTT 28.1 s 22.9 - 35.8 05/13/2012 Normal 10Interpretive Data: Heparin Therapeutic Range: 57 - 92 Seconds [facility] HEMATOLOGY PT 14.5 s 12.0 - 14.7 05/13/2012 Normal [facility] Vital Signs Vital Sign Value Date Comments Source Respitory Rate 20 06/02/2012 [facility] Systolic (mm Hg) 130 06/02/2012 [facility] Diastolic (mm Hg) 60 06/02/2012 [facility] Heart Rate 68 06/02/2012 [facility] Temperature Oral (F) 97.8 F 06/02/2012 [facility] Diastolic (mm Hg) 64 06/02/2012 [facility] Systolic (mm Hg) 150 06/02/2012 [facility] Temperature Oral (F) 98 F 06/02/2012 [facility] Respitory Rate 20 06/02/2012 [facility] Heart Rate 76 06/02/2012 [facility] Heart Rate 65 06/01/2012 [facility] Temperature Oral (F) 98.1 F 06/01/2012 [facility] Systolic (mm Hg) 136 06/01/2012 [facility] Respitory Rate 20 06/01/2012 [facility] Diastolic (mm Hg) 76 06/01/2012 [facility] Weight 72.073 05/18/2012 [facility] Height 172.20 cm 05/18/2012 [facility] Respitory Rate 18 05/17/2012 [facility] Heart Rate 71 05/17/2012 [facility] Temperature Oral (F) 98.7 F 05/17/2012 [facility] Diastolic (mm Hg) 62 05/17/2012 [facility] Systolic (mm Hg) 132 05/17/2012 [facility] Respitory Rate 16 05/17/2012 [facility] Systolic (mm Hg) 167 05/17/2012 [facility] Diastolic (mm Hg) 70 05/17/2012 [facility] Temperature Oral (F) 98.5 F 05/17/2012 [facility] Heart Rate 72 05/17/2012 [facility] Height 172.72 cm 05/13/2012 [facility] Weight 72.727 05/13/2012 [facility] Encounters Location Location Details Encounter Type Encounter Number Reason For Visit Attending Provider ADM Date DC Date Status Source [facility] Inpatient [id number] RODGER LOGAN 05/13/2012 05/17/2012 Active [facility] [place] [id number] HIP FX VIKAS GROVE 05/17/2012 06/02/2012 Active [facility] Discharged Inpatient [id number] JOSE JUAN BUCKLEY MD 11/27/2017 12/05/2017 [facility] Admitted Inpatient [id number] JOHN BUSCH MD 06/10/2018 [facility] Procedures Procedure Code Date Perfomer Comments Source X-ray of chest, two views [id number] 06/09/2018 INO [facility] X-ray of chest, two views [id number] 12/05/2017 MARCIO [facility] Bladder operation [id number] [facility] Hip replacement [facility] Hysterectomy [id number] [facility] Knee replacement [id number] [facility] Mastectomy [id number] [facility]
--- OUTSIDE RECORDS SUMMARY | 2018-08-23 13:10 | XMS REPORT ---
Author [facility] Address Unknown Phone Unavailable Care Team Providers Care Supervisor Functional Testing Name Role Phone Mckayla HERNANDEZ Unavailable Unavailable JOHN BUSCH Unavailable Unavailable JOSE JUAN BUCKLEY Unavailable Unavailable Payers Payer Name Policy Type Policy Number Effective Date Expiration Date Problems This patient has no known problems. Allergies, Adverse Reactions, Alerts Allergy Name Allergy Type Status Severity Reaction(s) Onset Date Inactive Date Treating Clinician Comments oxycodone HCl DA Active 2011-12-28 00:00:00 propoxyphene HCl DA Active [place] 2011-12-28 00:00:00 Penicillins DA Active [place] 2011-12-28 00:00:00 codeine DA Active [place] 2011-12-28 00:00:00 Medications This patient has no known medications. Results Test Description Test Time Test Comments Text Results Atomic Results Result Comments CHEST SINGLE (NOT PORTABLE) 2018-07-11 17:58:[address] [address] Patient Name: KIRAN RICKS MR #: [id number] : 1935 Age/Sex: 83/F Req #: [id number] Adm Physician: Ordered by: ARAM LARIOS [employer] Report #: [id number] Location: ER Room/Bed: Procedure: [id number] DX/CHEST SINGLE (NOT PORTABLE) Exam Date: 07/11/18 Exam Time: 1737 REPORT STATUS: Signed EXAMINATION: CHEST SINGLE (NOT PORTABLE) INDICATION: SOB, Chest pain COMPARISON: Chest x-ray 06/10/2018. FINDINGS: AP view TUBES and LINES: None. LUNGS: Lungs are hyper inflated. Chronic lung changes are seen. Bibasilar atelectasis. There is no evidence of pneumonia or pulmonary edema. PLEURA: No pleural effusion or pneumothorax. HEART AND MEDIASTINUM: Cardiac size is moderately enlarged. There are atherosclerotic calcifications within the aorta. BONES AND SOFT TISSUES: Right humeral arthroplasty. No acute osseous lesion. Numerous surgical clips in the left axilla. UPPER ABDOMEN: No free air under the diaphragm. IMPRESSION: 1. Moderate cardiomegaly. 2. Chronic lung changes with bibasilar atelectasis and mild scarring. Signed by: Dr. Daniel Soto M.D. on 07/11/2018 5:59 PM Dictated By: DANIEL SOTO MD 58 Transcribed By: AMALIA on 07/11/181758 COPY TO: ARAM LARIOS NP CHEST SINGLE (PORTABLE) 2018-06-10 06:23:00 [place] [address] Patient Name: KIRAN RICKS MR #: [id number] : 1935 Age/Sex: 83/F Req #: [id number] Adm Physician: JOHN BUSCH MD Ordered by: ALBERTO MCKINNON NP Report #: [id number] Location: [facility] Room/Bed: [place] [address] Procedure: [id number] DX/CHEST SINGLE (PORTABLE) Exam Date: 06/10/18 Exam Time: 0535 REPORT STATUS: Signed EXAM: CHEST SINGLE (PORTABLE), AP 1 view INDICATION: Shortness of breath COMPARISON: PA and lateral view of the chest June 09, 2018 FINDINGS: LINES/TUBES: None LUNGS: Stable bronchial thickening. No consolidations. PLEURA: No effusions or pneumothorax. HEART AND MEDIASTINUM: Stable mild cardiac enlargement. BONES AND SOFT TISSUES: Right shoulder arthroplasty. IMPRESSION: No interval change. Signed by: Dr. Phil Martinez M.D. on 06/10/2018 6:24 AM Dictated By: PHIL MARTINEZ MD 3 Transcribed By: AMALIA on 06/10/18623 COPY TO: ALBERTO MCKINNON NP CHEST 2 VIEWS 2018-06-09 19:18:00 [place] [address] Patient Name: KIRAN RICKS MR #: [id number] : 1935 Age/Sex: 83/F Req #: [id number] Adm Physician: Ordered by: ALBERTO MCKINNON NP Report #: [id number] Location: ER Room/Bed: Procedure: [id number] DX/CHEST 2 VIEWS Exam Date: 06/09/18 Exam Time: 1845 REPORT STATUS: Signed EXAMINATION: PA and lateral views of the chest. LEANN RISON: Chest 2 views 12/06/2027 CLINICAL HISTORY: COPD, shortness of breath DISCUSSION: Lines/tubes: None. Lungs: The lungs are well inflated. Patchy airspace opacity projecting in the infrahilar region on the lateral view likely located in the right lower lobe, with bronchial wall thickening. Pleura: There is no pleural effusion or pneumothorax. Heart and mediastinum: Stable enlarged cardiac silhouette. Pulmonary vasculature is normal. Bones and soft tissues: No acute bony abnormalities. Degenerative changes in the thoracic spine IMPRESSION: 1. Findings may represent developing pneumonia in the right lower lobe. Recommend chest PA and lateral 4-6 weeks after appropriate treatment to document resolution. Signed by: Dr. Wong Cancino M.D. on 06/09/2018 7:20 PM Dictated By: WONG CANCINO MD 19 Transcribed By: AMALIA on 06/09/181919 COPY TO: ALBERTO MCKINNON NP CHEST 2 VIEWS 2017-12-05 12:09:00 [place] [address] Patient Name: KIRAN RICKS MR #: [id number] : 1935 Age/Sex: 82/F Req #: [id number] Adm Physician: JOSE JUAN BUCKLEY MD Ordered by: JOSE JUAN BUCKLEY MD Report #: [id number] Location: MED/SURG3 Room/Bed: [facility] Procedure: [id number] DX/CHEST 2 VIEWS Exam Date: 12/05/17 Exam [...] at 12:09 Dictated By: REX CHRISTIAN MD 120 Transcribed By: ALEX on 12/05/17 1209 COPY TO: JOSE JUAN BUCKLEY MD ABDOMEN-1VIEW (KUB) 2017-11-29 07:11:00 [place] [address] Patient Name: KIRAN RICKS MR #: [id number] : 1935 Age/Sex: 82/F Req #: [id number] Adm Physician: JOSE JUAN BUCKLEY MD Ordered by: JOSE JUAN BUCKLEY MD Report #: [id number] Location: ICU Room/Bed: ICU [facility] Procedure: [id number] DX/ABDOMEN- 1VIEW (KUB) Exam Date: 11/29/17 Exam [...] BUCKLEY MD CHEST SINGLE (PORTABLE) 2017-11-28 11:11:00 [place] [address] Patient Name: KIRAN RICKS MR #: [id number] : 1935 Age/Sex: 82/F Req #: [id number] Adm Physician: JOSE JUAN BUCKLEY MD Ordered by: BEVERLY CHAN MD Report #: [id number] Location: ICU Room/Bed: [place] [address] Procedure: [id number] DX/CHEST SINGLE (PORTABLE) Exam Date: 11/28/17 Exam [...]
[2018-08-23] MEDS ORDERED: ASPIRIN 81 MG CHEW TAB PO ONE (13:45)
--- NOTE | 2018-08-23 14:51 | Diagnostic Imaging Report ---
EXAMINATION: CHEST 2 VIEWS INDICATION: Shortness of breath. COMPARISON: Chest radiograph 07/11/2018. FINDINGS: TUBES and LINES: None. LUNGS: Lungs are mildly hyperinflated. Lungs are clear. There is no evidence of pneumonia or pulmonary edema. PLEURA: No pleural effusion or pneumothorax. HEART AND MEDIASTINUM: The cardiomediastinal silhouette is unchanged. Surgical clips project over the mid and left hemithorax. The aorta is ectatic with atherosclerotic calcifications. BONES AND SOFT TISSUES: No acute osseous abnormality. Status post right shoulder hemiarthroplasty. UPPER ABDOMEN: No free air under the diaphragm. IMPRESSION: No acute radiographic abnormality. Signed by: Dr. Lucas Flaherty MD on 08/23/2018 2:48 PM
--- NOTE | 2018-08-23 14:51 | Diagnostic Imaging Report ---
CT BRAIN WO, CT CERVICAL SPINE WO HISTORY: Fall COMPARISON: Report from head and cervical spine CT dated 05/04/2014 (images not available at time of dictation) TECHNIQUE: Axial noncontrast CT images were obtained through the head and cervical spine. Coronal and sagittal reconstructions obtained from the axial data. One or more of the following dose reduction techniques were used: Automated exposure control, adjustment of the mA and/or kV according to patient size, and/or utilization of iterative reconstruction technique. DISCUSSION: HEAD CT: Scalp/Skull: Small left frontal scalp/supraorbital hematoma. No calvarial fracture. Brain sulci: Prominent. Ventricles: Compensatory dilatation. Extra-axial spaces: No masses or fluid collections. Carotid siphon and vertebral artery calcifications are present. Parenchyma: Mild to moderate periventricular white matter hypodensities are likely chronic microvascular ischemic changes. Otherwise, no masses, hemorrhage, or large vascular territory acute infarct. Dural sinuses: No abnormal densities. Sellar/Suprasellar region: Intact. Skull base: Intact. Incidental findings: Both ocular lenses are thinned. CERVICAL SPINE CT: Streak artifacts and bone demineralization obscure some details. Cervical lordosis is preserved. There is no significant scoliosis. No definite acute fractures, or compression deformity is seen. The craniocervical junction is intact. No gross spinal canal masses are seen. The paravertebral and paraspinal soft tissues are unremarkable. Multilevel advanced spondylosis and facet arthrosis are present. The C3 and C4 vertebral bodies are fused with associated chronic grade 1 anterolisthesis of C3 on C4. Advanced atlantoaxial arthrosis is present as well. Incidental findings: Mild bilateral carotid bulb calcifications. IMPRESSION: Head CT: 1. No acute intracranial abnormalities. 2. Mild to moderate supratentorial chronic microvascular ischemic change. Mild generalized cerebral volume loss. Cervical Spine CT: 1. No acute osseous abnormalities in the cervical spine. 2. Multilevel advanced degenerative changes. Signed by: Dr. Andrew Chávez M.D. on 08/23/2018 2:48 PM
[2018-08-23] MEDS ORDERED: PANTOPRAZOLE SO40 MG PO (15:03)
[2018-08-23] MEDS ORDERED: LABETALOL HCL100 MG PO (15:03)
[2018-08-23 15:04] LABS: BASOPHILS # (AUTO) 0.1 (0.0-0.1); EOSINOPHILS # (AUTO) 0.3 (0.0-0.4); EOSINOPHILS % 2.6 % (0.0-6.0); HEMATOCRIT 45.2 % (34.2-44.1); HEMOGLOBIN 13.2 g/dL (12.0-16.0); LYMPHOCYTES # (AUTO) 3.7 (1.0-3.2); LYMPHOCYTES % 30.6 % (18.0-39.1); MEAN CORPUSCULAR HEMOGLOBIN 21.4 pg (28-32); MEAN CORPUSCULAR HGB CONC 29.2 g/dL (31-35); MEAN CORPUSCULAR VOLUME 73.1 fL (81-99); MONOCYTES # (AUTO) 1.4 (0.2-0.8); MONOCYTES % 11.7 % (4.4-11.3); NEUTROPHILS # (AUTO) 6.5 (2.1-6.9); NEUTROPHILS % 53.7 % (38.7-80.0); PLATELET COUNT 411 x10e3/uL (140-360); RED BLOOD COUNT 6.18 x10e6/uL (3.6-5.1); RED CELL DISTRIBUTION WIDTH 23.6 % (11.7-14.4)
[2018-08-23 15:18] LABS: PROTHROMBIN TIME 13.7 seconds (11.9-14.5)
[2018-08-23 15:27] LABS: ALBUMIN 3.9 g/dL (3.5-5.0); ALBUMIN/GLOBULIN RATIO 1.2 (0.8-2.0); ANION GAP 15.2 mmol/L (8-16); CALCIUM 10.1 mg/dL (8.4-10.2); CREATININE, SERUM 1.01 mg/dL (0.57-1.11); POTASSIUM 3.2 mmol/L (3.5-5.1)
[2018-08-23 15:34] LABS: CREATINE KINASE MB 1.1 ng/mL (0-5.0)
[2018-08-23] MEDS ORDERED: SODIUM CHLORIDE 0.9% 1000ML 1,000 ML IV SCH ×2 (16:45)
--- NOTE | 2018-08-23 18:15 | NUR ---
ze spencer in room to place central line.
--- NOTE | 2018-08-23 18:51 | Diagnostic Imaging Report ---
EXAMINATION: CHEST SINGLE (PORTABLE) INDICATION: Central line placement ^check Central line placement ^[id number] ^[id number] COMPARISON: 08/23/2018 FINDINGS: TUBES and LINES: Right central venous catheter with distal tip over the low superior vena cava. LUNGS: Lungs are mildly hyperinflated. Lungs are clear. There is no evidence of pneumonia or pulmonary edema. PLEURA: No pleural effusion or pneumothorax. HEART AND MEDIASTINUM: The cardiomediastinal silhouette is unchanged. Surgical clips project over the mid and left hemithorax. The aorta is ectatic with atherosclerotic calcifications. BONES AND SOFT TISSUES: No acute osseous abnormality. Status post right shoulder hemiarthroplasty. UPPER ABDOMEN: No free air under the diaphragm. IMPRESSION: No acute radiographic abnormality Signed by: Dr. Wilbur Anguiano M.D. on 08/23/2018 6:48 PM
[2018-08-23] MEDS ORDERED: IOPAMIDOL 370 MG/ML 200 ML INFUS..BTL INJ ONE (19:38)
[2018-08-23] MEDS: METRONIDAZOLE 500MG/NS 100ML 100 ML IV SCH (19:43)
--- NOTE | 2018-08-23 20:09 | Diagnostic Imaging Report ---
EXAM: CT Abdomen and Pelvis WITH contrast INDICATION: Nausea. Abdominal pain. Recent fall. Cholecystectomy. Appendectomy COMPARISON: None. TECHNIQUE: Abdomen and pelvis were scanned utilizing a multidetector helical scanner from the lung base to the pubic symphysis after administration of IV contrast. Coronal and sagittal reformations were obtained. Routine protocol was performed. Scan was performed when during portal venous phase. IV CONTRAST: 100 mL of Isovue-370 ORAL CONTRAST: Gastrografin COMPLICATIONS: None RADIATION DOSE: Total DLP: 671.52 mGy*cm Estimated effective dose: (DLP x 0.015 x size factor) mSv CTDIvol has been reviewed. It is below the limits set by the Radiation Protocol Committee (RPC). Dose modulation, iterative reconstruction, and/or weight based adjustment of the mA/kV was utilized to reduce the radiation dose to as low as reasonably achievable. FINDINGS: LINES and TUBES: None. LOWER THORAX: Unremarkable HEPATOBILIARY: No focal hepatic lesions. No biliary ductal dilation. GALLBLADDER: Cholecystectomy SPLEEN: No splenomegaly. PANCREAS: No focal masses or ductal dilatation. ADRENALS: Nonspecific nodularity of the left adrenal gland. KIDNEYS/URETERS: Kidneys enhance symmetrically. No hydronephrosis. Innumerable too small to characterize hypodensities in the kidneys likely due to small cysts. No stones. GI TRACT: No abnormal distention, wall thickening, or evidence of bowel obstruction. Scattered diverticulosis without evidence of diverticulitis. PELVIC ORGANS/BLADDER: The pelvic organs are obscured by artifact from the metallic blessing in left hip replacements. LYMPH NODES: No lymphadenopathy. VESSELS: Unremarkable. PERITONEUM / RETROPERITONEUM: No free air or fluid. BONES: Scattered degenerative change. Postsurgical change with metallic artifacts in the hips and proximal femurs. SOFT TISSUES: Unremarkable. IMPRESSION: 1. Scattered diverticulosis without evidence of diverticulitis. No bowel obstruction. 2. Innumerable too small to characterize hypodensities in the kidneys likely due to small cysts Signed by: Dr. Wilbur Anguiano M.D. on 08/23/2018 8:05 PM
[2018-08-23] MEDS ORDERED: AZTREONAM 1 GM/NS 50 ML 50 ML IV SCH (22:00)
[2018-08-23] MEDS ORDERED: METOPROLOL TARTRATE INJ 1 MG/ML VIAL IV PRN (22:15)
[2018-08-23] MEDS ORDERED: METOPROLOL TARTRATE 50 MG TAB PO ONE (23:00)
[2018-08-24] MEDS: METRONIDAZOLE 500MG/NS 100ML 100 ML IV SCH (02:33)
--- NOTE | 2018-08-24 06:46 | NUR ---
patients central line removed, tolerated procedure well, making needs known, pressure dressing applied, patient in no distress, no complications during procedure noted
[2018-08-24 06:57] VITALS: BP 164/96
[2018-08-24] MEDS ORDERED: METOPROLOL TARTRATE 50 MG TAB PO SCH (09:00)
== END 2018-08-24 07:20 | disposition home or self-care (01) ==
LOC: ER 13:04
DX: R10.32 Left lower quadrant pain (principal); R65.21 Severe sepsis with septic shock; I50.9 Heart failure, unspecified; I48.2 Chronic atrial fibrillation; W01.0XXA Fall on same level from slipping, tripping and stumbling without subsequent striking against object, initial encounter; Y92.008 Other place in unspecified non-institutional (private) residence as the place of occurrence of the external cause
CPT/HCPCS: 36415; 36556; 70450; 71045; 71046; 72125; 74177; 80053; 82550; 82553; 83605; 83690; 83880; 84484; 85025; 85610; 85730; 93005; 99284; J7030; Q9967

== ENCOUNTER 2018-08-25 13:53 | Emergency (ER) | payer MEDICARE, OTHER ==
[~2018-08-25] VITALS: Ht 175.3 cm; Wt 72.6 kg
[~2018-08-25 13:53] MED LIST changes: +PANTOPRAZOLE SO40 MG PO
[2018-08-25] MEDS ORDERED: SODIUM CHLORIDE 0.9% 500ML 500 ML IV ONE (14:30)
[2018-08-25 15:14] LABS: BASOPHILS # (AUTO) 0.1 (0.0-0.1); BASOPHILS % 0.7 % (0.0-1.0); EOSINOPHILS # (AUTO) 0.3 (0.0-0.4); EOSINOPHILS % 3.1 % (0.0-6.0); HEMATOCRIT 39.5 % (34.2-44.1); HEMOGLOBIN 11.7 g/dL (12.0-16.0); LYMPHOCYTES # (AUTO) 1.9 (1.0-3.2); LYMPHOCYTES % 20.5 % (18.0-39.1); MEAN CORPUSCULAR HGB CONC 29.6 g/dL (31-35); MEAN CORPUSCULAR VOLUME 74.2 fL (81-99); MONOCYTES % 10.1 % (4.4-11.3); NEUTROPHILS # (AUTO) 6.2 (2.1-6.9); NEUTROPHILS % 65.4 % (38.7-80.0); PLATELET COUNT 301 x10e3/uL (140-360); RED BLOOD COUNT 5.32 x10e6/uL (3.6-5.1); RED CELL DISTRIBUTION WIDTH 23.5 % (11.7-14.4)
[2018-08-25 15:19] LABS: BILIRUBIN,URINE NEGATIVE (NEGATIVE); CLARITY,URINE CLEAR (CLEAR); COLOR,URINE YELLOW (YELLOW); KETONES,URINE NEGATIVE (NEGATIVE); LEUKOCYTE ESTERASE ,URINE TRACE (NEGATIVE); NITRITE,URINE NEGATIVE (NEGATIVE); PROTEIN,URINE DIPSTICK NEGATIVE (NEGATIVE); URINE UROBILINOGEN 0.2 mg/dL (0.2 - 1)
[2018-08-25 15:31] LABS: BACTERIA,URINE MODERATE /HPF; EPITHELIAL CELLS,URINE MODERATE /LPF; HYALINE CASTS 0-1 (0-1); RBC,URINE 0-5 /HPF (0-5)
[2018-08-25 15:33] LABS: ALBUMIN 3.7 g/dL (3.5-5.0); ALBUMIN/GLOBULIN RATIO 1.2 (0.8-2.0); ANION GAP 15.4 mmol/L (8-16); CALCIUM 9.6 mg/dL (8.4-10.2); CREATININE, SERUM 1.04 mg/dL (0.57-1.11); POTASSIUM 3.4 mmol/L (3.5-5.1)
== END 2018-08-25 17:20 | disposition home or self-care (01) ==
LOC: ER 13:53
DX: R10.30 Lower abdominal pain, unspecified (principal); N30.90 Cystitis, unspecified without hematuria; I10 Essential (primary) hypertension; E78.5 Hyperlipidemia, unspecified; I50.9 Heart failure, unspecified; I48.91 Unspecified atrial fibrillation; K21.9 Gastro-esophageal reflux disease without esophagitis; F32.9 Major depressive disorder, single episode, unspecified; Z87.19 Personal history of other diseases of the digestive system; Z85.3 Personal history of malignant neoplasm of breast; Z85.42 Personal history of malignant neoplasm of other parts of uterus
CPT/HCPCS: 36415; 80053; 81001; 85025; 87086; 99283

== ENCOUNTER 2018-11-30 22:59 | Emergency (ER) | payer MEDICARE, OTHER ==
[~2018-11-30] VITALS: Ht 175.3 cm; Wt 72.6 kg
--- OUTSIDE RECORDS SUMMARY | 2018-11-30 23:05 | XMS REPORT | Clinical Summary ---
Author Author [facility] Address Unknown Phone Unavailable Care Team Providers Care Testing And Regulating Chief Name Role Phone Shelly Zaldivar MD PCP Allergies Comments Active Allergy Reactions Severity Noted Date Codeine High 01/24/2013 Propoxyphene High 01/24/2013 Oxycodone Anaphylaxis High 12/27/2012 Passed out and made me crazy Penicillins Other (See 12/27/2012 Comments) Medications End Date Status Medication Sig Dispensed Refills Start Date Active fenofibric acid, choline, Take 135 mg 0 (TRILIPIX) 135 mg capsule by mouth daily. Active irbesartan (AVAPRO) 300 Take 300 mg 0 MG tablet by mouth nightly. Active labetalol (NORMODYNE) 200 Take 200 mg 0 MG tablet by mouth 2 (two) times daily. Active amLODIPine (NORVASC) 5 MG Take 5 mg by 0 tablet mouth daily. Active traZODone (DESYREL) 100 Take 100 mg 0 MG tablet by mouth nightly. Active HYDROcodone-acetaminophen Take 1 tablet 0 (NORCO 10-325) 10-325 mg by mouth per tablet every 6 (six) hours as needed. Active bumetanide (BUMEX) 1 MG Take 1 mg by 0 tablet mouth daily. Active citalopram (CELEXA) 40 MG Take 40 mg by 0 tablet mouth daily. Active desvenlafaxine (PRISTIQ) Take 50 mg by 0 50 MG 24 hr tablet mouth daily. Active lamoTRIgine (LAMICTAL) Take 100 mg 0 100 MG tablet by mouth daily. Active esomeprazole (NEXIUM) 40 Take 40 mg by 0 MG capsule mouth daily. Active sulfamethoxazole-trimetho Take 1 tablet 0 prim (BACTRIM DS) 800-160 by mouth mg per tablet every other day. Active levofloxacin (LEVAQUIN) Take 500 mg 0 500 MG tablet by mouth every other day. 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 Last Filed Vital Signs Not on file Plan of Treatment Health Maintenance Due Date Last Done Comments INFLUENZA VACCINE 02/20/2018 Results Not on fileafter 11/29/2017 Insurance Payer Benefit Subscriber ID Type Phone Address Plan / Group MEDICARE MEDICARE A xxxxxxxxxx Medicare B AETNA - [place] CARE AETNA HMO xxxxxxxxxx HMO/POS POS QPOS
--- OUTSIDE RECORDS SUMMARY | 2018-11-30 23:05 | XMS REPORT | Clinical Summary ---
Author Author [facility] Address Unknown Phone Unavailable Care Team Providers Care Shampoo Assistant Name Role Phone Warner Elizondo MD PCP Allergies Not on File Medications Not on file Active Problems Not on file Social History Date Tobacco Use Types Packs/Day Years Used Never Assessed Sex Assigned at Date Recorded Not on file Industry Job Start Date Occupation Not on file Not on file Not on file Travel End Travel History Travel Start No recent travel history available. Last Filed Vital Signs Not on file Plan of Treatment Health Maintenance Due Date Last Done Comments SHINGLES VACCINES (#1) 1985 65+ PNEUMOCOCCAL VACCINE 2000 (1 of 2 - PCV13) INFLUENZA VACCINE 12/21/2018 Results Not on fileafter 11/29/2017 Insurance Type Payer Benefit Subscriber ID Effective Phone Address Plan / Dates Group Medicare MEDICARE MEDICARE xxxxxxxxxx 2000- [place], PART A AND Present [place] B HMO CIGNA CIGNA OPEN xxxxxxxxxxx [id number] ACCESS/NET resent WORK Advance Directives Patient has advance care planning documents on file. For more information, gina mesa contact: Ruslan Gomez [phone] [place] [address]
--- OUTSIDE RECORDS SUMMARY | 2018-11-30 23:07 | XMS REPORT | Continuity of Care Document ---
Author Author [employer] Address Unknown Phone Unavailable Care Team Providers Care Wood Lather Name Role Phone [employer] Information [facility] Unavailable Unavailable Problems Problem Status Onset Date Classification Date Reported Comments Source Fracture at left wrist or hand level Active 05/04/2014 Problem 06/15/2018 [facility] Head trauma Active 05/04/2014 Problem 06/15/2018 [facility] Nasal bone fx-closed Active 05/04/2014 Problem 06/15/2018 [facility] Periorbital hematoma of left eye Active 05/04/2014 Problem 06/15/2018 [facility] Hip replacement Active 05/14/2012 Problem 06/04/2012 [facility] FALL Active 05/13/2012 [facility] Accidental fall1 Active 05/13/2012 Problem 06/04/2012 1Fractured left hip [facility] HIP FX Active 05/13/2012 [facility] Atrial fibrillation with RVR Active Problem 06/15/2018 [facility] CHF Active Problem 06/15/2018 [facility] Arthritis Resolved Problem 06/04/2012 [facility] Breast cancer Resolved Problem 06/04/2012 [facility] Hypertension Resolved Problem 06/04/2012 [facility] Mastectomy of left breast Resolved Problem 06/04/2012 [facility] Short of breath on exertion Resolved Problem 06/04/2012 [facility] Stress incontinence Resolved Problem 06/04/2012 [facility] Uterine cancer Resolved Problem 06/04/2012 [facility] FX FEMUR NOS-CLOSED Active [facility] FX NECK OF FEMUR NOS-CL Active [facility] Medications Medication Details Route Status Patient Instructions Ordering Provider Order Date Source Cefuroxime Axetil (Cefuroxime) 500 Mg Tablet Twice A Day Active [place] 06/15/2018 [facility] Digoxin 125 Mcg Tablet Every Morning Active [place] 06/15/2018 [facility] Guaifenesin (Mucinex) 600 Mg Tablet.er Every 6 Hours as needed for Congestion Active [place] 06/15/2018 [facility] Metoprolol Succinate (Toprol Xl) 50 Mg Tab.er.24h Daily Active [place] 06/15/2018 [facility] Pantoprazole Sod (Protonix) 40 Mg/Ml Susp Before Breakfast Active [place] 06/15/2018 [facility] Apixaban , 5 Mg Oral Daily Active 06/15/2018 [facility] Labetalol Hcl 100 Mg Tablet, 100 Mg Oral Daily Active 06/15/2018 [facility] Metoprolol Succinate 50 Mg Tab.er.24h, 100 Mg Oral Daily Active 06/15/2018 [facility] Citalopram Hydrobromide (Celexa) 40 Mg Tablet, 40 Mg Oral Daily Active 06/12/2018 [facility] Trazodone Hcl 100 Mg Tablet, 100 Mg Oral Bedtime Active 06/12/2018 [facility] Beclomethasone Dip 7.3 Gm Inh Rt Daily Active one puff once daily in the morning [place] 12/04/2017 [facility] Digoxin 125 Mcg Tablet Every Morning Active [place] 12/04/2017 [facility] Diltiazem Hcl (Diltiazem 24HR Er) 180 Mg Capcr Daily Active [place] 12/04/2017 [facility] Furosemide 20 Mg Tablet Daily Active [place] 12/04/2017 [facility] Ipratropium [place] (Atrovent Hfa) 12.9 Gm Hfa.aer.ad Every 6 Hours as needed for Shortness Of Breath Active [place] 12/04/2017 [facility] Irbesartan (Avapro) 150 Mg Tablet Daily Active [place] 12/04/2017 [facility] Metoprolol Tartrate (Lopressor) 25 Mg Tab Twice A Day Active [place] 12/04/2017 [facility] Potassium Chloride (K Dur*) 10 Meq Tabcr Daily Active [place] 12/04/2017 [facility] Rivaroxaban (Xarelto) 10 Mg Tablet Daily At 1700 Active [place] 12/04/2017 [facility] Amlodipine Besylate (Norvasc) 10 Mg Tab, 10 Mg Oral Bedtime Active 12/04/2017 [facility] Bumetanide 1 Mg Tablet, 1 Mg Oral Daily Active 12/04/2017 [facility] Irbesartan (Avapro) 300 Mg Tablet, 300 Mg Oral Daily Active 12/04/2017 [facility] Labetalol Hcl 200 Mg Tablet, 200 Mg Oral Twice A Day Active 12/04/2017 [facility] Rivaroxaban (Xarelto) 10 Mg Tablet Daily At 1700 Active [place] 12/04/2017 [facility] Amlodipine Besylate (Norvasc) 10 Mg Tab, 10 Mg Oral Bedtime Active 12/04/2017 [facility] Beclomethasone Dip 7.3 Gm Inh, 0 Gm Inhalation Rt Daily Active [place] 12/04/2017 [facility] Bumetanide 1 Mg Tablet, 1 Mg Oral Daily Active 12/04/2017 [facility] Digoxin 125 Mcg Tablet, 0.125 Mg Oral Every Morning Active [place] 12/04/2017 [facility] Diltiazem Hcl (Diltiazem 24HR Er) 180 Mg Capcr, 180 Mg Oral Daily Active [place] 12/04/2017 [facility] Ipratropium [place] (Atrovent Hfa) 12.9 Gm Hfa.aer.ad, 1 Aer Inhalation Every 6 Hours as needed for Shortness Of Breath Active [place] 12/04/2017 [facility] Labetalol Hcl 200 Mg Tablet, 200 Mg Oral Twice A Day Active 12/04/2017 [facility] Biotin 1 Mg Tablet, 1 Mg Oral Twice A Day Active 11/27/2017 [facility] Desvenlafaxine Succinate (Pristiq Er) 50 Mg Tab.er.24h, 50 Mg Oral Daily Active 11/27/2017 [facility] Hydrocodone Bit/Acetaminophen ([place]oyd 7.5-325 Tablet) 1 Each Tablet, 1 Ea Oral As Needed Active 11/27/2017 [facility] Multivitamin (Multi-Vitamin Daily) 1 Each Tablet, Oral Daily Active 11/27/2017 [facility] Super B Complex , Oral Daily Active 11/27/2017 [facility] Desvenlafaxine Succinate (Pristiq Er) 50 Mg Tab.er.24h, 50 Mg Oral Daily Active 11/27/2017 [facility] Fenofibric Acid (Choline) (Trilipix) 135 Mg Capsule., 135 Mg Oral Daily Active 02/06/2015 [facility] Ferrous Sulfate 325 Mg Tablet, 325 Mg Oral Daily Active 02/06/2015 [facility] Hydrocodone Bit/Acetaminophen ([place]oyd 10-325 Tablet) 1 Each Tablet, 1 Tab Oral Every 4 Hours Active 02/06/2015 [facility] Lamotrigine (Lamictal) 100 Mg Tab, 100 Mg Oral Daily Active 02/06/2015 [facility] Trazodone Hcl 50 Mg Tablet, 50 Mg Oral Bedtime Active 02/06/2015 [facility] Zolpidem Tartrate (Ambien) 5 Mg Tablet, 5 Mg Oral Bedtime Active 02/06/2015 [facility] Fenofibric Acid (Choline) (Trilipix) 135 Mg Capsule., 135 Mg Oral Daily Active 02/06/2015 [facility] Ferrous Sulfate 325 Mg Tablet, 325 Mg Oral Daily Active 02/06/2015 [facility] Lamotrigine (Lamictal) 100 Mg Tab, 100 Mg Oral Daily Active 02/06/2015 [facility] Trazodone Hcl 50 Mg Tablet, 50 Mg Oral Bedtime Active 02/06/2015 [facility] Zolpidem Tartrate (Ambien) 5 Mg Tablet, 5 Mg Oral Bedtime Active 02/06/2015 [facility] Aspirin/Calcium Carbonate/Mag (Aspirin Buffered 325 Mg Tab) 325 Mg Tablet, 325 Mg Oral Bedtime Active 06/05/2014 [facility] Clonidine Hcl 0.1 Mg Tablet, 1 Tab Oral As Needed Active 06/05/2014 [facility] Ferrous Sulfate 325 Mg Tablet, Active 06/05/2014 [facility] Ondansetron (Zofran Odt) 4 Mg Tab.rapdis, 4 Mg Oral As Needed Active 06/05/2014 [facility] Clonidine Hcl 0.1 Mg Tablet, 1 Tab Oral As Needed Active 06/05/2014 [facility] Ferrous Sulfate 325 Mg Tablet, Active 06/05/2014 [facility] Ondansetron (Zofran Odt) 4 Mg Tab.rapdis, 4 Mg Oral As Needed Active 06/05/2014 [facility] Pristiq 50 mg oral tablet, extended release 50 mg, 1 tab, PO, Daily, 90 tab, Substitution Allowed, ERTAB PO Active [place] 06/02/2012 [facility] Ambien 5 mg oral tablet 5 mg, 1 tab, PO, Bedtime, PRN, 90 tab, for sleep, Substitution Allowed, TAB PO Active [place] 06/02/2012 [facility] Co-Q10 100 mg oral capsule 200 mg, 2 cap, PO, Daily, 180 cap, Substitution Allowed, CAP PO Active [place] 06/02/2012 [facility] Flax Seed Oil oral capsule 2 caps, PO, BID, 180 tab, Substitution Allowed, Maintenance, CAP PO Active [place] 06/02/2012 [facility] Nexium 40 mg oral delayed release capsule 40 mg, 1 cap, PO, Daily, 90 cap, Substitution Allowed, ECCAP PO Active [place] 06/02/2012 [facility] trazodone 100 mg oral tablet 100 mg, 1 tab, PO, Bedtime, 90 tab, Substitution Allowed, TAB PO Active [place] 06/02/2012 [facility] MiraLax oral powder for reconstitution 17 gm, PO, Daily, 255 gm, Substitution Allowed, PDR/REC PO Active [place] 06/02/2012 [facility] Lidoderm 5% topical film (patch) 1 patch, TOP, Daily, 30 patch, Substitution Allowed, Remove after 12 hours, FILMRemove after 12 hours TOP Active [place] 06/02/2012 [facility] lamotrigine 100 mg oral tablet 100 mg, 1 tab, PO, Daily, 90 tab, Substitution Allowed, TAB PO Active [place] 06/02/2012 [facility] labetalol 200 mg oral tablet 200 mg, 1 tab, PO, BID, 180 tab, Substitution Allowed, TAB PO Active [place] 06/02/2012 [facility] Avapro 300 mg oral tablet 300 mg, 1 tab, PO, Daily, 90 tab, Substitution Allowed, TAB PO Active [place] 06/02/2012 [facility] ferrous sulfate 324 mg (65 mg elemental iron) oral enteric coated tablet 324 mg, 1 tab, PO, BID, 90 tab, Substitution Allowed, ECTAB PO Active [place] 06/02/2012 [facility] citalopram 40 mg oral tablet 40 mg, 1 tab, PO, Daily, 90 tab, Substitution Allowed, TAB PO Active [place] 06/02/2012 [facility] Celebrex 200 mg oral capsule 200 mg, 1 cap, PO, Daily, 90 cap, Substitution Allowed, CAP PO Active [place] 06/02/2012 [facility] Calcium 600 +D oral tablet 1 tab, PO, BID, 180 tab, Substitution Allowed, Maintenance, TAB PO Active [place] 06/02/2012 [facility] Bumex 1 mg oral tablet 1 mg, 1 tab, PO, Daily, 90 tab, Substitution Allowed, TAB PO Active [place] 06/02/2012 [facility] acetaminophen-hydrocodone 325 mg-10 mg oral tablet 2 tab, PO, Q6H, PRN, 100 tab, Pain, Substitution Allowed, Maintenance, TAB PO Active [place] 06/02/2012 [facility] aspirin 81 mg tablet, chewable 81 mg, 1 tab, PO, Q24H, 100 tab, Substitution Allowed, CHEWTAB PO Active [place] 06/02/2012 [facility] Norvasc 5 mg oral tablet 5 mg, 1 tab, PO, Daily, 90 tab, Substitution Allowed, TAB PO Active [place] 06/02/2012 [facility] Celebrex 200 mg, 1 cap, Route: PO, Drug form: CAP, Daily, Dosing Weight 72.073, kg, Start date: 06/02/12 9:00:00, Duration: 30 day, Stop date: 07/01/12 9:00:00 PO No Longer Active [place] 06/02/2012 [facility] Lidoderm 5% topical film (patch) 1 patch, Route: TOP, Daily, Drug form: FILM, Start date: 06/02/12 9:00:00, Duration: 30 day, Stop date: 07/01/12 9:00:00, Remove after 12 hoursRemove after 12 hours TOP No Longer Active [facility] 06/02/2012 [facility] MiraLax 17 gm, 1 pkt, Route: PO, Drug form: PWDR, BID, Dosing Weight 72.073, kg, Start date: 06/02/12 9:00:00, Duration: 30 day, Stop date: 07/01/12 17:00:00 PO No Longer Active [place] 06/02/2012 [facility] hydrOXYzine 20 mg, 2 tab, Route: PO, Drug form: TAB, QID, Dosing Weight 72.073, kg, PRN Itching, Start date: 06/01/12 18:20:00, Duration: 30 day, Stop date: 07/01/12 18:19:00 PO No Longer Active [place] 06/02/2012 [facility] Anusol-HC 25 mg rectal suppository 25 mg, 1 supp, Route: OK, BID, Drug form: SUPP PRN Hemorrhoids, Start date: 05/31/12 13:19:00, Duration: 30 day, Stop date: 06/30/12 13:18:00 OK No Longer Active [place] 05/31/2012 [facility] Ferrlecit + Sodium Chloride 0.9% IV 100 mL 125 mg, 10 mL, Route: IVPB, Drug form: INJ, QPM, Dosing Weight 72.073, kg, Start date: 05/27/12 17:00:00, Duration: 30 day, Stop date: 06/25/12 17:00:00 IVPB No Longer Active [facility] 05/27/2012 [facility] Sodium Chloride 0.9% IV IV, 30 ml/hr, ONCALL, Start date: 05/26/12 21:00:00, Duration: 1, 250 ml IV No Longer Active [place] 05/27/2012 [facility] ferrous sulfate 324 mg oral tablet 325 mg, 1 tab, Route: PO, Drug form: ECTAB, BID, Dosing Weight 72.073, kg, Start date: 05/26/12 17:00:00, Duration: 30 day, Stop date: 06/25/12 9:00:00 PO No Longer Active [place] 05/26/2012 [facility] acetaminophen-hydrocodone 325 mg-10 mg oral tablet 2 tab, Route: PO, Drug Form: TAB, Q6H, PRN Pain, Start date: 05/25/12 12:02:00, Duration: 30 day, Stop date: 06/24/12 12:01:00 PO No Longer Active [place] 05/25/2012 [facility] Duragesic-25 25 microgram, 1 patch, Route: TOP, Drug Form: ERFILM, Q72H, Start date: 05/22/12 20:00:00, Duration: 30 day, Stop date: 06/18/12 20:00:00 TOP No Longer Active [place] 05/23/2012 [facility] acetaminophen-hydrocodone 325 mg-10 mg oral tablet 1 tab, Route: PO, Drug Form: TAB, Q6H, PRN Pain, Start date: 05/22/12 17:31:00, Duration: 30 day, Stop date: 06/21/12 17:30:00 PO No Longer Active [place] 05/22/2012 [facility] Opana IR 20 mg, Route: PO, Drug form: TAB, Q4H, Dosing Weight 72.073, kg, PRN Pain, Start date: 05/22/12 14:07:00, Duration: 30 day, Stop date: 06/21/12 14:06:00 PO No Longer Active [place] 05/22/2012 [facility] Percocet 5/325 oral tablet 2 tab, Route: PO, Drug Form: TAB, Dosing Weight 72.073, kg, Q4H, PRN Pain, Start date: 05/22/12 14:00:00, Duration: 30 day, Stop date: 06/21/12 13:59:00 PO No Longer Active [place] 05/22/2012 [facility] MS Contin 60 mg, 2 tab, Route: PO, Drug form: ERTAB, Q12H, Dosing Weight 72.073, kg, Start date: 05/20/12 21:00:00, Duration: 30 day, Stop date: 06/19/12 9:00:00 PO No Longer Active [place] 05/21/2012 [facility] Zofran 4 mg, 1 tab, Route: PO, Drug form: TAB, Q8H, Dosing Weight 72.073, kg, PRN Nausea, Start date: 05/19/12 15:35:00, Duration: 30 day, Stop date: 06/18/12 15:34:00 PO No Longer Active [place] 05/19/2012 [facility] MS Contin 30 mg, 2 tab, Route: PO, Drug form: TAB, Q12H, Dosing Weight 72.073, kg, Start date: 05/18/12 21:00:00, Stop date: 06/17/12 9:00:00 PO No Longer Active [place] 05/19/2012 [facility] Protonix 40 mg, 1 tab, Route: PO, Drug form: ECTAB, Before Dinner, Dosing Weight 72.727, kg, Start date: 05/18/12 16:30:00, Duration: 30 day, Stop date: 06/16/12 16:30:00 PO No Longer Active [place] 05/18/2012 [facility] Co-Q10 200 mg, Route: PO, Drug form: TAB, Daily, Dosing Weight 72.727, kg, Start date: 05/18/12 9:00:00, Duration: 30 day, Stop date: 06/16/12 9:00:00 PO No Longer Active [place] 05/18/2012 [facility] lamotrigine 100 mg oral tablet 100 mg, 1 tab, Route: PO, Drug form: TAB, Daily, Dosing Weight 72.727, kg, Start date: 05/18/12 9:00:00, Duration: 30 day, Stop date: 06/16/12 9:00:00 PO No Longer Active [place] 05/18/2012 [facility] pt own Co-Q10 pt own Co-Q10, 200 mg, Drug form: MISC, Route: PO, Daily, 05/18/12 9:00:00, Duration: 30 day, Stop date: 06/16/12 9:00:00 PO No Longer Active [place] 05/18/2012 [facility] Avapro 300 mg, 2 tab, Route: PO, Drug form: TAB, Daily, Dosing Weight 72.727, kg, Start date: 05/18/12 9:00:00, Duration: 30 day, Stop date: 06/16/12 9:00:00 PO No Longer Active [place] 05/18/2012 [facility] citalopram 40 mg, 2 tab, Route: PO, Drug form: TAB, Daily, Dosing Weight 72.727, kg, Start date: 05/18/12 9:00:00, Duration: 30 day, Stop date: 06/16/12 9:00:00 PO No Longer Active [place] 05/18/2012 [facility] Bumex 1 mg, 1 tab, Route: PO, Drug form: TAB, Daily, Dosing Weight 72.727, kg, Start date: 05/18/12 9:00:00, Duration: 30 day, Stop date: 06/16/12 9:00:00 PO No Longer Active [place] 05/18/2012 [facility] Norvasc 5 mg, 1 tab, Route: PO, Drug form: TAB, Daily, Dosing Weight 72.727, kg, Start date: 05/18/12 9:00:00, Duration: 30 day, Stop date: 06/16/12 9:00:00 PO No Longer Active [place] 05/18/2012 [facility] pt own desfenlafaxine (Pristiq) extended release pt own desfenlafaxine (Pristiq) extended release, 50 mg, Drug form: MISC, Route: PO, Daily, 05/18/12 9:00:00, Duration: 30 day, Stop date: 06/16/12 9:00:00 PO No Longer Active [place] 05/18/2012 [facility] docusate 100 mg, 1 cap, Route: PO, Drug form: CAP, BID, Dosing Weight 72.727, kg, Start date: 05/18/12 9:00:00, Duration: 30 day, Stop date: 06/16/12 17:00:00 PO No Longer Active [place] 05/18/2012 [facility] Pristiq 50 mg oral tablet, extended release 50 mg, 1 tab, Route: PO, Drug form: ERTAB, Daily, Dosing Weight 72.727, kg, Start date: 05/18/12 9:00:00, Duration: 30 day, Stop date: 06/16/12 9:00:00 PO No Longer Active [place] 05/18/2012 [facility] trazodone 100 mg oral tablet 100 mg, 1 tab, Route: PO, Drug form: TAB, Bedtime, Dosing Weight 72.727, kg, Start date: 05/17/12 21:00:00, Duration: 30 day, Stop date: 06/15/12 21:00:00 PO No Longer Active [place] 05/18/2012 [facility] Lovenox 40 mg, 0.4 mL, Route: SUB-Q, Drug form: INJ, Q24H, Dosing Weight 72.073, kg, Start date: 05/17/12 21:00:00, Duration: 12 day, Stop date: 05/28/12 21:00:00 SUB-Q No Longer Active [place] 05/18/2012 [facility] labetalol 200 mg, 1 tab, Route: PO, Drug form: TAB, Q12H, Dosing Weight 72.727, kg, Start date: 05/17/12 21:00:00, Duration: 30 day, Stop date: 06/16/12 9:00:00 PO No Longer Active [place] 05/18/2012 [facility] Os-Keanu 500 with D oral tablet 1 tab, Route: PO, Drug Form: TAB, Dosing Weight 72.727, kg, [id number], Start date: 05/17/12 21:00:00, Duration: 30 day, Stop date: 06/16/12 9:00:00 PO No Longer Active [place] 05/18/2012 [facility] have [facility] verify & bar-code pt own Pristiq & Co-Q10 have [facility] verify & bar-code pt own Pristiq & Co-Q10, 1 attn notice, Drug form: MISC, Route: MISC, QSHIFT, 05/17/12 21:00:00, Duration: 30 day, Stop date: 06/16/12 16:00:00 MISC No Longer Active [place] 05/18/2012 [facility] aspirin 81 mg, 1 tab, Route: PO, Drug form: CHEWTAB, Q24H, Dosing Weight 72.727, kg, Start date: 05/17/12 20:00:00, Duration: 30 day, Stop date: 06/15/12 20:00:00 PO No Longer Active [place] 05/18/2012 [facility] Restoril 15 mg, 1 cap, Route: PO, Drug form: CAP, Bedtime, PRN Sleep, Start date: 05/17/12 19:03:00, Duration: 30 day, Stop date: 06/16/12 19:02:00 PO No Longer Active [place] 05/18/2012 [facility] lactulose 20 gm, 30 mL, Route: PO, Drug Form: SYRP, Dosing Weight 72.727, kg, Q6H, PRN Bowel Movements, Start date: 05/17/12 18:21:00, Duration: 30 day, Stop date: 06/16/12 18:20:00 PO No Longer Active [place] 05/18/2012 [facility] Milk of Magnesia 30 mL, Route: PO, Drug Form: SUSP, Dosing Weight 72.727, kg, Daily, PRN Constipation, Start date: 05/17/12 18:21:00, Duration: 30 day, Stop date: 06/16/12 18:20:00 PO No Longer Active [place] 05/18/2012 [facility] acetaminophen-hydrocodone 325 mg-10 mg oral tablet 1 tab, Route: PO, Drug Form: TAB, Dosing Weight 72.727, kg, Q4H, PRN Pain Score 1-5, Start date: 05/17/12 18:21:00, Duration: 30 day, Stop date: 06/16/12 18:20:00 PO No Longer Active [place] 05/18/2012 [facility] acetaminophen 650 mg, 2 tab, Route: PO, Drug form: TAB, Q4H, Dosing Weight 72.727, kg, PRN Pain Score 1-3, Start date: 05/17/12 18:21:00, Duration: 30 day, Stop date: 06/16/12 18:20:00 PO No Longer Active [place] 05/18/2012 [facility] Saline Flush 0.9% 3 mL, Route: IVP, Drug Form: INJ, Dosing Weight 72.727, kg, Q8H, PRN Line Flush, Start date: 05/17/12 18:21:00, Duration: 30 day, Stop date: 06/16/12 18:20:00, Administer at least once every 8 hoursAdminister at least once every 8 hours IVP No Longer Active [place] 05/18/2012 [facility] zolpidem 5 mg, Route: PO, Drug form: TAB, Bedtime, Dosing Weight 72.727, kg, PRN Insomnia, Start date: 05/17/12 18:21:00, Duration: 30 day, Stop date: 06/16/12 18:20:00 PO No Longer Active [place] 05/18/2012 [facility] ferrous sulfate 325 mg, 1 tab, Route: PO, Drug form: ECTAB, BID, Start date: 05/17/12 9:00:00, Duration: 30 day, Stop date: 06/15/12 17:00:00 PO No Longer Active [facility] 05/17/2012 [facility] Deep Sea Nasal [place] 1 spray, Route: NASAL, PRN, Drug form: SOLN, PRN Nasal dryness, Start date: 05/15/12 14:49:00, Duration: 30 day, Stop date: 06/14/12 14:48:00 NASAL No Longer Active [facility] 05/15/[address] [facility] [address] Saline nasal spray Route: NASAL, PRN, PRN Nasal dryness, Start date: 05/15/12 14:30:00, Duration: 30 day, Stop date: 06/14/12 14:29:00 NASAL No Longer Active [facility] 05/15/2012 [facility] Lasix 10 mg, 1 mL, Route: IV, Drug form: INJ, ONCALL, Start date: 05/15/12 8:00:00, Duration: 2 doses or times IV No Longer Active [facility] 05/15/2012 [facility] Sodium Chloride 0.9% IV IV, 30 ml/hr, ONCALL, PRN Blood Transfusion, Start date: 05/15/12 7:57:00, Duration: 1, 250 ml IV No Longer Active [facility] 05/15/2012 [facility] Lactated Ringers IV 1,000 mL 1,000 mL, Rate: 100 ml/hr, Infuse over: 10 hr, Route: IV, kg, Total Volume: 1,000, Start date: 05/14/12 16:22:00, Duration: 30 day, Stop date: 06/13/12 16:21:00 IV No Longer Active [facility] 05/14/2012 [facility] albuterol 0.083% inhalation solution 2.5 mg, 3.01 mL, Route: INHALATION, Drug form: SOLN, PRN, Dosing Weight 72.727, kg, PRN Respiratory Protocol, Start date: 05/14/12 13:16:00, Duration: 30 day, Stop date: 06/13/12 13:15:00 INHALATION No Longer Active [facility] 05/14/2012 [facility] labetalol 5 mg, 1 mL, Route: IVP, Drug form: INJ, Q5Min, Dosing Weight 72.727, kg, PRN Elevated BP, Start date: 05/14/12 12:13:00, Duration: 5 doses or times, Stop date: Limited # of times IVP No Longer Active [place] 05/14/2012 [facility] esmolol IV Push 10 mg, 1 mL, Route: IVP, Drug form: INJ, Q5Min, Dosing Weight 72.727, kg, PRN Elevated BP, Start date: 05/14/12 12:13:00, Duration: 5 doses or times, Stop date: Limited # of times IVP No Longer Active [place] 05/14/2012 [facility] ondansetron 4 mg, 2 mL, Route: IVP, Drug form: INJ, ONCE, Dosing Weight 72.727, kg, PRN Nausea & Vomiting, Start date: 05/14/12 12:13:00 IVP No Longer Active [place] 05/14/2012 [facility] promethazine + Sodium Chloride 0.9% IV 50 mL 6.25 mg, 0.25 mL, Route: IVPB, ONCE, Dosing Weight 72.727, kg, PRN Nausea & Vomiting, Start date: 05/14/12 12:13:00 IVPB No Longer Active [place] 05/14/2012 [facility] hydromorphone 0.5 mg, 0.25 mL, Route: IVP, Drug form: INJ, Q5Min, Dosing Weight 72.727, kg, PRN Pain Score 4-6, Start date: 05/14/12 12:13:00, Duration: 5 doses or times, Stop date: Limited # of times IVP No Longer Active [facility] 05/14/2012 [facility] fentanyl 25 microgram, 0.5 mL, Route: IVP, Drug form: INJ, Q5Min, Dosing Weight 72.727, kg, PRN Pain Score 4-6, Start date: 05/14/12 12:13:00, Duration: 4 doses or times, Stop date: Limited # of times IVP No Longer Active [place] 05/14/2012 [facility] flumazenil 0.2 mg, 2 mL, Route: IVP, Drug form: INJ, PRN, Dosing Weight 72.727, kg, PRN Benzodiazepine Reversal, Initial dose, Start date: 05/14/12 12:13:00, Duration: 30 day, Stop date: 06/13/12 12:12:00 IVP No Longer Active [place] 05/14/2012 [facility] naloxone 0.04 mg, 0.1 mL, Route: IVP, Drug form: INJ, Q2MIN, Dosing Weight 72.727, kg, PRN Narcotic Reversal, Start date: 05/14/12 12:13:00, Duration: 8 doses or times, Stop date: Limited # of times IVP No Longer Active [place] 05/14/2012 [facility] acetaminophen-hydrocodone 325 mg-5 mg oral tablet 2 tab, Route: PO, Drug Form: TAB, Dosing Weight 72.727, kg, Q4H, PRN Pain Score 4-6, Start date: 05/14/12 12:13:00, Duration: 30 day, Stop date: 06/13/12 12:12:00 PO No Longer Active [place] 05/14/2012 [facility] hydrALAZINE 5 mg, 0.25 mL, Route: IVP, Drug form: INJ, Q5Min, Dosing Weight 72.727, kg, PRN Elevated BP, Start date: 05/14/12 12:13:00, Duration: 4 doses or times, Stop date: Limited # of times IVP No Longer Active [facility] 05/14/2012 [facility] Co-Q10 200 mg, Route: PO, Drug form: CAP, Daily, Dosing Weight 72.727, kg, Start date: 05/14/12 9:00:00, Duration: 30 day, Stop date: 06/12/12 9:00:00 PO No Longer Active [facility] 05/14/2012 [facility] pantoprazole 40 mg, Route: IVP, Drug form: INJ, Daily, Dosing Weight 72.727, kg, Priority: Routine, Start date: 05/14/12 9:00:00, Duration: 30 day, Stop date: 06/12/12 9:00:00 IVP No Longer Active [facility] 05/14/2012 [facility] lamotrigine 100 mg oral tablet 100 mg, 1 tab, Route: PO, Drug form: TAB, Daily, Dosing Weight 72.727, kg, Start date: 05/14/12 9:00:00, Duration: 30 day, Stop date: 06/12/12 9:00:00 PO No Longer Active [facility] 05/14/2012 [facility] Avapro 300 mg, 2 tab, Route: PO, Drug form: TAB, Daily, Dosing Weight 72.727, kg, Start date: 05/14/12 9:00:00, Duration: 30 day, Stop date: 06/12/12 9:00:00 PO No Longer Active [facility] 05/14/2012 [facility] Pt's own med CO-Q10 Pt's own med Pt's own med CO-Q10 Pt's own med , 200 mg, Drug form: MISC, Route: PO, Daily, 05/14/12 9:00:00, Duration: 30 day, Stop date: 06/12/12 9:00:00 PO No Longer Active [facility] 05/14/2012 [facility] Pt's own med DESVENLAFAXINE (PRISTIQ) Pt's own med Pt's own med DESVENLAFAXINE (PRISTIQ) Pt's own med, 50 mg, Drug form: MISC, Route: PO, Daily, 05/14/12 9:00:00, Duration: 30 day, Stop date: 06/12/12 9:00:00 PO No Longer Active [facility] 05/14/2012 [facility] Nexium 40 mg, Route: PO, Drug form: ECCAP, Daily, Dosing Weight 72.727, kg, Start date: 05/14/12 9:00:00, Duration: 30 day, Stop date: 06/12/12 9:00:00 PO No Longer Active [facility] 05/14/2012 [facility] Pristiq 50 mg oral tablet, extended release 50 mg, 1 tab, Route: PO, Drug form: ERTAB, Daily, Dosing Weight 72.727, kg, Start date: 05/14/12 9:00:00, Duration: 30 day, Stop date: 06/12/12 9:00:00 PO No Longer Active [facility] 05/14/2012 [facility] citalopram 40 mg, 2 tab, Route: PO, Drug form: TAB, Daily, Dosing Weight 72.727, kg, Start date: 05/14/12 9:00:00, Duration: 30 day, Stop date: 06/12/12 9:00:00 PO No Longer Active [facility] 05/14/2012 [facility] Os-Keanu 500 with D oral tablet 1 tab, Route: PO, Drug Form: TAB, Dosing Weight 72.727, kg, BID, Start date: 05/14/12 9:00:00, Duration: 30 day, Stop date: 06/12/12 17:00:00 PO No Longer Active [facility] 05/14/2012 [facility] Bumex 1 mg, 1 tab, Route: PO, Drug form: TAB, Daily, Dosing Weight 72.727, kg, Start date: 05/14/12 9:00:00, Duration: 30 day, Stop date: 06/12/12 9:00:00 PO No Longer Active [facility] 05/14/2012 [facility] amLODipine 5 mg, 1 tab, Route: PO, Drug form: TAB, Daily, Dosing Weight 72.727, kg, Start date: 05/14/12 9:00:00, Duration: 30 day, Stop date: 06/12/12 9:00:00 PO No Longer Active [facility] 05/14/2012 [facility] enoxaparin 30 mg, 0.3 mL, Route: SUB-Q, Drug form: INJ, [id number], Dosing Weight 72.727, kg, Start date: 05/14/12 7:35:00, Duration: 30 day, Stop date: 06/12/12 19:35:00, Give first dose 12 hours after surgeryGive first dose 12 hours after surgery SUB-Q No Longer Active [facility] 05/14/2012 [facility] trazodone 100 mg oral tablet 100 mg, 1 tab, Route: PO, Drug form: TAB, Bedtime, Dosing Weight 72.727, kg, Start date: 05/13/12 21:00:00, Duration: 30 day, Stop date: 06/11/12 21:00:00 PO No Longer Active [facility] 05/14/2012 [facility] labetalol 200 mg, 1 tab, Route: PO, Drug form: TAB, Q12H, Dosing Weight 72.727, kg, Start date: 05/13/12 21:00:00, Duration: 30 day, Stop date: 06/12/12 9:00:00 PO No Longer Active [facility] 05/14/2012 [facility] aspirin 81 mg tablet, chewable 81 mg, 1 tab, Route: PO, Drug form: CHEWTAB, Daily, Dosing Weight 72.727, kg, Start date: 05/13/12 19:42:00, Duration: 30 day, Stop date: 06/12/12 9:00:00 PO No Longer Active [facility] 05/14/2012 [facility] Ambien 5 mg, 1 tab, Route: PO, Drug form: TAB, Bedtime, Dosing Weight 72.727, kg, PRN as needed for sleep, Start date: 05/13/12 19:35:00, Duration: 30 day, Stop date: 06/12/12 19:34:00 PO No Longer Active [facility] 05/14/2012 [facility] Lloyd 10/325 oral tablet 1 tab, Route: PO, Drug Form: TAB, Dosing Weight 72.727, kg, BID, PRN as needed for pain, Start date: 05/13/12 19:32:00, Duration: 30 day, Stop date: 06/12/12 19:31:00 PO No Longer Active [facility] 05/14/2012 [facility] docusate 100 mg, 1 cap, Route: PO, Drug form: CAP, BID, Dosing Weight 72.727, kg, Start date: 05/13/12 17:00:00, Duration: 30 day, Stop date: 06/12/12 9:00:00 PO No Longer Active [facility] 05/13/2012 [facility] HOLD LOVENOX ON 05/14/[address] LEIGH'S ORDERS HOLD LOVENOX ON 05/14/[address] LEIGH'S ORDERS, 1 CONT, Drug form: MISC, Route: SUB-Q, Continuous, 05/13/12 11:00:00, Stop date: 05/15/12 0:00:00 SUB-Q No Longer Active [facility] 05/13/2012 [facility] vancomycin 1 gm, 200 mL, Route: IVPB, Drug form: INJ, ONCALL, Start date: 05/13/12 11:00:00, Duration: 1 doses or times IVPB No Longer Active [facility] 05/13/2012 [facility] ondansetron 4 mg, 2 mL, Route: IVP, Drug form: INJ, Q6H, Dosing Weight 72.727, kg, PRN Nausea & Vomiting, Start date: 05/13/12 9:12:00, Duration: 30 day, Stop date: 06/12/12 9:11:00 IVP No Longer Active [facility] 05/13/2012 [facility] Dilaudid 1 mg, 1 mL, Route: IV, Drug form: SOLN, Q4H, Dosing Weight 72.727, kg, PRN as needed for pain, Priority: STAT, Start date: 05/13/12 9:12:00, Duration: 30 day, Stop date: 06/12/12 9:11:00 IV No Longer Active [facility] 05/13/2012 [facility] Saline Flush 0.9% 5 ml, Route: IVP, Drug Form: INJ, Dosing Weight 72.727, kg, PRN, PRN Line Flush, Start date: 05/13/12 9:12:00, Duration: 30 day, Stop date: 06/12/12 9:11:00 IVP No Longer Active [facility] 05/13/2012 [facility] Dilaudid 1 mg, 1 mL, Route: IVP, Drug form: SOLN, ONCE, Dosing Weight 72.727, kg, Priority: STAT, Start date: 05/13/12 8:15:00, Stop date: 05/13/12 8:15:00 IVP No Longer Active [facility] 05/13/2012 [facility] aspirin 81 mg tablet, chewable 81 mg, 1 tab, PO, Daily, tab, Substitution Allowed, CHEWTAB PO On Hold [facility] 05/13/2012 [facility] Flax Seed Oil oral capsule 2 caps, PO, BID, Substitution Allowed, Maintenance, CAP PO On Hold 05/13/2012 [facility] Co-Q10 100 mg oral capsule 200 mg, 2 cap, PO, Daily, 60 cap, Substitution Allowed, CAP PO On Hold [facility] 05/13/2012 [facility] Non-Formulary Home Medication 300 mg, PO, Daily, Substitution Allowed PO On Hold 05/13/2012 [facility] Calcium 600 +D oral tablet 1 tab, PO, BID, 270 tab, Substitution Allowed, Maintenance, TAB PO On Hold [facility] 05/13/2012 [facility] Centrum Silver oral tablet 1 tab, PO, Daily, 30 tab, Substitution Allowed, Maintenance, TAB PO No Longer Active 05/13/2012 [facility] Trilipix 135 mg oral delayed release capsule 135 mg, 1 cap, PO, Daily, 30 cap, Substitution Allowed, ECCAP PO No Longer Active 05/13/2012 [facility] Lloyd 10/325 oral tablet 1 tab, PO, BID, PRN, 24 tab, for pain, Substitution Allowed, Maintenance PO On Hold [facility] 05/13/2012 [facility] lamotrigine 100 mg oral tablet 100 mg, 1 tab, PO, Daily, 60 tab, Substitution Allowed, TAB PO On Hold [facility] 05/13/2012 [facility] amLODipine 5 mg oral tablet 5 mg, 1 tab, PO, Daily, 30 tab, Substitution Allowed, TAB PO On Hold [facility] 05/13/2012 [facility] Pristiq 50 mg oral tablet, extended release 50 mg, 1 tab, PO, Daily, 30 tab, Substitution Allowed, ERTAB PO On Hold [facility] 05/13/2012 [facility] Bumex 1 mg oral tablet 1 mg, 1 tab, PO, Daily, 30 tab, Substitution Allowed, TAB PO On Hold [facility] 05/13/2012 [facility] Levaquin 500 mg oral tablet 500 mg, PO, Every Other Day, Substitution Allowed, TAB PO No Longer Active 05/13/2012 [facility] sulfamethoxazole-trimethoprim 800 mg-160 mg oral tablet 1 tab, PO, Every Other Day, Substitution Allowed, Maintenance, TAB PO No Longer Active 05/13/2012 [facility] trazodone 100 mg oral tablet 100 mg, 1 tab, PO, Bedtime, 270 tab, Substitution Allowed, TAB PO On Hold [facility] 05/13/2012 [facility] citalopram 40 mg oral tablet 40 mg, 1 tab, PO, Daily, 30 tab, Substitution Allowed, TAB PO On Hold [facility] 05/13/2012 [facility] Avapro 300 mg oral tablet 300 mg, 1 tab, PO, Daily, 30 tab, Substitution Allowed PO On Hold [facility] 05/13/2012 [facility] Ambien 5 mg oral tablet 5 mg, 1 tab, PO, Bedtime, PRN, for sleep, Substitution Allowed, TAB PO On Hold [facility] 05/13/2012 [facility] Nexium 40 mg oral delayed release capsule 40 mg, 1 cap, PO, Daily, 30 cap, Substitution Allowed PO On Hold [facility] 05/13/2012 [facility] labetalol 200 mg oral tablet 200 mg, 1 tab, PO, BID, 180 tab, Substitution Allowed, TAB PO On Hold [facility] 05/13/2012 [facility] Lovenox 40 mg, 0.4 mL, Route: SUB-Q, Drug form: INJ, ONCE, Dosing Weight 72.727, kg, Start date: 05/13/12 7:31:00, Stop date: 05/13/12 7:31:00 SUB-Q No Longer Active [facility] 05/13/2012 [facility] Valium 5 mg, Route: IVP, ONCE, Dosing Weight 72.727, kg, Priority: STAT, Start date: 05/13/12 5:53:00, Stop date: 05/13/12 5:53:00 IVP No Longer Active [facility] 05/13/2012 [facility] morphine Sulfate 4 mg, Route: IVP, Drug form: INJ, ONCE, Dosing Weight 72.727, kg, Priority: STAT, Start date: 05/13/12 4:48:00, Stop date: 05/13/12 4:48:00 IVP No Longer Active [facility] 05/13/2012 [facility] ondansetron 4 mg, Route: IVP, Drug form: INJ, ONCE, Dosing Weight 72.727, kg, Priority: STAT, Start date: 05/13/12 2:57:00, Stop date: 05/13/12 2:57:00 IVP No Longer Active [facility] 05/13/2012 [facility] morphine Sulfate 4 mg, Route: IVP, Drug form: INJ, ONCE, Dosing Weight 72.727, kg, Priority: STAT, Start date: 05/13/12 2:57:00, Stop date: 05/13/12 2:57:00 IVP No Longer Active [facility] 05/13/2012 [facility] Citalopram Hydrobromide (Celexa) 40 Mg Tablet Daily Active [facility] Esomeprazole Magnesium (Nexium) 40 Mg Capsule. Daily Active [facility] Trazodone Hcl 100 Mg Tablet Bedtime Active [facility] Zolpidem Tartrate 10 Mg Tablet Bedtime Active [facility] Amlodipine Besylate 5 Mg Tablet Daily Active [facility] Esomeprazole Magnesium (Nexium) 40 Mg Capsule.dr [place] Active [facility] Furosemide 40 Mg Tablet Daily Active [facility] Irbesartan 150 Mg Tablet Daily Active [facility] Potassium Chloride 20 Meq Tab.er.prt Daily Active [facility] Venlafaxine Hcl (Effexor Xr 37.5MG Capcr*) 37.5 Mg Capcr Daily Active [facility] Zolpidem Tartrate 10 Mg Tablet Bedtime as needed for Insomnia Active [facility] Allergies, Adverse Reactions, Alerts Substance Category Reaction Severity Reaction type Status Date Reported Comments Source Penicillin Unknown Allergy to Substance Active 06/09/2018 [facility] Codeine Nausea Unknown Allergy to Substance Active 06/09/2018 [facility] Oxycodone Unknown Allergy to Substance Active 06/09/2018 [facility] Propoxyphene Unknown Allergy to Substance Active 06/09/2018 [facility] Levofloxacin Unknown Allergy to Substance Active 06/09/2018 [facility] codeine drug allergy Allergy Active [facility] Darvon drug allergy Allergy Active [facility] oxyCODONE drug allergy Allergy Active [facility] penicillins drug allergy Allergy Active [facility] Immunizations No Data Provided for This Section Results Order Name Results Value Reference Range Date Interpretation Comments Source Blood leukocytes automated count (number/volume) 10.04 4.8 - 10.8 06/15/2018 [facility] Blood erythrocytes automated count (number/volume) 4.60 3.6 - 5.1 06/15/2018 [facility] Blood hemoglobin measurement (moles/volume) 10.1 12.0 - 16.0 06/15/2018 [facility] Automated blood hematocrit (volume fraction) 34.1 34.2 - 44.1 06/15/2018 [facility] Automated erythrocyte mean corpuscular volume 74.1 81 - 99 06/15/2018 [facility] Automated erythrocyte mean corpuscular hemoglobin (mass per erythrocyte) 22.0 28 - 32 06/15/2018 [facility] Automated erythrocyte mean corpuscular hemoglobin concentration measurement (mass/volume) 29.6 31 - 35 06/15/2018 [facility] RDW BldCo-Rto 19.9 11.7 - 14.4 06/15/2018 [facility] Automated blood platelet count (count/volume) 285 140 - 360 06/15/2018 [facility] Automated blood segmented neutrophil count as percentage of total leukocytes 52.4 38.7 - 80.0 06/15/2018 [facility] Automated blood lymphocyte count as percentage ot total leukocytes 30.2 18.0 - 39.1 06/15/2018 [facility] Automated blood monocyte count as percentage of total leukocytes 12.1 4.4 - 11.3 06/15/2018 [facility] Automated blood eosinophil count as percentage of total leukocytes 4.0 0.0 - 6.0 06/15/2018 [facility] Automated blood basophil count as percentage of total leukocytes 1.0 0.0 - 1.0 06/15/2018 [facility] IM GRANULOCYTES % 0.3 0.0 - 1.0 06/15/2018 [facility] Automated blood neutrophil count 5.3 2.1 - 6.9 06/15/2018 [facility] Blood lymphocytes count (number/volume) 3.0 1.0 - 3.2 06/15/2018 [facility] Blood monocytes automated count (number/volume) 1.2 0.2 - 0.8 06/15/2018 [facility] Automated blood eosinophil count 0.4 0.0 - 0.4 06/15/2018 [facility] Automated blood basophil count (count/volume) 0.1 0.0 - 0.1 06/15/2018 [facility] Absolute Immature Granulocyte (auto 0.03 0 - 0.1 06/15/2018 [facility] Serum or plasma sodium measurement (moles/volume) 141 136 - 145 06/15/2018 [facility] Serum or plasma potassium measurement (moles/volume) 4.0 3.5 - 5.1 06/15/2018 [facility] Serum or plasma chloride measurement (moles/volume) 101 98 - 107 06/15/2018 [facility] Serum or plasma carbon dioxide, total measurement (moles/volume) 31 22 - 29 06/15/2018 [facility] Serum or plasma anion gap 13.0 8 - 16 06/15/2018 [facility] Serum or plasma urea nitrogen measurement (mass/volume) 21 7 - 26 06/15/2018 [facility] Serum or plasma creatinine measurement (mass/volume) 1.13 0.57 - 1.11 06/15/2018 [facility] Serum or plasma urea nitrogen/creatinine mass ratio 19 6 - 25 06/15/2018 [facility] Estimated glomerular filtration rate (GFR) determination 46 60 06/15/2018 [facility] Glucose measurement 83 74 - 118 06/15/2018 [facility] Serum or plasma calcium measurement (mass/volume) 9.3 8.4 - 10.2 06/15/2018 [facility] Serum or plasma magnesium measurement (mass/volume) 1.9 1.3 - 2.1 06/15/2018 [facility] BNP Bld-mCnc 392.0 0 - 100 06/15/2018 [facility] Stool gastrointestinal hemoglobin detection POSITIVE NEGATIVE 06/14/2018 [facility] Serum or plasma iron measurement (mass/volume) 12 50 - 170 06/11/2018 [facility] Serum or plasma iron binding capacity measurement (mass/volume) 414 261 - 478 06/11/2018 [facility] Serum or plasma iron saturation measurement (mass fraction) 3 15 - 50 06/11/2018 [facility] Serum or plasma transferrin measurement (mass/volume) 296 180 - 382 06/11/2018 [facility] Serum or plasma ferritin measurement (mass/volume) 8.52 4.63 - 204.00 06/11/2018 [facility] Blood cobalamin (vitamin B12) measurement (mass/volume) 306 213 - 816 06/11/2018 [facility] Serum or plasma folate measurement (mass/volume) 12.9 7.0 - 15.4 06/11/2018 [facility] Serum or plasma thyroxine (T4) free measurement (mass/volume) 1.03 0.9 - 1.8 06/11/2018 [facility] Serum or plasma thyrotropin measurement by detection limit <=0.005 miu/l (units/volume) 1.494 0.350 - 4.940 06/11/2018 [facility] Serum or plasma creatine kinase measurement (enzymatic activity/volume) 39 29 - 168 06/10/2018 [facility] Serum or plasma creatine kinase MB measurement (mass/volume) 0.80 0 - 5.0 06/10/2018 [facility] Troponin I measurement by highly sensitive enzyme immunoassay 0.007 0 - 0.300 06/10/2018 [facility] Urine color determination YELLOW YELLOW 06/10/2018 [facility] Urine clarity CLEAR CLEAR 06/10/2018 [facility] Specific gravity of Urine by Test strip 1.015 1.010 - 1.025 06/10/2018 [facility] Urine pH measurement by automated test strip 6 5 - 7 06/10/2018 [facility] Urine leukocyte esterase detection by dipstick NEGATIVE NEGATIVE 06/10/2018 [facility] Urine nitrite detection NEGATIVE NEGATIVE 06/10/2018 [facility] Urine protein measurement by test strip (mass/volume) NEGATIVE NEGATIVE 06/10/2018 [facility] Urine glucose detection NEGATIVE NEGATIVE 06/10/2018 [facility] Urine ketones detection by automated test strip NEGATIVE NEGATIVE 06/10/2018 [facility] Urine urobilinogen measurement by test strip (mass/volume) 0.2 0.2 - 1 06/10/2018 [facility] Urine total bilirubin measurement (mass/volume) NEGATIVE NEGATIVE 06/10/2018 [facility] Urine erythrocytes detection NEGATIVE NEGATIVE 06/10/2018 [facility] Automated urine sediment leukocyte count by microscopy (number/high power field) 0-5 0 - 5 06/10/2018 [facility] Erythrocytes detection in urine sediment by light microscopy 0-5 0 - 5 06/10/2018 [facility] Bacteria detection in urine sediment by light microscopy FEW NONE 06/10/2018 [facility] Epithelial cells detection in urine sediment by light microscopy MODERATE NONE 06/10/2018 [facility] Mucus detection in urine sediment by light microscopy FEW RARE 06/10/2018 [facility] Prothrombin time (PT) in platelet poor plasma by coagulation assay 15.5 11.9 - 14.5 06/09/2018 [facility] INR in Platelet poor plasma by Coagulation assay 1.13 06/09/2018 [facility] Activated partial thromboplastin time (aPTT) in platelet poor plasma bycoagulation assay 29.6 23.8 - 35.5 06/09/2018 [facility] Serum or plasma total bilirubin measurement (mass/volume) 0.8 0.2 - 1.2 06/09/2018 [facility] Aspartate Amino Transf (AST/SGOT) 47 5 - 34 06/09/2018 [facility] Serum or plasma alanine aminotransferase measurement (enzymatic activity/volume) 66 0 - 55 06/09/2018 [facility] Serum or plasma protein measurement (mass/volume) 6.3 6.5 - 8.1 06/09/2018 [facility] Serum or plasma albumin measurement (mass/volume) 3.6 3.5 - 5.0 06/09/2018 [facility] Plasma globulin measurement (mass/volume) 2.7 2.3 - 3.5 06/09/2018 [facility] Serum or plasma albumin/globulin mass ratio 1.3 0.8 - 2.0 06/09/2018 [facility] Serum or plasma alkaline phosphatase measurement (enzymatic activity/volume) 125 40 - 150 06/09/2018 [facility] Serum or plasma digoxin measurement (mass/volume) < 0.30 0.8 - 2.0 06/09/2018 [facility] Blood culture NO GROWTH AFTER 5 DAYS, FINAL REPORT 06/09/2018 [facility] Influenza virus A and B antigen identification by immunofluorescence NEGATIVE NEGATIVE 06/09/2018 [facility] Streptococcus pyogenes antigen detection in throat NEGATIVE NEGATIVE 06/09/2018 [facility] Capillary blood glucose measurement by glucometer (mass/volume) 167 70 - 120 12/04/2017 [facility] Capillary blood glucose measurement by glucometer (mass/volume) Capillary blood glucose measurement by glucometer (mass/volume) 167 70 - 120 12/04/2017 [facility] Estimated glomerular filtration rate (GFR) determination Estimated glomerular filtration rate (GFR) determination 43 60 12/04/2017 [facility] Glucose measurement Glucose measurement 96 74 - 118 12/04/2017 [facility] Serum or plasma anion gap Serum or plasma anion gap 12.9 8 - 16 12/04/2017 [facility] Serum or plasma calcium measurement (mass/volume) Serum or plasma calcium measurement (mass/volume) 10.1 8.4 - 10.2 12/04/2017 [facility] Serum or plasma carbon dioxide, total measurement (moles/volume) Serum or plasma carbon dioxide, total measurement (moles/volume) 28 22 - 29 12/04/2017 [facility] Serum or plasma chloride measurement (moles/volume) Serum or plasma chloride measurement (moles/volume) 104 98 - 107 12/04/2017 [facility] Serum or plasma creatinine measurement (mass/volume) Serum or plasma creatinine measurement (mass/volume) 1.20 0.57 - 1.11 12/04/2017 [facility] Serum or plasma potassium measurement (moles/volume) Serum or plasma potassium measurement (moles/volume) 3.9 3.5 - 5.1 12/04/2017 [facility] Serum or plasma sodium measurement (moles/volume) Serum or plasma sodium measurement (moles/volume) 141 136 - 145 12/04/2017 [facility] Serum or plasma urea nitrogen measurement (mass/volume) Serum or plasma urea nitrogen measurement (mass/volume) 35 7 - 26 12/04/2017 [facility] Serum or plasma urea nitrogen/creatinine mass ratio Serum or plasma urea nitrogen/creatinine mass ratio 29 6 - 25 12/04/2017 [facility] Automated blood basophil count (count/volume) Automated blood basophil count (count/volume) 0.0 0.0 - 0.1 12/02/2017 [facility] Automated blood basophil count as percentage of total leukocytes Automated blood basophil count as percentage of total leukocytes 0.3 0.0 - 1.0 12/02/2017 [facility] Automated blood eosinophil count Automated blood eosinophil count 0.5 0.0 - 0.4 12/02/2017 [facility] Automated blood eosinophil count as percentage of total leukocytes Automated blood eosinophil count as percentage of total leukocytes 3.5 0.0 - 6.0 12/02/2017 [facility] Automated blood hematocrit (volume fraction) Automated blood hematocrit (volume fraction) 38.8 34.2 - 44.1 12/02/2017 [facility] Automated blood lymphocyte count as percentage ot total leukocytes Automated blood lymphocyte count as percentage ot total leukocytes 19.2 18.0 - 39.1 12/02/2017 [facility] Automated blood monocyte count as percentage of total leukocytes Automated blood monocyte count as percentage of total leukocytes 10.3 4.4 - 11.3 12/02/2017 [facility] Automated blood neutrophil count Automated blood neutrophil count 9.4 2.1 - 6.9 12/02/2017 [facility] Automated blood platelet count (count/volume) Automated blood platelet count (count/volume) 288 140 - 360 12/02/2017 [facility] Automated blood segmented neutrophil count as percentage of total leukocytes Automated blood segmented neutrophil count as percentage of total leukocytes 66.3 38.7 - 80.0 12/02/2017 [facility] Automated erythrocyte mean corpuscular hemoglobin (mass per erythrocyte) Automated erythrocyte mean corpuscular hemoglobin (mass per erythrocyte) 26.7 28 - 32 12/02/2017 [facility] Automated erythrocyte mean corpuscular hemoglobin concentration measurement (mass/volume) Automated erythrocyte mean corpuscular hemoglobin concentration measurement (mass/volume) 32.5 31 - 35 12/02/2017 [facility] Automated erythrocyte mean corpuscular volume Automated erythrocyte mean corpuscular volume 82.2 81 - 99 12/02/2017 [facility] Blood erythrocytes automated count (number/volume) Blood erythrocytes automated count (number/volume) 4.72 3.6 - 5.1 12/02/2017 [facility] Blood hemoglobin measurement (moles/volume) Blood hemoglobin measurement (moles/volume) 12.6 12.0 - 16.0 12/02/2017 [facility] Blood leukocytes automated count (number/volume) Blood leukocytes automated count (number/volume) 14.14 4.8 - 10.8 12/02/2017 [facility] Blood lymphocytes count (number/volume) Blood lymphocytes count (number/volume) 2.7 1.0 - 3.2 12/02/2017 [facility] Blood monocytes automated count (number/volume) Blood monocytes automated count (number/volume) 1.5 0.2 - 0.8 12/02/2017 [facility] Red Cell Distribution Width 15.8 11.7 - 14.4 12/02/2017 [facility] IM GRANULOCYTES % 0.4 0.0 - 1.0 12/02/2017 [facility] Absolute Immature Granulocyte (auto 0.05 0 - 0.1 12/02/2017 [facility] Automated urine sediment leukocyte count by microscopy (number/high power field) Automated urine sediment leukocyte count by microscopy (number/high power field) <5 0 - 5 11/30/2017 [facility] Bacteria detection in urine sediment by light microscopy Bacteria detection in urine sediment by light microscopy NONE NONE 11/30/2017 [facility] Epithelial cells detection in urine sediment by light microscopy Epithelial cells detection in urine sediment by light microscopy FEW NONE 11/30/2017 [facility] Erythrocytes detection in urine sediment by light microscopy Erythrocytes detection in urine sediment by light microscopy NONE 0 - 5 11/30/2017 [facility] Mucus detection in urine sediment by light microscopy Mucus detection in urine sediment by light microscopy RARE RARE 11/30/2017 [facility] Specific gravity of Urine by Test strip Specific gravity of Urine by Test strip 1.015 1.010 - 1.025 11/30/2017 [facility] Urine clarity Urine clarity CLEAR CLEAR 11/30/2017 [facility] Urine color determination Urine color determination YELLOW YELLOW 11/30/2017 [facility] Urine erythrocytes detection Urine erythrocytes detection NEGATIVE NEGATIVE 11/30/2017 [facility] Urine glucose detection Urine glucose detection NEGATIVE NEGATIVE 11/30/2017 [facility] Urine ketones detection by automated test strip Urine ketones detection by automated test strip NEGATIVE NEGATIVE 11/30/2017 [facility] Urine leukocyte esterase detection by dipstick Urine leukocyte esterase detection by dipstick NEGATIVE NEGATIVE 11/30/2017 [facility] Urine nitrite detection Urine nitrite detection NEGATIVE NEGATIVE 11/30/2017 [facility] Urine pH measurement by automated test strip Urine pH measurement by automated test strip 6 5 - 7 11/30/2017 [facility] Urine protein measurement by test strip (mass/volume) Urine protein measurement by test strip (mass/volume) NEGATIVE NEGATIVE 11/30/2017 [facility] Urine total bilirubin measurement (mass/volume) Urine total bilirubin measurement (mass/volume) NEGATIVE NEGATIVE 11/30/2017 [facility] Urine urobilinogen measurement by test strip (mass/volume) Urine urobilinogen measurement by test strip (mass/volume) 0.2 0.2 - 1 11/30/2017 [facility] Serum or plasma magnesium measurement (mass/volume) Serum or plasma magnesium measurement (mass/volume) 2.3 1.3 - 2.1 11/29/2017 [facility] Serum or plasma triiodothyronine (T3) free measurement (mass/volume) 3.0 2.0 - 4.4 11/28/2017 [facility] Serum or plasma creatine kinase MB measurement (mass/volume) Serum or plasma creatine kinase MB measurement (mass/volume) 0.70 0 - 5.0 11/28/2017 [facility] Serum or plasma creatine kinase measurement (enzymatic activity/volume) Serum or plasma creatine kinase measurement (enzymatic activity/volume) 27 29 - 168 11/28/2017 [facility] Serum or plasma triiodothyronine (T3) free measurement (mass/volume) Serum or plasma triiodothyronine (T3) free measurement (mass/volume) 3.0 2.0 - 4.4 11/28/2017 [facility] Troponin I measurement by highly sensitive enzyme immunoassay Troponin I measurement by highly sensitive enzyme immunoassay 0.002 0 - 0.300 11/28/2017 [facility] Lactic Acid Level 9.9 4.5 - 19.8 11/28/2017 [facility] Free thyroxine index 2.1674 1.4 - 3.8 11/28/2017 [facility] Serum or plasma thyroxine (T4) measurement (mass/volume) 7.31 4.5 - 10.9 11/28/2017 [facility] Serum or plasma triiodothyronine resin uptake (T3RU) 29.65 22.5 - 37.0 11/28/2017 [facility] Free thyroxine index Free thyroxine index 2.1674 1.4 - 3.8 11/28/2017 [facility] Serum or plasma thyroxine (T4) free measurement (mass/volume) Serum or plasma thyroxine (T4) free measurement (mass/volume) 1.02 0.9 - 1.8 11/28/2017 [facility] Serum or plasma thyroxine (T4) measurement (mass/volume) Serum or plasma thyroxine (T4) measurement (mass/volume) 7.31 4.5 - 10.9 11/28/2017 [facility] Serum or plasma triiodothyronine resin uptake (T3RU) Serum or plasma triiodothyronine resin uptake (T3RU) 29.65 22.5 - 37.0 11/28/2017 [facility] Lactic Acid Level 9.9 4.5 - 19.8 11/28/2017 [facility] Serum or plasma triglyceride measurement (mass/volume) 110 0 - 149 11/28/2017 [facility] Serum or plasma cholesterol measurement (mass/volume) 136 0 - 199 11/28/2017 [facility] Serum or plasma cholesterol in LDL measurement (mass/volume) 83 60 - 130 11/28/2017 [facility] Serum or plasma cholesterol in HDL measurement (mass/volume) 31 40 - 60 11/28/2017 [facility] Serum or plasma total cholesterol/cholesterol in HDL mass ratio 4.4 3.0 - 3.6 11/28/2017 [facility] Serum or plasma cholesterol in HDL measurement (mass/volume) Serum or plasma cholesterol in HDL measurement (mass/volume) 31 40 - 60 11/28/2017 [facility] Serum or plasma cholesterol in LDL measurement (mass/volume) Serum or plasma cholesterol in LDL measurement (mass/volume) 83 60 - 130 11/28/2017 [facility] Serum or plasma cholesterol measurement (mass/volume) Serum or plasma cholesterol measurement (mass/volume) 136 0 - 199 11/28/2017 [facility] Serum or plasma total cholesterol/cholesterol in HDL mass ratio Serum or plasma total cholesterol/cholesterol in HDL mass ratio 4.4 3.0 - 3.6 11/28/2017 [facility] Serum or plasma triglyceride measurement (mass/volume) Serum or plasma triglyceride measurement (mass/volume) 110 0 - 149 11/28/2017 [facility] Serum or plasma thyrotropin measurement by detection limit <=0.005 miu/l (units/volume) Serum or plasma thyrotropin measurement by detection limit <=0.005 miu/l (units/volume) 2.059 0.350 - 4.940 11/27/2017 [facility] HEMATOLOGY Monocytes # 0.8 0.0 - 0.8 06/01/2012 Normal [facility] HEMATOLOGY Lymphocytes # 1.3 1.0 - 5.5 06/01/2012 Normal [facility] HEMATOLOGY Basophils # 0.0 0.0 - 0.2 06/01/2012 Normal [facility] HEMATOLOGY Segs 62.4 45.0 - 75.0 06/01/2012 Normal [facility] HEMATOLOGY Basophils 0.5 0.0 - 1.0 06/01/2012 Normal [facility] HEMATOLOGY Eosinophils 7.0 0.0 - 4.0 06/01/2012 [facility] HEMATOLOGY Segs-Bands # 4.4 1.5 - 8.1 06/01/2012 Normal [facility] HEMATOLOGY Lymphocytes 19.0 20.0 - 40.0 06/01/2012 LOW [facility] HEMATOLOGY Monocytes 11.1 2.0 - 12.0 06/01/2012 Normal [facility] HEMATOLOGY Eosinophils # 0.5 0.0 - 0.5 06/01/2012 Normal [facility] HEMATOLOGY MCH 27.9 27.0 - 31.0 06/01/2012 Normal [facility] HEMATOLOGY Hct 30.4 36.0 - 48.0 06/01/2012 LOW [facility] HEMATOLOGY MCV 85.7 81.0 - 99.0 06/01/2012 Normal [facility] HEMATOLOGY RDW 16.9 11.5 - 14.5 06/01/2012 [facility] HEMATOLOGY MCHC 32.6 32.0 - 36.0 06/01/2012 Normal [facility] HEMATOLOGY Platelet 409 133 - 450 06/01/2012 Normal [facility] HEMATOLOGY MPV 7.8 7.4 - 10.4 06/01/2012 Normal [facility] HEMATOLOGY RBC 3.55 4.20 - 5.40 06/01/2012 LOW [facility] HEMATOLOGY Hgb 9.9 12.0 - 16.0 06/01/2012 LOW [facility] HEMATOLOGY WBC 7.0 3.7 - 10.4 06/01/2012 Normal [facility] STOOL TESTS Occult Bld Stl Negative (05/29/2012 10:40:00) Negative 05/29/2012 Normal [facility] STOOL TESTS Occult Bld Stl Negative (05/28/2012 05:50:00) Negative 05/28/2012 Normal [facility] HEMATOLOGY Basophils # 0.0 0.0 - 0.2 05/28/2012 Normal [facility] HEMATOLOGY Eosinophils # 0.4 0.0 - 0.5 05/28/2012 Normal [facility] HEMATOLOGY Monocytes # 1.1 0.0 - 0.8 05/28/2012 [facility] HEMATOLOGY Lymphocytes 16.9 20.0 - 40.0 05/28/2012 LOW [facility] HEMATOLOGY Segs 67.2 45.0 - 75.0 05/28/2012 Normal [facility] HEMATOLOGY Lymphocytes # 1.6 1.0 - 5.5 05/28/2012 Normal [facility] HEMATOLOGY Segs-Bands # 6.5 1.5 - 8.1 05/28/2012 Normal [facility] HEMATOLOGY Eosinophils 4.2 0.0 - 4.0 05/28/2012 [facility] HEMATOLOGY Monocytes 11.3 2.0 - 12.0 05/28/2012 Normal [facility] HEMATOLOGY Basophils 0.4 0.0 - 1.0 05/28/2012 Normal [facility] HEMATOLOGY RDW 16.1 11.5 - 14.5 05/28/2012 [facility] HEMATOLOGY MCHC 32.9 32.0 - 36.0 05/28/2012 Normal [facility] HEMATOLOGY Hct 30.0 36.0 - 48.0 05/28/2012 [facility] HEMATOLOGY Hgb 9.9 12.0 - 16.0 05/28/2012 LOW [facility] HEMATOLOGY MCH 27.9 27.0 - 31.0 05/28/2012 Normal [facility] HEMATOLOGY MCV 84.9 81.0 - 99.0 05/28/2012 Normal [facility] HEMATOLOGY RBC 3.53 4.20 - 5.40 05/28/2012 LOW [facility] HEMATOLOGY Platelet 429 133 - 450 05/28/2012 Normal [facility] HEMATOLOGY MPV 7.7 7.4 - 10.4 05/28/2012 Normal [facility] HEMATOLOGY WBC 9.7 3.7 - 10.4 05/28/2012 Normal [facility] STOOL TESTS Occult Bld Stl Negative (05/27/2012 17:00:00) Negative 05/27/2012 Normal [facility] HEMATOLOGY Basophils # 0.1 0.0 - 0.2 05/27/2012 Normal [facility] HEMATOLOGY Segs 61.6 45.0 - 75.0 05/27/2012 Normal [facility] HEMATOLOGY Eosinophils # 0.4 0.0 - 0.5 05/27/2012 Normal [facility] HEMATOLOGY Lymphocytes # 2.0 1.0 - 5.5 05/27/2012 Normal [facility] HEMATOLOGY Monocytes # 0.9 0.0 - 0.8 05/27/2012 [facility] HEMATOLOGY Basophils 0.7 0.0 - 1.0 05/27/2012 Normal [facility] HEMATOLOGY Segs-Bands # 5.4 1.5 - 8.1 05/27/2012 Normal [facility] HEMATOLOGY Eosinophils 4.8 0.0 - 4.0 05/27/2012 [facility] HEMATOLOGY Lymphocytes 22.3 20.0 - 40.0 05/27/2012 Normal [facility] HEMATOLOGY Monocytes 10.6 2.0 - 12.0 05/27/2012 Normal [facility] HEMATOLOGY WBC 8.8 3.7 - 10.4 05/27/2012 Normal [facility] HEMATOLOGY RBC 3.51 4.20 - 5.40 05/27/2012 LOW [facility] HEMATOLOGY MCV 85.7 81.0 - 99.0 05/27/2012 Normal [facility] HEMATOLOGY Hgb 9.9 12.0 - 16.0 05/27/2012 LOW [facility] HEMATOLOGY Hct 30.1 36.0 - 48.0 05/27/2012 LOW [facility] HEMATOLOGY Platelet 407 133 - 450 05/27/2012 Normal [facility] HEMATOLOGY MPV 7.7 7.4 - 10.4 05/27/2012 Normal [facility] HEMATOLOGY MCH 28.1 27.0 - 31.0 05/27/2012 Normal [facility] HEMATOLOGY MCHC 32.8 32.0 - 36.0 05/27/2012 Normal [facility] HEMATOLOGY RDW 16.5 11.5 - 14.5 05/27/2012 [facility] BLOOD BANK RESULTS ABO/Rh O POS 05/26/2012 Unknown [facility] BLOOD BANK RESULTS Antibody Scrn Negative (05/26/2012 15:06:00) 05/26/2012 Normal [facility] BLOOD BANK RESULTS RBC product Product available 1 (05/26/2012 13:47:00) 05/26/2012 Normal <sup>1</sup>Result Comment: 05/26/2012 18:29 [id number]
Called to Sergey at 05/26/2012 18:29 by AN [facility] CHEMISTRY Vitamin B12 Lvl 591 342 - 1320 05/26/2012 Normal [facility] CHEMISTRY UIBC 280 110 - 370 05/26/2012 Normal [facility] CHEMISTRY % [place] Fe 10 12 - 57 05/26/2012 LOW [facility] CHEMISTRY TIBC 312 228 - 428 05/26/2012 Normal [facility] CHEMISTRY Iron 32 30 - 160 05/26/2012 Normal [facility] CHEMISTRY Ferritin Lvl 44 5 - 204 05/26/2012 Normal [facility] CHEMISTRY Folate Lvl 22.2 >=3.0 05/26/2012 Normal [facility] HEMATOLOGY Retic Auto 1.2 0.5 - 1.5 05/26/2012 Normal [facility] URINALYSIS UA Color Ltyellow 05/25/2012 NA [facility] URINALYSIS UA Urobilinogen 0.1 - 1.0 05/25/2012 NA [facility] URINALYSIS UA Protein Negative mg/dL (05/25/2012 16:00:00) Negative 05/25/2012 Normal [facility] URINALYSIS UA pH 7.0 5.0 - 8.0 05/25/2012 Normal [facility] URINALYSIS UA Spec Grav 1.010 <=1.030 05/25/2012 Normal [facility] URINALYSIS UA Turbidity Clear (05/25/2012 16:00:00) Clear 05/25/2012 Normal [facility] URINALYSIS UA Bacteria Occasional /HPF *NA* (05/25/2012 16:00:00) None Seen 05/25/2012 [facility] URINALYSIS UA Sq Epi Occasional /LPF *NA* (05/25/2012 16:00:00) Few 05/25/2012 [facility] URINALYSIS UA WBC 2 0 - 5 05/25/2012 Normal [facility] URINALYSIS UA Leuk Est Negative (05/25/2012 16:00:00) Negative 05/25/2012 Normal [facility] URINALYSIS UA Nitrite Negative (05/25/2012 16:00:00) Negative 05/25/2012 Normal [facility] URINALYSIS UA Blood Negative (05/25/2012 16:00:00) Negative 05/25/2012 Normal [facility] URINALYSIS UA Bili Negative *NA* (05/25/2012 16:00:00) Negative 05/25/2012 [facility] URINALYSIS UA Ketones Negative mg/dL *NA* (05/25/2012 16:00:00) Negative 05/25/2012 [facility] URINALYSIS UA Glucose Negative mg/dL *NA* (05/25/2012 16:00:00) Negative 05/25/2012 [facility] CHEMISTRY eGFR 54 05/17/2012 NA <sup>3</sup>Result Comment: The eGFR is calculated using the CKD-EPI formula. In most young, healthy individuals the eGFR will be >90 mL/min/1.73m2. The eGFR declines with age. An eGFR of 60-89 may be normal in some populations, particularly the elderly, for whom the CKD-EPI formula has not been extensively validated. Use of the eGFR is not recommended in the following populations:& lt;br/>
Individuals with unstable creatinine concentrations, including patients [...] should be multiplied by the estimated BMI. [facility] CHEMISTRY Chloride Lvl 103 95 - 109 05/17/2012 Normal [facility] CHEMISTRY Potassium Lvl 4.0 3.5 - 5.1 05/17/2012 Normal [facility] CHEMISTRY CO2 31 24 - 32 05/17/2012 Normal [facility] CHEMISTRY Calcium Lvl 9.0 8.5 - 10.5 05/17/2012 Normal [facility] CHEMISTRY Glucose Lvl 90 70 - 99 05/17/2012 Normal <sup>6</sup>Interpretive Data: Adult reference range values reflect the clinical guidelines
of the [place] [employer]. [facility] CHEMISTRY BUN 22 7 - 22 05/17/2012 Normal [facility] CHEMISTRY Creatinine Lvl 1.0 0.5 - 1.4 05/17/2012 Normal [facility] CHEMISTRY Sodium Lvl 143 135 - 145 05/17/2012 Normal [facility] CHEMISTRY AGAP 13.0 10.0 - 20.0 05/17/2012 Normal [facility] HEMATOLOGY Basophils 0.2 0.0 - 1.0 05/17/2012 Normal [facility] HEMATOLOGY Lymphocytes # 1.8 1.0 - 5.5 05/17/2012 Normal [facility] HEMATOLOGY Eosinophils 4.2 0.0 - 4.0 05/17/2012 [facility] HEMATOLOGY Segs-Bands # 5.5 1.5 - 8.1 05/17/2012 Normal [facility] HEMATOLOGY Monocytes # 1.1 0.0 - 0.8 05/17/2012 [facility] HEMATOLOGY Eosinophils # 0.4 0.0 - 0.5 05/17/2012 Normal [facility] HEMATOLOGY Basophils # 0.0 0.0 - 0.2 05/17/2012 Normal [facility] HEMATOLOGY Segs 62.6 45.0 - 75.0 05/17/2012 [facility] HEMATOLOGY Lymphocytes 20.0 20.0 - 40.0 05/17/2012 [facility] HEMATOLOGY Monocytes 13.0 2.0 - 12.0 05/17/2012 [facility] HEMATOLOGY RBC 3.45 4.20 - 5.40 05/17/2012 LOW [facility] HEMATOLOGY WBC 8.8 3.7 - 10.4 05/17/2012 Normal [facility] HEMATOLOGY Hct 29.3 36.0 - 48.0 05/17/2012 [facility] HEMATOLOGY Hgb 9.9 12.0 - 16.0 05/17/2012 [facility] HEMATOLOGY MCV 84.9 81.0 - 99.0 05/17/2012 Normal [facility] HEMATOLOGY MCHC 33.6 32.0 - 36.0 05/17/2012 Normal [facility] HEMATOLOGY MCH 28.5 27.0 - 31.0 05/17/2012 [facility] HEMATOLOGY Platelet 180 133 - 450 05/17/2012 Normal [facility] HEMATOLOGY RDW 16.1 11.5 - 14.5 05/17/2012 [facility] HEMATOLOGY MPV 9.1 7.4 - 10.4 05/17/2012 Normal [facility] CHEMISTRY AGAP 11.0 10.0 - 20.0 05/16/2012 Normal [facility] CHEMISTRY eGFR 49 05/16/2012 NA <sup>4</sup>Result Comment: The eGFR is calculated using the CKD-EPI formula. In most young, healthy individuals the eGFR will be >90 mL/min/1.73m2. The eGFR declines with age. An eGFR of 60-89 may be normal in some populations, particularly the elderly, for whom the CKD-EPI formula has not been extensively validated. Use of the eGFR is not recommended in the following populations:& lt;br/>
Individuals with unstable creatinine concentrations, including patients [...] should be multiplied by the estimated BMI. [facility] CHEMISTRY Potassium Lvl 4.0 3.5 - 5.1 05/16/2012 Normal [facility] CHEMISTRY Creatinine Lvl 1.1 0.5 - 1.4 05/16/2012 Normal [facility] CHEMISTRY Chloride Lvl 105 95 - 109 05/16/2012 Normal [facility] CHEMISTRY Sodium Lvl 143 135 - 145 05/16/2012 Normal [facility] CHEMISTRY Glucose Lvl 96 70 - 99 05/16/2012 Normal <sup>7</sup>Interpretive Data: Adult reference range values reflect the clinical guidelines
of the [employer] [place] [employer]. [facility] CHEMISTRY BUN 22 7 - 22 05/16/2012 Normal [facility] CHEMISTRY Calcium Lvl 8.9 8.5 - 10.5 05/16/2012 Normal [facility] CHEMISTRY CO2 31 24 - 32 05/16/2012 Normal [facility] HEMATOLOGY Basophils # 0.0 0.0 - 0.2 05/16/2012 Normal [facility] HEMATOLOGY Eosinophils # 0.4 0.0 - 0.5 05/16/2012 Normal [facility] HEMATOLOGY Monocytes # 1.2 0.0 - 0.8 05/16/2012 [facility] HEMATOLOGY Segs-Bands # 5.3 1.5 - 8.1 05/16/2012 Normal [facility] HEMATOLOGY Lymphocytes # 1.9 1.0 - 5.5 05/16/2012 Normal [facility] HEMATOLOGY Eosinophils 4.5 0.0 - 4.0 05/16/2012 [facility] HEMATOLOGY Basophils 0.3 0.0 - 1.0 05/16/2012 Normal [facility] HEMATOLOGY Lymphocytes 21.5 20.0 - 40.0 05/16/2012 Normal [facility] HEMATOLOGY Monocytes 13.9 2.0 - 12.0 05/16/2012 [facility] HEMATOLOGY Segs 59.8 45.0 - 75.0 05/16/2012 Normal [facility] HEMATOLOGY MCHC 33.1 32.0 - 36.0 05/16/2012 Normal [facility] HEMATOLOGY MCH 28.2 27.0 - 31.0 05/16/2012 Normal [facility] HEMATOLOGY MCV 85.3 81.0 - 99.0 05/16/2012 Normal [facility] HEMATOLOGY Hct 28.9 36.0 - 48.0 05/16/2012 LOW [facility] HEMATOLOGY Platelet 158 133 - 450 05/16/2012 Normal [facility] HEMATOLOGY MPV 9.5 7.4 - 10.4 05/16/2012 Normal [facility] HEMATOLOGY RDW 16.0 11.5 - 14.5 05/16/2012 [facility] HEMATOLOGY Hgb 9.6 12.0 - 16.0 05/16/2012 LOW [facility] HEMATOLOGY RBC 3.39 4.20 - 5.40 05/16/2012 LOW [facility] HEMATOLOGY WBC 8.8 3.7 - 10.4 05/16/2012 Normal [facility] BLOOD BANK RESULTS RBC product Product available 1 (05/15/2012 08:23:00) 05/15/2012 Normal <sup>1</sup>Result Comment: 05/15/2012 08:46 JIM
called to sara [facility] CHEMISTRY eGFR 49 05/15/2012 NA <sup>5</sup>Result Comment: The eGFR is calculated using the CKD-EPI formula. In most young, healthy individuals the eGFR will be >90 mL/min/1.73m2. The eGFR declines with age. An eGFR of 60-89 may be normal in some populations, particularly the elderly, for whom the CKD-EPI formula has not been extensively validated. Use of the eGFR is not recommended in the following populations:& lt;br/>
Individuals with unstable creatinine concentrations, including patients [...] should be multiplied by the estimated BMI. [facility] CHEMISTRY CO2 27 24 - 32 05/15/2012 Normal [facility] CHEMISTRY Calcium Lvl 8.0 8.5 - 10.5 05/15/2012 LOW [facility] CHEMISTRY Creatinine Lvl 1.1 0.5 - 1.4 05/15/2012 Normal [facility] CHEMISTRY BUN 20 7 - 22 05/15/2012 Normal [facility] CHEMISTRY Glucose Lvl 106 70 - 99 05/15/2012 HI <sup>8</sup>Interpretive Data: Adult reference range values reflect the clinical guidelines
of the [place] [employer]. [facility] CHEMISTRY Chloride Lvl 110 95 - 109 05/15/2012 HI [facility] CHEMISTRY Potassium Lvl 4.2 3.5 - 5.1 05/15/2012 Normal [facility] CHEMISTRY Sodium Lvl 143 135 - 145 05/15/2012 Normal [facility] CHEMISTRY AGAP 10.2 10.0 - 20.0 05/15/2012 Normal [facility] HEMATOLOGY Basophils # 0.0 0.0 - 0.2 05/15/2012 Normal [facility] HEMATOLOGY Eosinophils # 0.2 0.0 - 0.5 05/15/2012 Normal [facility] HEMATOLOGY Monocytes # 0.9 0.0 - 0.8 05/15/2012 [facility] HEMATOLOGY Lymphocytes 14.2 20.0 - 40.0 05/15/2012 LOW [facility] HEMATOLOGY Eosinophils 2.4 0.0 - 4.0 05/15/2012 Normal [facility] HEMATOLOGY Monocytes 10.5 2.0 - 12.0 05/15/2012 Normal [facility] HEMATOLOGY Lymphocytes # 1.3 1.0 - 5.5 05/15/2012 Normal [facility] HEMATOLOGY Basophils 0.2 0.0 - 1.0 05/15/2012 Normal [facility] HEMATOLOGY Segs-Bands # 6.6 1.5 - 8.1 05/15/2012 Normal [facility] HEMATOLOGY Segs 72.7 45.0 - 75.0 05/15/2012 Normal [facility] HEMATOLOGY Hgb 7.2 12.0 - 16.0 05/15/2012 LOW [facility] HEMATOLOGY RBC 2.63 4.20 - 5.40 05/15/2012 LOW [facility] HEMATOLOGY WBC 9.1 3.7 - 10.4 05/15/2012 Normal [facility] HEMATOLOGY Hct 21.5 36.0 - 48.0 05/15/2012 [facility] HEMATOLOGY MCH 27.3 27.0 - 31.0 05/15/2012 Normal [facility] HEMATOLOGY MCV 82.0 81.0 - 99.0 05/15/2012 Normal [facility] HEMATOLOGY MCHC 33.3 32.0 - 36.0 05/15/2012 Normal [facility] HEMATOLOGY MPV 9.5 7.4 - 10.4 05/15/2012 Normal [facility] HEMATOLOGY RDW 17.2 11.5 - 14.5 05/15/2012 [facility] HEMATOLOGY Platelet 168 133 - 450 05/15/2012 Normal [facility] BLOOD BANK RESULTS RBC product Product available 2 (05/14/2012 07:55:00) 05/14/2012 Normal <sup>2</sup>Result Comment: 05/14/2012 07:58 [id number]
called to bill [facility] CHEMISTRY CK MB Index 1.7 0.0 - 2.5 05/13/2012 Normal [facility] CHEMISTRY Total CK 70 12 - 191 05/13/2012 Normal [facility] CHEMISTRY CK MB 1.2 0.5 - 3.6 05/13/2012 Normal [facility] CHEMISTRY Troponin-I 0.02 0.00 - 0.40 05/13/2012 Normal [facility] BLOOD BANK RESULTS ABO/Rh O POS 05/13/2012 Unknown [facility] BLOOD BANK RESULTS Antibody Scrn Negative (05/13/2012 11:42:00) 05/13/2012 Normal [facility] CHEMISTRY Globulin 2.6 2.0 - 4.0 05/13/2012 Normal [facility] CHEMISTRY A/G Ratio 1.6 0.7 - 1.6 05/13/2012 Normal [facility] CHEMISTRY B/C Ratio 22 6 - 25 05/13/2012 Normal [facility] CHEMISTRY ALT 18 0 - 65 05/13/2012 Normal [facility] CHEMISTRY AST 15 0 - 37 05/13/2012 Normal [facility] CHEMISTRY Alk Phos 60 39 - 136 05/13/2012 Normal [facility] CHEMISTRY Bili Total 0.4 0.2 - 1.3 05/13/2012 Normal [facility] CHEMISTRY Albumin Lvl 4.2 3.5 - 5.0 05/13/2012 Normal [facility] CHEMISTRY Total Protein 6.8 6.4 - 8.4 05/13/2012 Normal [facility] HEMATOLOGY INR 1.11 0.85 - 1.17 05/13/2012 Normal <sup>9</sup>Interpretive Data: RECOMMENDED RANGES FOR PROTIME INR:
2.0-3.0 for most medical and surgical thromboembolic states.
2.5-3.5 for artificial heart valves and recurrent embolism.

INR SHOULD BE USED ONLY FOR PATIENTS ON STABLE ANTICOAGULANT THERAPY. [facility] HEMATOLOGY PTT 28.1 22.9 - 35.8 05/13/2012 Normal <sup>10</sup>Interpretive Data: Heparin Therapeutic Range: 57 - 92 Seconds [facility] HEMATOLOGY PT 14.5 12.0 - 14.7 05/13/2012 Normal [facility] Pathology Reports No Data Provided for This Section Diagnostic Reports No Data Provided for This Section Consultation Notes No Data Provided for This Section Discharge Summaries No Data Provided for This Section History and Physicals No Data Provided for This Section Vital Signs Vital Sign Value Date Comments Source Respitory Rate 20 06/02/2012 [facility] Systolic (mm Hg) 130 06/02/2012 [facility] Diastolic (mm Hg) 60 06/02/2012 [facility] Heart Rate 68 06/02/2012 [facility] Temperature Oral (F) 97.8 F 06/02/2012 [facility] Diastolic (mm Hg) 64 06/02/2012 [facility] Systolic (mm Hg) 150 06/02/2012 [facility] Temperature Oral (F) 98 F 06/02/2012 [facility] Respitory Rate 20 06/02/2012 [facility] Heart Rate 76 06/02/2012 [facility] Heart Rate 65 06/01/2012 [facility] Temperature Oral (F) 98.1 F 06/01/2012 [facility] Systolic (mm Hg) 136 06/01/2012 [facility] Respitory Rate 20 06/01/2012 [facility] Diastolic (mm Hg) 76 06/01/2012 [facility] Weight 72.073 05/18/2012 [facility] Height 172.20 cm 05/18/2012 [facility] Respitory Rate 18 05/17/2012 [facility] Heart Rate 71 05/17/2012 [facility] Temperature Oral (F) 98.7 F 05/17/2012 [facility] Diastolic (mm Hg) 62 05/17/2012 [facility] Systolic (mm Hg) 132 05/17/2012 [facility] Respitory Rate 16 05/17/2012 [facility] Systolic (mm Hg) 167 05/17/2012 [facility] Diastolic (mm Hg) 70 05/17/2012 [facility] Temperature Oral (F) 98.5 F 05/17/2012 [facility] Heart Rate 72 05/17/2012 [facility] Height 172.72 cm 05/13/2012 [facility] Weight 72.727 05/13/2012 [facility] Encounters Location Location Details Encounter Type Encounter Number Reason For Visit Attending Provider ADM Date DC Date Status Source [facility] Inpatient [id number] RODGER LOGAN 05/13/2012 05/17/2012 Discharged [facility] [place] [id number] HIP FX VIKAS RUBYINE 05/17/2012 06/02/2012 Active [facility] Discharged Inpatient [id number] JOSE JUAN BUCKLEY MD 11/27/2017 12/05/2017 [facility] Admitted Inpatient [id number] JOHN BUSCH MD 06/10/2018 [facility] Procedures Procedure Code Date Perfomer Comments Source X-ray of chest, two views [id number] 06/09/2018 INO [facility] X-ray of chest, two views [id number] 12/05/2017 MARCIO [facility] Bladder operation [id number] [facility] Hip replacement [facility] Hysterectomy [id number] [facility] Knee replacement [id number] [facility] Mastectomy [id number] [facility] Assessment and Plan No Data Provided for This Section Plan of Care Plan of Care Date Source Discharge Date 06/15/18 2:50pm Disposition HOME HEALTH SERVICE Instructions/Education Provided Congestive Heart Failure Prescriptions See Medication Section Referrals ROSALBA PEARSON MD (Cardiology) Order Date: 1 Week Entered Date: 06/15/2018 1:21pm Address: [facility] [address] [place] [address] Additional Instructions/Education F/U WITH PRIMARY CARE PROVIDER IN 1-2 WEEKS F/U WITH CARDIO DISCUSSED TAKE MEDICATIONS PRESCRIBED NOTIFY YOUR DOCTOR FOR ANY CONCERNS YOU MAY HAVE 06/15/2018 [facility] Discharge Date 12/05/17 6:30pm Disposition TRANSFER CARE HOME Prescriptions See Medication Section Referrals Migdalia Zaldivar (Internal Medicine) Order Date: 5-7 Days Entered Date: 12/04/2017 11:37am BEVERLY CHAN MD (Cardiology) Order Date: 5-7 Days Entered Date: 12/04/2017 11:38am Address: [address] [place] [address] [address] [place] [address] Additional Instructions/Education F/U w/ PCP [facility] for appointment in 5-7 Days F/U w/ Cardiology Dr. Chan in 5-7 Days Notify [facility] Case Management on Tuesday12/05/17 by 1 PM if Home Health has not made contact Heart Health Diet, Low Sodium Return/Seek care for fever, Shortness of Breath, or any and all concerns No heavy lifting, or strenous activity 12/05/2017 [facility] Social History Social History Date Source Social History Problem Response Recorded Date/Time Onset Date Status Hx Psychiatric Problems Yes 05/05/2014 2:15am Not Applicable Not Applicable Hx Eating Disorder No 05/05/2014 2:15am Not Applicable Not Applicable Hx Substance Use Disorder No 05/05/2014 2:15am Not Applicable Not Applicable Smoking Status Start Date Stop Date Never Smoker 06/15/2018 [facility] Family History No Data Provided for This Section Advance Directives Order Name Results Value Date Source Advance Directives Advance Directives Directive Response Recorded Date/Time Does the patient have an advance directive? No 06/09/18 11:30pm If yes, is advance directive on file with [facility]? No 06/09/18 11:30pm If not on file with [facility] will patient provide a copy? No 06/09/18 11:30pm Do you have a Directive to Physician? No 06/09/18 8:44pm Do you have a Medical Power of Rehabilitation Services Aide? No 06/09/18 8:44pm Do you have an out of hospital Do Not Resuscitate Order? No 06/09/18 8:44pm Do you have any special needs we should be aware of? No 06/09/18 8:44pm Do you have a support person here with you today? Yes 06/09/18 8:44pm Did patient receive Notice of Privacy Practices? Yes 06/09/18 8:44pm Did patient receive patient rights and responsibilities? Yes 06/09/18 8:44pm 06/15/2018 [facility] Advance Directives Advance Directives Directive Response Recorded Date/Time Does the patient have an advance directive? No 11/27/17 8:00pm If yes, is advance directive on file with [facility]? No 11/27/17 8:00pm If not on file with [facility] will patient provide a copy? Yes 11/27/17 8:00pm Do you have a Directive to Physician? Yes 11/27/17 4:43pm Do you have a Medical Power of Rehabilitation Services Aide? No 11/27/17 4:43pm Do you have an out of hospital Do Not Resuscitate Order? No 11/27/17 4:43pm Do you have any special needs we should be aware of? No 11/27/17 4:43pm Do you have a support person here with you today? Yes 11/27/17 4:43pm Did patient receive Notice of Privacy Practices? Yes 11/27/17 4:43pm Did patient receive patient rights and responsibilities? Yes 11/27/17 4:43pm 12/05/2017 [facility] Functional Status No Data Provided for This Section
--- OUTSIDE RECORDS SUMMARY | 2018-11-30 23:10 | XMS REPORT | Summary of Care ---
Author Author MARK ANTHONY GOODE D.O. Organization Unknown Address Unknown Phone Unavailable Care Team Providers Care Supervisor Payroll Name Role Phone MARK ANTHONY GOODE D.O. [...] GERD without esophagitis (530.81, K21.9) Status: Active Insomnia (780.52, G47.00) Status: Active Atrial fibrillation (427.31, I48.91) Status: Active Essential (primary) hypertension (401.9, I10) Status: Active CAD (coronary artery disease) (414.00, I25.10) Status: Active Medications Name Dates Details Fluticasone [...] D.O., GEN-JOAQUÍN * Start : 18-Apr-2018 Active Furosemide 40 MG Oral Tablet TAKE 1 TABLET BY MOUTH EVERY DAY * Quantity: 30 Refills: 5 YEH D.O., GEN-JOAQUÍN * Start : 18-Apr-2018 Active Esomeprazole Magnesium 40 MG Oral Capsule Delayed Release TAKE 1 CAPSULE DAILY * Quantity: 30 Refills: 5 YEH D.O., GEN-JOAQUÍN * Start : 18-Apr-2018 Active Xarelto 20 MG Oral Tablet TAKE 1 TABLET DAILY * Quantity: 30 Refills: 5 YEH D.O., GEN-JOAQUÍN * Start : 18-Apr-2018 Active amLODIPine Besylate 5 MG Oral Tablet TAKE 1 TABLET DAILY. * Quantity: 30 Refills: 5 YEH D.O., GEN-JOAQUÍN * Start : 18-Apr-2018 Active Labetalol HCl - 100 MG Oral Tablet Take 1 tablet by mouth twice a day * Quantity: 60 Refills: 5 YEH D.O., GEN-JOAQUÍN * Start : 18-Apr-2018 Active traZODone HCl - 100 MG Oral Tablet TAKE 1 TABLET AT BEDTIME. * Quantity: 30 Refills: 2 * Start : 18-Apr-2018 Active Biotin 07960 MCG Oral Tablet TAKE DIRECTED. * Refills: 0 * Start : 18-Apr-2018 Active Zolpidem Tartrate 10 MG Oral Tablet TAKE ONE (1) TABLET(S) BY MOUTH ONCE A DAY AT BEDTIME. * Quantity: 30 Refills: 3 YEH D.O., GEN-JOAQUÍN * Start : 18-Apr-2018 Active Digoxin 125 MCG Oral Tablet TAKE 1 TABLET DAILY. * Quantity: 90 Refills: 1 YEH D.O., GEN-JOAQUÍN * Start : 08-Aug-2018 Active Allergies and Adverse Reactions Name Dates Details codeine (Allergy) Status: Active Darvon (Allergy) Status: Active oxyCODONE HCl TABS (Allergy) Status: Active OxyCONTIN TB12 [...] Z86.79) Status: Resolved Procedures Procedure Dates Details [QH] LIPID PANEL WITH REFLEX TO DIRECT LDL Date: 08-Aug-2018 [QLH] CBC (INCLUDES DIFF/PLT) Date: 08-Aug-2018 [QLH] CMP W/EGFR Date: 08-Aug-2018 [QLH] TSH, 3RD GENERATION W/REFLEX TO FT4 Date: 08-Aug-2018 [QLH] DIGOXIN Date: 08-Aug-2018 History of Knee Replacement Completed History of [...] smoker Vital Signs Date Test Result Details [id number] BP Systolic 145 mm[Hg] Status: Comments: Location: LUE; Position: Sitting BP Diastolic 108 mm[Hg] Status: Comments: Location: LUE; Position: Sitting Weight 165 lb Status: Body Mass Index Calculated 24.37 kg/m2 Status: Body Surface Area Calculated 1.9 m2 Status: Height 69 in Status: Heart Rate 73 /min Status: Temperature 98.6 f Status: Comments: Method: Temporal Respiration Rate 16 /min Status: Results Date Description Value Details Results not documented Plan of Care Name Dates Details Planned Observations Planned Goals not documented Interventions Provided Medication Changes* Digoxin 125 MCG Oral Tablet - Start * Labetalol HCl - 100 MG Oral Tablet - Renew * Zolpidem Tartrate 10 MG Oral Tablet - Renew Labs/Procedures/Imaging* [QH] LIPID PANEL WITH REFLEX TO DIRECT LDL; To Be Done: 08 Aug 2018 * [QLH] CBC (INCLUDES DIFF/PLT); To Be Done: 08 Aug 2018 * [QLH] CMP W/EGFR; To Be Done: 08 Aug 2018 * [QLH] DIGOXIN; To Be Done: 08 Aug 2018 * [QLH] TSH, 3RD GENERATION W/REFLEX TO FT4; To Be Done: 08 Aug 2018 Instructions* Patient Specific Education Given; Done: 08 Aug 2018 Plan* AFib/ChF - stable. Continue Digoxin. Check Digoxin level in 1 month. Continue Labetalol. Pt was on dual betablockers. Question utility of dual therapy. D/C Metoprolol. Follow-up with cardiology, Dr. Kelly. Continue Xarelto * HTN - stable. Continue AMlodipine, Irbesartan, Labetaolol * Mild confusion - New. Suspect that this may have been from hospitalization. Asked Pt's son to monitor Pt and if confusion gets worse to come in for reassessment * Edema - stable. Continue Furosemide * Depression - stable. Continue Venlafaxine * GERD - stable. OK to do trial wean of Nexium * Insomnia - stable. Continue Zolpidem * Obtain labs as ordered in 1 month, Instructions Name Dates Details Instructions not documented Encounters Appointment; MARK ANTHONY GOODE D.O. Encounter Diagnosis: Problem not documented On: 18-Apr-2018 14:00 Appointment; MARK ANTHONY GOODE D.O. Encounter Diagnosis: Problem not documented On: 08-Aug-2018 13:00
[2018-12-01 01:27] LABS: BASOPHILS # (AUTO) 0.1 (0.0-0.1); BASOPHILS % 0.8 % (0.0-1.0); EOSINOPHILS # (AUTO) 0.4 (0.0-0.4); EOSINOPHILS % 4.3 % (0.0-6.0); HEMATOCRIT 36.9 % (34.2-44.1); HEMOGLOBIN 11.6 g/dL (12.0-16.0); LYMPHOCYTES # (AUTO) 2.9 (1.0-3.2); MEAN CORPUSCULAR HEMOGLOBIN 24.6 pg (28-32); MEAN CORPUSCULAR HGB CONC 31.4 g/dL (31-35); MEAN CORPUSCULAR VOLUME 78.2 fL (81-99); MONOCYTES # (AUTO) 0.9 (0.2-0.8); MONOCYTES % 8.3 % (4.4-11.3); NEUTROPHILS % 58.3 % (38.7-80.0); PLATELET COUNT 267 x10e3/uL (140-360); RED BLOOD COUNT 4.72 x10e6/uL (3.6-5.1); RED CELL DISTRIBUTION WIDTH 20.3 % (11.7-14.4)
--- NOTE | 2018-12-01 01:29 | Diagnostic Imaging Report ---
EXAMINATION: CHEST SINGLE (PORTABLE) INDICATION: Chest pain COMPARISON: Chest radiograph FINDINGS: AP view TUBES and LINES: None. LUNGS: Lungs are well inflated. Lungs are clear. There is mild prominence of the central pulmonary vasculature, consistent with pulmonary venous congestion. PLEURA: No pleural effusion or pneumothorax. HEART AND MEDIASTINUM: Cardiac size is moderately enlarged. BONES AND SOFT TISSUES: No acute osseous lesion. Total right shoulder arthroplasty intact. Surgical clips in the left axilla and breast. UPPER ABDOMEN: No free air under the diaphragm. IMPRESSION: Moderate cardiomegaly and pulmonary vascular congestion. Signed by: Vinicius Pastor DO on 12/01/2018 1:26 AM
[2018-12-01 01:44] LABS: ALBUMIN 3.8 g/dL (3.5-5.0); ALBUMIN/GLOBULIN RATIO 1.4 (0.8-2.0); ANION GAP 15.9 mmol/L (8-16); CALCIUM 9.5 mg/dL (8.4-10.2); CREATININE, SERUM 0.95 mg/dL (0.57-1.11); POTASSIUM 3.9 mmol/L (3.5-5.1)
[2018-12-01 01:50] LABS: CREATINE KINASE MB 1.8 ng/mL (0-5.0)
[2018-12-01 03:46] LABS: BILIRUBIN,URINE NEGATIVE (NEGATIVE); CLARITY,URINE CLEAR (CLEAR); COLOR,URINE YELLOW (YELLOW); KETONES,URINE NEGATIVE (NEGATIVE); LEUKOCYTE ESTERASE ,URINE NEGATIVE (NEGATIVE); NITRITE,URINE NEGATIVE (NEGATIVE); PROTEIN,URINE DIPSTICK NEGATIVE (NEGATIVE); URINE UROBILINOGEN 0.2 mg/dL (0.2 - 1)
[2018-12-01 04:00] LABS: CREATINE KINASE MB 2.2 ng/mL (0-5.0)
[2018-12-01 04:02] LABS: BACTERIA,URINE FEW /HPF; EPITHELIAL CELLS,URINE FEW /LPF; RBC,URINE 0-5 /HPF (0-5); TRANSITIONAL EPI CELLS,URINE FEW
[2018-12-01 05:07] LABS: CREATINE KINASE MB 2.2 ng/mL (0-5.0)
[2018-12-01 05:45] VITALS: BP 138/72
== END 2018-12-01 06:34 | disposition home or self-care (01) ==
LOC: ER 22:59
DX: R07.89 Other chest pain (principal); I50.9 Heart failure, unspecified; I48.91 Unspecified atrial fibrillation; I10 Essential (primary) hypertension; I51.9 Heart disease, unspecified; I25.10 Atherosclerotic heart disease of native coronary artery without angina pectoris; J98.4 Other disorders of lung
CPT/HCPCS: 36415; 71045; 80053; 81001; 82550; 82553; 84484; 85025; 93005; 99284

== ENCOUNTER 2022-07-28 00:45 | Emergency (ER) | payer MEDICARE, OTHER ==
[~2022-07-28] VITALS: Ht 175.3 cm; Wt 72.6 kg
[2022-07-28] MEDS ORDERED: SODIUM CHLORIDE FLUSH 10 ML SYR IV PRN (01:33)
[2022-07-28 01:45] LABS: BASOPHILS # (AUTO) 0.1 (0.0-0.1); BASOPHILS % 0.9 % (0.0-1.0); EOSINOPHILS # (AUTO) 0.3 (0.0-0.4); EOSINOPHILS % 2.5 % (0.0-6.0); HEMATOCRIT 32.6 % (34.2-44.1); HEMOGLOBIN 9.8 g/dL (12.0-16.0); LYMPHOCYTES # (AUTO) 2.6 (1.0-3.2); MEAN CORPUSCULAR HEMOGLOBIN 23.6 pg (28-32); MEAN CORPUSCULAR HGB CONC 30.1 g/dL (31-35); MEAN CORPUSCULAR VOLUME 78.4 fL (81-99); MONOCYTES # (AUTO) 1.2 (0.2-0.8); NEUTROPHILS # (AUTO) 6.4 (2.1-6.9); NEUTROPHILS % 60.4 % (38.7-80.0); PLATELET COUNT 326 x10e3/uL (140-360); RED BLOOD COUNT 4.16 x10e6/uL (3.6-5.1); RED CELL DISTRIBUTION WIDTH 19.9 % (11.7-14.4)
[2022-07-28 01:47] LABS: CLARITY,URINE SL CLOUDY (CLEAR); COLOR,URINE YELLOW (YELLOW); KETONES,URINE NEGATIVE (NEGATIVE); LEUKOCYTE ESTERASE ,URINE SMALL (NEGATIVE); NITRITE,URINE NEGATIVE (NEGATIVE); PROTEIN,URINE DIPSTICK NEGATIVE (NEGATIVE); URINE UROBILINOGEN 0.2 mg/dL (0.2 - 1)
[2022-07-28 01:48] LABS: INR 1.1; PARTIAL THROMBOPLASTIN TIME 34.9 seconds (23.8-35.5); PROTHROMBIN TIME 14.4 seconds (11.9-14.5)
[2022-07-28 01:49] LABS: AMORPHOUS SEDIMENT,URINE MANY (FEW); BACTERIA,URINE FEW /HPF; EPITHELIAL CELLS,URINE RARE /LPF; RBC,URINE 0-5 /HPF (0-5)
[2022-07-28 01:57] LABS: ALBUMIN 3.4 g/dL (3.5-5.0); ALBUMIN/GLOBULIN RATIO 1.1 (0.8-2.0); ANION GAP 14.3 mmol/L (8-16); CALCIUM 9.9 mg/dL (8.4-10.2); CREATININE, SERUM 1.7 mg/dL (0.57-1.11); POTASSIUM 3.3 mmol/L (3.5-5.1)
[2022-07-28] MEDS ORDERED: POTASSIUM CHLORIDE 20 MEQ TAB CR PO STA (02:24)
== END 2022-07-28 04:45 ==
LOC: ER 01:12
DX: I48.91 Unspecified atrial fibrillation (principal); E87.6 Hypokalemia; I12.9 Hypertensive chronic kidney disease with stage 1 through stage 4 chronic kidney disease, or unspecified chronic kidney disease; N18.9 Chronic kidney disease, unspecified; I50.9 Heart failure, unspecified; E78.5 Hyperlipidemia, unspecified; R94.31 Abnormal electrocardiogram [ECG] [EKG]
CPT/HCPCS: 36415; 71045; 80053; 81001; 84484; 85025; 85610; 85730; 93005; 99284